=== PATIENT | female | born 1950 | race Caucasian/White ===

== ENCOUNTER 2019-08-15 09:14 | Outpatient (CLI) | payer MEDICARE, SELFPAY ==
[2019-08-15 09:51] LABS: Hematocrit 37.4 % (37.0-47.0); Hemoglobin 11.2 g/dL (12.0-15.0); Mean Corpuscular HGB Conc 29.9 g/dl (32-36); Mean Corpuscular Hemoglobin 26.4 pg (26-34); Mean Corpuscular Volume 88.2 fl (80-100); Mean Platelet Volume 10.2 fl (7.4-10.4); Platelet Count Result 239 k/mm3 (150-375); Red Blood Count 4.24 M/mm3 (4.2-5.4); White Blood Count 8.5 K/mm3 (4.5-10.0)
[2019-08-15 10:12] LABS: Alanine Aminotransferase 22 U/L (4-35); Albumin Level 4.6 g/dL (3.5-5.1); Alkaline Phosphatase 156 U/L (38-126); Aspartate Amino Transferase 43 U/L (14-36); Bilirubin,Total 0.9 mg/dL (0.2-1.3); Blood Urea Nitrogen 33 mg/dL (7-17); Carbon Dioxide 28 mmol/L (22-30); Chloride 96 mmol/L (98-107); Estimated Glomerular Filt Rate 41; Glucose 102 mg/dL (65-105); Potassium 4.9 mmol/L (3.4-5.0); Sodium 138 mmol/L (137-145)
== END 2019-08-15 09:15 | disposition home or self-care (01) ==
PROVIDERS: PCP Family Medicine; Visit Provider Family Medicine
DX: D64.9 Anemia, unspecified (principal); I50.23 Acute on chronic systolic (congestive) heart failure
CPT/HCPCS: 36415; 80053; 85027

== ENCOUNTER 2020-01-20 09:52 | Outpatient (CLI) | payer MEDICARE, SELFPAY ==
--- NOTE | ~2020-01-20 | XR_ITS ---
XR ankle LT min 3V DATE: 01/20/2020 10:35 INDICATION: Left ankle and foot pain TECHNIQUE: 4 views COMPARISON: None FINDINGS: Mild to moderate osteopenia is suggested. No fracture or dislocation of the ankle or disruption of the ankle mortise. No periosteal reaction or bone destruction. There is moderate plantar calcaneal enthesopathy. The arch of the foot is exaggerated. IMPRESSION: Mild to moderate osteopenia Plantar calcaneal enthesopathy Reviewed, dictated and finalized at location B.
--- NOTE | ~2020-01-20 | XR_ITS ---
XR foot LT min 3V DATE: 01/20/2020 10:35 INDICATION: Swelling and pain of the dorsum of the foot TECHNIQUE: 4 views COMPARISON: None FINDINGS: There is exaggeration of the arch of the foot. Moderate plantar calcaneal enthesopathy. Mild to moderate osteopenia. No fracture, dislocation, periosteal reaction or bone destruction is detected. IMPRESSION: Moderate plantar calcaneal enthesopathy Reviewed, dictated and finalized at location B.
[2020-01-20 10:36] LABS: Add Urine Microscopic? YES; Appearance Urine Clear (Clear); Bilirubin Urine Negative (Negative); Blood Urine Negative (Negative); Color Urine Yellow (Yellow); Glucose Urine UA Negative (Negative); Ketones Urine Negative (Negative); Leukocyte Esterase Ur Trace LEU/UL (NEGATIVE); Mucus Urine Rare /lpf; Nitrate Urine Negative (Negative); Protein Urine Negative (Negative); RBC Urine 0-2 /hpf (0-2); Specific Grav Ur 1.016 (1.001-1.035); Urobilinogen Urine Negative mg/dL (<2.0); WBC Urine 0-3 /hpf (0-3)
[2020-01-20 10:40] LABS: Alanine Aminotransferase 18 U/L (4-35); Albumin Level 4.4 g/dL (3.5-5.1); Alkaline Phosphatase 152 U/L (38-126); Anion Gap 15.2 mmol/L (7-16); Aspartate Amino Transferase 33 U/L (14-36); Bilirubin,Total 0.7 mg/dL (0.2-1.3); Blood Urea Nitrogen 44 mg/dL (7-17); Calcium 9.6 mg/dL (8.4-10.2); Carbon Dioxide 25 mmol/L (22-30); Chloride 103 mmol/L (98-107); Cholesterol 201 mg/dL (0-200); Estimated Glomerular Filt Rate 44; Glucose 109 mg/dL (65-105); HDL Direct 52 mg/dL; Potassium 5.2 mmol/L (3.4-5.0); Sodium 138 mmol/L (137-145); Triglycerides 202 mg/dL (<150); Uric Acid 9.5 mg/dL (2.5-7.5)
[2020-01-20 10:48] LABS: Erythrocyte Sedimentation Rate 52 mm/hr (0-20)
[2020-01-20 10:50] LABS: LDL Cholesterol Direct 105 mg/dL
[2020-01-20 11:05] LABS: Hematocrit 36.7 % (37.0-47.0); Hemoglobin 11.5 g/dL (12.0-15.0); Mean Corpuscular HGB Conc 31.3 g/dl (32-36); Mean Corpuscular Hemoglobin 27.7 pg (26-34); Mean Corpuscular Volume 88.4 fl (80-100); Mean Platelet Volume 10.1 fl (7.4-10.4); Platelet Count Result 253 k/mm3 (150-375); Red Blood Count 4.15 M/mm3 (4.2-5.4); Red Cell Distribution Width 13.8 % (11.5-14.5)
[2020-01-20 11:10] LABS: Vitamin D 25 Hydroxy 48.6 ng/mL
[2020-01-20 11:23] LABS: Thyroid Stimulating Hormone Reflex 0.149 uIU/mL (0.465-4.68)
[2020-01-20 12:34] LABS: Free T4 Free Thyroxine Reflex 1.43 ng/dL (0.78-2.19)
[2020-01-20 13:31] LABS: Total Triiodothyronine (T3) 1.09 NG/ML (0.97-1.69)
== END 2020-01-20 09:53 | disposition home or self-care (01) ==
PROVIDERS: PCP Family Medicine; Visit Provider Family Medicine
DX: E55.9 Vitamin D deficiency, unspecified (principal); E03.9 Hypothyroidism, unspecified; E78.2 Mixed hyperlipidemia; N18.3 Chronic kidney disease, stage 3 (moderate); M25.572 Pain in left ankle and joints of left foot; M79.672 Pain in left foot; D64.9 Anemia, unspecified; M77.32 Calcaneal spur, left foot; M77.31 Calcaneal spur, right foot; M85.872 Other specified disorders of bone density and structure, left ankle and foot
CPT/HCPCS: 36415; 73610; 73630; 80053; 80061; 81001; 82306; 84439; 84443; 84480; 84550; 85027; 85652

== ENCOUNTER 2021-02-01 10:03 | Outpatient (CLI) | payer MEDICARE, SELFPAY ==
--- NOTE | ~2021-02-01 | XR_ITS ---
XR knee LT 3V DATE: 02/01/2021 10:25 INDICATION: Left knee pain TECHNIQUE: [place], AP and lateral views COMPARISON: None FINDINGS: Diffuse osteopenia. No fracture or dislocation or joint effusion. No periosteal reaction or bone destruction. There is severe patellofemoral joint space narrowing and prominent spurring. There is mild periarticu lar spurring at the medial compartment. Medial and lateral compartment joint spaces appear relatively preserved. No radiopaque intra-articular loose body is evident. 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
--- NOTE | ~2021-02-01 | XR_ITS ---
XR knee RT 3V DATE: 02/01/2021 10:25 INDICATION: Bilateral knee pain. No injury. TECHNIQUE: [place], AP and lateral views COMPARISON: None FINDINGS: There is patellofemoral joint replacement. Diffuse osteopenia. No fracture or dislocation, periosteal reaction or bone destruction. There is periarticular spurring at the medial and lateral compartments and subtle chondrocalcinosis. IMPRESSION: Patellofemoral joint replacement Osteoarthritis of mild to moderate degree at the medial and lateral compartments Subtle chondrocalcinosis Diffuse osteopenia Reviewed, dictated and finalized at location B. IMPRESSION: Patellofemoral joint replacement Osteoarthritis of mild to moderate degree at the medial and lateral compartment s Subtle chondrocalcinosis Diffuse osteopenia
== END 2021-02-01 10:04 | disposition home or self-care (01) ==
LOC: ANHIMG 10:06
PROVIDERS: PCP Family Medicine; Visit Provider Family Medicine
DX: M25.569 Pain in unspecified knee (principal); M85.862 Other specified disorders of bone density and structure, left lower leg; M85.861 Other specified disorders of bone density and structure, right lower leg; M17.0 Bilateral primary osteoarthritis of knee; M11.262 Other chondrocalcinosis, left knee; M11.261 Other chondrocalcinosis, right knee
CPT/HCPCS: 73562

== ENCOUNTER 2021-02-08 09:04 | Outpatient (CLI) | payer MEDICARE, SELFPAY ==
[2021-02-08 14:57] LABS: Add Urine Microscopic? YES; Appearance Urine Cloudy (Clear); Bacteria Urine Trace /hpf; Bilirubin Urine Negative (Negative); Blood Urine Negative (Negative); Color Urine Amber (Yellow); Glucose Urine UA Negative (Negative); Ketones Urine Negative (Negative); Leukocyte Esterase Ur 3+ LEU/UL (NEGATIVE); Mucus Urine Rare /lpf; Nitrate Urine Negative (Negative); Protein Urine 2+ mg/dL (Negative); Specific Grav Ur 1.018 (1.001-1.035); Squamous Epithelial Cell Urine Rare /hpf (Few); Urobilinogen Urine Negative mg/dL (<2.0); WBC Urine >75 /hpf (0-3)
[2021-02-08 15:05] LABS: Anion Gap 12 mmol/L (8-16); Blood Urea Nitrogen 24 mg/dL (7-17); Calcium 9.4 mg/dL (8.4-10.2); Carbon Dioxide 17 mmol/L (22-30); Chloride 105 mmol/L (98-107); Estimated Glomerular Filt Rate 37; Glucose 128 mg/dL (65-110); Potassium 5.1 mmol/L (3.4-5.0); Sodium 134 mmol/L (137-145)
== END 2021-02-08 09:05 | disposition home or self-care (01) ==
PROVIDERS: PCP Family Medicine; Visit Provider Family Medicine
DX: N18.9 Chronic kidney disease, unspecified (principal)
CPT/HCPCS: 36415; 80048; 81001

== ENCOUNTER 2021-06-19 08:35 | Outpatient (CLI) | payer MEDICARE, SELFPAY ==
[2021-06-19 09:25] LABS: Hematocrit 37.6 % (37.0-47.0); Hemoglobin 11.4 g/dL (12.0-15.0); Mean Corpuscular HGB Conc 30.3 g/dl (32-36); Mean Corpuscular Hemoglobin 27.7 pg (26-34); Mean Corpuscular Volume 91.5 fl (80-100); Mean Platelet Volume 11.4 fl (7.4-10.4); Platelet Count Result 239 k/mm3 (150-375); Red Blood Count 4.11 M/mm3 (4.2-5.4); Red Cell Distribution Width 17.7 % (11.5-14.5); White Blood Count 7.9 K/mm3 (4.5-10.0)
[2021-06-19 09:32] LABS: Alanine Aminotransferase 18 U/L (4-35); Albumin Level 4.7 g/dL (3.5-5.1); Alkaline Phosphatase 159 U/L (38-126); Anion Gap 15 mmol/L (8-16); Aspartate Amino Transferase 31 U/L (14-36); Bilirubin,Total 1.2 mg/dL (0.2-1.3); Blood Urea Nitrogen 36 mg/dL (7-17); Calcium 9.6 mg/dL (8.4-10.2); Carbon Dioxide 23 mmol/L (22-30); Chloride 102 mmol/L (98-107); Estimated Glomerular Filt Rate 37; Glucose 131 mg/dL (65-110); Magnesium 2.4 mg/dL (1.6-2.3); Potassium 4.3 mmol/L (3.4-5.0); Sodium 140 mmol/L (137-145)
[2021-06-19 09:38] LABS: Hemoglobin A1C 6.8 % (<5.7)
== END 2021-06-19 08:36 | disposition home or self-care (01) ==
PROVIDERS: PCP Family Medicine; Visit Provider Family Medicine
DX: D64.9 Anemia, unspecified (principal); N18.30 Chronic kidney disease, stage 3 unspecified; R73.09 Other abnormal glucose; Z51.81 Encounter for therapeutic drug level monitoring; Z79.899 Other long term (current) drug therapy
CPT/HCPCS: 36415; 80053; 83036; 83735; 85027

== ENCOUNTER 2021-12-20 15:44 | Inpatient (IN) | payer MEDICARE, SELFPAY ==
[2021-12-20] VITALS (8 sets, daily range): BP systolic 109–131; BP diastolic 59–70; PULSE 98–114; RESP 18–22; TEMP 36.7–36.9; O2SAT 94–100; BMI 27.0
--- NOTE | ~2021-12-20 | CT_ITS ---
EXAMINATION: CT abdomen pelvis wo con DATE: 12/20/2021 18:37 INDICATION: Abdominal pain and shortness of breath TECHNIQUE: Computed tomography (CT) of the abdomen and pelvis was performed without intravenous contr ast. The dose-length product (DLP) was 685.34 mGy-cm. Automated exposure control and iterative recons truction technique were employed. COMPARISON: 12/07/2013 FINDINGS: Minimal dependent atelectasis is present in the lung bases. There is mild interlobular sept al thickening in the visualized lung bases. Cardiomegaly is noted. There is a moderate volume of asci marga. The gallbladder is surgically absent. Within the limitations of noncontrast examination, the dirk er, spleen, pancreas, and adrenal glands are normal. There are areas of scarring in the kidneys. Ther e is calcified atherosclerosis of the aorta and many of the other arteries. No pathologically enlarge d abdominal or pelvic lymph nodes are identified. There is a chronic 3.5 cm soft tissue density mass of the left pelvis with decrease in size since the prior examination. There is severe lumbar spondylo sis. IMPRESSION: 1. Cardiomegaly with likely mild pulmonary edema. 2. Moderate volume of ascites. Reviewed, dictated and finalized at location F.
--- NOTE | ~2021-12-20 | XR_ITS ---
EXAMINATION: XR chest 2V DATE: 12/20/2021 16:22 INDICATION: Shortness of breath. Water retention. TECHNIQUE: PA and lateral views of the chest were obtained. COMPARISON: Chest radiograph dated 09/09/2018 FINDINGS: Cardiomegaly. Mild increased interstitial pattern in the lower lung zones consistent with mild pulmon boyd edema. No pleural effusion or pneumothorax. Unchanged mild T12 compression fracture. IMPRESSION: 1. Likely congestive heart failure with cardiomegaly and mild pulmonary edema in the lower lung zones . Reviewed, dictated and finalized at location B. IMPRESSION: 1. Likely congestive heart failure with cardiomegaly and mild pulmonary edema i n the lower lung zones.
--- NOTE | 2021-12-20 15:56 | ECG_ITS ---
Measurements Intervals [place] Rate: 107 P: [place]: 0 QRS: 130 QRSD: 117 T: 34 QT: 368 QTc: 492 Interpretive Statements ATRIAL FIBRILLATION WITH RAPID VENTRICULAR RESPONSE LOW QRS VOLTAGE IN EXTREMITY LEADS [QRS DEFLECTION < 0.5 mV IN LIMB LEADS] INTRAVENTRICULAR CONDUCTION ABNORMALITY] COMPARED TO ECG 08/30/2018 15:10:26 NO CHANGES ARE NOTED Electronically Signed On 12-20-2021 16:58:15 CDT by Fadi Felder M.D.
[2021-12-20 16:09] LABS: Basophils Absolute Auto 0.1 K/mm3 (0.0-0.1); Basophils Percent Auto 0.5 % (0.2-1.2); Eosinophils Absolute Auto 0.1 K/mm3 (0-0.3); Hematocrit 45.8 % (37.0-47.0); Hemoglobin 14.1 g/dL (12.0-15.0); Immature Granulocyte Absolute 0.04 K/mm3 (0.00-0.031); Immature Granulocyte Percent A 0.4 % (0-0.5); Lymphocytes Absolute Auto 0.44 K/mm3 (0.9-3.2); Mean Corpuscular HGB Conc 30.8 g/dl (32-36); Mean Corpuscular Hemoglobin 29.6 pg (26-34); Mean Corpuscular Volume 96.2 fl (80-100); Mean Platelet Volume 10.4 fl (7.4-10.4); Monocytes Absolute Auto 0.5 K/mm3 (0.1-0.6); Monocytes Percent Auto 4.7 % (2.6-8.5); Neutrophils Absolute Auto 9.8 K/mm3 (1.3-6.7); Neutrophils Percent Auto 89.4 % (45.5-73.1); Platelet Count Result 228 k/mm3 (150-375); Red Blood Count 4.76 M/mm3 (4.2-5.4); Red Cell Distribution Width 16.5 % (11.5-14.5)
[2021-12-20 16:20] LABS: Alanine Aminotransferase 23 U/L (6-35); Albumin Level 4.5 g/dL (3.5-5.1); Alkaline Phosphatase 276 U/L (38-126); Anion Gap 12 mmol/L (8-16); Aspartate Amino Transferase 49 U/L (14-36); Bilirubin,Total 1.5 mg/dL (0.2-1.3); Blood Urea Nitrogen 27 mg/dL (7-17); Calcium 9.3 mg/dL (8.4-10.2); Carbon Dioxide 20 mmol/L (22-30); Chloride 105 mmol/L (98-107); Estimated CRCL calculation 38 ml/min; Estimated Glomerular Filt Rate 44; Glucose 133 mg/dL (65-110); Potassium 4.8 mmol/L (3.4-5.0); Sodium 137 mmol/L (137-145)
[2021-12-20 16:26] LABS: Ovalocytes 1+ (NORMAL); Platelet Estimate Adequate (Adequate)
[2021-12-20 18:16] LABS: Appearance Urine Clear (Clear); Bilirubin Urine 1+ (Negative); Blood Urine Trace-lysed (Negative); Color Urine Yellow (Yellow); Glucose Urine UA Negative (Negative); Ketones Urine Negative (Negative); Leukocyte Esterase Ur Trace LEU/UL (Negative); Nitrate Urine Negative (Negative); Protein Urine 1+ mg/dL (Negative); Urobilinogen Urine 0.2 mg/dL (<2.0)
[2021-12-20 18:20] LABS: Add Urine Microscopic? YES; Bacteria Urine Trace /hpf; Hyaline Casts Urine 30-49 /lpf; Mucus Urine Rare /lpf; RBC Urine 0-2 /hpf (0-2); Squamous Epithelial Cell Urine Few /hpf (Few)
[2021-12-20 18:55] LABS: Lipase 21 U/L (23-300); Magnesium 2.2 mg/dL (1.6-2.3)
[2021-12-20 19:08] LABS: NT Pro B Type Natriuretic Pept 16900 pg/mL (5-100); Troponin I 0.022 ng/mL (0.000-0.034)
--- NOTE | 2021-12-20 19:11 | ED.GENADULT ---
HPI - General Adult General Chief complaint: Shortness of Breath/Dyspnea Stated complaint: sob Time Seen by Provider: 12/20/21 17:07 Source: RN notes reviewed History of Present Illness HPI narrative: Patient presents emergency department from PCPs office for shortness of breath. Patient states she is seen by her PCP approximately a week ago was diagnosed with CHF at that time she was told to increase her Lasix from once a day to twice a day however she did not want to do that as she has had a history of kidney issues in the past she states that since that time she has been having increased swelling as well as shortness of breath worse with exertion she states that she has had an 18 pound weight gain over the past 2 weeks. Patient states she does have a history of atrial fibrillation and CHF she is followed by Dr. Rudd but has been being seen by her PCP Dr. Blanc. States that she had been on a course of Cipro for a UTI and had been constipated but is now on MiraLAX has been having numerous episodes of diarrhea she denies any fevers or chills or any other symptoms Related Data Home Medications Medication Instructions Recorded Confirmed cholecalciferol (vitamin D3) 10 400 unit PO DAILY 05/10/19 12/09/21 mcg (400 unit) capsule cyanocobalamin (vitamin B-12) 500 500 mcg PO DAILY 12/09/21 12/09/21 mcg chewable tablet Allergies Allergy/AdvReac Type Severity Reaction Status Date / Time cefuroxime Allergy Unknown Unknown Verified 12/20/21 18:12 ezetimibe Allergy Unknown Unknown Verified 12/20/21 18:12 simvastatin Allergy Unknown Unknown Verified 12/20/21 18:12 Sulfa (Sulfonamide Allergy Unknown Unknown Verified 12/20/21 18:12 Antibiotics) sulfanilamide Allergy Unknown Unknown Verified 12/20/21 18:12 Review of Systems Review of Systems: Gen.: Denies fevers or chills ENT: Denies congestion Respiratory: Ports shortness of breath CV: Denies chest pain or palpitations GI: Denies abdominal pain nausea, emesis reports diarrhea denies burning, urgency, frequency or hematuria Musculoskeletal: Denies back pain or muscle pain Neuro: Denies numbness, tingling, weakness or focal weakness Skin: Denies rash Except as documented, all other systems reviewed and negative PMFSH Past Medical History Medical History Acute on chronic renal insufficiency Age-related osteoporosis with current pathological fracture Allergic rhinitis Anemia Asthma, mild intermittent Breast cancer Cardiomyopathy Chronic congestive heart failure Chronic renal insufficiency, stage III (moderate) Closed wedge compression fracture of thoracic vertebra with routine healing Coronary artery disease Depression Elevated glucose H/O malignant neoplasm of breast H/O: gout Hypomagnesemia Hypothyroidism Mild intermittent asthma with exacerbation Mixed hyperlipidemia Osteopenia Other hyperlipidemia Paroxysmal atrial fibrillation Peripheral vascular disease Post-polio syndrome Prediabetes Severe episode of recurrent major depressive disorder, without psychotic features Thyroid disease Vitamin D deficiency Surgical History Surgical History History of cardiac cath History of knee replacement History of partial hysterectomy Hx of colonoscopy Family History Family History Father Hypertension Family history of kidney disease Sibling Hypertension Family history of elevated blood lipids Other Cerebrovascular accident Diabetes mellitus Social History Social History Smoking status: Never smoker Second hand tobacco smoke exposure: No Alcohol intake: never Substance use: never Substance use type: does not use Gender identity (if verbalized by the patient): Female Sexual Orientation (if Verbalized by the Patient): Str
[2021-12-20 19:15] LABS: INR 1.5; Prothrombin Time 17.3 Seconds (11.1-14.7)
[2021-12-20 19:16] LABS: Partial Thromboplastin Time 37.6 SECONDS (22.3-36.8)
--- NOTE | 2021-12-20 19:33 | PM.IMHP ---
H&P: HPI History of Present Illness Date/Time: 12/20/21 19:33 Chief Complaint: Shortness of breath Narrative: This is a 71-year-old female with past medical history significant for atrial fibrillation, rate controlled and anticoagulated, congestive heart failure, chronic kidney disease. Patient presents to the emergency room due to the worsening of shortness of breath, which is present not only with exertion but now at rest as well increases abdominal girth, worsening bilateral lower extremity edema, shortness of breath, PND, cough productive of clear phlegm, no chest pain, no palpitations, no dizziness, no syncope, no near syncope, no fevers, no rigors, no chills. Preliminary workup was significant for brain natriuretic peptide 16,000 chest x-ray with pulmonary edema. Patient has been admitted for further evaluation, management and treatment. Review of Systems Review of Systems: Shortness of breath, cough, bilateral lower extremity swelling, weight gain, increased abdominal girth. Constitutional: Constitutional: Denies chills, Reports fatigue, Denies fever(s) and Reports lethargy Eyes: Eyes: Denies change in vision Cardiovascular: Cardiovascular: Denies chest pain, Denies syncope, Reports edema, Denies lightheadedness, Denies palpitations, Reports dyspnea and Reports dyspnea on exertion Respiratory: Respiratory: Reports cough and Reports excessive phlegm production Gastrointestinal: Gastrointestinal: Denies abdominal pain, Denies dyspepsia, Denies heartburn and Reports diarrhea Genitourinary: Genitourinary: Denies dysuria Musculoskeletal: Musculoskeletal: Reports muscle weakness Integumentary/Breasts: Skin/Breast: Denies rash Neurologic: Denies focal weakness and Denies Sensory deficit (Neuro) Psychiatric: Psychiatric: Reports no additional psychiatric complaints and Reports as per HPI Endocrine: Endocrine: Denies cold intolerance, Denies fatigue, Denies flushing, Denies heat intolerance, Denies polyphagia, Denies polydipsia and Denies palpitations Hematologic/Lymphatic: Hematologic/Lymphatic: Reports no additional hematologic/lymphatic complaints and Reports as per HPI Allergic/Immunologic: Allergic/Immunologic: Reports no additional allergic/immunologic complaints and Reports as per HPI PMFSH Past Medical History Medical History (Updated 12/21/21 @ 02:15 by Orlando Hector MD) Acute on chronic renal insufficiency Age-related osteoporosis with current pathological fracture Allergic rhinitis Anemia Asthma, mild intermittent Breast cancer Cardiomyopathy Chronic congestive heart failure Chronic renal insufficiency, stage III (moderate) Closed wedge compression fracture of thoracic vertebra with routine healing Coronary artery disease Depression Elevated glucose H/O malignant neoplasm of breast H/O: gout Hypomagnesemia Hypothyroidism Mild intermittent asthma with exacerbation Mixed hyperlipidemia Osteopenia Other hyperlipidemia Paroxysmal atrial fibrillation Peripheral vascular disease Post-polio syndrome Prediabetes Severe episode of recurrent major depressive disorder, without psychotic features Thyroid disease Vitamin D deficiency Surgical History Surgical History History of cardiac cath History of knee replacement History of partial hysterectomy Hx of colonoscopy Family History Family History Father Hypertension Family history of kidney disease Sibling Hypertension Family history of elevated blood lipids Other Cerebrovascular accident Diabetes mellitus Social History Social History Smoking packs per day: 1 Smoking cigarettes per day: 20.0 Years smoked: 40 Smoking pack-years: 40.00 Smoking status: Former smoker Tobacco type: cigarettes Second hand tobacco smoke exposure: No Smoking end date: 12/20/96
[2021-12-20] MEDS: FUROSEMIDE INJ 40 MG/4 ML VIAL IV PUSH (19:50)
--- NOTE | 2021-12-20 20:25 | ADMGEN ---
This patient, Jyotsna Allred, was admitted to Medical Room 252-01. Patient/family oriented to hospital policies and general routines including ID bracelet, bed and alarms, visiting hours, pain management, procedures, bathroom and other care routines, personal items, smoking policy, room service/diet, and visiting hours. Information on how to activate the Rapid Response Team has been discussed. Patient/Family are encouraged to report perceived risks to care and to ask questions if they do not understand what they are told or what they should do.
--- NOTE | 2021-12-20 20:55 | ECG_ITS ---
Measurements Intervals [place] Rate: 106 P: [place]: 0 QRS: 101 QRSD: 120 T: 0 QT: 381 QTc: 508 Interpretive Statements ATRIAL FIBRILLATION WITH RAPID VENTRICULAR RESPONSE INTRAVENTRICULAR CONDUCTION DELAY COMPARED TO ECG 12/20/2021 15:54:33 NO SIGNIFICANT CHANGE Electronically Signed On 12-21-2021 7:52:18 CDT by Fadi Felder M.D.
[2021-12-20] MEDS: LOPERAMIDE HCL 2 MG CAPSULE PO ×2 (22:07→23:11)
[2021-12-20] MEDS: METOPROLOL TARTRATE 25 MG TABLET PO (23:10)
[2021-12-20 23:17] LABS: Troponin I 0.025 ng/mL (0.000-0.034)
[2021-12-21] VITALS (10 sets, daily range): BP systolic 107–115; BP diastolic 58–72; PULSE 84–107; RESP 17–18; TEMP 36.6–37; O2SAT 96–98
--- NOTE | 2021-12-21 | ECHO_ITS ---
Patient Info Name: Jyotsna Allred Age: 71 years : 1950 Gender: Female Ht: 68 in Wt: 177 lbs BSA: 1.98 m2 HR: 79 bpm BP: 107 / 58 mmHg Heart Rhythm: Atrial Fibrillation Technical Quality: Good Exam Date: 12/21/2021 8:49 AM Exam Location: [facility] Patient Status: Outpatient Admit Date: 12/20/2021 Staff Ordering Physician: Orlando Hector MD News Commentator: Devi Morris RDCS Attending Provider: Kimberly James PA-C Referring Physician: Krunla HUFF; Exam Type: CA echo doppler color flow Study Info Indications I50.20 - Unspecified systolic (congestive) heart failure Complete two-dimensional, color flow and Doppler transthoracic echocardiogram is performed. Summary 1. Complete two-dimensional, color flow and Doppler transthoracic echocardiogram is performed. 2. Left ventricular chamber dimension is moderately enlarged. 3. Left ventricular systolic function is severely reduced, estimated at 25-30%. 4. Severe biatrial dilation. 5. Moderate mitral and tricuspid regurgitation. 6. Mild aortic regurgitation. 7. Atrial fibrillation. Left Ventricle Left ventricular chamber dimension is moderately enlarged. Left ventricular systolic function is severely reduced, estimated at 25-30%. The left ventricular diastolic function is abnormal. Right Ventricle Right ventricular chamber dimension is mildly enlarged. Left Atria Left atrial chamber dimension is severely enlarged. Right Atria Right atrial chamber dimension is severely enlarged. Aortic Valve The aortic valve is trileaflet. There is mild aortic valve sclerosis. There is mild aortic valve regurgitation. Pulmonic Valve The pulmonic valve is not well visualized. Mitral Valve The mitral valve has normal leaflets. There is moderate mitral valve regurgitation. Tricuspid Valve The tricuspid valve leaflets are normal. There is moderate tricuspid valve regurgitation. Pericardium/Pleural The pericardium appears normal. Inferior Vena Cava Dilated inferior vena cava with <50% collapse upon inspiration consistent with Empty right atrial pressure, Empty. Aorta The aortic root size at the sinus of Valsalva is normal. Left Ventricular Outflow Tract Name Value Normal LVOT 2D LVOT Diameter 1.9 cm LVOT Doppler LVOT Peak Gradient 2 mmHg LVOT Mean Gradient 1 mmHg LVOT VTI 14 cm LVOT VTI/AV VTI Ratio 0.4 LVOT Stroke Volume 40 ml LVOT CO 3.7 l/min LVOT CI 1.9 l/min/m2 Pulmonic Valve Name Value Normal PV Doppler PV Peak Gradient 3 mmHg Mitral Valve Name
[2021-12-21 05:45] LABS: Basophils Absolute Auto 0.1 K/mm3 (0.0-0.1); Basophils Percent Auto 0.6 % (0.2-1.2); Eosinophils Absolute Auto 0.2 K/mm3 (0-0.3); Hematocrit 38.8 % (37.0-47.0); Hemoglobin 12.4 g/dL (12.0-15.0); Immature Granulocyte Absolute 0.03 K/mm3 (0.00-0.031); Immature Granulocyte Percent A 0.4 % (0-0.5); Mean Corpuscular Hemoglobin 29.9 pg (26-34); Mean Corpuscular Volume 93.5 fl (80-100); Mean Platelet Volume 11.4 fl (7.4-10.4); Monocytes Absolute Auto 0.6 K/mm3 (0.1-0.6); Monocytes Percent Auto 6.8 % (2.6-8.5); Neutrophils Percent Auto 84.2 % (45.5-73.1); Platelet Count Result 211 k/mm3 (150-375); Red Blood Count 4.15 M/mm3 (4.2-5.4); Red Cell Distribution Width 16.2 % (11.5-14.5); White Blood Count 8.4 K/mm3 (4.5-10.0)
[2021-12-21 05:52] LABS: Alanine Aminotransferase 19 U/L (6-35); Albumin Level 3.6 g/dL (3.5-5.1); Alkaline Phosphatase 210 U/L (38-126); Anion Gap 9 mmol/L (8-16); Aspartate Amino Transferase 48 U/L (14-36); Bilirubin,Total 1.1 mg/dL (0.2-1.3); Blood Urea Nitrogen 26 mg/dL (7-17); Calcium 8.5 mg/dL (8.4-10.2); Carbon Dioxide 19 mmol/L (22-30); Chloride 107 mmol/L (98-107); Estimated CRCL calculation 41 ml/min; Estimated Glomerular Filt Rate 49; Glucose 89 mg/dL (65-110); Potassium 4.2 mmol/L (3.4-5.0); Sodium 135 mmol/L (137-145)
[2021-12-21] MEDS: LEVOTHYROXINE SODIUM 125 MCG TABLET PO (05:54)
[2021-12-21 09:27] LABS: Troponin I 0.019 ng/mL (0.000-0.034)
[2021-12-21] MEDS: FUROSEMIDE INJ 100 MG/10 ML VIAL 80 MG IV PUSH ×2 (09:33→17:02)
[2021-12-21] MEDS: allopurinoL 100 MG TABLET PO (09:33)
[2021-12-21] MEDS: METOPROLOL SUCCINATE EXT REL 100 MG TABCR PO (09:34)
[2021-12-21] MEDS: SPIRONOLACTONE 25 MG TABLET PO (09:34)
[2021-12-21] MEDS: FERROUS SULFATE 324 MG TABLET PO (09:34)
[2021-12-21] MEDS: PANTOPRAZOLE 40 MG TABLET PO (09:34)
[2021-12-21] MEDS: CYANOCOBALAMIN 500 MCG TABLET PO (09:34)
[2021-12-21] MEDS: lamoTRIgine 100 MG TABLET PO (09:34)
[2021-12-21] MEDS: CHOLECALCIFEROL 400 UNITS TABLET (VIT D) PO (09:34)
[2021-12-21] MEDS: LOPERAMIDE HCL 2 MG CAPSULE PO (11:23)
--- NOTE | 2021-12-21 14:21 | PM.IMPN ---
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 Kemp <ALEXANDRA BlancoC - Last Filed: 12/21/21 14:35> (2) Paroxysmal atrial fibrillation: Code(s): I48.0 - Paroxysmal atrial fibrillation <CLIFFORD Blanco-C - Last Filed: 12/21/21 14:35> Status: Acute <CLIFFORD Blanco-C - Last Filed: 12/21/21 14:35> Assessment and Plan: Continue metoprolol and xarelto <CLIFFORD Blanco-C - Last Filed: 12/21/21 14:35> (3) Chronic renal insufficiency, stage III (moderate): Code(s): N18.3 - Chronic kidney disease, stage 3 (moderate) <CLIFFORD Blanco-C - Last Filed: 12/21/21 14:35> Status: Acute <KimberlyCLIFFORD Blackman-C - Last Filed: 12/21/21 14:35> Assessment and Plan: At baseline, monitor closely with the increase of diuretics <ALEXANDRA BlancoC - Last Filed: 12/21/21 14:35> (4) Essential hypertension: Code(s): I10 - Essential (primary) hypertension <ALEXANDRA BlancoC - Last Filed: 12/21/21 14:35> Status: Acute <Kimberly James PA-C - Last Filed: 12/21/21 14:35> Assessment and Plan: Continue home meds Continue to monitor <Kimberly James PA-C - Last Filed: 12/21/21 14:35> (5) Cardiomyopathy: Code(s): I42.9 - Cardiomyopathy, unspecified <Kimberly James PA-C - Last Filed: 12/21/21 14:35> Status: Acute <Kimberlyshen James PA-C - Last Filed: 12/21/21 14:35> Assessment and Plan: last bp 109/66 <Kimberly James PA-C - Last Filed: 12/21/21 14:35> Assessment and Plan: non gap acidosis which is waxing and waning. diuretics? but this was also noted on admission as well as 02/08/21. monitor while on diuretics <Kimberly James PA-C - Last Filed: 12/21/21 14:35> Time Spent With Patient Time with patient: 25 - 35 minutes <Kimberly James PA-C - Last Filed: 12/21/21 14:35> Subjective Date/time seen: 12/21/21 14:21 <Kimberly James PA-C - Last Filed: 12/21/21 14:35> Interval history: Pt is a 71 year old female here for CHF. Patient states that she is feeling better. She has no shortness of breath or dyspnea on exertion. She says her swelling is better in her lower extremities but is still pretty swollen. They have been like this for 3 weeks. She denies lightheadedness, chest pain, dizziness or heart palpitations. <Kimberly James PA-C - Last Filed: 12/21/21 14:35> Review of Systems Review of Systems: All systems reviewed & are unremarkable except as noted in HPI and below <Kimberly James PA-C - Last Filed: 12/21/21 14:35> Exam Narrative: General: Well developed well nourished patient in NAD resting in bed in NAD HEENT: normocephalic Neck: supple Neuro: Alert and oriented x4 CV:irregularly irregular Resp:crackles, bilaterally Abd: Soft, non distended. No pain to palpation. Positive bowel sounds Extremities: 3+ pitting edema up to the knee bilaterally <Kimberly James PA-C - Last Filed: 12/21/21 14:35> Objective Data Vital Signs Vital Signs: Vital Signs - 24 hr 12/20/21 15:52 12/20/21 17:58 12/20/21 17:58 Temperature 98.4 F Pulse Rate 103 H 98 105 H Respiratory Rate 18 19 Blood Pressure 124/59 L 118/66 Pulse Oximetry 100
[2021-12-21] MEDS: RIVAROXABAN 20 MG TABLET PO (20:22)
[2021-12-21] MEDS: ROSUVASTATIN 10 MG TABLET 40 MG PO (20:23)
[2021-12-21] MEDS: SERTRALINE HCL 50 MG TABLET 150 MG PO (20:23)
[2021-12-22] VITALS (10 sets, daily range): BP systolic 100–111; BP diastolic 59–67; PULSE 80–104; RESP 17–20; TEMP 36.2–36.6; O2SAT 97–98
[2021-12-22 05:52] LABS: Anion Gap 6 mmol/L (8-16); Blood Urea Nitrogen 27 mg/dL (7-17); Calcium 8.5 mg/dL (8.4-10.2); Carbon Dioxide 20 mmol/L (22-30); Chloride 107 mmol/L (98-107); Estimated CRCL calculation 41 ml/min; Estimated Glomerular Filt Rate 49; Glucose 91 mg/dL (65-110); Magnesium 1.8 mg/dL (1.6-2.3); Potassium 4.2 mmol/L (3.4-5.0); Sodium 133 mmol/L (137-145)
[2021-12-22] MEDS: CHOLECALCIFEROL 400 UNITS TABLET (VIT D) PO (08:59)
[2021-12-22] MEDS: CYANOCOBALAMIN 500 MCG TABLET PO (08:59)
[2021-12-22] MEDS: lamoTRIgine 100 MG TABLET PO (08:59)
[2021-12-22] MEDS: FUROSEMIDE INJ 100 MG/10 ML VIAL 80 MG IV PUSH ×2 (08:59→16:57)
[2021-12-22] MEDS: FERROUS SULFATE 324 MG TABLET PO (08:59)
[2021-12-22] MEDS: SPIRONOLACTONE 25 MG TABLET PO (08:59)
[2021-12-22] MEDS: allopurinoL 100 MG TABLET PO (08:59)
[2021-12-22] MEDS: PANTOPRAZOLE 40 MG TABLET PO (08:59)
[2021-12-22] MEDS: METOPROLOL SUCCINATE EXT REL 100 MG TABCR PO (08:59)
--- NOTE | 2021-12-22 10:53 | PM.CNCAR ---
Assessment and Plan Assessment and plan (1) CHF (congestive heart failure): Code(s): I50.9 - Heart failure, unspecified Status: Acute (2) Chronic atrial fibrillation: Code(s): I48.20 - Chronic atrial fibrillation, unspecified Status: Acute (3) Mitral regurgitation: Code(s): I34.0 - Nonrheumatic mitral (valve) insufficiency Status: Acute Plan This is a 71-year-old woman with chronic left ventricular systolic dysfunction, chronic mitral regurgitation and chronic atrial fibrillation. She presents to the hospital apparent with 2 with some increasing lower extremity edema. He is not really reporting significant dyspnea. There are some mild rales on physical exam as described above. I would recommend transitioning her from lisinopril to Entresto as her vaso dilator of choice. She has been on Entresto in the past the reasons for stopping it are not well delineated in the chart. I will make that change starting tomorrow since she is on a very small dose of lisinopril. The patient's ejection fraction in the past has been even lower than we are seeing now. It may well be this patient has waited too long to consider mitral valve intervention as she has had this valvular heart disease for many years according to the chart and it left ventricular function has been slowly declining. In addition to this her DNR status would now preclude any aggressive management of her valvular heart disease in my opinion Fadi Felder MD [facility] History of Present Illness History of Present Illness Consult date/time: 12/22/21 10:53 Consult reason: congestive heart failure Reason For Visit: CHF Narrative: This is a 71-year-old woman I am seeing today at the request of the hospitalist for assistance with the management of congestive heart failure. The patient has a history of left ventricular systolic dysfunction, chronic atrial fibrillation and valvular heart disease and follows with my partner Dr. Rudd. The patient came into the hospital couple of days ago with some increasing lower extremity edema and apparently some mild shortness of breath. Her principal concern was because of leg edema. She has been treated with some IV furosemide and is noticing some improvement. It is not clear to me if our office was consulted to consider treating this as an outpatient rather than hospitalizing her since she does not seem to be reporting significant dyspnea. In any event because of her echocardiographic findings I have been asked to see her today. She has a longstanding history of a cardiomyopathy that has been attributed to previous chemotherapy many years ago. 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 She has chronic atrial fibrillation on the basis of this as well as mitral valve regurgitation. Over the years she has had a number of echocardiograms as 1 would expect. She has had ejection fractions as high as 45% and as low as 20-25% in 2019. She is not known to have any coronary artery disease. In this setting she is being seen in consultation. Her echocardiogram that was done yesterday demonstrates moderate LV dilation with an ejection fraction of 25-30% she has severe biatrial dilation and moderate mitral and tricuspid valve regurgitation. In the office on a number of occasions the patient has spoken with my partner about mitral valve procedural treatment with mitral valve repair. Transesophageal echocardiogram was discussed and recommended to her but she declined to proceed with any of that. She does have DNR orders on her chart now. Her primary care physician is Dr. Dexter who also is actively managing her heart failure. Her current heart failure regimen includes furosemide 40 mg b.i.d., lisinopril 2.5 mg daily metoprolol 100 mg daily and Xarelto 20 mg daily. She also takes spironolactone 25 mg daily. Review of Systems Constitutional: Constitutional: Reports lethargy Eye
--- NOTE | 2021-12-22 11:37 | PM.IMPN ---
Progress Note: A&P Assessment and Plan (1) Acute on chronic systolic CHF (congestive heart failure), NYHA class 1: Code(s): I50.23 - Acute on chronic systolic (congestive) heart failure Status: Acute Assessment and Plan: HFrEF-Echo shows EF has worsened from 25-30%, down from 45% back in november 2019 -Continue IV lasix (currently on lasix 80mg BID IV per chairman and chief executive officer) -Consider adding entresto, will need to stop lisinopril if cardiology agrees with entresto -Continue metoprolol succinate, spironolactone and lasix and consider adding sgl2 and -will consult cardiology, pt usually sees Dr. 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 (2) Paroxysmal atrial fibrillation: Code(s): I48.0 - Paroxysmal atrial fibrillation Status: Acute Assessment and Plan: Continue metoprolol and xarelto (3) Chronic renal insufficiency, stage III (moderate): Code(s): N18.3 - Chronic kidney disease, stage 3 (moderate) Status: Acute Assessment and Plan: At baseline, monitor closely with the increase of diuretics (4) Essential hypertension: Code(s): I10 - Essential (primary) hypertension Status: Acute Assessment and Plan: Continue home meds Continue to monitor (5) Cardiomyopathy: Code(s): I42.9 - Cardiomyopathy, unspecified Status: Acute Assessment and Plan: last bp 109/66 Plan non gap acidosis which is waxing and waning. diuretics? but this was also noted on admission as well as 02/08/21. monitor while on diuretics Subjective Date/time seen: 12/22/21 11:37 12/21 2021 nterval history HFrEF-Echo shows EF has worsened from 25-30%, down from 45% back in november 2019 -Continue IV lasix (currently on lasix 80mg BID IV per chairman and chief executive officer) -Consider adding entresto, will need to stop lisinopril if cardiology agrees with entresto -Continue metoprolol succinate, spironolactone and lasix and consider adding sgl2 and -will consult cardiology, pt usually sees Dr. 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 Review of Systems Review of Systems: All systems reviewed & are unremarkable except as noted in HPI and below Constitutional: Constitutional: Reports lethargy Exam Narrative: Patient is comfortable, NAD HEENT: eyes are clear and none icteric LUNGS:Normal respiratory effort ABD: not distended Lower extremities: no edema SKIN: nonjaundiced Neuro: grossly intact. Objective Data Vital Signs Vital Signs: Vital Signs - 24 hr 12/21/21 12:00 12/21/21 14:00 12/21/21 16:00 Temperature 98.6 F Pulse Rate 101 H 93 87 Respiratory Rate 18 Blood Pressure 115/62 Pulse Oximetry 96 Oxygen Delivery 12/21/21 19:14 12/21/21 20:00 12/22/21 00:00 Temperature 98 F Pulse Rate 102 H 91 87 Respiratory Rate 17 Blood Pressure 113/72 Pulse Oximetry 97
[2021-12-22] MEDS: SERTRALINE HCL 50 MG TABLET 150 MG PO (20:21)
[2021-12-22] MEDS: ROSUVASTATIN 10 MG TABLET 40 MG PO (20:22)
[2021-12-22] MEDS: RIVAROXABAN 20 MG TABLET PO (20:22)
[2021-12-23] VITALS (9 sets, daily range): BP systolic 107–115; BP diastolic 52–62; PULSE 78–104; RESP 17–20; TEMP 36.2–36.9; O2SAT 96–99
[2021-12-23 05:49] LABS: Anion Gap 8 mmol/L (8-16); Blood Urea Nitrogen 30 mg/dL (7-17); Calcium 8.6 mg/dL (8.4-10.2); Carbon Dioxide 24 mmol/L (22-30); Chloride 102 mmol/L (98-107); Estimated CRCL calculation 41 ml/min; Estimated Glomerular Filt Rate 49; Glucose 109 mg/dL (65-110); Magnesium 1.7 mg/dL (1.6-2.3); Sodium 134 mmol/L (137-145)
[2021-12-23] MEDS: LEVOTHYROXINE SODIUM 125 MCG TABLET PO (05:50)
[2021-12-23] MEDS: METOPROLOL SUCCINATE EXT REL 100 MG TABCR PO (08:11)
[2021-12-23] MEDS: FUROSEMIDE INJ 100 MG/10 ML VIAL 80 MG IV PUSH (08:11)
[2021-12-23] MEDS: PANTOPRAZOLE 40 MG TABLET PO (08:12)
[2021-12-23] MEDS: lamoTRIgine 100 MG TABLET PO (08:12)
[2021-12-23] MEDS: FERROUS SULFATE 324 MG TABLET PO (08:12)
[2021-12-23] MEDS: CYANOCOBALAMIN 500 MCG TABLET PO (08:12)
[2021-12-23] MEDS: SPIRONOLACTONE 25 MG TABLET PO (08:12)
[2021-12-23] MEDS: allopurinoL 100 MG TABLET PO (08:12)
[2021-12-23] MEDS: SACUBITRIL/VALSARTAN 24-26 MG TABLET 1 TAB PO ×2 (08:12→20:25)
[2021-12-23] MEDS: CHOLECALCIFEROL 400 UNITS TABLET (VIT D) PO (08:12)
--- NOTE | 2021-12-23 09:01 | PM.PNCARD ---
Progress Note: A&P Assessment and Plan (1) CHF (congestive heart failure): Code(s): I50.9 - Heart failure, unspecified Status: Acute Assessment and Plan: Presents with bilateral ankle edema and some shortness of breath. Has been diuresed with IV furosemide and is improved. Can shift back to p.o. furosemide and anticipate discharge from my standpoint within the next 24-48 hours. (2) Chronic atrial fibrillation: Code(s): I48.20 - Chronic atrial fibrillation, unspecified Status: Acute Assessment and Plan: Rate controlled on metoprolol. Continue systemic a/c with Xarelto. (3) Mitral regurgitation: Code(s): I34.0 - Nonrheumatic mitral (valve) insufficiency Status: Acute Assessment and Plan: Moderate MR by recent echo. May be candidate for Mitraclip. This can be discussed with Dr. Rudd as an outpatient. Subjective Date/time seen: 12/23/21 09:01 Cardiology follow up for cardiomyopathy, atrial fibrillation, CHF, MR Feeling much better today. Her swelling has improved significantly. She still has some JEAN. Review of Systems Constitutional: Constitutional: Reports lethargy Eyes: Eyes: Reports no additional eye complaints ENT: Reports system reviewed and no additional complaints, except as documented Cardiovascular: Cardiovascular: Reports as per HPI, Reports leg edema and Reports dyspnea on exertion Respiratory: Respiratory: Reports dyspnea on exertion Gastrointestinal: Gastrointestinal: Reports no additional gastrointestinal complaints Musculoskeletal: Musculoskeletal: Reports back pain Integumentary/Breasts: Skin/Breast: Reports system reviewed and no additional complaints, except as docu Endocrine: Endocrine: Reports no additional endocrine complaints Hematologic/Lymphatic: Hematologic/Lymphatic: Reports no additional hematologic/lymphatic complaints Allergic/Immunologic: Allergic/Immunologic: Reports no additional allergic/immunologic complaints Exam Const: General: comfortable and no acute distress Other: Well-developed well-nourished white female sitting on the edge of the bed. HENMT: Mouth: Yes moist mucous membranes Eyes: Sclera: sclerae normal Pupils: Equal, round and reactive pupils present Neck: Neck: supple and no JVD Other: Carotid pulses are intact bilaterally Resp: Effort & Inspection: normal respiratory effort Auscultation: crackles (L base ) Cardio: Rhythm: abnormal rhythm irregularly irregular Heart sounds: Murmur heart sound present systolic GI: Auscultation: normal bowel sounds Skin: General skin exam: normal color Neuro: Cranial nerves: Yes Equal, round and reactive pupils present Other: Normal cognition Extrem: Other: Mild bilateral LE edema Objective Data Vital Signs Vital Signs: Vital Signs - 24 hr 12/22/21 09:46 12/22/21 12:00 12/22/21 14:00 Temperature 36.2 C L Pulse Rate 104 H 88 Respiratory Rate 20 Blood Pressure 111/59 L Pulse Oximetry 97 Oxygen Delivery Room Air 12/22/21 16:00 12/22/21 19:14 12/22/21 20:00 Temperature 36.3 C L Pulse Rate 87 88 88 Respiratory Rate 17 17 Blood Pressure 104/67 Pulse Oximetry 97 97 Oxygen Delivery Room Air 12/22/21 20:00 12/23/21 00:00 12/23/21 04:04 Temperature 36.3 C L Pulse Rate 90 104 H 78 Respiratory Rate 17 Blood Pressure 108/62 Pulse Oximetry 99 Oxygen Delivery 12/23/21 04:00 Temperature Pulse Rate 85 Respiratory Rate Blood Pressure Pulse Oximetry Oxygen Delivery Intake/Output Intake/Output: Intake & Output 12/20/21 12/21/21 12/22/21 12/23/21 23:59 23:59 23:59 23:59 Intake Total 980 480 540 Output Total 800 800 Balance 180 -320 540 Meds/Results Medications: Active Medications Generic Name Dose Route Start Last Admin Trade Name Freq PRN Reason Stop Dose Admin Allopurinol 100 mg 12/21/21 09:00 12/23/21 08:12 Allopurinol 100 Mg Tablet PO 100 mg D
--- NOTE | 2021-12-23 12:22 | PM.IMPN ---
Progress Note: A&P Assessment and Plan (1) Acute on chronic systolic CHF (congestive heart failure), NYHA class 1: Code(s): I50.23 - Acute on chronic systolic (congestive) heart failure Status: Acute Assessment and Plan: HFrEF-Echo shows EF has worsened from 25-30%, down from 45% back in november 2019 -Continue IV lasix (currently on lasix 80mg BID IV per welding pantograph machine operator) -Consider adding entresto, will need to stop lisinopril if cardiology agrees with entresto -Continue metoprolol succinate, spironolactone and lasix and consider adding sgl2 and -will consult cardiology, pt usually sees Dr. 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 (2) Paroxysmal atrial fibrillation: Code(s): I48.0 - Paroxysmal atrial fibrillation Status: Acute Assessment and Plan: Continue metoprolol and xarelto (3) Chronic renal insufficiency, stage III (moderate): Code(s): N18.3 - Chronic kidney disease, stage 3 (moderate) Status: Acute Assessment and Plan: At baseline, monitor closely with the increase of diuretics (4) Essential hypertension: Code(s): I10 - Essential (primary) hypertension Status: Acute Assessment and Plan: Continue home meds Continue to monitor (5) Cardiomyopathy: Code(s): I42.9 - Cardiomyopathy, unspecified Status: Acute Assessment and Plan: last bp 109/66 Plan non gap acidosis which is waxing and waning. diuretics? but this was also noted on admission as well as 02/08/21. 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 Review of Systems Review of Systems: All systems reviewed & are unremarkable except as noted in HPI and below Exam Narrative: Patient is comfortable, NAD HEENT: eyes are clear and none icteric LUNGS:Normal respiratory effort ABD: not distended Lower extremities: no edema SKIN: nonjaundiced Neuro: grossly intact. Objective Data Vital Signs Vital Signs: Vital Signs - 24 hr 12/22/21 14:00
[2021-12-23] MEDS: FUROSEMIDE 80 MG TABLET PO (17:25)
[2021-12-23] MEDS: RIVAROXABAN 20 MG TABLET PO (20:25)
[2021-12-23] MEDS: SERTRALINE HCL 50 MG TABLET 150 MG PO (20:25)
[2021-12-24] VITALS (10 sets, daily range): BP systolic 101–112; BP diastolic 54–77; PULSE 74–88; RESP 18–21; TEMP 36.6–36.7; O2SAT 98–100
[2021-12-24] MEDS: LEVOTHYROXINE SODIUM 125 MCG TABLET PO (05:47)
[2021-12-24 08:49] LABS: Anion Gap 6 mmol/L (8-16); Blood Urea Nitrogen 30 mg/dL (7-17); Calcium 8.3 mg/dL (8.4-10.2); Carbon Dioxide 23 mmol/L (22-30); Chloride 104 mmol/L (98-107); Estimated CRCL calculation 45 ml/min; Estimated Glomerular Filt Rate 55; Glucose 123 mg/dL (65-110); Potassium 4.3 mmol/L (3.4-5.0); Sodium 133 mmol/L (137-145)
[2021-12-24] MEDS: lamoTRIgine 100 MG TABLET PO (09:05)
[2021-12-24] MEDS: CHOLECALCIFEROL 400 UNITS TABLET (VIT D) PO (09:05)
[2021-12-24] MEDS: PANTOPRAZOLE 40 MG TABLET PO (09:05)
[2021-12-24] MEDS: FERROUS SULFATE 324 MG TABLET PO (09:05)
[2021-12-24] MEDS: allopurinoL 100 MG TABLET PO (09:05)
[2021-12-24] MEDS: METOPROLOL SUCCINATE EXT REL 100 MG TABCR PO (09:05)
[2021-12-24] MEDS: CYANOCOBALAMIN 500 MCG TABLET PO (09:05)
[2021-12-24] MEDS: SACUBITRIL/VALSARTAN 24-26 MG TABLET 1 TAB PO ×2 (09:05→20:53)
[2021-12-24] MEDS: SPIRONOLACTONE 25 MG TABLET PO (09:05)
[2021-12-24] MEDS: FUROSEMIDE 80 MG TABLET PO ×2 (09:05→16:36)
--- NOTE | 2021-12-24 13:56 | PM.PNCARD ---
Progress Note: A&P Assessment and Plan (1) CHF (congestive heart failure): Code(s): I50.9 - Heart failure, unspecified Status: Acute Assessment and Plan: Presents with bilateral ankle edema and some shortness of breath. Improving with diuresis, still has pitting bilateral LE edema. Will add metolazone 2.5mg this p.m. and will monitor her response, perhaps give another dose tomorrow. HANG novak. Low sodium diet. Will c/s farrowing manager for education on low sodium/heart healthy diet. Monitor renal function and electrolytes. (2) Chronic atrial fibrillation: Code(s): I48.20 - Chronic atrial fibrillation, unspecified Status: Acute Assessment and Plan: Rate controlled on metoprolol. Continue systemic a/c with Xarelto. (3) Mitral regurgitation: Code(s): I34.0 - Nonrheumatic mitral (valve) insufficiency Status: Acute Assessment and Plan: Moderate MR by recent echo. May be candidate for Mitraclip. This can be discussed with Dr. Rudd as an outpatient. Subjective Date/time seen: 12/24/21 13:56 Cardiology follow up Feeling better today. Less swelling. No shortness of breath today. She has concerns about her low sodium diet. Review of Systems Constitutional: Constitutional: Reports lethargy Eyes: Eyes: Reports no additional eye complaints ENT: Reports system reviewed and no additional complaints, except as documented Cardiovascular: Cardiovascular: Reports as per HPI, Reports leg edema and Reports dyspnea on exertion Respiratory: Respiratory: Reports dyspnea on exertion Gastrointestinal: Gastrointestinal: Reports no additional gastrointestinal complaints Musculoskeletal: Musculoskeletal: Reports back pain Integumentary/Breasts: Skin/Breast: Reports system reviewed and no additional complaints, except as docu Endocrine: Endocrine: Reports no additional endocrine complaints Hematologic/Lymphatic: Hematologic/Lymphatic: Reports no additional hematologic/lymphatic complaints Allergic/Immunologic: Allergic/Immunologic: Reports no additional allergic/immunologic complaints Exam Const: General: comfortable and no acute distress Other: Well-developed well-nourished white female sitting on the edge of the bed. HENMT: Mouth: Yes moist mucous membranes Eyes: Sclera: sclerae normal Pupils: Equal, round and reactive pupils present Neck: Neck: supple and no JVD Other: Carotid pulses are intact bilaterally Resp: Effort & Inspection: normal respiratory effort Auscultation: crackles (L base ) Other: There are a few crackles audible at the left base Cardio: Rhythm: abnormal rhythm irregularly irregular Heart sounds: Murmur heart sound present systolic Other: Soft holosystolic murmur is audible at the apex GI: Auscultation: normal bowel sounds Skin: General skin exam: normal color Neuro: Cranial nerves: Yes Equal, round and reactive pupils present Other: Normal cognition Extrem: Other: Mild bilateral LE edema Objective Data Vital Signs Vital Signs: Vital Signs - 24 hr 12/23/21 16:00 12/23/21 14:00 12/23/21 20:00 Temperature 36.9 C Pulse Rate 92 94 92 Respiratory Rate 20 20 Blood Pressure 115/61 Pulse Oximetry 97 97 Oxygen Delivery Room Air 12/23/21 20:00 12/23/21 22:00 12/24/21 00:00 Temperature 36.2 C L Pulse Rate 84 84 80 Respiratory Rate 18 Blood Pressure 107/52 L Pulse Oximetry 96 Oxygen Delivery 12/24/21 04:00 12/24/21 06:00 12/24/21 09:05 Temperature 36.6 C Pulse Rate 76 82 74 Respiratory Rate 21 H Blood Pressure 112/54 L Pulse Oximetry 100 Oxygen Delivery 12/24/21 09:10 12/24/21 08:00 12/24/21 12:00 Temperature Pulse Rate 82 83 Respiratory Rate Blood Pressure Pulse Oximetry Oxygen Delivery Room Air Intake/Output Intake/Output: Intake & Output 12/21/21 12/22/21 12/23/21 12/24/21 23:59 23:59 23:59 23:59 Intake Total 046 380 2277 540 Output
[2021-12-24] MEDS: metOLazone 2.5 MG TABLET PO (16:00)
--- NOTE | 2021-12-24 16:24 | PM.IMPN ---
Progress Note: A&P Assessment and Plan (1) Acute on chronic systolic CHF (congestive heart failure), NYHA class 1: Code(s): I50.23 - Acute on chronic systolic (congestive) heart failure Status: Acute Assessment and Plan: HFrEF-Echo shows EF has worsened from 25-30%, down from 45% back in november 2019 -Continue IV lasix (currently on lasix 80mg BID IV per supervisor covering and lining) -Consider adding entresto, will need to stop lisinopril if cardiology agrees with entresto -Continue metoprolol succinate, spironolactone and lasix and consider adding sgl2 and -will consult cardiology, pt usually sees Dr. 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% presented the lower extremity edema and complaint of shortness of breath was seen by Cardiology and agrees to switch over to to entresto lisinopril was stopped this will help diurese the patient, today patient was seen by white work cleaner and added metolazone 2.5mg this pm, will monitor, patient also has significant mitral wall regurgitation in the past patient had been refusing surgical consultation and now patient is DNR that preclude any surgical intervention, patient has not new complaints, stats feeling much better and will be seen by white work cleaner, will continue the medical management will have PT OT evaluate the and further recommendation to follow. (2) Paroxysmal atrial fibrillation: Code(s): I48.0 - Paroxysmal atrial fibrillation Status: Acute Assessment and Plan: Continue metoprolol and xarelto (3) Chronic renal insufficiency, stage III (moderate): Code(s): N18.3 - Chronic kidney disease, stage 3 (moderate) Status: Acute Assessment and Plan: At baseline, monitor closely with the increase of diuretics (4) Essential hypertension: Code(s): I10 - Essential (primary) hypertension Status: Acute Assessment and Plan: Continue home meds Continue to monitor (5) Cardiomyopathy: Code(s): I42.9 - Cardiomyopathy, unspecified Status: Acute Assessment and Plan: last bp 109/66 Plan non gap acidosis which is waxing and waning. diuretics? but this was also noted on admission as well as 02/08/21. 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
[2021-12-24] MEDS: SERTRALINE HCL 50 MG TABLET 150 MG PO (20:53)
[2021-12-24] MEDS: RIVAROXABAN 20 MG TABLET PO (20:53)
[2021-12-24] MEDS: ROSUVASTATIN 10 MG TABLET 40 MG PO (20:53)
[2021-12-25] VITALS (7 sets, daily range): BP systolic 103–105; BP diastolic 49–54; PULSE 76–94; RESP 16–20; TEMP 36–36.7; O2SAT 97–99
[2021-12-25] MEDS: LEVOTHYROXINE SODIUM 125 MCG TABLET PO (05:43)
[2021-12-25 06:25] LABS: Anion Gap 8 mmol/L (8-16); Blood Urea Nitrogen 33 mg/dL (7-17); Calcium 8.4 mg/dL (8.4-10.2); Carbon Dioxide 23 mmol/L (22-30); Chloride 101 mmol/L (98-107); Estimated CRCL calculation 41 ml/min; Estimated Glomerular Filt Rate 49; Glucose 97 mg/dL (65-110); Potassium 3.9 mmol/L (3.4-5.0); Sodium 132 mmol/L (137-145)
[2021-12-25] MEDS: CHOLECALCIFEROL 400 UNITS TABLET (VIT D) PO (08:13)
[2021-12-25] MEDS: CYANOCOBALAMIN 500 MCG TABLET PO (08:13)
[2021-12-25] MEDS: allopurinoL 100 MG TABLET PO (08:13)
[2021-12-25] MEDS: METOPROLOL SUCCINATE EXT REL 100 MG TABCR PO (08:14)
[2021-12-25] MEDS: FUROSEMIDE 80 MG TABLET PO (08:14)
[2021-12-25] MEDS: FERROUS SULFATE 324 MG TABLET PO (08:14)
[2021-12-25] MEDS: lamoTRIgine 100 MG TABLET PO (08:14)
[2021-12-25] MEDS: PANTOPRAZOLE 40 MG TABLET PO (08:14)
[2021-12-25] MEDS: SPIRONOLACTONE 25 MG TABLET PO (08:15)
[2021-12-25] MEDS: SACUBITRIL/VALSARTAN 24-26 MG TABLET 1 TAB PO (08:15)
--- NOTE | 2021-12-25 14:26 | PM.DS ---
DS: Admitting Diagnosis Discharge Date December 15, 2021 Admitting Diagnosis a team at least CHF exacerbation acute on chronic systolic DS: Discharge Diagnosis Discharge Diagnosis (1) Acute on chronic systolic CHF (congestive heart failure), NYHA class 1: Code(s): I50.23 - Acute on chronic systolic (congestive) heart failure Status: Acute Assessment and Plan: patient was admitted with lower extremity edema and CHF exacerbation, acute on chronic. with reduced ejection fraction. Diuretic was adjusted her Lasix dose is increased from 40 b.i.d. to 80 b.i.d.. Her lisinopril was stopped and the patient was put on Entresto. respiratory status is much improved. Lower extremity edema is also improved. Patient is going to be discharged on the above changes in medications and follow-up with Cardiology. (2) Paroxysmal atrial fibrillation: Code(s): I48.0 - Paroxysmal atrial fibrillation Status: Acute Assessment and Plan: Continue metoprolol and xarelto (3) Chronic renal insufficiency, stage III (moderate): Code(s): N18.3 - Chronic kidney disease, stage 3 (moderate) Status: Acute Assessment and Plan: At baseline, monitor closely with the increase of diuretics (4) Essential hypertension: Code(s): I10 - Essential (primary) hypertension Status: Acute Assessment and Plan: Continue home meds Continue to monitor (5) Cardiomyopathy: Code(s): I42.9 - Cardiomyopathy, unspecified Status: Acute Assessment and Plan: last bp 109/66 Plan non gap acidosis which is waxing and waning. diuretics? but this was also noted on admission as well as 02/08/21. monitor while on diuretics DS: Summary Hospital Course Hospital Course: See discharge plan diagnoses Time Spent with Patient Time attestation: Total time spent providing and/or coordinating discharge services: Exam Narrative: Patient is comfortable, NAD HEENT: eyes are clear and none icteric LUNGS:Normal respiratory effort ABD: not distended Lower extremities: no edema SKIN: nonjaundiced Neuro: grossly intact. Const: General: cooperative, comfortable, no acute distress, well developed, alert, awake and ill appearing chronically Nutritional Appearance: average body habitus Orientation/consciousness: patient oriented x3 HENMT: Head: normal to inspection, normocephalic and atraumatic Ears: hearing grossly normal bilaterally Face and sinus: normal facial exam Eyes: General: appearance normal, both eyes and all related structures Alignment and Position: alignment normal Sclera: sclerae normal Pupils: Equal, round and reactive pupils present EOM: EOMs intact bilaterally Neck: Neck: full ROM, no lymphadenopathy and no JVD Thyroid: thyroid normal Lymphatic: no lymphadenopathy noted Resp: Effort & Inspection: normal respiratory effort and able to speak in complete sentences Auscultation: clear to auscultation bilaterally and crackles bilateral Cardio: Jugular venous distension: no JVD Rate: regular rate Rhythm: regular rhythm Heart sounds: S1 normal heart sound present and S2 normal heart sound present GI: Inspection: distended : General: Yes deferred Skin: Rashes: no rashes Wounds: no wounds Neuro: General: patient oriented x3, CN's II-XI intact bilaterally and Unable to assess gait Cranial nerves: Yes CN's II-XII intact bilaterally and Yes Equal, round and reactive pupils present Cognition (Neuro): normal cognition Speech: normal speech Gait exam (Neuro): Normal gait present and Unable to assess gait Motor exam (neuro): 5/5 motor strength present throughout Sensory Exam: No Sensory deficit (Neuro) Extrem: General: normal to inspection, full ROM, no joint enlargement, no pedal edema and edema (4+) bilateral DS: Data Data Completed and Pending Labs on day of discharge: Labs from last 24 hours 12/25/21 05:34 Sodium 132 L Potassium 3.9
--- NOTE | 2021-12-25 14:49 | PCDIET ---
Pt was educated on a low sodium diet, see nutritional teaching for more information.
--- NOTE | 2021-12-25 14:56 | PCNSR ---
On 12/25/21, the student, Remy Urban, provided care and completed [facility] documentation on this patient. I have reviewed the student's documentation and agree with the findings.
== END 2021-12-25 16:35 | disposition home or self-care (01) | DRG 291 ==
LOC: ANHED 19:13 → ANH2MED 19:53
PROVIDERS: Family Medicine; Physician Assistant; Admitting Provider Student in an Organized Health Care Education/Training Program; Emergency Provider Emergency Medicine; PCP Family Medicine; Visit Provider Chiropractor
DX: I13.0 Hypertensive heart and chronic kidney disease with heart failure and stage 1 through stage 4 chronic kidney disease, or unspecified chronic kidney disease (principal); I50.23 Acute on chronic systolic (congestive) heart failure; E87.2 Acidosis; I48.20 Chronic atrial fibrillation, unspecified; N18.30 Chronic kidney disease, stage 3 unspecified; I42.7 Cardiomyopathy due to drug and external agent; T45.1X5S Adverse effect of antineoplastic and immunosuppressive drugs, sequela; Z66 Do not resuscitate; D64.9 Anemia, unspecified; E03.9 Hypothyroidism, unspecified; E55.9 Vitamin D deficiency, unspecified; E78.2 Mixed hyperlipidemia; F32.A Depression, unspecified; G14 Postpolio syndrome; I34.0 Nonrheumatic mitral (valve) insufficiency; I25.10 Atherosclerotic heart disease of native coronary artery without angina pectoris; I73.9 Peripheral vascular disease, unspecified; J45.909 Unspecified asthma, uncomplicated; M81.0 Age-related osteoporosis without current pathological fracture; M10.9 Gout, unspecified; M85.80 Other specified disorders of bone density and structure, unspecified site; R73.03 Prediabetes; R19.7 Diarrhea, unspecified; Z79.01 Long term (current) use of anticoagulants; Z96.659 Presence of unspecified artificial knee joint; Z85.3 Personal history of malignant neoplasm of breast; Z90.710 Acquired absence of both cervix and uterus; Z87.891 Personal history of nicotine dependence
CPT/HCPCS: 36415; 71046; 74176; 80048; 80053; 81001; 83690; 83735; 83880; 84484; 85025; 85610; 85730; 93005; 93306; 96374; 96376; 97161; 97165; 99285; A9270; G0378; J1940

== ENCOUNTER 2022-01-23 07:49 | Outpatient (CLI) | payer MEDICARE, SELFPAY ==
[2022-01-23 09:05] LABS: Basophils Absolute Auto 0.1 K/mm3 (0.0-0.1); Basophils Percent Auto 0.8 % (0.2-1.2); Eosinophils Absolute Auto 0.2 K/mm3 (0-0.3); Hematocrit 43.2 % (37.0-47.0); Hemoglobin 13.7 g/dL (12.0-15.0); Immature Granulocyte Absolute 0.05 K/mm3 (0.00-0.031); Immature Granulocyte Percent A 0.6 % (0-0.5); Lymphocytes Absolute Auto 0.73 K/mm3 (0.9-3.2); Lymphocytes Percent Auto 9.2 % (18.3-44.2); Mean Corpuscular HGB Conc 31.7 g/dl (32-36); Mean Corpuscular Volume 91.5 fl (80-100); Mean Platelet Volume 11.5 fl (7.4-10.4); Monocytes Absolute Auto 0.5 K/mm3 (0.1-0.6); Monocytes Percent Auto 6.7 % (2.6-8.5); Neutrophils Absolute Auto 6.3 K/mm3 (1.3-6.7); Neutrophils Percent Auto 79.7 % (45.5-73.1); Platelet Count Result 259 k/mm3 (150-375); Red Blood Count 4.72 M/mm3 (4.2-5.4); Red Cell Distribution Width 16.6 % (11.5-14.5); White Blood Count 7.9 K/mm3 (4.5-10.0)
[2022-01-23 09:14] LABS: Anion Gap 13 mmol/L (8-16); Blood Urea Nitrogen 35 mg/dL (7-17); Carbon Dioxide 25 mmol/L (22-30); Chloride 101 mmol/L (98-107); Estimated Glomerular Filt Rate 37; Glucose 103 mg/dL (65-110); Potassium 4.5 mmol/L (3.4-5.0); Sodium 139 mmol/L (137-145)
[2022-01-23 09:49] LABS: Rheumatoid Factor < 8.6 IU/ML (<12)
[2022-01-23 10:02] LABS: Erythrocyte Sedimentation Rate 2 mm/hr (0-20)
[2022-01-27 22:33] LABS: Anti Cyclic Citrullinated Pept <16 Units (<20)
== END 2022-01-23 07:50 | disposition home or self-care (01) ==
LOC: ANHLAB 07:57
PROVIDERS: PCP Family Medicine; Visit Provider Family Medicine
DX: R53.83 Other fatigue (principal); M25.50 Pain in unspecified joint; R21 Rash and other nonspecific skin eruption; N18.30 Chronic kidney disease, stage 3 unspecified
CPT/HCPCS: 36415; 80048; 85025; 85652; 86038; 86200; 86430

== ENCOUNTER 2022-03-14 13:33 | Outpatient (CLI) | payer MEDICARE, SELFPAY ==
[2022-03-14 14:40] LABS: Anion Gap 13 mmol/L (8-16); Blood Urea Nitrogen 41 mg/dL (7-17); Calcium 9.2 mg/dL (8.4-10.2); Carbon Dioxide 25 mmol/L (22-30); Chloride 98 mmol/L (98-107); Estimated Glomerular Filt Rate 32; Glucose 131 mg/dL (65-110); Potassium 4.5 mmol/L (3.4-5.0); Sodium 136 mmol/L (137-145)
[2022-03-18 13:42] LABS: Kappa\\Lambda Light Chains 0.89 (0.26-1.65); Lambda Light Chain 44.9 mg/L (5.7-26.3)
[2022-03-18 14:40] LABS: Immunoglobulin A 207 mg/dL (70-320); Immunoglobulin G 865 mg/dL (600-1540); Immunoglobulin M 92 mg/dL (50-300)
== END 2022-03-14 13:34 | disposition home or self-care (01) ==
PROVIDERS: PCP Family Medicine; Visit Provider Internal Medicine Cardiovascular Disease
DX: I42.9 Cardiomyopathy, unspecified (principal); R42 Dizziness and giddiness; I50.22 Chronic systolic (congestive) heart failure
CPT/HCPCS: 36415; 80048; 82784; 83883; 86334

== ENCOUNTER 2022-05-05 08:15 | Outpatient (CLI) | payer MEDICARE, SELFPAY ==
[2022-05-05 09:35] LABS: Alanine Aminotransferase 16 U/L (6-35); Albumin Level 4.8 g/dL (3.5-5.1); Alkaline Phosphatase 197 U/L (38-126); Anion Gap 14 mmol/L (8-16); Aspartate Amino Transferase 31 U/L (14-36); Bilirubin,Total 1.2 mg/dL (0.2-1.3); Blood Urea Nitrogen 40 mg/dL (7-17); Calcium 9.2 mg/dL (8.4-10.2); Carbon Dioxide 31 mmol/L (22-30); Chloride 95 mmol/L (98-107); Estimated Glomerular Filt Rate 32; Glucose 107 mg/dL (65-110); Potassium 3.8 mmol/L (3.4-5.0); Sodium 140 mmol/L (137-145)
[2022-05-05 10:44] LABS: Free T4 Free Thyroxine Reflex 0.85 ng/dL (0.78-2.19)
[2022-05-05 12:01] LABS: Total Triiodothyronine (T3) 0.81 NG/ML (0.97-1.69)
== END 2022-05-05 08:16 | disposition home or self-care (01) ==
PROVIDERS: PCP Family Medicine; Visit Provider Family Medicine
DX: E03.9 Hypothyroidism, unspecified (principal); I50.9 Heart failure, unspecified; N18.30 Chronic kidney disease, stage 3 unspecified
CPT/HCPCS: 36415; 80053; 84439; 84443; 84480

== ENCOUNTER 2022-05-05 08:32 | Outpatient (CLI) | payer MEDICARE, SELFPAY ==
[2022-05-05 09:33] LABS: Anion Gap 15 mmol/L (8-16); Blood Urea Nitrogen 40 mg/dL (7-17); Calcium 9.2 mg/dL (8.4-10.2); Carbon Dioxide 33 mmol/L (22-30); Chloride 94 mmol/L (98-107); Estimated Glomerular Filt Rate 32; Glucose 106 mg/dL (65-110); Potassium 3.8 mmol/L (3.4-5.0); Sodium 142 mmol/L (137-145)
== END 2022-05-05 08:33 | disposition home or self-care (01) ==
LOC: ANHLAB 08:42
PROVIDERS: PCP Internal Medicine Cardiovascular Disease; Visit Provider Internal Medicine Cardiovascular Disease
DX: I50.20 Unspecified systolic (congestive) heart failure (principal)
CPT/HCPCS: 36415; 80048; 80053; 84439; 84443; 84480

== ENCOUNTER 2022-06-02 03:51 | Observation (INO) | payer MEDICARE, SELFPAY ==
[2022-06-02] VITALS (21 sets, daily range): BP systolic 105–141; BP diastolic 45–97; PULSE 79–105; RESP 15–28; TEMP 36.6–36.8; O2SAT 95–100; BMI 25.0
--- NOTE | ~2022-06-02 | CT_ITS ---
EXAMINATION: CT brain wo con DATE: 06/02/2022 05:33 INDICATION: Status post fall. Patient on blood thinners. TECHNIQUE: Computed tomography (CT) of the head was performed without intravenous contrast. The dose- length product was 681.00 mGy-cm. Automated exposure control and iterative reconstruction technique w ere employed. COMPARISON: CT dated 04/07/2019 FINDINGS: Brain parenchymal volume is normal for age. There are scattered mild periventricular and rico bcortical white matter changes, most likely related to small vessel ischemic disease (microangiopathy ). Basilar cisterns are patent. There is intracranial atherosclerosis. IMPRESSION: 1. No acute intracranial abnormality. 2: Chronic age-related findings. Reviewed, dictated and finalized at location A. IAC CATH TECHNICIAN
--- NOTE | ~2022-06-02 | XR_ITS ---
XR chest 1V portable 06/02/2022 04:17 Indication: Weakness. Procedure: AP portable chest Comparison: 12/20/2021 Findings: Moderate cardiomegaly. Mild interstitial edema. No significant effusion or pneumothorax. No acute osseous abnormality. Impression: 1: Moderate cardiomegaly with interstitial edema. Reviewed, dictated and finalized at location A. RICT CLAIMS MANAGER Impression: 1: Moderate cardiomegaly with interstitial edema.
--- NOTE | ~2022-06-02 | CT_ITS ---
EXAMINATION: CT cervical spine wo con DATE: 06/02/2022 05:33 INDICATION: Neck pain after fall TECHNIQUE: Computed tomography (CT) of the cervical spine was performed without intravenous contrast. The dose-length product was 269 mGy-cm. Automated exposure control and iterative reconstruction tech [employer] were employed. COMPARISON: No prior studies for comparison. FINDINGS: There is reversal of cervical lordosis. There is degenerative disc disease at C4-5, C5-6 an d C6-7. There is degenerative anterolisthesis at C2-3 and C3-4. No evidence for perched facet. Odonto id process is normal. There is multilevel facet and uncinate hypertrophy. There is apical pleural thi ckening/scarring. No paraspinal soft tissue abnormality. Spinous processes are normal. Craniovertebra l junction within normal limits. There is mild thickening of the esophagus, suspicious for esophagiti s. There are groundglass opacities in the upper lobes with interlobular septal thickening which may r epresent edema or pneumonia. IMPRESSION: 1. No acute fracture. 2: Severe cervical spondylosis. 3: Mild thickening of the esophagus, suspicious for esophagitis. Reviewed, dictated and finalized at location A. STITCHER MACHINE
--- NOTE | 2022-06-02 04:06 | ECG_ITS ---
Measurements Intervals [place] Rate: 94 P: VA: 0 QRS: 73 QRSD: 120 T: -66 QT: 349 QTc: 437 Interpretive Statements ATRIAL FIBRILLATION INTRAVENTRICULAR CONDUCTION DELAY COMPARED TO ECG 12/20/2021 21:03:15 NO SIGNIFICANT CHANGES Electronically Signed On 06-02-2022 11:23:58 SENIOR COMPUTER SPECIALIST by Mere Sanches M.D.
[2022-06-02 04:36] LABS: Basophils Percent Auto 0.3 % (0.2-1.2); Eosinophils Absolute Auto 0.4 K/mm3 (0-0.3); Eosinophils Percent Auto 2.7 % (0-4.4); Hematocrit 41.3 % (37.0-47.0); Hemoglobin 13.3 g/dL (12.0-15.0); Immature Granulocyte Absolute 0.05 K/mm3 (0.00-0.031); Immature Granulocyte Percent A 0.4 % (0-0.5); Lymphocytes Absolute Auto 0.52 K/mm3 (0.9-3.2); Mean Corpuscular HGB Conc 32.2 g/dl (32-36); Mean Corpuscular Hemoglobin 30.9 pg (26-34); Mean Corpuscular Volume 95.8 fl (80-100); Mean Platelet Volume 11.4 fl (7.4-10.4); Monocytes Absolute Auto 0.5 K/mm3 (0.1-0.6); Monocytes Percent Auto 3.9 % (2.6-8.5); Neutrophils Absolute Auto 11.6 K/mm3 (1.3-6.7); Neutrophils Percent Auto 88.7 % (45.5-73.1); Platelet Count Result 225 k/mm3 (150-375); Red Blood Count 4.31 M/mm3 (4.2-5.4); Red Cell Distribution Width 16.8 % (11.5-14.5); White Blood Count 13.1 K/mm3 (4.5-10.0)
[2022-06-02 04:48] LABS: INR 1.7; Prothrombin Time 19.3 Seconds (11.1-14.7)
[2022-06-02 04:49] LABS: Partial Thromboplastin Time 40.9 SECONDS (22.3-36.8)
--- NOTE | 2022-06-02 04:56 | ED.GENADULT ---
HPI - General Adult General Chief complaint: Fall Stated complaint: fall Time Seen by Provider: 06/02/22 04:00 History of Present Illness HPI narrative: Patient is 71-year-old female who presents emergency department with chief complaint of generalized weakness. The patient reports that she has history of congestive heart failure and reports that over the last few days she has been getting a little weaker and today it was worse. The patient reports this evening she got up to go to the bathroom was getting up from the toilet and was so weak that she could not use her walker. The patient states that she fell to the ground landing on her bottom. The patient denies loss of consciousness denies head injury Related Data Home Medications Medication Instructions Recorded Confirmed cholecalciferol (vitamin D3) 10 400 unit PO DAILY 05/10/19 04/03/22 mcg (400 unit) capsule cyanocobalamin (vitamin B-12) 500 500 mcg PO DAILY 12/09/21 04/03/22 mcg chewable tablet ferrous sulfate 325 mg (65 mg 325 mg PO DAILY 12/20/21 04/03/22 iron) tablet Allergies Allergy/AdvReac Type Severity Reaction Status Date / Time cefuroxime Allergy Unknown Unknown Verified 06/02/22 03:55 ezetimibe Allergy Unknown Unknown Verified 06/02/22 03:55 simvastatin Allergy Unknown Unknown Verified 06/02/22 03:55 Sulfa (Sulfonamide Allergy Unknown Unknown Verified 06/02/22 03:55 Antibiotics) sulfanilamide Allergy Unknown Unknown Verified 06/02/22 03:55 Review of Systems Review of Systems: A 10 system review of systems was completed on the patient and is negative except for what is stated in the HPI. Nursing and ancillary documentation was reviewed. [facility] Past Medical History Medical History Acute on chronic renal insufficiency Age-related osteoporosis with current pathological fracture Allergic rhinitis Anemia Asthma, mild intermittent Breast cancer Cardiomyopathy Chronic congestive heart failure Chronic HFrEF (heart failure with reduced ejection fraction) Chronic renal insufficiency, stage III (moderate) Closed wedge compression fracture of thoracic vertebra with routine healing Coronary artery disease Depression Elevated glucose H/O malignant neoplasm of breast H/O: gout Hypomagnesemia Hypothyroidism Mild intermittent asthma with exacerbation Mixed hyperlipidemia Osteopenia Other hyperlipidemia Paroxysmal atrial fibrillation Peripheral vascular disease Post-polio syndrome Prediabetes Severe episode of recurrent major depressive disorder, without psychotic features Thyroid disease Vitamin D deficiency Surgical History Surgical History History of cardiac cath History of knee replacement History of partial hysterectomy Hx of colonoscopy Family History Family History Father Hypertension Family history of kidney disease Sibling Hypertension Family history of elevated blood lipids Other Cerebrovascular accident Diabetes mellitus Social History Social History Smoking packs per day: 1 Smoking cigarettes per day: 20.0 Years smoked: 40 Smoking pack-years: 40.00 Smoking status: Former smoker Tobacco type: cigarettes Second hand tobacco smoke exposure: No Smoking end date: 12/20/96 Alcohol intake: former Drinks per week: 3 Substance use: unknown Substance use type: does not use Gender identity (if verbalized by the patient): Female Sexual Orientation (if Verbalized by the Patient): Straight or Heterosexual Spiritual care concerns: No Agree to blood products: Yes Exam Narrative: GENERAL: Well-appearing, well-nourished, and in no acute distress. HEAD: Normocephalic, atraumatic. EYES: PERRLA and EOMI. ENT: Nares clear, no rhinorrhea or epistaxis
[2022-06-02 04:57] LABS: Appearance Urine Clear (Clear); Bilirubin Urine 1+ (Negative); Blood Urine 3+ (Negative); Color Urine Yellow (Yellow); Glucose Urine UA Negative (Negative); Ketones Urine Trace mg/dL (Negative); Leukocyte Esterase Ur 2+ LEU/UL (Negative); Nitrate Urine Negative (Negative); Protein Urine 1+ mg/dL (Negative); Specific Grav Ur 1.015 (1.001-1.035); Urobilinogen Urine 0.2 mg/dL (<2.0)
[2022-06-02 05:02] LABS: Alanine Aminotransferase 29 U/L (6-35); Albumin Level 4.5 g/dL (3.5-5.1); Alkaline Phosphatase 202 U/L (38-126); Anion Gap 18 mmol/L (8-16); Aspartate Amino Transferase 331 U/L (14-36); Bilirubin,Total 2.4 mg/dL (0.2-1.3); Blood Urea Nitrogen 46 mg/dL (7-17); Calcium 8.9 mg/dL (8.4-10.2); Carbon Dioxide 21 mmol/L (22-30); Chloride 100 mmol/L (98-107); Estimated CRCL calculation 26 ml/min; Estimated Glomerular Filt Rate 28; Glucose 84 mg/dL (65-110); Magnesium 1.9 mg/dL (1.6-2.3); Potassium 4.2 mmol/L (3.4-5.0); Sodium 139 mmol/L (137-145)
[2022-06-02 05:13] LABS: Influenza A QL RT-PCR Negative (Negative); Influenza B QL RT-PCR Negative (Negative); SARS-CoV-2 RNA PCR Negative
[2022-06-02 05:16] LABS: Bacteria Urine Trace /hpf; Mucus Urine Rare /lpf; Squamous Epithelial Cell Urine Many /hpf (Few); Transitional Epi Cells Urine Rare /hpf (None Seen)
[2022-06-02 05:18] LABS: Add Urine Microscopic? YES
[2022-06-02 05:20] LABS: NT Pro B Type Natriuretic Pept 18000 pg/mL (5-100); Troponin I 0.068 ng/mL (0.000-0.034)
[2022-06-02] MEDS: ASPIRIN 81 MG CHEWABLE TABLET 324 MG PO (05:33)
[2022-06-02 05:34] LABS: Procalcitonin 0.2 ng/mL
[2022-06-02] MEDS: FUROSEMIDE INJ 40 MG/4 ML VIAL IV PUSH ×2 (06:23→17:40)
--- NOTE | 2022-06-02 07:23 | PC.NURSE ---
Called dietary and ordered breakfast tray for pt at this time.
[2022-06-02 10:32] LABS: Troponin I 0.071 ng/mL (0.000-0.034)
--- NOTE | 2022-06-02 12:29 | PM.IMHP ---
H&P: HPI History of Present Illness Date/Time: 06/02/22 12:29 Chief Complaint: Patient is 71-year-old female who presents emergency department with chief complaint of generalized weakness.? The patient reports that she has history of congestive heart failure and reports that over the last few days she has been getting a little weaker and today it was worse.? The patient reports this evening she got up to go to the bathroom was getting up from the toilet and was so weak that she could not use her walker.? The patient states that she fell to the ground landing on her bottom.? The patient denies loss of consciousness denies head injury [facility] Past Medical History Medical History Acute on chronic renal insufficiency Age-related osteoporosis with current pathological fracture Allergic rhinitis Anemia Asthma, mild intermittent Breast cancer Cardiomyopathy Chronic congestive heart failure Chronic HFrEF (heart failure with reduced ejection fraction) Chronic renal insufficiency, stage III (moderate) Closed wedge compression fracture of thoracic vertebra with routine healing Coronary artery disease Depression Elevated glucose H/O malignant neoplasm of breast H/O: gout Hypomagnesemia Hypothyroidism Mild intermittent asthma with exacerbation Mixed hyperlipidemia Osteopenia Other hyperlipidemia Paroxysmal atrial fibrillation Peripheral vascular disease Post-polio syndrome Prediabetes Severe episode of recurrent major depressive disorder, without psychotic features Thyroid disease Vitamin D deficiency Surgical History Surgical History History of cardiac cath History of knee replacement History of partial hysterectomy Hx of colonoscopy Family History Family History Father Hypertension Family history of kidney disease Sibling Hypertension Family history of elevated blood lipids Other Cerebrovascular accident Diabetes mellitus Social History Social History Smoking packs per day: 1 Smoking cigarettes per day: 20.0 Years smoked: 40 Smoking pack-years: 40.00 Smoking status: Former smoker Tobacco type: cigarettes Second hand tobacco smoke exposure: No Smoking end date: 12/20/96 Alcohol intake: former Drinks per week: 3 Substance use: unknown Substance use type: does not use Gender identity (if verbalized by the patient): Female Sexual Orientation (if Verbalized by the Patient): Straight or Heterosexual Spiritual care concerns: No Agree to blood products: Yes Meds Home Medications and Allergies Home Medications Medication Instructions Recorded Confirmed Type cholecalciferol (vitamin D3) 10 400 unit PO DAILY 05/10/19 06/02/22 History mcg (400 unit) capsule cyanocobalamin (vitamin B-12) 500 500 mcg PO DAILY 12/09/21 06/02/22 History mcg chewable tablet ferrous sulfate 325 mg (65 mg 325 mg PO DAILY 12/20/21 06/02/22 History iron) tablet metoprolol succinate 100 mg 100 mg PO DAILY #90 tabs 12/26/21 06/02/22 Rx tablet,extended release 24 hr levothyroxine 125 mcg tablet 125 mcg PO DAILY #90 tabs 12/30/21 06/02/22 Rx rosuvastatin 10 mg tablet (Crestor) 10 mg PO QTUTHSASU #48 tabs 02/05/22 04/03/22 Rx spironolactone 25 mg tablet 25 mg PO DAILY #90 tabs 02/17/22 06/02/22 Rx sacubitril 24 mg-valsartan 26 mg 1 tablet PO Q12HR #60 tabs 02/25/22 04/03/22 Rx tablet (Entresto) triamcinolone acetonide 0.1 % 1 applic topical BID #80 grams 02/25/22 04/03/22 Rx topical cream pantoprazole 40 mg tablet,delayed 40 mg PO DAILY #90 tabs 03/12/22 06/02/22 Rx release allopurinol 100 mg tablet 100 mg PO DAILY #90 tabs 05/09/22 06/02/22 Rx cholestyramine (with sugar) 4 gram 4 g PO DAILY #60 ea 05/29/22 Rx powder for susp in a packet ascorbic acid (vitamin C)
[2022-06-02] MEDS: METOPROLOL SUCCINATE EXT REL 100 MG TABCR PO (17:38)
[2022-06-02] MEDS: ASCORBIC ACID 500 MG TABLET 1000 MG PO (17:38)
[2022-06-02] MEDS: FERROUS SULFATE 324 MG TABLET PO (17:38)
[2022-06-02] MEDS: CYANOCOBALAMIN 500 MCG TABLET PO (17:39)
[2022-06-02] MEDS: CHOLECALCIFEROL 400 UNITS TABLET (VIT D) PO (17:40)
[2022-06-02] MEDS: allopurinoL 100 MG TABLET PO (17:40)
[2022-06-02] MEDS: SERTRALINE HCL 50 MG TABLET 150 MG PO (17:40)
[2022-06-02] MEDS: SPIRONOLACTONE 25 MG TABLET PO (17:40)
[2022-06-02] MEDS: PANTOPRAZOLE 40 MG TABLET PO (17:40)
[2022-06-02] MEDS: SACUBITRIL/VALSARTAN 24-26 MG TABLET 1 TAB PO (20:20)
[2022-06-02] MEDS: RIVAROXABAN 20 MG TABLET PO (20:21)
[2022-06-02] MEDS: ROSUVASTATIN 10 MG TABLET PO (22:11)
[2022-06-03] VITALS (15 sets, daily range): BP systolic 109–124; BP diastolic 44–69; PULSE 76–102; RESP 16–189; TEMP 36.3–36.6; O2SAT 96–100
[2022-06-03 05:14] LABS: Anion Gap 7 mmol/L (8-16); Blood Urea Nitrogen 47 mg/dL (7-17); Calcium 8.6 mg/dL (8.4-10.2); Carbon Dioxide 28 mmol/L (22-30); Chloride 98 mmol/L (98-107); Estimated CRCL calculation 26 ml/min; Estimated Glomerular Filt Rate 28; Glucose 91 mg/dL (65-110); Potassium 3.1 mmol/L (3.4-5.0); Sodium 133 mmol/L (137-145)
[2022-06-03 05:23] LABS: NT Pro B Type Natriuretic Pept 25600 pg/mL (5-100)
[2022-06-03 05:29] LABS: Basophils Percent Auto 0.3 % (0.2-1.2); Eosinophils Absolute Auto 0.4 K/mm3 (0-0.3); Eosinophils Percent Auto 3.6 % (0-4.4); Hematocrit 38.3 % (37.0-47.0); Hemoglobin 11.9 g/dL (12.0-15.0); Immature Granulocyte Absolute 0.05 K/mm3 (0.00-0.031); Immature Granulocyte Percent A 0.4 % (0-0.5); Lymphocytes Absolute Auto 0.46 K/mm3 (0.9-3.2); Lymphocytes Percent Auto 4.1 % (18.3-44.2); Mean Corpuscular HGB Conc 31.1 g/dl (32-36); Mean Corpuscular Hemoglobin 30.9 pg (26-34); Mean Corpuscular Volume 99.5 fl (80-100); Mean Platelet Volume 11.3 fl (7.4-10.4); Monocytes Absolute Auto 0.5 K/mm3 (0.1-0.6); Neutrophils Absolute Auto 9.9 K/mm3 (1.3-6.7); Neutrophils Percent Auto 87.6 % (45.5-73.1); Platelet Count Result 187 k/mm3 (150-375); Red Blood Count 3.85 M/mm3 (4.2-5.4); Red Cell Distribution Width 18.4 % (11.5-14.5); White Blood Count 11.3 K/mm3 (4.5-10.0)
[2022-06-03] MEDS: LEVOTHYROXINE SODIUM 125 MCG TABLET PO (06:55)
[2022-06-03] MEDS: FUROSEMIDE INJ 40 MG/4 ML VIAL IV PUSH ×2 (06:55→17:00)
[2022-06-03] MEDS: allopurinoL 100 MG TABLET PO (08:31)
[2022-06-03] MEDS: CYANOCOBALAMIN 500 MCG TABLET PO (08:31)
[2022-06-03] MEDS: SACUBITRIL/VALSARTAN 24-26 MG TABLET 1 TAB PO ×2 (08:31→22:02)
[2022-06-03] MEDS: PANTOPRAZOLE 40 MG TABLET PO (08:31)
[2022-06-03] MEDS: ASCORBIC ACID 500 MG TABLET 1000 MG PO (08:31)
[2022-06-03] MEDS: FERROUS SULFATE 324 MG TABLET PO (08:31)
[2022-06-03] MEDS: METOPROLOL SUCCINATE EXT REL 100 MG TABCR PO (08:32)
[2022-06-03] MEDS: SPIRONOLACTONE 25 MG TABLET PO (08:32)
[2022-06-03] MEDS: CHOLECALCIFEROL 400 UNITS TABLET (VIT D) PO (08:33)
[2022-06-03] MEDS: POTASSIUM CHLORIDE 20 MEQ PACKET (FOR LIQUID) 40 MEQ PO (08:37)
--- NOTE | 2022-06-03 14:28 | PM.IMPN ---
Progress Note: A&P Assessment and Plan (1) Generalized weakness: Code(s): R53.1 - Weakness Status: Acute Assessment and Plan: PTOT will likely need skilled facility placed or home health. (2) Acute exacerbation of CHF (congestive heart failure): Code(s): I50.9 - Heart failure, unspecified Status: Acute Assessment and Plan: appears to be euvolemic. Monitor volume status. Continue home medications (3) Elevated troponin: Code(s): R77.8 - Other specified abnormalities of plasma proteins Status: Acute Assessment and Plan: likely type 2 [place]. setting of chronic kidney disease as well. No chest pain No further workup indicated at this time. (4) Chronic atrial fibrillation: Code(s): I48.20 - Chronic atrial fibrillation, unspecified Status: Acute Assessment and Plan: continue anticoagulation and rate controlling medications. (5) Depression: Code(s): F32.A - Depression, unspecified Status: Acute Assessment and Plan: Continue home medications (6) Other hyperlipidemia: Code(s): E78.49 - Other hyperlipidemia Status: Acute Assessment and Plan: continue home medications (7) Anemia: Code(s): D64.9 - Anemia, unspecified Status: Acute Assessment and Plan: continue iron and home medications (8) Chronic renal insufficiency, stage III (moderate): Code(s): N18.3 - Chronic kidney disease, stage 3 (moderate) Status: Acute Assessment and Plan: baseline creatinine appears to be role 1.6. Currently creatinine 1.8 monitor Subjective Date/time seen: 06/03/22 14:28 Patient reports her breathing is improved. She is still awfully weak. Exam Narrative: General: alert and oriented Psych: appropriate mood nad affect Eyes: PERRLA Neck: Trachea midline, no new lesions Skin: no changes Lungs: CTA Cardiac: Normal S1,S2, no MGR ABD: soft, nd, nt, nbs Ext: no new lesions, no cce Vasc: Pulses intact Objective Data Vital Signs Vital Signs: Vital Signs - 24 hr 06/02/22 15:07 06/02/22 17:38 06/02/22 16:00 Temperature 98 F Pulse Rate 105 H 89 Respiratory Rate 22 H Blood Pressure 130/60 Pulse Oximetry 98 Oxygen Delivery Room Air 06/02/22 16:00 06/02/22 18:00 06/02/22 20:00 Temperature Pulse Rate 90 84 Respiratory Rate Blood Pressure Pulse Oximetry Oxygen Delivery Room Air 06/02/22 20:00 06/02/22 20:00 06/02/22 22:00 Temperature 98.1 F Pulse Rate 84 87 86 Respiratory Rate 20 Blood Pressure 105/52 L Pulse Oximetry 100 Oxygen Delivery 06/02/22 23:33 06/03/22 00:00 06/03/22 02:00 Temperature 98.3 F Pulse Rate 83 85 77 Respiratory Rate 20 Blood Pressure 109/50 L Pulse Oximetry 98 Oxygen Delivery 06/03/22 00:00 06/03/22 04:00 06/03/22 04:00 Temperature 97.9 F Pulse Rate 78 76 Respiratory Rate 20 Blood Pressure 109/44 L Pulse Oximetry 96 Oxygen Delivery Room Air 06/03/22 04:00 06/03/22 06:00 06/03/22 08:00 Temperature 97.9 F Pulse Rate 84 85 Respiratory Rate 16 Blood Pressure 115/56 L Pulse Oximetry 99 Oxygen Delivery Room Air 06/03/22 08:00 06/03/22 11:57 06/03/22 12:00 Temperature 97.6 F Pulse Rate 93 Respiratory Rate 18 Blood Pressure 110/61 Pulse Oximetry 100 Oxygen Delivery Room Air Room Air Intake/Output Intake/Output: Intake & Output 05/31/22 06/01/22 06/02/22 06/03/22 23:59 23:59 23:59 23:59 Intake Total 1080 540 Output Total 200 200 Balance 880 340 Meds/Results Medications: Active Medications Generic Name Dose Route Start Last Admin Trade Name Freq PRN Reason Stop Dose Admin Allopurinol 100 mg 06/02/22 09:00 06/03/22 08:31 Allopurinol 100 Mg Tablet PO 100 mg DAILY ASHU Administration Ascorbic Acid 1,000 mg 06/02/22 09:00 06/03/22 08:31 Ascorbic Acid 500 Mg Tablet PO 1,000 mg
[2022-06-03] MEDS: LOPERAMIDE HCL 2 MG CAPSULE PO (14:43)
[2022-06-03] MEDS: RIVAROXABAN 20 MG TABLET PO (16:42)
[2022-06-03] MEDS: lamoTRIgine 100 MG TABLET PO (22:03)
[2022-06-03] MEDS: SERTRALINE HCL 50 MG TABLET 150 MG PO (22:03)
--- NOTE | 2022-06-03 22:26 | PC.NURSE ---
This patient, Jyotsna Allred, was transferred to [[id number]] on 06/03/22 at 2226. Personal belongings sent with patient. Report given to [ONI Turner]. Appropriate documentation sent with patient.
[2022-06-04 06:00] VITALS: BP 107/61; PULSE 79; RESP 18; TEMP 36.4; O2SAT 95
[2022-06-04] MEDS: LEVOTHYROXINE SODIUM 125 MCG TABLET PO (06:27)
[2022-06-04] MEDS: FUROSEMIDE INJ 40 MG/4 ML VIAL IV PUSH ×2 (06:30→17:01)
[2022-06-04 08:47] VITALS: PULSE 84
[2022-06-04] MEDS: METOPROLOL SUCCINATE EXT REL 100 MG TABCR PO (08:47)
[2022-06-04] MEDS: CHOLECALCIFEROL 400 UNITS TABLET (VIT D) PO (08:47)
[2022-06-04] MEDS: PANTOPRAZOLE 40 MG TABLET PO (08:47)
[2022-06-04] MEDS: FERROUS SULFATE 324 MG TABLET PO (08:47)
[2022-06-04 08:48] VITALS: RESP 18; O2SAT 95
[2022-06-04] MEDS: CYANOCOBALAMIN 500 MCG TABLET PO (08:48)
[2022-06-04] MEDS: SACUBITRIL/VALSARTAN 24-26 MG TABLET 1 TAB PO ×2 (08:48→21:24)
[2022-06-04] MEDS: ASCORBIC ACID 500 MG TABLET 1000 MG PO (08:48)
[2022-06-04] MEDS: allopurinoL 100 MG TABLET PO (08:48)
[2022-06-04] MEDS: SPIRONOLACTONE 25 MG TABLET PO (08:48)
[2022-06-04] MEDS: ROSUVASTATIN 10 MG TABLET PO (08:48)
[2022-06-04] MEDS: LOPERAMIDE HCL 2 MG CAPSULE PO (10:59)
[2022-06-04] MEDS: CHOLESTYRAMINE (W/ SUGAR) 4 GM POWD.PACK PO (11:56)
[2022-06-04 14:00] VITALS: BP 110/54; PULSE 88; RESP 16; TEMP 36.4; O2SAT 100
[2022-06-04] MEDS: RIVAROXABAN 20 MG TABLET PO (17:01)
--- NOTE | 2022-06-04 17:53 | PM.IMPN ---
Progress Note: A&P Assessment and Plan (1) Generalized weakness: Code(s): R53.1 - Weakness Status: Acute Assessment and Plan: PTOT will likely need skilled facility placed or home health. (2) Acute exacerbation of CHF (congestive heart failure): Code(s): I50.9 - Heart failure, unspecified Status: Acute Assessment and Plan: appears to be euvolemic. Continue home medications. Change to oral Lasix. Monitor volume status. (3) Elevated troponin: Code(s): R77.8 - Other specified abnormalities of plasma proteins Status: Acute Assessment and Plan: likely type 2 [place]. setting of chronic kidney disease as well. No chest pain No further workup indicated at this time. (4) Chronic atrial fibrillation: Code(s): I48.20 - Chronic atrial fibrillation, unspecified Status: Acute Assessment and Plan: Stable. HR controlled. continue anticoagulation and rate controlling medications. (5) Depression: Code(s): F32.A - Depression, unspecified Status: Acute Assessment and Plan: Mood stable. Continue home medications (6) Anemia: Code(s): D64.9 - Anemia, unspecified Status: Acute Assessment and Plan: continue iron and home medications (7) Chronic renal insufficiency, stage III (moderate): Code(s): N18.3 - Chronic kidney disease, stage 3 (moderate) Status: Acute Assessment and Plan: baseline creatinine appears to be around 1.6. Currently creatinine 1.8 Subjective Date/time seen: 06/04/22 17:53 Interval history: 71yo female with pAFib, CHF and CKD here for weakness. She can not stand for long but is able to stand and pivot to the bedside commode. She lives alone. No n/v. No SOB or CP. Having diarrhea 10+ stools per day (3 documented yesterday adn 2 today). Exam Narrative: AF 97.6 110/54 88 16 100% ra General: NARD Lungs: few basilar crackles, nml RR Cardiac: irregular ABD: soft, NT/ND, +BS Ext: mildly woody LE edema Neuo - nonfocal Psych - nml mood but odd affect Skin - small punctate dried eschars LE Objective Data Vital Signs Vital Signs: Vital Signs - 24 hr 06/03/22 18:00 06/03/22 20:00 06/03/22 20:00 Temperature 97.4 F L Pulse Rate 91 93 Respiratory Rate 189 H Blood Pressure 121/69 Pulse Oximetry 99 Oxygen Delivery Room Air 06/03/22 20:00 06/03/22 22:00 06/03/22 22:40 Temperature 98 F Pulse Rate 90 102 H 80 Respiratory Rate 18 Blood Pressure 114/52 L Pulse Oximetry 98 Oxygen Delivery 06/04/22 06:00 06/04/22 08:47 06/04/22 08:48 Temperature 97.6 F Pulse Rate 79 84 Respiratory Rate 18 18 Blood Pressure 107/61 Pulse Oximetry 95 95 Oxygen Delivery Room Air 06/04/22 14:00 Temperature 97.6 F Pulse Rate 88 Respiratory Rate 16 Blood Pressure 110/54 L Pulse Oximetry 100 Oxygen Delivery Intake/Output Intake/Output: Intake & Output 06/01/22 06/02/22 06/03/22 06/04/22 23:59 23:59 23:59 23:59 Intake Total 1080 1260 530 Output Total 200 450 Balance 880 810 530 Meds/Results Medications: Active Medications Generic Name Dose Route Start Last Admin Trade Name Zechariahq PRN Reason Stop Dose Admin Allopurinol 100 mg 06/02/22 09:00 06/04/22 08:48 Allopurinol 100 Mg Tablet PO 100 mg DAILY ASHU Administration Ascorbic Acid 1,000 mg 06/02/22 09:00 06/04/22 08:48 Ascorbic Acid 500 Mg Tablet PO 1,000 mg DAILY ASHU Administration Cholestyramine Resin 4 gm 06/03/22 12:00 06/04/22 11:56 Cholestyramine (W/ Sugar) 4 Gm Powd.Pack PO 4 gm DAILY@1200 [facility] Administration Cyanocobalamin 500 mcg 06/02/22 09:00 06/04/22 08:48 Cyanocobalamin 500 Mcg Tablet PO 07/03/22 08:59 500 mcg DAILY ASHU Administration Ferrous Sulfate 324 mg 06/02/22 08:00 06/04/22 08:47 Ferrous Sulfate 324 Mg Tablet PO 324 mg DAILY@0800 [facility] Administration Furosemide 40 mg
[2022-06-04 20:00] VITALS: PULSE 99; RESP 18; O2SAT 99
[2022-06-04] MEDS: SERTRALINE HCL 50 MG TABLET 150 MG PO (21:24)
[2022-06-04] MEDS: lamoTRIgine 100 MG TABLET PO (21:24)
[2022-06-04 22:00] VITALS: BP 111/88; PULSE 99; RESP 18; TEMP 36.8; O2SAT 99
[2022-06-05 06:00] VITALS: BP 105/45; PULSE 86; RESP 16; TEMP 36.8; O2SAT 97
[2022-06-05] MEDS: LEVOTHYROXINE SODIUM 125 MCG TABLET PO (06:06)
[2022-06-05 07:16] LABS: Albumin Level 3.8 g/dL (3.5-5.1); Anion Gap 8 mmol/L (8-16); Blood Urea Nitrogen 48 mg/dL (7-17); Calcium 8.8 mg/dL (8.4-10.2); Carbon Dioxide 29 mmol/L (22-30); Chloride 98 mmol/L (98-107); Estimated CRCL calculation 27 ml/min; Estimated Glomerular Filt Rate 30; Glucose 105 mg/dL (65-110); Phosphorus 2.9 mg/dL (2.5-4.5); Potassium 3.5 mmol/L (3.4-5.0); Sodium 135 mmol/L (137-145)
[2022-06-05] MEDS: FERROUS SULFATE 324 MG TABLET PO (09:00)
[2022-06-05] MEDS: PANTOPRAZOLE 40 MG TABLET PO (09:00)
[2022-06-05] MEDS: SACUBITRIL/VALSARTAN 24-26 MG TABLET 1 TAB PO (09:00)
[2022-06-05] MEDS: FUROSEMIDE 40 MG TABLET PO ×2 (09:00→17:20)
[2022-06-05] MEDS: CYANOCOBALAMIN 500 MCG TABLET PO (09:00)
[2022-06-05] MEDS: ASCORBIC ACID 500 MG TABLET 1000 MG PO (09:00)
[2022-06-05] MEDS: allopurinoL 100 MG TABLET PO (09:01)
[2022-06-05] MEDS: SPIRONOLACTONE 25 MG TABLET PO (09:01)
[2022-06-05] MEDS: METOPROLOL SUCCINATE EXT REL 100 MG TABCR PO (09:01)
[2022-06-05] MEDS: CHOLECALCIFEROL 400 UNITS TABLET (VIT D) PO (09:01)
[2022-06-05] MEDS: EUCERIN CREAM 454 GM JAR 1 APPLIC TOPICAL (09:01)
[2022-06-05] MEDS: CHOLESTYRAMINE (W/ SUGAR) 4 GM POWD.PACK PO (11:57)
[2022-06-05 14:00] VITALS: PULSE 78; RESP 20; TEMP 35.7; O2SAT 93
--- NOTE | 2022-06-05 14:45 | PM.IMPN ---
Progress Note: A&P Assessment and Plan (1) Generalized weakness: Code(s): R53.1 - Weakness Status: Acute Assessment and Plan: Patient presents with generalized weakness. CT brain showing no acute findings. She has post-polio syndrome. Improving but likely will need skilled facility placed or home health. Awaiting placement. (2) Acute exacerbation of CHF (congestive heart failure): Code(s): I50.9 - Heart failure, unspecified Status: Acute Assessment and Plan: CXR showing moderate CMG and interstitial edema treated with IV Lasix. Condition improved. Appears to be euvolemic. Changed to oral Lasix. Continue home medications. Monitor volume status. (3) Elevated troponin: Code(s): R77.8 - Other specified abnormalities of plasma proteins Status: Acute Assessment and Plan: Likely type 2 [place] in the setting of chronic kidney disease as well. No chest pain. No further workup indicated at this time. (4) Chronic atrial fibrillation: Code(s): I48.20 - Chronic atrial fibrillation, unspecified Status: Acute Assessment and Plan: Stable. HR controlled. Continue anticoagulation and rate controlling medications. (5) Depression: Code(s): F32.A - Depression, unspecified Status: Acute Assessment and Plan: Mood stable. Continue home medications (6) Anemia: Code(s): D64.9 - Anemia, unspecified Status: Acute Assessment and Plan: Stable. Continue iron and home medications (7) Chronic renal insufficiency, stage III (moderate): Code(s): N18.3 - Chronic kidney disease, stage 3 (moderate) Status: Acute Assessment and Plan: baseline creatinine appears to be around 1.6. Currently creatinine 1.7 and stable Subjective Date/time seen: 06/05/22 14:45 Interval history: 71yo female with pAFib, CHF and CKD here for weakness. Still feels very weak Had polio as a child that affected her LLE. Left arm was unaffected. No CP or SOB. Exam Narrative: AF 98.3 105/45 86 16 97% ra General: NARD Lungs: few basilar crackles that improved with deep inspiration, nml RR Cardiac: irregular ABD: soft, NT/ND, +BS Ext: mildly woody LE edema Neuro - left LE weak hip flexors. Psych - nml mood but odd affect Skin - warm and dry Objective Data Vital Signs Vital Signs: Vital Signs - 24 hr 06/04/22 22:00 06/04/22 20:00 06/05/22 06:00 Temperature 98.2 F 98.3 F Pulse Rate 99 99 86 Respiratory Rate 18 18 16 Blood Pressure 111/88 105/45 L Pulse Oximetry 99 99 97 Oxygen Delivery Room Air Intake/Output Intake/Output: Intake & Output 06/02/22 06/03/22 06/04/22 06/05/22 23:59 23:59 23:59 23:59 Intake Total 1080 1260 930 880 Output Total 200 450 500 Balance 880 810 430 880 Meds/Results Medications: Active Medications Generic Name Dose Route Start Last Admin Trade Name Freq PRN Reason Stop Dose Admin Allopurinol 100 mg 06/02/22 09:00 06/05/22 09:01 Allopurinol 100 Mg Tablet PO 100 mg DAILY ASHU Administration Ascorbic Acid 1,000 mg 06/02/22 09:00 06/05/22 09:00 Ascorbic Acid 500 Mg Tablet PO 1,000 mg DAILY ASHU Administration Cholestyramine Resin 4 gm 06/03/22 12:00 06/05/22 11:57 Cholestyramine (W/ Sugar) 4 Gm Powd.Pack PO 4 gm DAILY@1200 ASHU Administration Cyanocobalamin 500 mcg 06/02/22 09:00 06/05/22 09:00 Cyanocobalamin 500 Mcg Tablet PO 07/03/22 08:59 500 mcg DAILY ASHU Administration Ferrous Sulfate 324 mg 06/02/22 08:00 06/05/22 09:00 Ferrous Sulfate 324 Mg Tablet PO 324 mg DAILY@0800 ASHU Administration Furosemide 40 mg 06/05/22 09:00 06/05/22 09:00 Furosemide 40 Mg Tablet PO 40 mg BID ASHU Administration Lamotrigine 100 mg 06/02/22 21:00 06/04/22 21:24 Lamotrigine 100 Mg Tablet PO 100 mg HS ASHU Administration Levothyroxine Sodium 125 mcg 06/03/22 06:30 06/05/22 06:06 Levothyro
--- NOTE | 2022-06-05 16:55 | PM.DS ---
DS: Admitting Diagnosis Discharge Date 06/05/22 Admitting Diagnosis Weakness DS: Discharge Diagnosis Discharge Diagnosis (1) Generalized weakness: Code(s): R53.1 - Weakness Status: Acute (2) Acute exacerbation of CHF (congestive heart failure): Code(s): I50.9 - Heart failure, unspecified Status: Acute (3) Elevated troponin: Code(s): R77.8 - Other specified abnormalities of plasma proteins Status: Acute (4) Chronic atrial fibrillation: Code(s): I48.20 - Chronic atrial fibrillation, unspecified Status: Acute (5) Depression: Code(s): F32.A - Depression, unspecified Status: Acute (6) Anemia: Code(s): D64.9 - Anemia, unspecified Status: Acute (7) Chronic renal insufficiency, stage III (moderate): Code(s): N18.3 - Chronic kidney disease, stage 3 (moderate) Status: Acute DS: Summary Hospital Course Reason for hospitalization: 71yo female with pAFib, CHF and CKD here for weakness. Please see H&P for details Hospital Course: Patient presents with generalized weakness. CXR showing moderate CMG and interstitial edema treated with IV Lasix. Condition improved. Now euvolemic. Changed to oral Lasix. We continued home medications. CT brain showing no acute findings. She has post-polio syndrome. She worked with therapy. Weakness is improving but lives alone and not felt she was strong enough to be home alone. She was noted to have elevated troponin likely type 2 TX due to the CHF in the setting of chronic kidney disease as well.? No chest pain. No further workup was indicated at this time. She has chronic atrial fibrillation. HR controlled. We continued anticoagulation and rate controlling medications. Insurance refused skilled facility placement and patient decided to private pay. Patient overall did well and was able to be discharged to skilled facility on 06/05/22 Status at Discharge Cognitive/behavioral status at discharge: stable Time Spent with Patient Time attestation: Total time spent providing and/or coordinating discharge services:36 minutes Time spent: Greater than 30 minutes Exam Narrative: AF 98.3 105/45 86 16 97% ra General: NARD Lungs: few basilar crackles that improved with deep inspiration, nml RR Cardiac: irregular ABD: soft, NT/ND, +BS Ext: mildly woody LE edema Neuro - left LE weak hip flexors. Psych - nml mood but odd affect Skin - warm and dry DS: Data Data Completed and Pending Labs on day of discharge: Labs from last 24 hours 06/05/22 06:49 Sodium 135 L Potassium 3.5 Chloride 98 Carbon Dioxide 29 Anion Gap 8 BUN 48 H Creatinine 1.70 H Estim Creat Clear Calc 27 Estimated GFR 30 L Glucose 105 Calcium 8.8 Phosphorus 2.9 Magnesium 2.0 Albumin 3.8 Discharge Plan Discharge Attending physician on discharge: Elliott Rios Discharging Clinician: Elliott Rios Anticipated Discharge Date/Time: 06/05/22 17:25 Patient Disposition: SNF Activity: as tolerated Diet: heart healthy Discharge Instructions: Check blood pressure 1 to 2 times a day. Record for the doctor's review. Call your doctor if your blood pressure is greater than 180/110. Take precautions to avoid falls. Rise slowly from a lying or sitting position. Pause before standing or walking. Check daily morning weights after voiding. Call the doctor if she gains more than 3 lb in 2 days or 5 lb in 1 week. Avoid NSAIDs (ibuprofen, naproxen, Aleve). Tylenol is safe to take. Follow-up with the provider at the facility Thank you for using [facility] for your health care needs. Stand Alone Forms: General Discharge Information Follow-up/Referrals: Lia Dexter MD [Primary Care Provider] - Call for Appointment Discharge Medications: Continued Entresto 24-26 mg tablet 1 tablet PO Q12HR Qty: 60 3RF cyanocobalamin (vitamin B-12) 500 mcg tablet,chewable 50
[2022-06-05] MEDS: RIVAROXABAN 20 MG TABLET PO (17:20)
[2022-06-05 18:54] LABS: EDCOVIDSCREEN Negative (Negative)
== END 2022-06-05 19:50 ==
LOC: ANHED 06:04 → ANHIMU 11:20 → ANH3MEDSUR 06-04 00:18 → ANHIMU 06-06 11:45
PROVIDERS: Admitting Provider Chiropractor; Emergency Provider Emergency Medicine; PCP Family Medicine; Visit Provider Internal Medicine
DX: R53.1 Weakness (principal); W19.XXXA Unspecified fall, initial encounter; I50.22 Chronic systolic (congestive) heart failure; R77.8 Other specified abnormalities of plasma proteins; D64.9 Anemia, unspecified; Z23 Encounter for immunization; N18.30 Chronic kidney disease, stage 3 unspecified; M48.54XA Collapsed vertebra, not elsewhere classified, thoracic region, initial encounter for fracture; I25.10 Atherosclerotic heart disease of native coronary artery without angina pectoris; G14 Postpolio syndrome; F32.9 Major depressive disorder, single episode, unspecified; E03.9 Hypothyroidism, unspecified; J45.909 Unspecified asthma, uncomplicated; E78.49 Other hyperlipidemia; I45.89 Other specified conduction disorders; M85.80 Other specified disorders of bone density and structure, unspecified site; I48.20 Chronic atrial fibrillation, unspecified; I73.9 Peripheral vascular disease, unspecified; M47.812 Spondylosis without myelopathy or radiculopathy, cervical region; M50.321 Other cervical disc degeneration at C4-C5 level; M50.322 Other cervical disc degeneration at C5-C6 level; M50.323 Other cervical disc degeneration at C6-C7 level; Z87.891 Personal history of nicotine dependence; Z79.01 Long term (current) use of anticoagulants; Z79.899 Other long term (current) drug therapy
CPT/HCPCS: 36415; 70450; 71045; 72125; 80048; 80053; 80069; 81001; 83735; 83880; 84145; 84484; 85025; 85610; 85730; 87086; 87088; 87426; 87502; 90471; 90694; 93005; 96374; 97110; 97161; 97165; 97530; 99285; A9270; C9803; G0008; G0378; J1940; U0003; U0005

== ENCOUNTER 2022-06-18 14:46 | Inpatient (IN) | payer MEDICARE, SELFPAY ==
[2022-06-18] VITALS (60 sets, daily range): BP systolic 67–115; BP diastolic 24–78; PULSE 73–136; RESP 12–34; TEMP 36.6–38.3; O2SAT 79–100; BMI 28.8
--- NOTE | ~2022-06-18 | US_ITS ---
EXAMINATION: US renal BI DATE: 06/23/2022 15:34 INDICATION: elevated creatinine TECHNIQUE: Multiple grayscale and Doppler ultrasound images of the kidneys were obtained. COMPARISON: CT chest abdomen and pelvis 06/18/2022 FINDINGS: The right kidney measures 9.3 x 3.7 x 4.4 cm. The left kidney measures 10.1 x 5.3 x 5.7 cm. The kidne ys demonstrate normal parenchymal echogenicity. Moderate right atrophy. Bilateral renal scarring Ther e is no hydronephrosis. The bladder is not visualized. Moderate volume ascites. IMPRESSION: Moderate right renal atrophy. Bilateral renal scarring. Moderate ascites. Reviewed, dictated and finalized at location K. IC POLICY ASSOCIATE
--- NOTE | ~2022-06-18 | XR_ITS ---
EXAMINATION: XR chest 1V portable Exam Date/Time: 06/24/2022 20:20 BOOKIE HISTORY: sob Comparison: Same date at 5:31 AM. RESULT: Lines, tubes, and devices: None. Lungs and pleura: Diffuse reticular opacities, slightly improved. Cardiomediastinal silhouette: Stable. Other: No acute osseous or upper abdominal finding. IMPRESSION: Slightly improved interstitial edema. Reviewed, dictated and finalized at location K. IE
--- NOTE | ~2022-06-18 | XR_ITS ---
EXAMINATION: XR chest 1V portable DATE: 06/23/2022 05:46 INDICATION: Respiratory failure. Cough. TECHNIQUE: frontal view of the chest was obtained. COMPARISON: Chest radiograph dated 06/22/2022-06/19/2022 FINDINGS: Continued gradual improvement in now minimal opacities in the bilateral lower lung zones. Perihilar b ronchial wall thickening. Right apical pneumothorax appears resolved. No pleural effusion or pneumoth orax. Cardiomegaly. Residual oral contrast material in the body of the stomach consistent with gastro paresis. Surgical clip at the right axilla. IMPRESSION: 1. Continued improvement in now minimal opacities in bilateral lower lung zones consistent with resol ving pneumonia. 2. Cardiomegaly. Reviewed, dictated and finalized at location A. [employer] IMPRESSION: 1. Continued improvement in now minimal opacities in bilateral lower lung zones consistent with resolving pneumonia. 2. Cardiomegaly.
--- NOTE | ~2022-06-18 | XR_ITS ---
EXAMINATION: XR chest 1V portable DATE: 06/19/2022 08:48 INDICATION: Respiratory failure. Endotracheal tube repositioning. TECHNIQUE: frontal view of the chest was obtained. COMPARISON: Chest radiograph dated 06/18/2022 FINDINGS: Endotracheal tube tip 6 mm above the amanda. Nasogastric tube extends below the left hemidiaphragm w ith distal tip collimated off the study. Very small right pneumothorax with 3 mm separation of the pleural margin at the mid lung zone. Diffus e mild opacities throughout both lungs with more focal patchy consolidation in the left hilar and low er lung zones. No pleural effusion or left-sided pneumothorax. Mild cardiomegaly. Old lateral right t hird rib fracture. IMPRESSION: 1. Lines and tubes in expected position with endotracheal tube tip 6 mm above the amanda. 2. Very small right pneumothorax. 3. Diffuse bilateral lung disease with more patchy consolidation in the left hilar and inferior lung zones consistent with pneumonia. Reviewed, dictated and finalized at location L. STICKER IMPRESSION: 1. Lines and tubes in expected position with endotracheal tube tip 6 mm above t he amanda. 2. Very small right pneumothorax. 3. Diffuse bilateral lung disease with more patchy consolidation in the left hi lar and inferior lung zones consistent with pneumonia.
--- NOTE | ~2022-06-18 | XR_ITS ---
Portable chest x-ray Comparison: 06/23/2022 Clinical History: Respiratory failure Findings: Mild groundglass opacity is present in the lungs, similar to prior exam. No pleural effusi on or pneumothorax. Cardiomediastinal silhouette is stable. Bones and soft tissues are unremarkable. Impression: Probable minimal pulmonary edema pattern. Reviewed, dictated and finalized at [facility]. ICE DELIVERY ANALYST Impression: Probable minimal pulmonary edema pattern.
--- NOTE | ~2022-06-18 | XR_ITS ---
EXAMINATION: XR chest ET placement INDICATION: Endotracheal tube insertion TECHNIQUE: Portable AP chest at 1301 hours COMPARISON: 06/02/2022 FINDINGS: An endotracheal tube ends in the distal aspect of the right mainstem bronchus. The nasogast naveen tube is followed as far as the stomach. Its tip is beyond the inferior margin of the radiograph. There is volume loss in the left lung. Diffuse interstitial and airspace opacities are present. Cardi omegaly is noted. No pleural effusion or pneumothorax. IMPRESSION: 1. Endotracheal tube in the distal right mainstem bronchus. Tube has been repositioned at the time of interpretation. 2. Diffuse lung disease, consistent with atelectasis versus pneumonia versus pulmonary edema. 3. Cardiomegaly. Reviewed, dictated and finalized at location F. BARKER IMPRESSION: 1. Endotracheal tube in the distal right mainstem bronchus. Tube has been repos itioned at the time of interpretation. 2. Diffuse lung disease, consistent with atelectasis versus pneumonia versus pu lmonary edema. 3. Cardiomegaly.
--- NOTE | ~2022-06-18 | XR_ITS ---
EXAMINATION: XR chest 1V portable DATE: 06/22/2022 05:59 INDICATION: Respiratory failure TECHNIQUE: frontal view of the chest was obtained. COMPARISON: Chest radiograph dated 06/21/22 FINDINGS: Continued slight improvement in mild opacities in bilateral lower lung zones. Unchanged trace pneumot horax at the right apex. No pleural effusion or left-sided pneumothorax. Cardiomegaly. No interval ch kamran in small amount of oral contrast in the stomach consistent with gastroparesis. IMPRESSION: 1. Continued slight improvement in mild opacities in bilateral lower lung zones which could represent improving pulmonary edema, pneumonia, atelectasis or some combination thereof. 2. Unchanged trace right apical pneumothorax. 3. Cardiomegaly. Reviewed, dictated and finalized at location A. NHOUSE TECHNICIAN IMPRESSION: 1. Continued slight improvement in mild opacities in bilateral lower lung zones which could represent improving pulmonary edema, pneumonia, atelectasis or hudson e combination thereof. 2. Unchanged trace right apical pneumothorax. 3. Cardiomegaly.
--- NOTE | ~2022-06-18 | XR_ITS ---
EXAMINATION: XR barium swallow modified DATE: 06/24/2022 11:26 INDICATION: Possible aspiration TECHNIQUE: The patient was given barium-containing material of multiple consistencies to swallow by t suly speech pathologist while I performed fluoroscopy. Dose-area product was 2.766 Gy-cm2. 4.1 minutes fluoroscopy time FINDINGS: Oral Stage: Diminished labial seal Pharyngeal Phase: Reduced laryngeal elevation Inconsistent laryngeal penetration with thin liquids, mild silent aspiration Cervical/Esophageal Stage: Within functional limits IMPRESSION: Modified esophagram findings as above. Please refer to the speech therapy report for spec [facility] recommendations. Reviewed, dictated and finalized at Location A. Reviewed, dictated and finalized at location A. SIFIED AD TAKER IMPRESSION: Modified esophagram findings as above. Please refer to the speech t herapy report for specific recommendations.
--- NOTE | ~2022-06-18 | US_ITS ---
EXAMINATION:US venous doppler LE BI INDICATION:Lower extremity swelling TECHNIQUE: Multiple grayscale, color flow and Doppler images of the bilateral lower extremity deep ve nous systems were obtained and reviewed. COMPARISON:No prior studies for comparison. FINDINGS: The common femoral, superficial femoral and popliteal veins demonstrate normal respiratory variation, augmentation and compressibility. Color flow is also seen within the posterior tibial, pe roneal, greater saphenous and profunda veins. IMPRESSION: 1: No lower extremity deep venous thrombosis. Reviewed, dictated and finalized at location A. EDORE DOCK
--- NOTE | ~2022-06-18 | XR_ITS ---
EXAMINATION: XR chest 1V portable DATE: 06/20/2022 06:23 INDICATION: Respiratory failure. TECHNIQUE: A single frontal view of the chest was obtained. COMPARISON: Chest single view 06/19/2022, chest CT 06/18/2022 FINDINGS: There are interstitial and airspace opacities involving all lung zones. No pleural effusion or pneumothorax. Cardiomegaly is noted. The endotracheal tube tip is 3.8 cm above the amanda. The na sogastric tube tip is beyond the inferior margin of the radiograph, but at least to the stomach. IMPRESSION: 1. Stable diffuse lung disease, likely a combination of pulmonary edema and pneumonia. 2. Cardiomegaly. Reviewed, dictated and finalized at location A. ING MACHINE OPERATOR GAS IMPRESSION: 1. Stable diffuse lung disease, likely a combination of pulmonary edema and pne umonia. 2. Cardiomegaly.
--- NOTE | ~2022-06-18 | US_ITS ---
EXAMINATION: US venous doppler UE DATE: 06/26/2022 21:47 INDICATION: Upper limb pain and swelling. TECHNIQUE: Grayscale ultrasound images without and with compression and Doppler ultrasound images of the bilateral upper extremity veins were obtained. COMPARISON: None. FINDINGS: The visualized portions of the right internal jugular vein, subclavian vein, axillary vein, brachial veins, basilic vein, cephalic vein, radial vein, and ulnar vein are patent. The visualized portions of the left internal jugular vein, subclavian vein, axillary vein, brachial v eins, basilic vein, radial vein, and ulnar vein are patent. There is thrombus in left cephalic vein. IMPRESSION: 1. No deep venous thrombosis. 2. Thrombus in left cephalic vein, which is a superficial vein. Reviewed, dictated and finalized at location A. NEERING GEOLOGIST
--- NOTE | ~2022-06-18 | XR_ITS ---
EXAMINATION: XR abdomen NG/feed tube insert INDICATION: Nasogastric tube insertion TECHNIQUE: Portable AP KUB-NG at 1507 hours COMPARISON: None available FINDINGS: Nasogastric tube is in the stomach. The bowel gas pattern is nonspecific. Surgical clips in the right upper quadrant are likely from prior cholecystectomy. IMPRESSION: 1. Nasogastric tube in the stomach. Reviewed, dictated and finalized at location F. RESCENT SOLUTION MIXER
--- NOTE | ~2022-06-18 | CT_ITS ---
EXAMINATION: CT chest abdomen pelvis wo con DATE: 06/18/2022 18:40 INDICATION: Shortness of breath, sepsis, history of breast cancer TECHNIQUE: Transaxial computed tomographic images of the chest, abdomen, and pelvis were obtained wit hout intravenous contrast. The dose-length product (DLP) was 1254.93 mGy-cm. Automated exposure contr ol and iterative reconstruction technique were employed. COMPARISON: 12/20/2021, 12/07/2013 FINDINGS: CHEST CT: There is a small to moderate-sized right pneumothorax. The endotracheal tube extends 10 mm into the r ight mainstem bronchus. There are airspace opacities in the medial aspect of the left lower lobe. Car diomegaly is noted. There are patchy airspace opacities throughout the lungs. Smooth interlobular sep nathalia thickening is noted. There is no pleural effusion. There is right paratracheal lymphadenopathy. S ubpleural reticular opacities in the anterior aspect of the left upper lobe with osteopenia of the ad jacent rib likely reflect radiation change. ABDOMEN/PELVIS CT: There is a large volume of ascites. The nasogastric tube is in the stomach. The gallbladder is surgic ally absent. The liver, spleen, pancreas, and adrenal glands are unremarkable. There is atrophy of th e right kidney upper pole. There is a 2 mm stone in the right kidney upper pole. A wedge-shaped area of cortical scarring is present in the left mid kidney. There is a chronic left adnexal mass with int erval decrease in size since the 2014 comparison. There is severe lumbar spondylosis. The bladder is decompressed by Ham catheter. IMPRESSION: 1. Bzdbc-am-uskedzgn size right pneumothorax. 2. Endotracheal tube 10 mm into the right mainstem bronchus. 3. Cardiomegaly with pulmonary edema. 4. Bilateral airspace opacities, more focal in the left lower lobe, consistent with atelectasis versu s pneumonia, possible aspiration. 5. Large volume of ascites. These findings were discussed with Dr. Virginia Brewster III, DO in the Emergency Department at 1921 hours on 06/18/2022. Reviewed, dictated and finalized at location F. THERAPIST IMPRESSION: 1. Xfalk-hz-cbtpvist size right pneumothorax. 2. Endotracheal tube 10 mm into the right mainstem bronchus. 3. Cardiomegaly with pulmonary edema. 4. Bilateral airspace opacities, more focal in the left lower lobe, consistent with atelectasis versus pneumonia, possible aspiration. 5. Large volume of ascites. These findings were discussed with Dr. Virginia Brewster III, DO in the Emergen cy Department at 1921 hours on 06/18/2022.
--- NOTE | ~2022-06-18 | CT_ITS ---
EXAMINATION: CT brain wo con INDICATION: Altered mental status COMPARISON: None TECHNIQUE: Standard unenhanced head CT. The dose-length product (DLP) was 605.33 mGy-cm. The mA was a djusted according to patient size. Iterative reconstruction technique was employed. FINDINGS: There is no acute intraparenchymal hemorrhage. No evidence of mass lesion. No evidence of a cute infarction. There is mild periventricular and subcortical hypodensity probably related to small vessel ischemic disease. There is mild prominence of the sulci and ventricles related to cerebral atr ophy. Intracranial calcified cerebral atherosclerosis is noted. There are no extra-axial collections. There is no mass effect or midline shift. The orbits and soft tissues are unremarkable. There is mil d mucosal thickening of the paranasal sinuses. IMPRESSION: 1. No acute intracranial abnormality. 2. Age related findings. Reviewed, dictated and finalized at location F. BILLING SPECIALIST
--- NOTE | ~2022-06-18 | XR_ITS ---
EXAMINATION: XR chest ET placement INDICATION: Endotracheal tube insertion TECHNIQUE: Portable AP chest at 1504 hours COMPARISON: 1501 hours FINDINGS: The tip of the nasogastric tube remains within the right mainstem bronchus. There is improv ed aeration of the left lung. Diffuse interstitial and airspace opacities are present. Cardiomegaly i s noted. No pleural effusion or pneumothorax. The nasogastric tube is followed as far as the stomach. Its tip is beyond the inferior margin of the radiograph. IMPRESSION: 1. Repositioned endotracheal tube now ending within the proximal right mainstem bronchus. Recommend w ithdrawing 2 to 3 cm. 2. Improved aeration of the left lung. 3. Diffuse interstitial and airspace opacities of the lungs, consistent with atelectasis versus pneum onia versus pulmonary edema. Reviewed, dictated and finalized at location F. IAL ED ASSISTANT IMPRESSION: 1. Repositioned endotracheal tube now ending within the proximal right mainstem bronchus. Recommend withdrawing 2 to 3 cm. 2. Improved aeration of the left lung. 3. Diffuse interstitial and airspace opacities of the lungs, consistent with at electasis versus pneumonia versus pulmonary edema.
--- NOTE | ~2022-06-18 | XR_ITS ---
EXAMINATION: XR chest 1V portable DATE: 06/21/2022 06:16 INDICATION: Respiratory failure TECHNIQUE: frontal view of the chest was obtained. COMPARISON: Chest radiograph dated 06/20/22 FINDINGS: Decreasing opacities in the left mid to lower and right lower lung zones. No pleural effusion or pneu mothorax. Cardiomegaly. Unchanged small moderate residual oral contrast material in the stomach. IMPRESSION: 1. Decreasing opacities in the left mid to lower and right lower lung zones which could represent imp roving pulmonary edema, pneumonia, atelectasis or some combination thereof. 2. Cardiomegaly. Reviewed, dictated and finalized at location A. DENTIAL SALES ASSOCIATE IMPRESSION: 1. Decreasing opacities in the left mid to lower and right lower lung zones whi ch could represent improving pulmonary edema, pneumonia, atelectasis or some co mbination thereof. 2. Cardiomegaly.
[2022-06-18] MEDS: SODIUM CHLORIDE 0.9% IV 1,000 ML 999 ML (14:37)
[2022-06-18] MEDS: RAPID SEQUENCE INTUBATION KIT 1 EACH (14:47)
--- NOTE | 2022-06-18 14:47 | PC.NURSE ---
etomidate 30 mg ivp succ 150 mg ivp pt intubated with 7.5 et tube 27 at lips confirmed with color metric device and lungs founds noted throughout michel
--- NOTE | 2022-06-18 15:05 | PC.NURSE ---
tube pulled back to 25 @ teeth. pt easier to bag. pulse ox 100%
--- NOTE | 2022-06-18 15:10 | ECG_ITS ---
Measurements Intervals [place] Rate: 126 P: [place]: 0 QRS: 131 QRSD: 161 T: -22 QT: 386 QTc: 559 Interpretive Statements ATRIAL FIBRILLATION WITH RAPID VENTRICULAR RESPONSE LEFT BUNDLE BRANCH BLOCK [120+ ms QRS DURATION, 80+ ms Q/S IN V1/V2, 85+ ms R IN I/aVL/V5/V6] LATERAL MYOCARDIAL INFARCTION , PROBABLY RECENT [40+ ms Q WAVE AND/OR ST/T ABNORMALITY IN I/aVL/V5/V6] COMPARED TO ECG 06/02/2022 04:23:32 LEFT BUNDLE-BRANCH BLOCK NOW PRESENT Electronically Signed On 06-18-2022 18:12:53 INTERNAL WHOLESALER by Mere Sanches M.D.
--- NOTE | 2022-06-18 15:20 | ECG_ITS ---
Measurements Intervals [place] Rate: 105 P: [place]: 0 QRS: 246 QRSD: 193 T: 87 QT: 423 QTc: 560 Interpretive Statements ATRIAL FIBRILLATION WITH RAPID VENTRICULAR RESPONSE RIGHT AXIS DEVIATION [QRS AXIS > 100] LEFT BUNDLE-BRANCH BLOCK ABNORMAL ECG COMPARED TO ECG 06/18/2022 14:50:30 AXIS HAS SHIFTED HEART RATE HAS DECREASED Electronically Signed On 06-24-2022 17:31:55 INCLUSION TEACHER by Renaldo Rudd M.D.
[2022-06-18 15:22] LABS: Alveolar/Arterial O2 Gradient 374.4 mmHg; Base Excess ABG -11.4 mEq/l (+/-2.0); Carboxyhemoglobin 0.3 % THb (0-2.0); Fractional Inspired Oxygen 100 %; HCO3 ABG 15.5 mEq/l (22.0-26.0); Methemoglobin ABG 0.3 %THb (0-1.5); Oxygen Content ABG 19.4 %vol (16.0-22.0); Oxygen Saturation ABG 99.6 % (95.0-100.0); Oxyhemoglobin 98.4 % THb (90.0-100.0); PCO2 ABG 38.7 mmHg (35.0-45.0); PO2 ABG 299.9 mmHg (80.0-100.0); Total Hemoglobin 13.5 g/dL (12.0-18.0)
[2022-06-18 15:24] LABS: pH ABG 7.221 (7.350-7.450)
[2022-06-18 15:25] LABS: Arterial Blood Gas PEEP 5 cmH2O; Arterial Blood Gas Tidal Volume 400 ml; Arterial Blood Gas Vent Mode CMV; Arterial Blood Gas Ventilator rate 18 /MIN; Device VENTILATOR; Site Drawn RIGHT RADIAL
[2022-06-18 15:37] LABS: Basophils Absolute Auto 0.1 K/mm3 (0.0-0.1); Basophils Percent Auto 0.4 % (0.2-1.2); Eosinophils Absolute Auto 0.1 K/mm3 (0-0.3); Eosinophils Percent Auto 0.6 % (0-4.4); Hemoglobin 13.4 g/dL (12.0-15.0); Immature Granulocyte Absolute 0.09 K/mm3 (0.00-0.031); Immature Granulocyte Percent A 0.8 % (0-0.5); Lymphocytes Absolute Auto 1.17 K/mm3 (0.9-3.2); Lymphocytes Percent Auto 10.1 % (18.3-44.2); Mean Corpuscular HGB Conc 30.5 g/dl (32-36); Mean Corpuscular Volume 98.4 fl (80-100); Mean Platelet Volume 12.4 fl (7.4-10.4); Monocytes Absolute Auto 0.4 K/mm3 (0.1-0.6); Monocytes Percent Auto 3.4 % (2.6-8.5); Neutrophils Absolute Auto 9.8 K/mm3 (1.3-6.7); Neutrophils Percent Auto 84.7 % (45.5-73.1); Platelet Count Result 259 k/mm3 (150-375); Red Blood Count 4.47 M/mm3 (4.2-5.4); Red Cell Distribution Width 17.2 % (11.5-14.5); White Blood Count 11.6 K/mm3 (4.5-10.0)
[2022-06-18 15:40] LABS: INR 1.7; Prothrombin Time 19.6 Seconds (11.1-14.7)
[2022-06-18 15:42] LABS: Partial Thromboplastin Time 34.5 SECONDS (22.3-36.8)
[2022-06-18] MEDS: SODIUM CHLORIDE 0.9% IV 1,000 ML 999 ML IV CONT (15:45)
--- NOTE | 2022-06-18 16:13 | ED.SOB ---
HPI - SOB/Dyspnea General Chief Complaint: Shortness of Breath/Dyspnea Stated Complaint: sob Time Seen by Provider: 06/18/22 14:55 History of Present Illness HPI Narrative: Pt presents with respiratory distress from local [facility]. EMS states pt tested positive for covid over a week ago but had been doing well until today. Pt was confused and not making sense on the phone with her daughter and she asked the nurse to check on her and she was in respiratory distress. On EMS arrival pt was sattining in 60's. Pt placed on bipap in route and improved slightly. Pt possible had a run of v tach in route. Related Data Home Medications Medication Instructions Recorded Confirmed cholecalciferol (vitamin D3) 10 400 unit PO DAILY 05/10/19 06/02/22 mcg (400 unit) capsule cyanocobalamin (vitamin B-12) 500 500 mcg PO DAILY 12/09/21 06/02/22 mcg chewable tablet ferrous sulfate 325 mg (65 mg 325 mg PO DAILY 12/20/21 06/02/22 iron) tablet ascorbic acid (vitamin C) 1,000 mg 1 g PO DAILY 06/02/22 06/02/22 tablet furosemide 40 mg tablet 40 mg PO BID 06/02/22 06/02/22 lamotrigine 100 mg tablet 100 mg PO HS 06/02/22 06/02/22 rosuvastatin 10 mg tablet See Rx Instructions .Route .COMPLEX 06/02/22 06/02/22 sertraline 100 mg tablet 150 mg PO DAILY 06/02/22 06/02/22 Allergies Allergy/AdvReac Type Severity Reaction Status Date / Time cefuroxime Allergy Unknown Unknown Verified 06/02/22 03:55 ezetimibe Allergy Unknown Unknown Verified 06/02/22 03:55 simvastatin Allergy Unknown Unknown Verified 06/02/22 03:55 Sulfa (Sulfonamide Allergy Unknown Unknown Verified 06/02/22 03:55 Antibiotics) sulfanilamide Allergy Unknown Unknown Verified 06/02/22 03:55 Review of Systems Review of Systems: ROS unobtainable: Yes unobtainable due to medical condition and unobtainable due to mental status [facility] Past Medical History Medical History Acute on chronic renal insufficiency Age-related osteoporosis with current pathological fracture Allergic rhinitis Anemia Asthma, mild intermittent Breast cancer Cardiomyopathy Chronic congestive heart failure Chronic HFrEF (heart failure with reduced ejection fraction) Chronic renal insufficiency, stage III (moderate) Closed wedge compression fracture of thoracic vertebra with routine healing Coronary artery disease Depression Elevated glucose H/O malignant neoplasm of breast H/O: gout Hypomagnesemia Hypothyroidism Mild intermittent asthma with exacerbation Mixed hyperlipidemia Osteopenia Other hyperlipidemia Paroxysmal atrial fibrillation Peripheral vascular disease Post-polio syndrome Prediabetes Severe episode of recurrent major depressive disorder, without psychotic features Thyroid disease Vitamin D deficiency Surgical History Surgical History History of cardiac cath History of knee replacement History of partial hysterectomy Hx of colonoscopy Family History Family History Father Hypertension Family history of kidney disease Sibling Hypertension Family history of elevated blood lipids Other Cerebrovascular accident Diabetes mellitus Social History Social History Smoking packs per day: 1 Smoking cigarettes per day: 20.0 Years smoked: 40 Smoking pack-years: 40.00 Smoking status: Former smoker Tobacco type: cigarettes Second hand tobacco smoke exposure: No Smoking end date: 12/20/96 Alcohol intake: former Drinks per week: 3 Substance use: unknown Substance use type: does not use Lack of Transportation: No Lack of Food: Never True Current Housing: I Have Housing Concerned About Future Housing: No Difficulty Paying Gas/Electric Bills: No Difficulty Paying for Meds: No Currently Unemployed: No Education: High School Diploma/GED
[2022-06-18] MEDS: MIDAZOLAM HCL (*CRX) 2 MG/2 ML VIAL 4 MG ×2 (16:29→18:40)
[2022-06-18 16:41] LABS: Add Urine Microscopic? YES; Appearance Urine Cloudy (Clear); Bilirubin Urine Negative (Negative); Blood Urine 2+ (Negative); Color Urine Red (Yellow); Glucose Urine UA Negative (Negative); Ketones Urine Negative (Negative); Leukocyte Esterase Ur 3+ LEU/UL (Negative); Nitrate Urine Negative (Negative); Protein Urine Trace mg/dL (Negative); Specific Grav Ur 1.025 (1.001-1.035); Urobilinogen Urine 0.2 mg/dL (<2.0); pH Urine 5.5 (5.0-9.0)
[2022-06-18] MEDS: MIDAZOLAM HCL (*CRX) 2 MG/2 ML VIAL 3 MG IV PUSH (16:50)
--- NOTE | 2022-06-18 16:50 | PC.NURSE ---
pt vent alarming low tital volumes. pt making snoring sounds around vent. resp contacted. et tube cuff will not hold air. new 7.5 et tube placed 25 at lip. pt chewing on tube. versed 3 mg given ivp. bp 98/60 p 96 100%. 3rd liter hung and infusing without difficulty.
[2022-06-18 17:05] LABS: Bacteria Urine 4+ /hpf; Mucus Urine Heavy /lpf; RBC Urine 21-50 /hpf (0-2); WBC Urine >75 /hpf
[2022-06-18 17:12] LABS: Alanine Aminotransferase 22 U/L (6-35); Alkaline Phosphatase 183 U/L (38-126); Anion Gap 6 mmol/L (8-16); Aspartate Amino Transferase 62 U/L (14-36); Bilirubin,Total 1.8 mg/dL (0.2-1.3); Blood Urea Nitrogen 52 mg/dL (7-17); Calcium 7.5 mg/dL (8.4-10.2); Carbon Dioxide 22 mmol/L (22-30); Chloride 105 mmol/L (98-107); Estimated CRCL calculation 24 ml/min; Estimated Glomerular Filt Rate 23; Glucose 145 mg/dL (65-110); Lipase 15 U/L (23-300); Potassium 5.4 mmol/L (3.4-5.0); Sodium 133 mmol/L (137-145)
[2022-06-18] MEDS: NOREPINEPHRINE 8 MG/D5W 250 ML 8 MG/250 ML BAG 9.38 MG IV CONT (17:15)
--- NOTE | 2022-06-18 17:15 | PC.NURSE ---
bp 83/47 p90 r18 99%. levophed iniated at 2 mcg.
[2022-06-18 17:24] LABS: Troponin I 0.027 ng/mL (0.000-0.034)
--- NOTE | 2022-06-18 17:43 | PM.CNCAR ---
Assessment and Plan Assessment and plan (1) Chronic atrial fibrillation: Code(s): I48.20 - Chronic atrial fibrillation, unspecified Status: Acute Assessment and Plan: Longstanding atrial fibrillation that is rate controlled at home with metoprolol. She is anticoagulated with Xarelto. Was in atrial fibrillation with RVR upon arrival but rate normalized after being intubated. Would resume her home metoprolol. (2) Acute exacerbation of CHF (congestive heart failure): Code(s): I50.9 - Heart failure, unspecified Status: Acute Assessment and Plan: CXR showing possible pulmonary edema vs. pneumonia. She does have rales on exam. No peripheral edema. She is hypotensive currently but would recommend diuretic when appropriate. Would also resume her home GDMT for her cardiomyopathy including Entresto, spironolactone, and metoprolol when renal function and BP allow. Judicious fluid administration. Daily weights. Strict I&O. (3) Generalized weakness: Code(s): R53.1 - Weakness Status: Acute Assessment and Plan: ? related to infection (UTI). Management per hospitalist. History of Present Illness History of Present Illness Consult date/time: 06/18/22 17:43 Requesting physician: Virginia Brewster III, DO Consult reason: atrial fibrillation Reason For Visit: sob Narrative: Ms. Allred is a 71 year old female with a history of chronic systolic heart failure, moderate-severe MR, and atrial fibrillation. This is a patient who is followed in our office by Dr. Rudd. Ms. Allred presented to the Emergency Department with a chief complaint of generalized weakness. She was in respiratory distress and was placed on BiPAP by EMS and was subsequently intubated in the emergency department. She did test positive for COVID apparently about 10 days ago but had been stable. She was found to be in atrial fibrillation with RVR with new left bundle branch block on EKG, possible lateral DC. Repeat EKG after intubation showed resolution of ST changes in V4-V6 with left bundle branch block. Her heart rate is controlled currently. She is intubated and sedated at the time of my visit, this history was obtained via her medical record. Review of Systems Review of Systems: ROS unobtainable: Yes unobtainable due to endotracheal tube and unobtainable due to medical condition PMFSH Past Medical History Medical History Acute on chronic renal insufficiency Age-related osteoporosis with current pathological fracture Allergic rhinitis Anemia Asthma, mild intermittent Breast cancer Cardiomyopathy Chronic congestive heart failure Chronic HFrEF (heart failure with reduced ejection fraction) Chronic renal insufficiency, stage III (moderate) Closed wedge compression fracture of thoracic vertebra with routine healing Coronary artery disease Depression Elevated glucose H/O malignant neoplasm of breast H/O: gout Hypomagnesemia Hypothyroidism Mild intermittent asthma with exacerbation Mixed hyperlipidemia Osteopenia Other hyperlipidemia Paroxysmal atrial fibrillation Peripheral vascular disease Post-polio syndrome Prediabetes Severe episode of recurrent major depressive disorder, without psychotic features Thyroid disease Vitamin D deficiency Surgical History Surgical History History of cardiac cath History of knee replacement History of partial hysterectomy Hx of colonoscopy Family History Family History Father Hypertension Family history of kidney disease Sibling Hypertension Family history of elevated blood lipids Other Cerebrovascular accident Diabetes mellitus Social History Social History Smoking packs per day: 1 Smoking cigarettes per day: 20.0 Years
[2022-06-18 18:23] LABS: Reflex Lactic Acid Yes or No Add Lactic
[2022-06-18 19:07] LABS: Lactic Acid 0.9 mmol/L (0.7-2.0)
[2022-06-18 19:20] LABS: Troponin I 0.027 ng/mL (0.000-0.034)
[2022-06-18] MEDS: SODIUM CHLORIDE 0.9% IV 2,400 ML/1,000 ML BAG 999 ML IV CONT (19:54)
[2022-06-18] MEDS: dexmedeTOMIDine 400 MCG/100 ML 400 MCG/100 ML BAG IV CONT (20:02)
--- NOTE | 2022-06-18 21:54 | WPDPROCEDUR ---
Procedures Central Line Placement Right Femoral: Central Line Date: 06/18/22 Central Line Time: 21:55 Discussed w/ the patient/family/POA,the placement of a central venous catheter, including its clinical necessity/indication & associated potential risks, benifits and alternatives.: Yes The patient/family/POA understand(s) and acknowledge(s) the need to proceed with central venous catheter insertion as an important element of the patient's clinical management.: Yes Consent: I have discussed with the patient and/or surrogate, the non-emergent placement of a central venous catheter, including its clinical necessity/indication and associated potential risks and complications. The patient and/or surrogate understand(s) and acknowledge(s) the need to proceed with central venous catheter insertion as an important element of the patient's clinical management. Time Out Performed: Yes Patient Position: supine Provider Prep: Max. sterile barrier precautions Central line prep: 2% Chlorhexidine scrub Local anesthesia used: lidocaine 1% Amount of anesthesia used (ml): 5 Central line lumen inserted: triple Hungarian: 7 Length (cm): 16 Depth of Insertion (cm): 16 Additional comments: No x-ray needed as it is a femoral line.
--- NOTE | 2022-06-18 21:55 | ADMGEN ---
This patient, Jyotsna Allred, was admitted to Intensive Care Unit-6 at 2044 . Patient/family oriented to hospital policies and general routines including ID bracelet, bed and alarms, visiting hours, pain management, procedures, bathroom and other care routines, personal items, smoking policy, room service/diet, and visiting hours. Information on how to activate the Rapid Response Team has been discussed. Patient/Family are encouraged to report perceived risks to care and to ask questions if they do not understand what they are told or what they should do.
--- NOTE | 2022-06-18 21:56 | PM.IMHP ---
H&P: HPI History of Present Illness Date/Time: 06/18/22 21:56 Chief Complaint: Shortness of breath Narrative: This is a 71-year-old female patient who presented to the emergency room [facility]. The patient tested positive for COVID over 1 week ago and had been doing well in today. She became confused and was not making sense. The patient's daughter ask the nurse to check on the patient because she was not making any sense and the patient was interspersed or distress. Patient's O2 saturations were in the 60s when she came to the emergency room. The patient was initially placed on BiPAP EN route with slight improvement. The patient also had a run of V-tach and route. The patient was intubated in the ER. 2. Times made. It was felt that the patient had a cuff leak and a bougie was used to exchange the ET tube. Patient's blood pressure dropped and the patient was placed on Precedex and Levophed. It she was placed on vancomycin and Levaquin. Chest abdomen pelvis CT was read as the following1. [id number] size right pneumothorax. 2. Endotracheal tube 10 mm into the right mainstem bronchus. 3. Cardiomegaly with pulmonary edema. 4. Bilateral airspace opacities, more focal in the left lower lobe, consistent with atelectasis versus pneumonia, possible aspiration. 5. Large volume of ascites. Head CT was read as no acute intracranial abnormality. Age-related findings. White count 11.6. ABGs initially pH 7.2-1 PO2 was 299.9. Bicarb 15.5. Sodium 133, potassium 5.4 BUN 52 creatinine 2.10. Patient's baseline is 1.4-1.8. Lactic was 5.0 and is now 0.9. Total bilirubin 1.8. AST is 62 alkaline phosphatase 183. Troponin was negative. The patient was also found to be positive for UTI. The patient was found to be COVID positive at the outside facility 1 week ago. The patient is being admitted to inpatient status on the date of service 06/18/2022. Review of Systems Review of Systems: See HPI All systems reviewed & are unremarkable except as noted in HPI and below Constitutional: Constitutional: Reports as per HPI and Reports no additional constitutional complaints Eyes: Eyes: Reports as per HPI and Reports no additional eye complaints ENT: Reports system reviewed and no additional complaints, except as documented and Reports Normal hearing present Cardiovascular: Cardiovascular: Reports no additional cardiovascular complaints Respiratory: Respiratory: Reports no additional respiratory complaints and Reports no additional respiratory complaints Gastrointestinal: Gastrointestinal: Reports as per HPI and Reports no additional gastrointestinal complaints Musculoskeletal: Musculoskeletal: Reports no additional musculoskeletal complaints Integumentary/Breasts: Skin/Breast: Reports system reviewed and no additional complaints, except as docu and Reports as per HPI Neurologic: Reports system reviewed and no additional complaints, except as documented, Reports as per HPI and Reports Normal hearing present Psychiatric: Psychiatric: Reports no additional psychiatric complaints and Reports as per HPI Endocrine: Endocrine: Reports no additional endocrine complaints Hematologic/Lymphatic: Hematologic/Lymphatic: Reports no additional hematologic/lymphatic complaints Allergic/Immunologic: Allergic/Immunologic: Reports no additional allergic/immunologic complaints COUNT INCLUDES THE [facility] Past Medical History Medical History (Updated 06/18/22 @ 22:34 by Mamie Leslie NP) Acute on chronic renal insufficiency Age-related osteoporosis with current pathological fracture Allergic rhinitis Anemia Asthma, mild intermittent Breast cancer Cardiomyopathy Chronic congestive heart failure Chronic HFrEF (heart failure with reduced ejection fraction) Chronic renal insufficiency, stage III (moderate) Closed wedge compression fracture of thoracic vertebra with routine healing Coronary artery disease Depression Elevated glucose H/O
[2022-06-18 23:24] LABS: Anion Gap 11 mmol/L (8-16); Blood Urea Nitrogen 51 mg/dL (7-17); Calcium 7.6 mg/dL (8.4-10.2); Carbon Dioxide 17 mmol/L (22-30); Chloride 100 mmol/L (98-107); Estimated CRCL calculation 24 ml/min; Estimated Glomerular Filt Rate 23; Glucose 217 mg/dL (65-110); Potassium 5.2 mmol/L (3.4-5.0); Sodium 128 mmol/L (137-145)
[2022-06-18 23:37] LABS: Troponin I 0.026 ng/mL (0.000-0.034)
[2022-06-18] MEDS: ENOXAPARIN 80 MG/0.8 ML SYRINGE SUB-Q (23:45)
[2022-06-19] VITALS (27 sets, daily range): BP systolic 93–118; BP diastolic 37–76; PULSE 68–90; RESP 14–21; TEMP 36.2–38; O2SAT 97–100; BMI 28.8
[2022-06-19 07:00] LABS: Hematocrit 44.1 % (37.0-47.0); Immature Granulocyte Absolute 0.07 K/mm3 (0.00-0.031); Immature Granulocyte Percent A 0.8 % (0-0.5); Lymphocytes Absolute Auto 0.36 K/mm3 (0.9-3.2); Lymphocytes Percent Auto 4.2 % (18.3-44.2); Mean Corpuscular HGB Conc 31.7 g/dl (32-36); Mean Corpuscular Hemoglobin 29.9 pg (26-34); Mean Platelet Volume 11.6 fl (7.4-10.4); Monocytes Absolute Auto 0.2 K/mm3 (0.1-0.6); Neutrophils Absolute Auto 8.1 K/mm3 (1.3-6.7); Platelet Count Result 325 k/mm3 (150-375); Red Blood Count 4.69 M/mm3 (4.2-5.4); Red Cell Distribution Width 16.5 % (11.5-14.5); White Blood Count 8.7 K/mm3 (4.5-10.0)
[2022-06-19 07:21] LABS: Anion Gap 12 mmol/L (8-16); Blood Urea Nitrogen 56 mg/dL (7-17); Calcium 7.8 mg/dL (8.4-10.2); Carbon Dioxide 18 mmol/L (22-30); Chloride 103 mmol/L (98-107); Estimated CRCL calculation 23 ml/min; Estimated Glomerular Filt Rate 22; Glucose 213 mg/dL (65-110); Lactate Dehydrogenase 359 U/L (120-246); Phosphorus 4.4 mg/dL (2.5-4.5); Potassium 5.3 mmol/L (3.4-5.0); Sodium 133 mmol/L (137-145)
[2022-06-19 07:37] LABS: Influenza A QL RT-PCR Negative (Negative); Influenza B QL RT-PCR Negative (Negative); RSV RNA, RT-PCR Negative (Negative); SARS-CoV-2 RNA PCR Positive
[2022-06-19] MEDS: CENTRAL LINE FLUSH 10 ML IV PUSH ×4 (07:49→21:20)
--- NOTE | 2022-06-19 08:24 | P.CDI_ITS ---
CDI Query Clarified Diagnosis Clarified Diagnosis: Per documentation Pt tested positive for COVID over a week ago. Positive COVID test this admission 06/19/22. Pt on airborne precautions. Pt with documented acute respiratory failure. Please clarify the status of the patient's COVID-19 infection, if known. * COVID-19 is a current/active infection * Current condition is a sequela of COVID-19 * Past history of COVID-19 * Other explanation of clinical findings (please specify) * Unable to determine
--- NOTE | 2022-06-19 08:24 | WPDCDIQUERY2 ---
CDI Query Clarified Diagnosis Clarified Diagnosis: Per documentation Pt tested positive for COVID over a week ago. Positive COVID test this admission 06/19/22. Pt on airborne precautions. Pt with documented acute respiratory failure. Please clarify the status of the patient's COVID-19 infection, if known. COVID-19 is a current/active infection Current condition is a sequela of COVID-19 Past history of COVID-19 Other explanation of clinical findings (please specify) Unable to determine
[2022-06-19 08:46] LABS: Creatine Kinase 29 U/L (30-135)
[2022-06-19] MEDS: LEVOTHYROXINE SODIUM INJ 100 MCG/5 ML VIAL 62 MCG IV PUSH (08:46)
[2022-06-19] MEDS: PANTOPRAZOLE SODIUM IV 40 MG VIAL IV PUSH ×2 (08:46→21:19)
[2022-06-19] MEDS: SODIUM ZIRCONIUM CYCLOSILICATE 10 GM POWD.PACK FEED TUBE ×3 (08:46→22:13)
[2022-06-19] MEDS: INSULIN HUMAN REGULAR (*BKC) 100 UNITS/ML IV PUSH (08:47)
[2022-06-19] MEDS: SODIUM BICARBONATE 8.4% 50 MEQ/50 ML SYRINGE 100 MEQ IV PUSH (08:48)
[2022-06-19] MEDS: DEXTROSE 50% 25 GM/50 ML SYRINGE IV PUSH (08:51)
[2022-06-19] MEDS: FENTANYL 2,500MCG/NS250ML(*CRX 2,500 MCG/250 ML BAG 10 MCG IV CONT (08:52)
[2022-06-19] MEDS: MIDAZOLAM HCL (*CRX) 2 MG/2 ML VIAL IV PUSH (09:00)
--- NOTE | 2022-06-19 09:26 | PM.PNCARD ---
Progress Note: A&P Assessment and Plan (1) Chronic atrial fibrillation: Code(s): I48.20 - Chronic atrial fibrillation, unspecified Status: Acute Assessment and Plan: Longstanding atrial fibrillation that is rate controlled at home with metoprolol. She is anticoagulated with Xarelto. Was in atrial fibrillation with RVR upon arrival but rate normalized after being intubated. Would resume her home metoprolol and anticoagulation. She is being anticoagulated with enoxaparin at the present time but again had been on rivaroxaban as an outpatient.. (2) Acute exacerbation of CHF (congestive heart failure): Code(s): I50.9 - Heart failure, unspecified Status: Acute Assessment and Plan: CXR showing possible pulmonary edema vs. pneumonia. She does have rales on exam. No peripheral edema. She is hypotensive currently but would recommend diuretic when appropriate. Would also resume her home GDMT for her cardiomyopathy including Entresto, spironolactone, and metoprolol when renal function and BP allow. Judicious fluid administration. Daily weights. Strict I&O. (3) Generalized weakness: Code(s): R53.1 - Weakness Status: Acute Assessment and Plan: ? related to infection (UTI). Management per hospitalist. (4) Respiratory failure, acute: Code(s): J96.00 - Acute respiratory failure, unspecified whether with hypoxia or hypercapnia Status: Acute Assessment and Plan: Related to COVID. Subjective Date/time seen: 06/19/22 09:26 Interval history: Ms. Allred is a 71 year old female with a history of chronic systolic heart failure, moderate-severe MR, and atrial fibrillation.? This is a patient who is followed in our office by Dr. Rudd.? Ms. Allred presented to the Emergency Department with a chief complaint of generalized weakness.? She was in respiratory distress and was placed on BiPAP by EMS and was subsequently intubated in the emergency department.? Follow-up note/date of service 06/19/2022: She is agitated. Heart rate is controlled though. Still intubated. No chest pain Review of Systems Review of Systems: ROS unobtainable: Yes unobtainable due to endotracheal tube and unobtainable due to medical condition Cardiovascular: Cardiovascular: Denies chest pain Gastrointestinal: Gastrointestinal: Denies diarrhea Genitourinary: Genitourinary: Denies hematuria Hematologic/Lymphatic: Hematologic/Lymphatic: Denies easy bleeding Exam Const: General: comfortable and no acute distress; No alert or awake Orientation/consciousness: patient oriented x3 Other: Intubated and sedated HENMT: Head: normal to inspection Other: OETT in place Eyes: General: appearance normal, both eyes and all related structures Pupils: Equal, round and reactive pupils present Neck: Neck: normal visual inspection, supple and no JVD Carotids: normal carotid upstroke Resp: Effort & Inspection: normal respiratory effort Auscultation: rales Cardio: Rate: regular rate Rhythm: abnormal rhythm irregularly irregular Heart sounds: S1 normal heart sound present, S2 normal heart sound present and Murmur heart sound present systolic II/ GI: Auscultation: normal bowel sounds Skin: General skin exam: normal color Neuro: General: patient oriented x3 Cranial nerves: Yes Equal, round and reactive pupils present Extrem: General: normal to inspection Other: no edema Psych: Appearance: grossly normal Mental Status: mental status grossly abnormal Objective Data Vital Signs Vital Signs: Vital Signs - 24 hr 06/18/22 14:37 06/18/22 14:48 06/18/22 14:45 Temperature Pulse Rate 136 H 130 H 82 Respiratory Rate 34 H 25 H Blood Pressure 85/59 L 73/63 L Pulse Oximetry 98 92 99 Oxygen Delivery EMS-CPAP Mechanical Ventilation Fraction of Inspired Oxygen 60 06/18/22 16:50 06/18/22 14:55 06/18/22 14:56 Temperature Pulse Rate 93 123 H 115 H Respirato
[2022-06-19 09:33] LABS: NT Pro B Type Natriuretic Pept 34000 pg/mL (5-100)
[2022-06-19] MEDS: metroNIDAZOLE 500 MG/ISO 100ML 500 MG/100 ML BAG 100 MG IVPB ×2 (09:47→13:36)
[2022-06-19] MEDS: MINERAL OIL/WHITE PETROLATUM OINTMENT 1 APPLIC EACH EYE ×2 (09:48→21:19)
[2022-06-19 12:08] LABS: Glucose Point of Care 189 mg/dl (65-105)
--- NOTE | 2022-06-19 12:43 | WPDCNINT ---
Assessment and Plan Assessment and plan (1) Septic shock: Code(s): A41.9 - Sepsis, unspecified organism; R65.21 - Severe sepsis with septic shock Status: Acute Assessment and Plan: Septic shock secondary to UTI and pneumonia, ? Question aspiration Patient received IV fluid bolus. She has history of congestive heart failure and has ascites and pulmonary edema on CT Will hold further IV fluids Continue Levophed titration to maintain map Urine and blood cultures have been sent Continue vancomycin cefepime. Add Flagyl to provide anaerobic coverage for possible aspiration pneumonia (2) Respiratory failure, acute: Code(s): J96.00 - Acute respiratory failure, unspecified whether with hypoxia or hypercapnia Status: Acute Assessment and Plan: Acute Respiratory failure secondary to pneumonia, ? Questionable aspiration, COVID-19, pulmonary edema from congestive heart failure, pneumothorax Continue full mechanical ventilation support to prevent hypoxemia/hypercarbia and end organ damage. ABG reviewed and patient currently on 30% FiO2 and [address] scan showed right pneumothorax on presentation. I repeated chest x-ray this morning and shows significant reduction in the size of pneumothorax. I will continue to monitor. She may need chest tube if pneumothorax size increases ETT is 6 mm above amanda -I have drawn the ET tube by 2 cm Low tidal volume ventilation strategy to prevent volutrauma Hold further IV fluids item pulmonary edema Will hold Lasix as patient is on vasopressors On pneumatic antibiotics as above COVID treatment as below Bronchodilators (3) COVID-19: Code(s): U07.1 - COVID-19 Status: Acute Assessment and Plan: Patient tested positive for COVID at retirement more than a week ago. She is now admitted with respiratory failure although her CT scan is not a typical for COVID-19 pneumonia but patient is hypoxic I will start patient on dexamethasone 10 day course hold remdesivir in light of her renal failure and delayed presentation Isolation (4) Acute UTI: Code(s): N39.0 - Urinary tract infection, site not specified Status: Acute Assessment and Plan: See above (5) Atrial fibrillation: Code(s): I48.91 - Unspecified atrial fibrillation Status: Acute Assessment and Plan: Currently her rate is controlled Anticoagulation will be continue Monitor (6) CHF (congestive heart failure): Code(s): I50.9 - Heart failure, unspecified Status: Acute Assessment and Plan: Echocardiogram in 12/18 Summary ? 1. Complete two-dimensional, color flow and Doppler transthoracic echocardiogram is performed. ? 2. Left ventricular chamber dimension is moderately enlarged. ? 3. Left ventricular systolic function is severely reduced, estimated at 25-30%. ? 4. Severe biatrial dilation. ? 5. Moderate mitral and tricuspid regurgitation. ? 6. Mild aortic regurgitation. ? 7. Atrial fibrillation. Diuretics when blood pressure allows (7) Acute on chronic renal failure: Code(s): N17.9 - Acute kidney failure, unspecified; N18.9 - Chronic kidney disease, unspecified Status: Acute Assessment and Plan: Patient has history of chronic kidney disease. She presented with elevated creatinine of 2.2 Likely multifactorial secondary to sepsis hypoxia respiratory failure CT scan does not show any obstruction or hydronephrosis Monitor urine output electrolytes and creatinine She has received some IV fluids will hold further IV fluids due to volume overload Check CK level and urine electrolytes Sodium bicarb for metabolic acidosis (8) Hypothyroidism: Code(s): E03.9 - Hypothyroidism, unspecified Status: Acute Assessment and Plan: Continue levothyroxine Plan DVT prophylaxis -Lovenox Stress ulcer prophylaxis -PPI Nutrition -start Tube Feeds Code Status - Full Code Total Critical Care Time - 45 minutes Due to a
[2022-06-19 13:13] LABS: Alveolar/Arterial O2 Gradient 87.9 mmHg; Base Excess ABG -4.7 mEq/l (+/-2.0); Device VENTILATOR; Fractional Inspired Oxygen 30 %; HCO3 ABG 18.5 mEq/l (22.0-26.0); Oxygen Saturation ABG 97.1 % (95.0-100.0); PO2 ABG 90.8 mmHg (80.0-100.0); PO2 FiO2 Ratio Arterial Blood 3.03 %; Site Drawn RIGHT RADIAL; Total Hemoglobin 15.5 g/dL (12.0-18.0); pH ABG 7.409 (7.350-7.450)
[2022-06-19 13:14] LABS: Arterial Blood Gas PEEP 5 cmH2O; Arterial Blood Gas Tidal Volume 400 ml; Arterial Blood Gas Vent Mode CMV; Arterial Blood Gas Ventilator rate 18 /MIN
[2022-06-19] MEDS: SODIUM BICARBONATE TAB 650 MG TABLET FEED TUBE ×2 (13:14→16:23)
[2022-06-19] MEDS: dexmedeTOMIDine 400 MCG/100 ML 400 MCG/100 ML BAG 14.18 MCG IV CONT ×2 (13:35→21:16)
[2022-06-19 14:15] LABS: Sodium Urine Random 46 meq/L
[2022-06-19 17:09] LABS: Free T4 Free Thyroxine Reflex 1.29 ng/dL (0.78-2.19)
[2022-06-19 18:24] LABS: Glucose Point of Care 188 mg/dl (65-105)
[2022-06-19 21:03] LABS: Total Triiodothyronine (T3) 0.45 NG/ML (0.97-1.69)
[2022-06-19] MEDS: metroNIDAZOLE 500 MG/ISO 100ML 500 MG/100 ML BAG 50 MG IVPB (21:18)
[2022-06-19] MEDS: ENOXAPARIN 80 MG/0.8 ML SYRINGE SUB-Q (21:19)
[2022-06-19] MEDS: INSULIN ASPART (*BKC) 100 UNITS/ML SUB-Q (23:48)
[2022-06-20] VITALS (41 sets, daily range): BP systolic 84–115; BP diastolic 49–82; PULSE 73–95; RESP 10–18; TEMP 36.6–38.2; O2SAT 95–100
[2022-06-20 00:04] LABS: Glucose Point of Care 255 mg/dl (65-105)
[2022-06-20] MEDS: dexmedeTOMIDine 400 MCG/100 ML 400 MCG/100 ML BAG 14.18 MCG IV CONT (04:14)
[2022-06-20] MEDS: metroNIDAZOLE 500 MG/ISO 100ML 500 MG/100 ML BAG 100 MG IVPB ×3 (05:20→21:27)
[2022-06-20 05:50] LABS: Hematocrit 42.9 % (37.0-47.0); Hemoglobin 13.7 g/dL (12.0-15.0); Mean Corpuscular HGB Conc 31.9 g/dl (32-36); Mean Corpuscular Hemoglobin 29.8 pg (26-34); Mean Corpuscular Volume 93.5 fl (80-100); Mean Platelet Volume 11.5 fl (7.4-10.4); Platelet Count Result 349 k/mm3 (150-375); Red Blood Count 4.59 M/mm3 (4.2-5.4); Red Cell Distribution Width 16.4 % (11.5-14.5); White Blood Count 11.5 K/mm3 (4.5-10.0)
[2022-06-20 05:52] LABS: Alveolar/Arterial O2 Gradient 93.6 mmHg; Carboxyhemoglobin 0.1 % THb (0-2.0); Fractional Inspired Oxygen 30 %; HCO3 ABG 18.9 mEq/l (22.0-26.0); Methemoglobin ABG 0.2 %THb (0-1.5); Oxygen Content ABG 20.2 %vol (16.0-22.0); PCO2 ABG 32.6 mmHg (35.0-45.0); PO2 FiO2 Ratio Arterial Blood 2.73 %; Reduced Hemoglobin 4.7 %THb (0-5.0); Total Hemoglobin 15.1 g/dL (12.0-18.0); pH ABG 7.382 (7.350-7.450)
[2022-06-20 05:53] LABS: Arterial Blood Gas PEEP 5 cmH2O; Arterial Blood Gas Tidal Volume 400 ml; Arterial Blood Gas Vent Mode CMV; Arterial Blood Gas Ventilator rate 18 /MIN; Device VENTILATOR; Modified Allen's Test Unable to perform; Site Drawn RIGHT RADIAL
[2022-06-20 06:00] LABS: Alanine Aminotransferase 30 U/L (6-35); Albumin Level 3.3 g/dL (3.5-5.1); Alkaline Phosphatase 221 U/L (38-126); Anion Gap 8 mmol/L (8-16); Aspartate Amino Transferase 83 U/L (14-36); Bilirubin,Total 1.2 mg/dL (0.2-1.3); Blood Urea Nitrogen 65 mg/dL (7-17); Calcium 7.9 mg/dL (8.4-10.2); Carbon Dioxide 23 mmol/L (22-30); Chloride 100 mmol/L (98-107); Estimated CRCL calculation 23 ml/min; Estimated CRCL calculation 24 ml/min; Estimated Glomerular Filt Rate 22; Estimated Glomerular Filt Rate 23; Glucose 212 mg/dL (65-110); Magnesium 1.9 mg/dL (1.6-2.3); Potassium 5.1 mmol/L (3.4-5.0); Sodium 131 mmol/L (137-145)
[2022-06-20 06:12] LABS: Troponin I 0.021 ng/mL (0.000-0.034)
[2022-06-20] MEDS: INSULIN ASPART (*BKC) 100 UNITS/ML SUB-Q (06:31)
[2022-06-20] MEDS: LEVOTHYROXINE SODIUM INJ 100 MCG/5 ML VIAL 62 MCG IV PUSH (06:33)
[2022-06-20] MEDS: CENTRAL LINE FLUSH 10 ML IV PUSH ×3 (06:33→21:07)
[2022-06-20] MEDS: FUROSEMIDE INJ 40 MG/4 ML VIAL IV PUSH (08:57)
[2022-06-20] MEDS: MINERAL OIL/WHITE PETROLATUM OINTMENT 1 APPLIC EACH EYE (08:58)
[2022-06-20] MEDS: PANTOPRAZOLE SODIUM IV 40 MG VIAL IV PUSH ×2 (08:59→21:07)
[2022-06-20] MEDS: SODIUM BICARBONATE TAB 650 MG TABLET FEED TUBE (08:59)
[2022-06-20 09:42] LABS: Glucose Point of Care 269 mg/dl (65-105)
[2022-06-20 09:59] LABS: Alveolar/Arterial O2 Gradient 85.5 mmHg; Base Excess ABG -5.9 mEq/l (+/-2.0); Fractional Inspired Oxygen 30 %; HCO3 ABG 18.7 mEq/l (22.0-26.0); Oxygen Content ABG 19.9 %vol (16.0-22.0); Oxygen Saturation ABG 96.4 % (95.0-100.0); Oxyhemoglobin 95.3 % THb (90.0-100.0); PCO2 ABG 34.5 mmHg (35.0-45.0); PO2 ABG 87.9 mmHg (80.0-100.0); PO2 FiO2 Ratio Arterial Blood 2.93 %; Total Hemoglobin 14.8 g/dL (12.0-18.0); pH ABG 7.353 (7.350-7.450)
--- NOTE | 2022-06-20 09:59 | PCNFU ---
Nutrition Follow-Up Complete: Inadequate Oral Intake as related to mechanical vent as evidenced by NPO goal: Meet estimated nutritional needs Patient is progressing towards goal, we will continue current goal. Pt current nutrition is Glucerna 1.2 at 50 ml/hr. Nutrition recommendation: Nepro at 35 ml/hr Last recorded weight is 79.2 kg. Bowel Motility: No BM reported. Labs Reviewed:Glu 212, Cr 2.1,BUN 65, K 5.1,Alb 3.3 Meds Noted:Levo,Protonix, Versed, Precedex, NovoLog, Vancomycin, Decadron, Remdesivir Skin: WNL Additional Notes: Patient remains on mechanical vent. Spoke with Small Electric Engine Technician today and nursing. Tube feeding Formula change to Nepro at 35 ml/hr. goal rate providing 1386 kcals/62 gms protein/ 560 ml water. Patient currently on spontaneous breathing trial. Agree with diet orders. Will monitor daily in ICU rounds and reassess every Thursday and Thursday.
[2022-06-20 10:00] LABS: Site Drawn RIGHT RADIAL
[2022-06-20 10:01] LABS: Arterial Blood Gas PEEP 5 cmH2O; Arterial Blood Gas Pressure Support 5 cmH2O; Arterial Blood Gas Vent Mode PRESSURE SUPPORT; Device VENTILATOR; Modified Allen's Test Pass
--- NOTE | 2022-06-20 10:40 | WPDINTPN ---
Progress Note: A&P Assessment and Plan (1) Septic shock: Code(s): A41.9 - Sepsis, unspecified organism; R65.21 - Severe sepsis with septic shock Status: Acute Assessment and Plan: Septic shock secondary to UTI and pneumonia, ? Question aspiration Patient received IV fluid bolus. She has history of congestive heart failure and has ascites and pulmonary edema on CT Further IV fluids were held Continue Levophed titration to maintain map Urine is growing Klebsiella blood cultures have been sent and are pending Continue vancomycin cefepime. Add Flagyl to provide anaerobic coverage for possible aspiration pneumonia (2) Respiratory failure, acute: Code(s): J96.00 - Acute respiratory failure, unspecified whether with hypoxia or hypercapnia Status: Acute Assessment and Plan: Acute Respiratory failure secondary to pneumonia, ? Questionable aspiration, COVID-19, pulmonary edema from congestive heart failure, pneumothorax Continue full mechanical ventilation support to prevent hypoxemia/hypercarbia and end organ damage. ABG reviewed and patient currently on 30% FiO2 and 5 of PEEP 5/5 PSV SBT done for more than 1 hour. RSBI, ABGI and Vitals acceptable. Pt awake and following commands. Will extubate and monitor. NPO for now. Bipap PRN On presentation CT scan showed right pneumothorax . Repeat chest x-ray yesterday showed minimal pneumothorax and chest x-ray this morning shows resolution. Monitor Lasix IV given On antibiotics as above COVID treatment as below Bronchodilators Lower extremity Dopplers were negative for DVT (3) COVID-19: Code(s): U07.1 - COVID-19 Status: Acute Assessment and Plan: Patient tested [facility] for [facility] at [facility] more than a week ago. She is now admitted with respiratory failure although her CT scan is not a typical for COVID-19 pneumonia but patient is hypoxic I will start patient on dexamethasone 10 day course hold remdesivir in light of her renal failure and delayed presentation Isolation (4) Acute UTI: Code(s): N39.0 - Urinary tract infection, site not specified Status: Acute Assessment and Plan: See above (5) Atrial fibrillation: Code(s): I48.91 - Unspecified atrial fibrillation Status: Acute Assessment and Plan: Currently her rate is controlled Anticoagulation with Lovenox will be continue Monitor (6) CHF (congestive heart failure): Code(s): I50.9 - Heart failure, unspecified Status: Acute Assessment and Plan: BNP 34,000 Echocardiogram in 12/18 Summary ? 1. Complete two-dimensional, color flow and Doppler transthoracic echocardiogram is performed. ? 2. Left ventricular chamber dimension is moderately enlarged. ? 3. Left ventricular systolic function is severely reduced, estimated at 25-30%. ? 4. Severe biatrial dilation. ? 5. Moderate mitral and tricuspid regurgitation. ? 6. Mild aortic regurgitation. ? 7. Atrial fibrillation. Diuretics when blood pressure allows (7) Acute on chronic renal failure: Code(s): N17.9 - Acute kidney failure, unspecified; N18.9 - Chronic kidney disease, unspecified Status: Acute Assessment and Plan: Patient has history of chronic kidney disease. She presented with elevated creatinine of 2.2 Likely multifactorial secondary to sepsis hypoxia respiratory failure CT scan does not show any obstruction or hydronephrosis Monitor urine output electrolytes and creatinine She has received some IV fluids will hold further IV fluids due to pulmonary edema and CHF Normal CK level Urine electrolytes suggest prerenal Sodium bicarb for metabolic acidosis who will be decreased Lasix IV given (8) Hypothyroidism: Code(s): E03.9 - Hypothyroidism, unspecified Status: Acute Assessment and Plan: Continue levothyroxine Plan DVT prophylaxis -Lovenox Stress ulcer prophylaxis -PPI Nutrition - on Tube Feeds Code Status - Full Code Tot
[2022-06-20] MEDS: SODIUM ZIRCONIUM CYCLOSILICATE 10 GM POWD.PACK FEED TUBE ×3 (10:50→21:07)
[2022-06-20 12:05] LABS: Glucose Point of Care 175 mg/dl (65-105)
--- NOTE | 2022-06-20 12:22 | PM.PNCARD ---
Progress Note: A&P Assessment and Plan (1) Atrial fibrillation: Code(s): I48.91 - Unspecified atrial fibrillation Status: Acute (2) Chronic HFrEF (heart failure with reduced ejection fraction): Code(s): I50.22 - Chronic systolic (congestive) heart failure Status: Acute Plan 71-year-old woman with: History of chronic atrial fibrillation some mitral regurgitation and LV systolic dysfunction. Normally followed by my partner, Dr. Rudd. She enters the hospital with sepsis and was intubated upon admission. She is now extubated and hemodynamically more stable. Her regimen of metoprolol and Entresto have been placed on hold because of hypotension. A blood pressure still soft today. I have not seen this patient before so I am not sure what her mental status baseline is but she seems comfortable but incoherent at this time. Will continue to follow with you and as hemodynamics allow reintroduce her medical regimen for LV dysfunction. Fadi Felder MD [facility] Subjective Date/time seen: date of service:06/20/22 12:22 Interval history: Ms. Allred is a 71 year old female with a history of chronic systolic heart failure, moderate-severe MR, and atrial fibrillation.? This is a patient who is followed in our office by Dr. uRdd.? Ms. Allred presented to the Emergency Department with a chief complaint of generalized weakness.? She was in respiratory distress and was placed on BiPAP by EMS and was subsequently intubated in the emergency department.? Follow-up note/date of service 06/19/2022: She is agitated. Heart rate is controlled though. Still intubated. No chest pain date of service 06/20/2022: Patient extubated this morning. She is comfortable and reports no shortness of breath. She is incoherent at asking questions of me which indicates she is incoherent. Exam Const: General: comfortable and no acute distress; No alert or awake Orientation/consciousness: patient oriented x3 Other: elderly white female resting comfortably in ICU room 6. HENMT: Head: normal to inspection Other: OETT in place Eyes: General: appearance normal, both eyes and all related structures Pupils: Equal, round and reactive pupils present Neck: Neck: normal visual inspection, supple and no JVD Carotids: normal carotid upstroke Resp: Effort & Inspection: normal respiratory effort Auscultation: clear to auscultation bilaterally and rales Cardio: Rate: regular rate Rhythm: abnormal rhythm irregularly irregular Heart sounds: S1 normal heart sound present, S2 normal heart sound present and Murmur heart sound present systolic II/ GI: Auscultation: normal bowel sounds Skin: General skin exam: normal color Neuro: General: patient oriented x3 Cranial nerves: Yes Equal, round and reactive pupils present Extrem: General: normal to inspection Other: no edema Psych: Appearance: grossly normal Mental Status: mental status grossly abnormal Objective Data Vital Signs Vital Signs: Vital Signs - 24 hr 06/19/22 14:00 06/19/22 14:00 06/19/22 15:42 Temperature 37.9 C H Pulse Rate 83 83 87 Respiratory Rate 17 Blood Pressure 118/68 Pulse Oximetry 99 97 Oxygen Delivery Mechanical Ventilation Oxygen Flow Rate Fraction of Inspired Oxygen 30 06/19/22 15:43 06/19/22 15:47 06/19/22 16:00 Temperature 38.0 C H Pulse Rate 87 Respiratory Rate 18 Blood Pressure 106/57 L Pulse Oximetry 99 Oxygen Delivery Mechanical Ventilation Oxygen Flow Rate Fraction of Inspired Oxygen 30 30 06/19/22 16:00 06/19/22 17:24 06/19/22 18:00 Temperature Pulse Rate 79 77 81 Respiratory Rate Blood Pressure Pulse Oximetry 97 Oxygen Delivery Mechanical Ventilation Oxygen Flow Rate Fraction of Inspired Oxygen 30 06/19/22 18:00 06/19/22 20:10 06/19/22 21:16 Temperature 37.9 C H Pulse Rate 81 86 84 Respiratory Rate 14 14 Blood Pressure 108/75 Pulse
[2022-06-20 17:40] LABS: Glucose Point of Care 190 mg/dl (65-105)
[2022-06-20] MEDS: ENOXAPARIN 80 MG/0.8 ML SYRINGE SUB-Q (21:06)
[2022-06-21] VITALS (14 sets, daily range): BP systolic 87–138; BP diastolic 53–89; PULSE 87–134; RESP 16–24; TEMP 36.4–37; O2SAT 95–100
[2022-06-21 00:14] LABS: Glucose Point of Care 187 mg/dl (65-105)
[2022-06-21 05:41] LABS: Alveolar/Arterial O2 Gradient 49.8 mmHg; Base Excess ABG -4.7 mEq/l (+/-2.0); Fractional Inspired Oxygen 24 %; HCO3 ABG 21.3 mEq/l (22.0-26.0); Methemoglobin ABG 0.2 %THb (0-1.5); Oxygen Content ABG 18.2 %vol (16.0-22.0); Oxyhemoglobin 93.5 % THb (90.0-100.0); PCO2 ABG 42.4 mmHg (35.0-45.0); PO2 ABG 70.9 mmHg (80.0-100.0); PO2 FiO2 Ratio Arterial Blood 2.95 %; Reduced Hemoglobin 6.3 %THb (0-5.0); Total Hemoglobin 13.8 g/dL (12.0-18.0); pH ABG 7.318 (7.350-7.450)
[2022-06-21 05:42] LABS: Device NASAL CANNULA; Modified Allen's Test Pass; Site Drawn RIGHT RADIAL
[2022-06-21] MEDS: LEVOTHYROXINE SODIUM INJ 100 MCG/5 ML VIAL 62 MCG IV PUSH (05:46)
[2022-06-21] MEDS: CENTRAL LINE FLUSH 10 ML IV PUSH ×3 (05:47→21:20)
[2022-06-21] MEDS: metroNIDAZOLE 500 MG/ISO 100ML 500 MG/100 ML BAG 100 MG IVPB ×3 (05:47→21:19)
[2022-06-21 06:09] LABS: Glucose Point of Care 172 mg/dl (65-105)
[2022-06-21 06:22] LABS: Hemoglobin 12.6 g/dL (12.0-15.0); Mean Corpuscular HGB Conc 31.5 g/dl (32-36); Mean Corpuscular Hemoglobin 29.7 pg (26-34); Mean Corpuscular Volume 94.3 fl (80-100); Mean Platelet Volume 11.7 fl (7.4-10.4); Platelet Count Result 247 k/mm3 (150-375); Red Blood Count 4.24 M/mm3 (4.2-5.4); Red Cell Distribution Width 16.2 % (11.5-14.5); White Blood Count 12.2 K/mm3 (4.5-10.0)
[2022-06-21 06:30] LABS: Alanine Aminotransferase 27 U/L (6-35); Albumin Level 3.7 g/dL (3.5-5.1); Alkaline Phosphatase 237 U/L (38-126); Anion Gap 9 mmol/L (8-16); Aspartate Amino Transferase 45 U/L (14-36); Bilirubin,Total 1.2 mg/dL (0.2-1.3); Blood Urea Nitrogen 71 mg/dL (7-17); Calcium 8.1 mg/dL (8.4-10.2); Carbon Dioxide 23 mmol/L (22-30); Chloride 97 mmol/L (98-107); Estimated CRCL calculation 20 ml/min; Estimated Glomerular Filt Rate 20; Glucose 151 mg/dL (65-110); Magnesium 1.9 mg/dL (1.6-2.3); Potassium 4.4 mmol/L (3.4-5.0); Sodium 129 mmol/L (137-145)
[2022-06-21] MEDS: PANTOPRAZOLE SODIUM IV 40 MG VIAL IV PUSH ×2 (09:17→21:19)
[2022-06-21] MEDS: SODIUM BICARBONATE TAB 650 MG TABLET FEED TUBE (09:17)
[2022-06-21] MEDS: SODIUM ZIRCONIUM CYCLOSILICATE 10 GM POWD.PACK FEED TUBE (09:17)
[2022-06-21 10:32] LABS: Glucose Point of Care 141 mg/dl (65-105)
--- NOTE | 2022-06-21 10:43 | WPDINTPN ---
Progress Note: A&P Assessment and Plan (1) Septic shock: Code(s): A41.9 - Sepsis, unspecified organism; R65.21 - Severe sepsis with septic shock Status: Acute Assessment and Plan: Septic shock secondary to UTI and pneumonia, ? Question aspiration Patient received IV fluid bolus. She has history of congestive heart failure and has ascites and pulmonary edema on CT hence further she was on Levophed which has been weaned off Urine culture is growing Klebsiella which is sensitive to cefepime Blood cultures 1 bottle is growing Staph epidermis and 2nd bottle is growing Staph hominis anticipate a both contaminant Repeat set of blood cultures Continue cefepime. Discontinue vancomycin. Continue Flagyl to provide anaerobic coverage for possible aspiration pneumonia (2) Respiratory failure, acute: Code(s): J96.00 - Acute respiratory failure, unspecified whether with hypoxia or hypercapnia Status: Acute Assessment and Plan: Acute Respiratory failure secondary to pneumonia, ? Questionable aspiration, COVID-19, pulmonary edema from congestive heart failure, pneumothorax 06/20 she was extubated after a successful weaning trial. Currently on nasal cannula no respiratory distress Incentive spirometry CT scan showed right pneumothorax on presentation. I repeated chest x-ray next morning and shows significant reduction in the size of pneumothorax. Repeat chest x-ray now shows resolution of pneumothorax. Monitor She was given dose of Lasix yesterday for pulmonary edema but did not produce any significant amount of urine On pneumatic antibiotics as above COVID treatment as below Bronchodilators (3) COVID-19: Code(s): U07.1 - COVID-19 Status: Acute Assessment and Plan: [facility]. She is now admitted with respiratory failure although her CT scan is not a typical for COVID-19 pneumonia but patient is hypoxic Continue dexamethasone 10 day course hold remdesivir in light of her renal failure and delayed presentation Isolation (4) Acute UTI: Code(s): N39.0 - Urinary tract infection, site not specified Status: Acute Assessment and Plan: See above (5) Atrial fibrillation: Code(s): I48.91 - Unspecified atrial fibrillation Status: Acute Assessment and Plan: Currently her rate is controlled Resume low-dose beta-brad Anticoagulation will be continued Monitor (6) CHF (congestive heart failure): Code(s): I50.9 - Heart failure, unspecified Status: Acute Assessment and Plan: Echocardiogram in 12/18 Summary ? 1. Complete two-dimensional, color flow and Doppler transthoracic echocardiogram is performed. ? 2. Left ventricular chamber dimension is moderately enlarged. ? 3. Left ventricular systolic function is severely reduced, estimated at 25-30%. ? 4. Severe biatrial dilation. ? 5. Moderate mitral and tricuspid regurgitation. ? 6. Mild aortic regurgitation. ? 7. Atrial fibrillation. (7) Acute on chronic renal failure: Code(s): N17.9 - Acute kidney failure, unspecified; N18.9 - Chronic kidney disease, unspecified Status: Acute Assessment and Plan: Patient has history of chronic kidney disease. She presented with elevated creatinine of 2.2 Likely multifactorial secondary to sepsis hypoxia respiratory failure CT scan did not show any obstruction or hydronephrosis Monitor urine output electrolytes and creatinine She has received some IV fluids initially for shock but later IV fluids were held due to volume overload Normal CK level and urine electrolytes suggested PU Patient on p.o. low-dose Sodium bicarb for metabolic acidosis Her urine output remains low and creatinine mildly increased I will give her additional 1 L of fluids today and see if it helps with urine output and creatinine Consult nephrology (8) Hypothyroidism: Code(s): E03.9 - Hypothyroidism,
--- NOTE | 2022-06-21 12:15 | PM.IMPN ---
Progress Note: A&P Assessment and Plan (1) Septic shock: Code(s): A41.9 - Sepsis, unspecified organism; R65.21 - Severe sepsis with septic shock Status: Acute Assessment and Plan: Septic shock secondary to UTI and pneumonia, ? Question aspiration Patient received IV fluid bolus. She has history of congestive heart failure and has ascites and pulmonary edema on CT hence further she was on Levophed which has been weaned off Urine culture is growing Klebsiella which is sensitive to cefepime Blood cultures 1 bottle is growing Staph epidermis and 2nd bottle is growing Staph hominis anticipate a both contaminant Repeat set of blood cultures Continue cefepime. Discontinue vancomycin. Continue Flagyl to provide anaerobic coverage for possible aspiration pneumonia Patient being managed by the buckle frame shaper. We appreciate their recommendations. (2) Respiratory failure, acute: Code(s): J96.00 - Acute respiratory failure, unspecified whether with hypoxia or hypercapnia Status: Acute Assessment and Plan: Acute Respiratory failure secondary to pneumonia, ? Questionable aspiration, COVID-19, pulmonary edema from congestive heart failure, pneumothorax 06/20 she was extubated after a successful weaning trial. Currently on nasal cannula no respiratory distress She is breathing oxygen 1 L by nasal cannula. Continue Incentive spirometry and aggressive pulmonary toilet. CT scan showed right pneumothorax on presentation. I repeated chest x-ray next morning and shows significant reduction in the size of pneumothorax. Repeat chest x-ray now shows resolution of pneumothorax. Monitor She was given dose of Lasix yesterday for pulmonary edema but did not produce any significant amount of urine On pneumatic antibiotics as above COVID treatment as below Bronchodilators (3) COVID-19: Code(s): U07.1 - COVID-19 Status: Acute Assessment and Plan: [facility]. She is now admitted with respiratory failure although her CT scan is not a typical for COVID-19 pneumonia but patient is hypoxic Continue dexamethasone 10 day course hold remdesivir in light of her renal failure and delayed presentation; Patient is doing well, breathing comfortably and requiring only 1 L of oxygen. Isolation (4) Acute UTI: Code(s): N39.0 - Urinary tract infection, site not specified Status: Acute Assessment and Plan: Continue antibiotics. (5) Atrial fibrillation: Code(s): I48.91 - Unspecified atrial fibrillation Status: Acute Assessment and Plan: Currently her rate is controlled Continue low-dose beta-brad Anticoagulation will be continued Monitor (6) CHF (congestive heart failure): Code(s): I50.9 - Heart failure, unspecified Status: Acute Assessment and Plan: Echocardiogram in 12/18 Summary ? 1. Complete two-dimensional, color flow and Doppler transthoracic echocardiogram is performed. ? 2. Left ventricular chamber dimension is moderately enlarged. ? 3. Left ventricular systolic function is severely reduced, estimated at 25-30%. ? 4. Severe biatrial dilation. ? 5. Moderate mitral and tricuspid regurgitation. ? 6. Mild aortic regurgitation. ? 7. Atrial fibrillation. (7) Acute on chronic renal failure: Code(s): N17.9 - Acute kidney failure, unspecified; N18.9 - Chronic kidney disease, unspecified Status: Acute Assessment and Plan: Patient has history of chronic kidney disease. She presented with elevated creatinine of 2.2. creatinine increased to 2.4. Continue to monitor the trend closely. Likely multifactorial secondary to sepsis hypoxia respiratory failure CT scan did not show any obstruction or hydronephrosis Monitor urine output electrolytes and creatinine She has received some IV fluids initially for shock but later IV fluids were held due to volume overload Normal CK level a
[2022-06-21 12:16] LABS: Glucose Point of Care 225 mg/dl (65-105)
[2022-06-21] MEDS: INSULIN ASPART (*BKC) 100 UNITS/ML SUB-Q ×2 (12:48→19:07)
[2022-06-21] MEDS: SODIUM CHLORIDE 0.9% IV 1,000 ML 100 ML IV CONT (13:12)
[2022-06-21] MEDS: RIVAROXABAN 20 MG TABLET PO (19:08)
[2022-06-21 19:25] LABS: Glucose Point of Care 221 mg/dl (65-105)
[2022-06-21] MEDS: METOPROLOL TARTRATE 25 MG TABLET PO (21:19)
[2022-06-21 21:39] LABS: Glucose Point of Care 209 mg/dl (65-105)
[2022-06-21 22:50] LABS: Glucose Point of Care 275 mg/dl (65-105)
[2022-06-22] VITALS (11 sets, daily range): BP systolic 108–132; BP diastolic 63–99; PULSE 92–115; RESP 16–23; TEMP 36.1–36.9; O2SAT 95–100
[2022-06-22] MEDS: CENTRAL LINE FLUSH 10 ML IV PUSH (05:35)
[2022-06-22] MEDS: metroNIDAZOLE 500 MG/ISO 100ML 500 MG/100 ML BAG 100 MG IVPB ×3 (05:35→21:58)
[2022-06-22] MEDS: LEVOTHYROXINE SODIUM 125 MCG TABLET PO (05:39)
[2022-06-22 06:02] LABS: Hematocrit 39.8 % (37.0-47.0); Mean Corpuscular HGB Conc 32.7 g/dl (32-36); Mean Corpuscular Hemoglobin 30.4 pg (26-34); Mean Corpuscular Volume 93.2 fl (80-100); Mean Platelet Volume 11.8 fl (7.4-10.4); Platelet Count Result 252 k/mm3 (150-375); Red Blood Count 4.27 M/mm3 (4.2-5.4); Red Cell Distribution Width 16.3 % (11.5-14.5); White Blood Count 11.6 K/mm3 (4.5-10.0)
[2022-06-22 06:05] LABS: Alanine Aminotransferase 23 U/L (6-35); Albumin Level 3.8 g/dL (3.5-5.1); Alkaline Phosphatase 263 U/L (38-126); Anion Gap 12 mmol/L (8-16); Aspartate Amino Transferase 33 U/L (14-36); Bilirubin,Total 1.3 mg/dL (0.2-1.3); Blood Urea Nitrogen 71 mg/dL (7-17); Calcium 8.3 mg/dL (8.4-10.2); Carbon Dioxide 20 mmol/L (22-30); Chloride 96 mmol/L (98-107); Estimated CRCL calculation 20 ml/min; Estimated Glomerular Filt Rate 19; Glucose 152 mg/dL (65-110); Magnesium 1.9 mg/dL (1.6-2.3); Potassium 4.2 mmol/L (3.4-5.0); Sodium 128 mmol/L (137-145)
[2022-06-22] MEDS: SODIUM BICARBONATE TAB 650 MG TABLET FEED TUBE (10:17)
[2022-06-22] MEDS: METOPROLOL TARTRATE 25 MG TABLET PO ×2 (10:17→20:48)
[2022-06-22] MEDS: PANTOPRAZOLE SODIUM IV 40 MG VIAL IV PUSH ×2 (10:17→20:48)
[2022-06-22 10:24] LABS: Glucose Point of Care 144 mg/dl (65-105)
--- NOTE | 2022-06-22 10:44 | PM.CNNEP ---
Assessment and Plan Assessment and plan (1) Acute on chronic renal failure: Code(s): N17.9 - Acute kidney failure, unspecified; N18.9 - Chronic kidney disease, unspecified Status: Acute Assessment and Plan: the patient has chronic kidney disease. This is been going on since about 2019. The patient does have hypertension so could have hypertensive nephrosclerosis. She also has a very poor cardiac output. She could have cardiorenal syndrome as well. She is on chronic diuretics to control this. I suspect that hypertension and poor cardiac output may be responsible for her chronic kidney disease. The patient also has acute kidney injury. She was hypotensive during this hospital stay which can lead to ATN and also pre renal azotemia. The patient has a COVID which can certainly do this. The patient has pneumonia as well and a UTI which can both lead to ATN. The patient does have some blood in her urine now however she also has a bladder infection. Looking back in the past she has had blood in her urine in the past and so some sort of inflammatory disease may be the reason for this. She could also have some sort of bladder or other urologic disorder they could do this. I did look at her urine under the microscope and it is of very busy sediment. There are tubular epithelial cells, urothelial cells, white cells, red cells that are normal, some red cells that may be dysmorphic but it is hard to say because of the dizziness of the sediment, and there was 1 muddy brown cast however there were no red cell casts. in the meantime does of her reduced ejection fraction, any reduction in blood pressure or vaso dilatation from sepsis would be likely to cause worsened pre renal factors. At this point it seems that the creatinine has worsened in timing with the COVID , bladder infection, and pneumonia. Will continue to treat supportively with antibiotics. Treat the congestive heart failure Will check an ultrasound of the kidneys, urine electrolytes, and urine urea nitrogen since she has been on diuretics. her urine output is scanty and her creatinine is rising. It is possible that this might come down to needing dialysis but since the patient is getting better in other respects many times the kidneys turn around before this is needed. (2) COVID-19: Code(s): U07.1 - COVID-19 Status: Acute Assessment and Plan: The patient is getting supportive care. (3) Septic shock: Code(s): A41.9 - Sepsis, unspecified organism; R65.21 - Severe sepsis with septic shock Status: Acute Assessment and Plan: Patient's blood pressure is better lately. (4) Atrial fibrillation: Code(s): I48.91 - Unspecified atrial fibrillation Status: Acute Assessment and Plan: Heart rate is balancing around 100. (5) Acute exacerbation of CHF (congestive heart failure): Code(s): I50.9 - Heart failure, unspecified Status: Acute Assessment and Plan: The patient is on room air (6) Essential hypertension: Code(s): I10 - Essential (primary) hypertension Status: Acute Assessment and Plan: blood pressure is under good control History of Present Illness Reason for Consult Consult date: 06/22/22 Chief Complaint Chief complaint: resp failure/sepsis History of Present Illness Narrative: Jyotsna is a very pleasant 71-year-old lady who has multiple medical problems including osteoporosis, osteoarthritis, vitamin-D deficiency, post-polio syndrome, anemia, asthma, hyperlipidemia, paroxysmal atrial fibrillation, congestive heart failure with reduced ejection fraction, coronary artery disease, history of breast cancer, hypothyroidism, and an elevated creatinine. The patient came into the hospital because of shortness of breath. This had been going on for a few days. A week before admission a COVID test was positive. She did not sharpe
[2022-06-22 12:50] LABS: Glucose Point of Care 140 mg/dl (65-105)
[2022-06-22 14:02] LABS: Erythrocyte Sedimentation Rate 2 mm/hr (0-20)
--- NOTE | 2022-06-22 14:43 | PM.IMPN ---
Progress Note: A&P Assessment and Plan (1) Septic shock: Code(s): A41.9 - Sepsis, unspecified organism; R65.21 - Severe sepsis with septic shock Status: Acute Assessment and Plan: Septic shock secondary to UTI and pneumonia, ? Question aspiration Patient received IV fluid bolus. She has history of congestive heart failure and has ascites and pulmonary edema on CT hence further she was on Levophed which has been weaned off Urine culture is growing Klebsiella which is sensitive to cefepime Blood cultures 1 bottle is growing Staph epidermis and 2nd bottle is growing Staph hominis anticipate a both contaminant Repeat set of blood cultures Continue cefepime. Discontinue vancomycin. Continue Flagyl to provide anaerobic coverage for possible aspiration pneumonia Patient being managed by the customer experience specialist. We appreciate their recommendations. 06/22/2022 interval history: patient remains clinically stable patient is off pressor, patient urine is growing Klebsiella pneumonia sensitive to Cefepime 09/02, discussed with customer experience specialist patient is clinically stable now constipation out of ICU, patient with Hood I, patient seen by nephrology and workup is in progress will continue to monitor. (2) Respiratory failure, acute: Code(s): J96.00 - Acute respiratory failure, unspecified whether with hypoxia or hypercapnia Status: Acute Assessment and Plan: Acute Respiratory failure secondary to pneumonia, ? Questionable aspiration, COVID-19, pulmonary edema from congestive heart failure, pneumothorax 06/20 she was extubated after a successful weaning trial. Currently on nasal cannula no respiratory distress She is breathing oxygen 1 L by nasal cannula. Continue Incentive spirometry and aggressive pulmonary toilet. CT scan showed right pneumothorax on presentation. I repeated chest x-ray next morning and shows significant reduction in the size of pneumothorax. Repeat chest x-ray now shows resolution of pneumothorax. Monitor She was given dose of Lasix yesterday for pulmonary edema but did not produce any significant amount of urine On pneumatic antibiotics as above COVID treatment as below Bronchodilators (3) COVID-19: Code(s): U07.1 - COVID-19 Status: Acute Assessment and Plan: Patient tested positive for COVID at [facility] more than a week ago. She is now admitted with respiratory failure although her CT scan is not a typical for COVID-19 pneumonia but patient is hypoxic Continue dexamethasone 10 day course hold remdesivir in light of her renal failure and delayed presentation; Patient is doing well, breathing comfortably and requiring only 1 L of oxygen. Isolation (4) Acute UTI: Code(s): N39.0 - Urinary tract infection, site not specified Status: Acute Assessment and Plan: Continue antibiotics. (5) Atrial fibrillation: Code(s): I48.91 - Unspecified atrial fibrillation Status: Acute Assessment and Plan: Currently her rate is controlled Continue low-dose beta-brad Anticoagulation will be continued Monitor (6) CHF (congestive heart failure): Code(s): I50.9 - Heart failure, unspecified Status: Acute Assessment and Plan: Echocardiogram in 12/18 Summary ? 1. Complete two-dimensional, color flow and Doppler transthoracic echocardiogram is performed. ? 2. Left ventricular chamber dimension is moderately enlarged. ? 3. Left ventricular systolic function is severely reduced, estimated at 25-30%. ? 4. Severe biatrial dilation. ? 5. Moderate mitral and tricuspid regurgitation. ? 6. Mild aortic regurgitation. ? 7. Atrial fibrillation. (7) Acute on chronic renal failure: Code(s): N17.9 - Acute kidney failure, unspecified; N18.9 - Chronic kidney disease, unspecified Status: Acute Assessment and Plan: Patient has history of chronic kidney disease. She presented with elevated creatinine of 2.2. creatinine incr
[2022-06-22 14:50] LABS: Creatine Kinase 72 U/L (30-135)
[2022-06-22 14:52] LABS: Complement C3 70 mg/dL (88-165)
[2022-06-22 15:06] LABS: Total Protein Urine Random 65 mg/dL; Ur Ttl Prot Creatinine Ratio 0.81 mg/mg (0-0.20); Urea Random Urine 632 MG/DL
[2022-06-22 15:07] LABS: Sodium Urine Random 17 meq/L
[2022-06-22 15:20] LABS: Cortisol Random 4.54 ug/dL
--- NOTE | 2022-06-22 15:28 | PC.NURSE ---
This patient, Jyotsna Allred, was received from [ICU 6] on 06/22/22 at 1525. Patient/family oriented to unit policies and routines
--- NOTE | 2022-06-22 15:45 | ADMGEN ---
Addendum entered by Rakan Fofana RN 06/22/22 15:57: This patient, Jyotsna Allred, was transferred to [facility] on 06/22/22 at 1557. Personal belongings sent with patient. Report given to Luisa BUNN. Appropriate documentation sent with patient. Original Note: This patient, Jyotsna Allred, was admitted to 3 [facility] Surg Room 327-01. Patient/family oriented to hospital policies and general routines including ID bracelet, bed and alarms, visiting hours, pain management, procedures, bathroom and other care routines, personal items, smoking policy, room service/diet, and visiting hours. Information on how to activate the Rapid Response Team has been discussed. Patient/Family are encouraged to report perceived risks to care and to ask questions if they do not understand what they are told or what they should do.
[2022-06-22] MEDS: RIVAROXABAN 20 MG TABLET PO (16:40)
[2022-06-22 17:20] LABS: Glucose Point of Care 163 mg/dl (65-105)
[2022-06-22 22:34] LABS: Glucose Point of Care 166 mg/dl (65-105)
[2022-06-23] VITALS (7 sets, daily range): BP systolic 105–110; BP diastolic 52–89; PULSE 76–103; RESP 14–18; TEMP 36–36.3; O2SAT 96–100
[2022-06-23] MEDS: metroNIDAZOLE 500 MG/ISO 100ML 500 MG/100 ML BAG 100 MG IVPB ×3 (06:04→21:36)
[2022-06-23] MEDS: LEVOTHYROXINE SODIUM 125 MCG TABLET PO (06:05)
[2022-06-23 07:21] LABS: Basophils Percent Auto 0.1 % (0.2-1.2); Hematocrit 41.1 % (37.0-47.0); Hemoglobin 13.1 g/dL (12.0-15.0); Immature Granulocyte Absolute 0.06 K/mm3 (0.00-0.031); Immature Granulocyte Percent A 0.6 % (0-0.5); Lymphocytes Percent Auto 3.8 % (18.3-44.2); Mean Corpuscular HGB Conc 31.9 g/dl (32-36); Mean Corpuscular Hemoglobin 29.2 pg (26-34); Mean Corpuscular Volume 91.7 fl (80-100); Mean Platelet Volume 12.4 fl (7.4-10.4); Monocytes Absolute Auto 0.5 K/mm3 (0.1-0.6); Monocytes Percent Auto 4.8 % (2.6-8.5); Neutrophils Absolute Auto 9.6 K/mm3 (1.3-6.7); Neutrophils Percent Auto 90.7 % (45.5-73.1); Nucleated Red Blood Cells Perc 0.3 % (0.0-0.2); Platelet Count Result 262 k/mm3 (150-375); Red Blood Count 4.48 M/mm3 (4.2-5.4); Red Cell Distribution Width 16.2 % (11.5-14.5); White Blood Count 10.5 K/mm3 (4.5-10.0)
[2022-06-23 07:35] LABS: Alanine Aminotransferase 24 U/L (6-35); Albumin Level 3.7 g/dL (3.5-5.1); Alkaline Phosphatase 243 U/L (38-126); Anion Gap 11 mmol/L (8-16); Aspartate Amino Transferase 37 U/L (14-36); Bilirubin,Total 1.5 mg/dL (0.2-1.3); Blood Urea Nitrogen 79 mg/dL (7-17); Calcium 8.4 mg/dL (8.4-10.2); Carbon Dioxide 23 mmol/L (22-30); Chloride 95 mmol/L (98-107); Estimated CRCL calculation 17 ml/min; Estimated Glomerular Filt Rate 18; Glucose 156 mg/dL (65-110); Phosphorus 6.4 mg/dL (2.5-4.5); Potassium 4.7 mmol/L (3.4-5.0); Sodium 129 mmol/L (137-145)
[2022-06-23 07:53] LABS: Anisocytosis 2+ (NORMAL); Microcytosis 2+ (NORMAL); Poikilocytosis 2+ (NORMAL)
[2022-06-23 07:54] LABS: Platelet Estimate Adequate (Adequate); Schistocytes None Seen (NORMAL); Target Cells 1+ (NORMAL)
[2022-06-23 08:18] LABS: Glucose Point of Care 163 mg/dl (65-105)
[2022-06-23] MEDS: PANTOPRAZOLE SODIUM IV 40 MG VIAL IV PUSH ×2 (09:59→21:35)
[2022-06-23] MEDS: SODIUM BICARBONATE TAB 650 MG TABLET FEED TUBE (09:59)
[2022-06-23] MEDS: METOPROLOL TARTRATE 25 MG TABLET PO ×2 (10:00→21:35)
[2022-06-23] MEDS: allopurinoL 100 MG TABLET PO (10:03)
[2022-06-23] MEDS: ASCORBIC ACID 500 MG TABLET 1000 MG PO (10:04)
[2022-06-23] MEDS: SERTRALINE HCL 50 MG TABLET 150 MG PO (10:04)
[2022-06-23] MEDS: PANTOPRAZOLE 40 MG TABLET PO (10:04)
[2022-06-23] MEDS: ROSUVASTATIN 10 MG TABLET PO (10:04)
[2022-06-23] MEDS: CYANOCOBALAMIN 500 MCG TABLET PO (10:04)
[2022-06-23] MEDS: CHOLECALCIFEROL 400 UNITS TABLET (VIT D) PO (10:04)
[2022-06-23] MEDS: SPIRONOLACTONE 25 MG TABLET PO (10:05)
[2022-06-23] MEDS: INSULIN ASPART (*BKC) 100 UNITS/ML SUB-Q ×2 (12:30→17:02)
[2022-06-23 12:31] LABS: Glucose Point of Care 222 mg/dl (65-105)
--- NOTE | 2022-06-23 13:13 | PCNFU ---
Nutrition Follow-Up Complete: Goal:Meet estimated nutritional needs. Pt is progressing towards goal Pt current nutrition is heart healthy. Nutrition recommendation: Add Ensure compact BID Last recorded weight is 63.9 kg - unsure of accuracy. Bowel Motility: no BM recorded at this time Labs Reviewed: NA:129, BUN:79, CR:2.6, Glu:163 Meds Noted: lovenox, novolog Skin: no skin issues noted Additional Notes: Pt extubated and started on a heart healthy diet. intake 50% average of meals right now. Recommend Ensure compact BID for additional 220kcals, 9g protein per shake. Monitor intake, wt, labs. Follow up in 7 days.
--- NOTE | 2022-06-23 13:34 | PM.IMPN ---
Progress Note: A&P Assessment and Plan (1) Septic shock: Code(s): A41.9 - Sepsis, unspecified organism; R65.21 - Severe sepsis with septic shock Status: Acute Assessment and Plan: Septic shock secondary to UTI and pneumonia, ? Question aspiration Patient received IV fluid bolus. She has history of congestive heart failure and has ascites and pulmonary edema on CT hence further she was on Levophed which has been weaned off Urine culture is growing Klebsiella which is sensitive to cefepime Blood cultures 1 bottle is growing Staph epidermis and 2nd bottle is growing Staph hominis anticipate a both contaminant Repeat set of blood cultures Continue cefepime. Discontinue vancomycin. Continue Flagyl to provide anaerobic coverage for possible aspiration pneumonia Patient being managed by the wastewater plant civil engineer. We appreciate their recommendations. 06/23/2022 interval history: patient remains clinically stable patient is off pressor, patient urine is growing Klebsiella pneumonia sensitive to Cefepime 10/03, on 06/22 discussed with wastewater plant civil engineer patient is clinically stable now out of ICU, patient with Hood, patient seen by nephrology and workup is in progress will continue to monitor. today patient is room air working with physical therapy, discussed with the upper caser will contact insurance for transfer authorization, will continue to monitor. (2) Respiratory failure, acute: Code(s): J96.00 - Acute respiratory failure, unspecified whether with hypoxia or hypercapnia Status: Acute Assessment and Plan: Acute Respiratory failure secondary to pneumonia, ? Questionable aspiration, COVID-19, pulmonary edema from congestive heart failure, pneumothorax 06/20 she was extubated after a successful weaning trial. Currently on nasal cannula no respiratory distress She is breathing oxygen 1 L by nasal cannula. Continue Incentive spirometry and aggressive pulmonary toilet. CT scan showed right pneumothorax on presentation. I repeated chest x-ray next morning and shows significant reduction in the size of pneumothorax. Repeat chest x-ray now shows resolution of pneumothorax. Monitor She was given dose of Lasix yesterday for pulmonary edema but did not produce any significant amount of urine On pneumatic antibiotics as above COVID treatment as below Bronchodilators (3) COVID-19: Code(s): U07.1 - COVID-19 Status: Acute Assessment and Plan: Patient tested positive for COVID at [facility]term more than a week ago. She is now admitted with respiratory failure although her CT scan is not a typical for COVID-19 pneumonia but patient is hypoxic Continue dexamethasone 10 day course hold remdesivir in light of her renal failure and delayed presentation; Patient is doing well, breathing comfortably and requiring only 1 L of oxygen. Isolation (4) Acute UTI: Code(s): N39.0 - Urinary tract infection, site not specified Status: Acute Assessment and Plan: Continue antibiotics. (5) Atrial fibrillation: Code(s): I48.91 - Unspecified atrial fibrillation Status: Acute Assessment and Plan: Currently her rate is controlled Continue low-dose beta-brad Anticoagulation will be continued Monitor (6) CHF (congestive heart failure): Code(s): I50.9 - Heart failure, unspecified Status: Acute Assessment and Plan: Echocardiogram in 12/18 Summary ? 1. Complete two-dimensional, color flow and Doppler transthoracic echocardiogram is performed. ? 2. Left ventricular chamber dimension is moderately enlarged. ? 3. Left ventricular systolic function is severely reduced, estimated at 25-30%. ? 4. Severe biatrial dilation. ? 5. Moderate mitral and tricuspid regurgitation. ? 6. Mild aortic regurgitation. ? 7. Atrial fibrillation. (7) Acute on chronic renal failure: Code(s): N17.9 - Acute kidney failure, unspecified; N18.9 - Chronic kidney disease, unspecif
[2022-06-23] MEDS: CHOLESTYRAMINE (W/ SUGAR) 4 GM POWD.PACK PO (14:20)
--- NOTE | 2022-06-23 14:47 | PM.PNNEP ---
Progress Note: A&P Assessment and Plan (1) Acute on chronic renal failure: Code(s): N17.9 - Acute kidney failure, unspecified; N18.9 - Chronic kidney disease, unspecified Status: Acute Assessment and Plan: the patient has chronic kidney disease. This is been going on since about 2019. The patient does have hypertension so could have hypertensive nephrosclerosis. She also has a very poor cardiac output. She could have cardiorenal syndrome as well. She is on chronic diuretics to control this. I suspect that hypertension and poor cardiac output may be responsible for her chronic kidney disease. The patient also has acute kidney injury. Renal ultrasound is ordered. Urine electrolytes and also fractional excretion of urea both suggest pre renal azotemia. LDH 359, slightly high but not impressively so. CPK is normal Chest x-ray shows improvement. most likely this is a multifactorial issue. She has ATN from pre renal azotemia, hypotension, and infection. She probably has some pre renal azotemia as well. Serology is pending but it does not seem like this is a glomerulonephritis doing this. She is on antibiotics, Dexamethasone, Will continue to watch the creatinine levels. (2) COVID-19: Code(s): U07.1 - COVID-19 Status: Acute Assessment and Plan: The patient is getting supportive care. (3) Septic shock: Code(s): A41.9 - Sepsis, unspecified organism; R65.21 - Severe sepsis with septic shock Status: Acute Assessment and Plan: Patient's blood pressure is better lately. (4) Atrial fibrillation: Code(s): I48.91 - Unspecified atrial fibrillation Status: Acute Assessment and Plan: Heart rate is balancing around 100. (5) Acute exacerbation of CHF (congestive heart failure): Code(s): I50.9 - Heart failure, unspecified Status: Acute Assessment and Plan: The patient is on room air (6) Essential hypertension: Code(s): I10 - Essential (primary) hypertension Status: Acute Assessment and Plan: blood pressure is under good control Subjective Date/time seen: 06/23/22 14:47 Interval history: patient is sitting up in a chair. She finished her lunch but she did not like it. The meat is too tough. No chest pain or shortness of breath. She has swelling in the ankles but also in the left arm but none on the right. Review of Systems Cardiovascular: Cardiovascular: Reports no additional cardiovascular complaints Respiratory: Respiratory: Reports no additional respiratory complaints Gastrointestinal: Gastrointestinal: Reports no additional gastrointestinal complaints Genitourinary: Genitourinary: Reports no additional female genitourinary complaints Exam Narrative: WDWN in NAD skin no rash head ncat lungs clear cor reg no rub abd BS+ nontender and soft ext 1+ edema in the legs, 1+ in the left arm, none on the right. Objective Data Vital Signs Vital Signs: Vital Signs - 24 hr 06/22/22 16:11 06/22/22 16:00 06/22/22 20:48 Temperature 97.0 F L Pulse Rate 97 98 Respiratory Rate 16 Blood Pressure 115/63 Pulse Oximetry 98 98 Oxygen Delivery Room Air 06/22/22 20:00 06/23/22 00:00 06/22/22 20:50 Temperature 97.4 F L 96.8 F L Pulse Rate 99 103 H Respiratory Rate 16 16 Blood Pressure 108/73 Pulse Oximetry 95 96 Oxygen Delivery Room Air 06/23/22 04:00 06/23/22 10:00 06/23/22 09:40 Temperature 97.2 F L Pulse Rate 94 94 Respiratory Rate 14 Blood Pressure 105/89 Pulse Oximetry 100 Oxygen Delivery Room Air 06/23/22 09:45 06/23/22 11:41 Temperature 97.3 F L Pulse Rate 96 Respiratory Rate 18 Blood Pressure 110/77 Pulse Oximetry 96 Oxygen Delivery Room Air Intake/Output Intake/Output: Intake & Output 06/20/22 06/21/22 06/22/22 06/23/22 23:59 23:59 23:59 23:59 Intake Total 0039 1 0049
[2022-06-23 16:32] LABS: Glucose Point of Care 224 mg/dl (65-105)
[2022-06-23] MEDS: RIVAROXABAN 20 MG TABLET PO (17:03)
[2022-06-23] MEDS: lamoTRIgine 100 MG TABLET PO (21:35)
[2022-06-24] VITALS (12 sets, daily range): BP systolic 97–112; BP diastolic 52–79; PULSE 83–100; RESP 14–20; TEMP 35.8–36.3; O2SAT 91–97
[2022-06-24] MEDS: metroNIDAZOLE 500 MG/ISO 100ML 500 MG/100 ML BAG 100 MG IVPB ×3 (07:06→21:16)
[2022-06-24] MEDS: LEVOTHYROXINE SODIUM 125 MCG TABLET PO (07:07)
[2022-06-24 08:31] LABS: Glucose Point of Care 136 mg/dl (65-105)
[2022-06-24] MEDS: SPIRONOLACTONE 25 MG TABLET PO (09:11)
[2022-06-24] MEDS: allopurinoL 100 MG TABLET PO (09:11)
[2022-06-24] MEDS: CHOLECALCIFEROL 400 UNITS TABLET (VIT D) PO (09:11)
[2022-06-24] MEDS: ASCORBIC ACID 500 MG TABLET 1000 MG PO (09:11)
[2022-06-24] MEDS: CYANOCOBALAMIN 500 MCG TABLET PO (09:12)
[2022-06-24] MEDS: PANTOPRAZOLE 40 MG TABLET PO (09:12)
[2022-06-24] MEDS: PANTOPRAZOLE SODIUM IV 40 MG VIAL IV PUSH ×2 (09:12→21:15)
[2022-06-24] MEDS: SERTRALINE HCL 50 MG TABLET 150 MG PO (09:12)
[2022-06-24] MEDS: SODIUM BICARBONATE TAB 650 MG TABLET FEED TUBE (09:12)
[2022-06-24] MEDS: METOPROLOL TARTRATE 25 MG TABLET PO ×2 (09:18→21:15)
[2022-06-24 10:45] LABS: Hematocrit 41.4 % (37.0-47.0); Mean Corpuscular HGB Conc 31.4 g/dl (32-36); Mean Corpuscular Hemoglobin 29.8 pg (26-34); Mean Platelet Volume 12.1 fl (7.4-10.4); Platelet Count Result 236 k/mm3 (150-375); Red Blood Count 4.36 M/mm3 (4.2-5.4); Red Cell Distribution Width 16.7 % (11.5-14.5); White Blood Count 11.8 K/mm3 (4.5-10.0)
[2022-06-24 10:57] LABS: Alanine Aminotransferase 21 U/L (6-35); Albumin Level 3.6 g/dL (3.5-5.1); Alkaline Phosphatase 207 U/L (38-126); Anion Gap 16 mmol/L (8-16); Aspartate Amino Transferase 27 U/L (14-36); Bilirubin,Total 1.7 mg/dL (0.2-1.3); Blood Urea Nitrogen 83 mg/dL (7-17); Calcium 8.5 mg/dL (8.4-10.2); Carbon Dioxide 15 mmol/L (22-30); Chloride 97 mmol/L (98-107); Estimated CRCL calculation 16 ml/min; Estimated Glomerular Filt Rate 17; Glucose 183 mg/dL (65-110); Magnesium 2.2 mg/dL (1.6-2.3); Phosphorus 6.6 mg/dL (2.5-4.5); Potassium 3.9 mmol/L (3.4-5.0); Sodium 128 mmol/L (137-145)
[2022-06-24 12:11] LABS: Glucose Point of Care 201 mg/dl (65-105)
[2022-06-24] MEDS: INSULIN ASPART (*BKC) 100 UNITS/ML SUB-Q (12:29)
[2022-06-24] MEDS: CHOLESTYRAMINE (W/ SUGAR) 4 GM POWD.PACK PO (12:29)
--- NOTE | 2022-06-24 13:47 | PCSTNOTE ---
Please refer to the Modified Barium Swallow Evaluation in the EMR.
--- NOTE | 2022-06-24 15:42 | PM.IMPN ---
Progress Note: A&P Assessment and Plan (1) Septic shock: Code(s): A41.9 - Sepsis, unspecified organism; R65.21 - Severe sepsis with septic shock Status: Acute Assessment and Plan: Septic shock secondary to UTI and pneumonia, ? Question aspiration Patient received IV fluid bolus. She has history of congestive heart failure and has ascites and pulmonary edema on CT hence further she was on Levophed which has been weaned off Urine culture is growing Klebsiella which is sensitive to cefepime Blood cultures 1 bottle is growing Staph epidermis and 2nd bottle is growing Staph hominis anticipate a both contaminant Repeat set of blood cultures Continue cefepime. Discontinue vancomycin. Continue Flagyl to provide anaerobic coverage for possible aspiration pneumonia Patient being managed by the vacuum form operator. We appreciate their recommendations. 06/24/2022 interval history: patient remains clinically stable patient is off pressor, patient urine is growing Klebsiella pneumonia sensitive to Cefepime 10/03, on 06/22 discussed with vacuum form operator patient is clinically stable now out of ICU, patient with [facility], patient seen by nephrology and workup is in progress will continue to monitor. patient with cardiomyopathy with EF of 20% suspect poor perfusion to kidney and causing injury to the kidney, today patient is room air working with physical therapy, discussed with the counter caser will contact insurance for transfer authorization, will continue to monitor. (2) Respiratory failure, acute: Code(s): J96.00 - Acute respiratory failure, unspecified whether with hypoxia or hypercapnia Status: Acute Assessment and Plan: Acute Respiratory failure secondary to pneumonia, ? Questionable aspiration, COVID-19, pulmonary edema from congestive heart failure, pneumothorax 06/20 she was extubated after a successful weaning trial. Currently on nasal cannula no respiratory distress She is breathing oxygen 1 L by nasal cannula. Continue Incentive spirometry and aggressive pulmonary toilet. CT scan showed right pneumothorax on presentation. I repeated chest x-ray next morning and shows significant reduction in the size of pneumothorax. Repeat chest x-ray now shows resolution of pneumothorax. Monitor She was given dose of Lasix yesterday for pulmonary edema but did not produce any significant amount of urine On pneumatic antibiotics as above COVID treatment as below Bronchodilators (3) COVID-19: Code(s): U07.1 - COVID-19 Status: Acute Assessment and Plan: Patient tested positive for COVID at group home more than a week ago. She is now admitted with respiratory failure although her CT scan is not a typical for COVID-19 pneumonia but patient is hypoxic Continue dexamethasone 10 day course hold remdesivir in light of her renal failure and delayed presentation; Patient is doing well, breathing comfortably and requiring only 1 L of oxygen. Isolation (4) Acute UTI: Code(s): N39.0 - Urinary tract infection, site not specified Status: Acute Assessment and Plan: Continue antibiotics. (5) Atrial fibrillation: Code(s): I48.91 - Unspecified atrial fibrillation Status: Acute Assessment and Plan: Currently her rate is controlled Continue low-dose beta-brad Anticoagulation will be continued Monitor (6) CHF (congestive heart failure): Code(s): I50.9 - Heart failure, unspecified Status: Acute Assessment and Plan: Echocardiogram in 12/18 Summary ? 1. Complete two-dimensional, color flow and Doppler transthoracic echocardiogram is performed. ? 2. Left ventricular chamber dimension is moderately enlarged. ? 3. Left ventricular systolic function is severely reduced, estimated at 25-30%. ? 4. Severe biatrial dilation. ? 5. Moderate mitral and tricuspid regurgitation. ? 6. Mild aortic regurgitation. ? 7. Atrial fibrillation. (7) Acute on chronic renal fa
[2022-06-24 16:34] LABS: Glucose Point of Care 198 mg/dl (65-105)
[2022-06-24] MEDS: RIVAROXABAN 20 MG TABLET PO (16:43)
[2022-06-24] MEDS: FERROUS SULFATE 324 MG TABLET PO (16:43)
[2022-06-24 20:05] LABS: Glucose Point of Care 242 mg/dl (65-105)
--- NOTE | 2022-06-24 20:13 | ECG_ITS ---
Measurements Intervals [place] Rate: 83 P: FL: 0 QRS: 128 QRSD: 122 T: -24 QT: 442 QTc: 521 Interpretive Statements ATRIAL FIBRILLATION RIGHT AXIS DEVIATION LATERAL MYOCARDIAL INFARCTION , OF INDETERMINATE AGE [40+ ms Q WAVE AND/OR ST/T ABNORMALITY IN I/aVL/V5/V6] COMPARED TO ECG 06/18/2022 15:20:42 QRS IS NARROWER Electronically Signed On 06-25-2022 13:16:42 PLANER OPERATOR by Mere Sanches M.D.
[2022-06-24 20:15] LABS: Alveolar/Arterial O2 Gradient 45.7 mmHg; Base Excess ABG -7.7 mEq/l (+/-2.0); Carboxyhemoglobin 0.5 % THb (0-2.0); Fractional Inspired Oxygen 35 %; HCO3 ABG 17.2 mEq/l (22.0-26.0); Methemoglobin ABG 0.3 %THb (0-1.5); Oxygen Content ABG 19.5 %vol (16.0-22.0); Oxyhemoglobin 97.8 % THb (90.0-100.0); PCO2 ABG 33.5 mmHg (35.0-45.0); PO2 ABG 164.9 mmHg (80.0-100.0); PO2 FiO2 Ratio Arterial Blood 4.71 %; Reduced Hemoglobin 1.4 %THb (0-5.0); pH ABG 7.329 (7.350-7.450)
[2022-06-24 20:16] LABS: Device NASAL CANNULA; Site Drawn RIGHT BRACHIAL
--- NOTE | 2022-06-24 20:16 | PM.EVENT ---
Event Note Event Note Event Note: Rapid response was called after patient was found to have low oxygen saturation while on room air. Objective: Patient is sitting in bed nasal cannula on 4 L by oxygen Subjective: Patient is rambling about unrelated issues Vitals oxygen saturation 88% on 4 L by nasal cannula of oxygen, BP 104/80, heart rate is 91, General: Patient laying in bed, comfortable. HEENT: Atraumatic normocephalic PERRLA EOM neck supple no JVD no lymphadenopathies Cardiovascular: S1-S2 heard Respiratory: Diminished bilaterally no wheezes rhonchi or crackles Abdomen: Soft nontender nondistended no hepatosplenomegaly Extremities: Edema 2+ Central nervous system: Awake alert oriented x1 Assessment and plan 1. Acute hypoxic respiratory failure: On supplemental oxygen 4 L by nasal cannula, continue to monitor ABG reviewed 2. Congestive heart failure: Patient is [address] on telemetry continue to monitor daily intake and output 3. GAVI: Workup in progress continue to monitor BUN and creatinine 4. Hypothermia: Patient is currently on steroids, dexamethasone. Supportive care continue to monitor elevated room temperature, apply warm blankets
[2022-06-24 21:16] LABS: Basophils Percent Auto 0.1 % (0.2-1.2); Hematocrit 39.2 % (37.0-47.0); Hemoglobin 12.8 g/dL (12.0-15.0); Immature Granulocyte Absolute 0.06 K/mm3 (0.00-0.031); Immature Granulocyte Percent A 0.6 % (0-0.5); Lymphocytes Absolute Auto 0.19 K/mm3 (0.9-3.2); Lymphocytes Percent Auto 1.9 % (18.3-44.2); Mean Corpuscular HGB Conc 32.7 g/dl (32-36); Mean Corpuscular Hemoglobin 29.6 pg (26-34); Mean Corpuscular Volume 90.5 fl (80-100); Mean Platelet Volume 12.7 fl (7.4-10.4); Monocytes Absolute Auto 0.3 K/mm3 (0.1-0.6); Monocytes Percent Auto 2.5 % (2.6-8.5); Neutrophils Absolute Auto 9.7 K/mm3 (1.3-6.7); Neutrophils Percent Auto 94.9 % (45.5-73.1); Nucleated Red Blood Cells Perc 0.4 % (0.0-0.2); Platelet Count Result 202 k/mm3 (150-375); Red Blood Count 4.33 M/mm3 (4.2-5.4); Red Cell Distribution Width 16.1 % (11.5-14.5); White Blood Count 10.2 K/mm3 (4.5-10.0)
[2022-06-24] MEDS: lamoTRIgine 100 MG TABLET PO (21:16)
[2022-06-24 21:26] LABS: Anion Gap 13 mmol/L (8-16); Blood Urea Nitrogen 85 mg/dL (7-17); Calcium 8.6 mg/dL (8.4-10.2); Carbon Dioxide 19 mmol/L (22-30); Chloride 99 mmol/L (98-107); Estimated CRCL calculation 15 ml/min; Estimated Glomerular Filt Rate 15; Glucose 183 mg/dL (65-110); Sodium 131 mmol/L (137-145)
[2022-06-24 21:28] LABS: Lactic Acid Reflex 1.8 mmol/L (0.7-2.0)
[2022-06-24 21:35] LABS: NT Pro B Type Natriuretic Pept > 35000 pg/mL (5-100)
--- NOTE | 2022-06-24 21:48 | PM.PNNEP ---
Progress Note: A&P Assessment and Plan (1) Acute on chronic renal failure: Code(s): N17.9 - Acute kidney failure, unspecified; N18.9 - Chronic kidney disease, unspecified Status: Acute Assessment and Plan: the patient has chronic kidney disease. This is been going on since about 2019. The patient does have hypertension so could have hypertensive nephrosclerosis. She also has a very poor cardiac output. She could have cardiorenal syndrome as well. She is on chronic diuretics to control this. I suspect that hypertension and poor cardiac output may be responsible for her chronic kidney disease. The patient also has acute kidney injury. Renal ultrasound is ordered. Urine electrolytes and also fractional excretion of urea both suggest pre renal azotemia. LDH 359, slightly high but not impressively so. CPK is normal COVID is positive Chest x-ray shows improvement. most likely this is a multifactorial issue. She has ATN from pre renal azotemia, hypotension, and infection. She probably has some pre renal azotemia as well. Serology is pending but it does not seem like this is a glomerulonephritis doing this. She is on antibiotics, Dexamethasone, continue to observe, continue antibiotics, supportive care. (2) COVID-19: Code(s): U07.1 - COVID-19 Status: Acute Assessment and Plan: The patient is getting supportive care. (3) Septic shock: Code(s): A41.9 - Sepsis, unspecified organism; R65.21 - Severe sepsis with septic shock Status: Acute Assessment and Plan: Patient's blood pressure is better lately. above 98 lately (4) Atrial fibrillation: Code(s): I48.91 - Unspecified atrial fibrillation Status: Acute Assessment and Plan: Heart rate is bouncing around 100. (5) Acute exacerbation of CHF (congestive heart failure): Code(s): I50.9 - Heart failure, unspecified Status: Acute Assessment and Plan: The patient is on room air (6) Essential hypertension: Code(s): I10 - Essential (primary) hypertension Status: Acute Assessment and Plan: blood pressure is under good control Subjective Date/time seen: 06/24/22 21:48 Interval history: resting comfortably in bed. no cp or sob. Exam Narrative: WDWN in NAD skin no rash head ncat lungs clear bilaterally cor reg no rub abd BS+ nontender and soft ext 1+ edema in the legs, 1+ in the left arm, none on the right. Objective Data Vital Signs Vital Signs: Vital Signs - 24 hr 06/24/22 04:00 06/24/22 09:18 06/24/22 09:00 Temperature 96.7 F L 97.1 F L Pulse Rate 83 100 91 Respiratory Rate 14 20 Blood Pressure 97/52 L 112/79 Pulse Oximetry 95 94 Oxygen Delivery Oxygen Flow Rate 06/24/22 09:10 06/24/22 13:00 06/24/22 16:00 Temperature 97.3 F L 97.1 F L Pulse Rate 100 97 100 Respiratory Rate 18 18 Blood Pressure 100/63 104/67 98/71 L Pulse Oximetry 97 95 Oxygen Delivery Oxygen Flow Rate 06/24/22 20:00 06/24/22 21:15 06/24/22 20:52 Temperature 96.4 F L Pulse Rate 97 Respiratory Rate Blood Pressure 100/70 Pulse Oximetry 91 Oxygen Delivery Nasal Cannula Nasal Cannula Oxygen Flow Rate 2 4 06/24/22 21:36 Temperature 97.1 F L Pulse Rate Respiratory Rate Blood Pressure Pulse Oximetry Oxygen Delivery Oxygen Flow Rate Intake/Output Intake/Output: Intake & Output 06/21/22 06/22/22 06/23/22 06/24/22 23:59 23:59 23:59 23:59 Intake Total 1 1820 1780 280 Output Total 350 300 550 350 Balance 1671 1520 1230 -70 Meds/Results Medications: Active Medications Generic Name Dose Route Start Last Admin Trade Name Freq PRN Reason Stop Dose Admin Albuterol 2.5 mg 06/25/22 02:00 Albuterol Sulfate Neb 2.5 Mg/3 Ml Inh INHALATION Q6HRT [facility] Allopurinol 100 mg 06/23/22 09:30 06/24/22 09:11 Allopurinol 100 Mg Tablet PO 100 mg
[2022-06-25] VITALS (20 sets, daily range): BP systolic 97–121; BP diastolic 44–80; PULSE 83–106; RESP 16–20; TEMP 35.8–36.7; O2SAT 91–100
[2022-06-25] MEDS: IPRATROPIUM BR 0.02% INH SOLN 0.5 MG/2.5 ML VIAL INHALATION ×4 (02:30→21:08)
[2022-06-25] MEDS: ALBUTEROL SULFATE NEB 2.5 MG/3 ML INH INHALATION ×4 (02:30→21:08)
[2022-06-25] MEDS: metroNIDAZOLE 500 MG/ISO 100ML 500 MG/100 ML BAG 100 MG IVPB ×3 (05:23→21:11)
[2022-06-25] MEDS: LEVOTHYROXINE SODIUM 125 MCG TABLET PO (05:25)
[2022-06-25 06:43] LABS: Hemoglobin 12.8 g/dL (12.0-15.0); Mean Corpuscular HGB Conc 32.8 g/dl (32-36); Mean Corpuscular Hemoglobin 29.4 pg (26-34); Mean Corpuscular Volume 89.7 fl (80-100); Mean Platelet Volume 12.7 fl (7.4-10.4); Platelet Count Result 202 k/mm3 (150-375); Red Blood Count 4.35 M/mm3 (4.2-5.4); Red Cell Distribution Width 16.1 % (11.5-14.5)
[2022-06-25 06:56] LABS: Alanine Aminotransferase 20 U/L (6-35); Albumin Level 3.6 g/dL (3.5-5.1); Alkaline Phosphatase 197 U/L (38-126); Anion Gap 15 mmol/L (8-16); Aspartate Amino Transferase 23 U/L (14-36); Bilirubin,Total 1.6 mg/dL (0.2-1.3); Blood Urea Nitrogen 88 mg/dL (7-17); Calcium 8.7 mg/dL (8.4-10.2); Carbon Dioxide 20 mmol/L (22-30); Chloride 100 mmol/L (98-107); Estimated CRCL calculation 14 ml/min; Estimated Glomerular Filt Rate 15; Glucose 168 mg/dL (65-110); Magnesium 2.2 mg/dL (1.6-2.3); Potassium 3.9 mmol/L (3.4-5.0); Sodium 135 mmol/L (137-145)
[2022-06-25 08:01] LABS: Glucose Point of Care 190 mg/dl (65-105)
[2022-06-25] MEDS: ASCORBIC ACID 500 MG TABLET 1000 MG PO (09:33)
[2022-06-25] MEDS: SERTRALINE HCL 50 MG TABLET 150 MG PO (09:34)
[2022-06-25] MEDS: PANTOPRAZOLE 40 MG TABLET PO (09:34)
[2022-06-25] MEDS: PANTOPRAZOLE SODIUM IV 40 MG VIAL IV PUSH (09:34)
[2022-06-25] MEDS: SPIRONOLACTONE 25 MG TABLET PO (09:34)
[2022-06-25] MEDS: CYANOCOBALAMIN 500 MCG TABLET PO (09:35)
[2022-06-25] MEDS: SODIUM BICARBONATE TAB 650 MG TABLET FEED TUBE (09:35)
[2022-06-25] MEDS: CHOLECALCIFEROL 400 UNITS TABLET (VIT D) PO (09:36)
[2022-06-25] MEDS: allopurinoL 100 MG TABLET PO (09:36)
[2022-06-25] MEDS: METOPROLOL TARTRATE 25 MG TABLET PO ×2 (09:36→20:52)
[2022-06-25] MEDS: ROSUVASTATIN 10 MG TABLET PO (09:36)
[2022-06-25 11:42] LABS: Glucose Point of Care 223 mg/dl (65-105)
--- NOTE | 2022-06-25 13:08 | P.PNNP_ITS ---
Progress Note: A&P Assessment and Plan (1) GAVI (acute kidney injury): Code(s): N17.9 - Acute kidney failure, unspecified Status: Acute Assessment and Plan: * suspect multifactorial etiology: * prerenal azotemia (acute and chronic) * hypotension/hemodynamic instability * infection (COVID) * evaluation to date: * renal ultrasound with right renal atrophy and bilateral renal scarring * urine electrolytes + fractional excretion of urea both suggest pre renal azotemia (but that could be from her reduced EF) * CPK is normal * COVID positive * concerning that renal function is slow to recover.... (2) Stage 3b chronic kidney disease: Code(s): N18.32 - Chronic kidney disease, stage 3b Status: Acute Assessment and Plan: * this has been present since at least 2019 * baseline creatinine seems to run ~ 1.4 - 1.8mg/dl * presumably secondary to hypertension, vascular disease (CAD, hyperlipidemia, CHF/cardiomyopathy leading to cardiorenal syndrome), chronic diuretic therapy and age (3) COVID-19: Code(s): U07.1 - COVID-19 Status: Acute Assessment and Plan: * continue supporitve therapy (4) Atrial fibrillation: Code(s): I48.91 - Unspecified atrial fibrillation Status: Chronic Assessment and Plan: * rate control strategy (5) Acute exacerbation of CHF (congestive heart failure): Code(s): I50.9 - Heart failure, unspecified Status: Acute Assessment and Plan: * reintroduce medications for her cardiomyopathy as BP allows * clinically better/improved Will continue to follow. Subjective Date/time seen: 06/25/22 13:08 Chart reviewed -- assuming care from Dr. Melendez; seems to be doing reasonably well at the time of my visit; renal function about the same (no better, no worse); still making urine at this time; respiratory status seems stable as well. Exam Narrative: General: elderly female in NAD Heart: normal S1 and S2; no rub Lungs: clear to auscultation Abdomen: soft, nontender, nondistended, positive bowel sounds Extremities: no cyanosis or clubbing; 1+ edema Skin: warm and dry Objective Data Vital Signs Vital Signs: Vital Signs - 24 hr 06/25/22 00:00 06/25/22 02:30 06/25/22 04:00 Temperature 96.4 F L 97.6 F Pulse Rate 91 86 83 Respiratory Rate 16 18 16 Blood Pressure 104/80 102/79 Pulse Oximetry 93 100 Oxygen Delivery Oxygen Flow Rate 06/25/22 09:36 06/25/22 09:55 06/25/22 10:08 Temperature Pulse Rate 83 97 89 Respiratory Rate 18 18 Blood Pressure Pulse Oximetry Oxygen Delivery Oxygen Flow Rate 06/25/22 10:22 06/25/22 10:00 Temperature 98.0 F Pulse Rate 89 Respiratory Rate 16 Blood Pressure 121/57 L Pulse Oximetry 95 95 Oxygen Delivery Room Air Oxygen Flow Rate Intake/Output Intake/Output: Intake & Output 06/22/22 06/23/22 06/24/22 06/25/22 23:59 23:59 23:59 23:59 Intake Total 1820 1780 380 620 Output Total 300 550 350 300 Balance 1520 1230 30 320 Meds/Results Medications:
--- NOTE | 2022-06-25 13:08 | PM.PNNEP ---
Progress Note: A&P Assessment and Plan (1) GAVI (acute kidney injury): Code(s): N17.9 - Acute kidney failure, unspecified Status: Acute Assessment and Plan: suspect multifactorial etiology: prerenal azotemia (acute and chronic) hypotension/hemodynamic instability infection (COVID) evaluation to date: renal ultrasound with right renal atrophy and bilateral renal scarring urine electrolytes + fractional excretion of urea both suggest pre renal azotemia (but that could be from her reduced EF) CPK is normal COVID positive concerning that renal function is slow to recover.... (2) Stage 3b chronic kidney disease: Code(s): N18.32 - Chronic kidney disease, stage 3b Status: Acute Assessment and Plan: this has been present since at least 2019 baseline creatinine seems to run ~ 1.4 - 1.8mg/dl presumably secondary to hypertension, vascular disease (CAD, hyperlipidemia, CHF/cardiomyopathy leading to cardiorenal syndrome), chronic diuretic therapy and age (3) COVID-19: Code(s): U07.1 - COVID-19 Status: Acute Assessment and Plan: continue supporitve therapy (4) Atrial fibrillation: Code(s): I48.91 - Unspecified atrial fibrillation Status: Chronic Assessment and Plan: rate control strategy (5) Acute exacerbation of CHF (congestive heart failure): Code(s): I50.9 - Heart failure, unspecified Status: Acute Assessment and Plan: reintroduce medications for her cardiomyopathy as BP allows clinically better/improved Will continue to follow. Subjective Date/time seen: 06/25/22 13:08 Chart reviewed -- assuming care from Dr. Melendez; seems to be doing reasonably well at the time of my visit; renal function about the same (no better, no worse); still making urine at this time; respiratory status seems stable as well. Exam Narrative: General: elderly female in NAD Heart: normal S1 and S2; no rub Lungs: clear to auscultation Abdomen: soft, nontender, nondistended, positive bowel sounds Extremities: no cyanosis or clubbing; 1+ edema Skin: warm and dry Objective Data Vital Signs Vital Signs: Vital Signs - 24 hr 06/25/22 00:00 06/25/22 02:30 06/25/22 04:00 Temperature 96.4 F L 97.6 F Pulse Rate 91 86 83 Respiratory Rate 16 18 16 Blood Pressure 104/80 102/79 Pulse Oximetry 93 100 Oxygen Delivery Oxygen Flow Rate 06/25/22 09:36 06/25/22 09:55 06/25/22 10:08 Temperature Pulse Rate 83 97 89 Respiratory Rate 18 18 Blood Pressure Pulse Oximetry Oxygen Delivery Oxygen Flow Rate 06/25/22 10:22 06/25/22 10:00 Temperature 98.0 F Pulse Rate 89 Respiratory Rate 16 Blood Pressure 121/57 L Pulse Oximetry 95 95 Oxygen Delivery Room Air Oxygen Flow Rate Intake/Output Intake/Output: Intake & Output 06/22/22 06/23/22 06/24/22 06/25/22 23:59 23:59 23:59 23:59 Intake Total 1820 1780 380 620 Output Total 300 550 350 300 Balance 1520 1230 30 320 Meds/Results Medications: Active Medications Generic Name Dose Route Start Last Admin Trade Name Freq PRN Reason Stop Dose Admin Albuterol 2.5 mg 06/25/22 02:00 06/25/22 14:06 Albuterol Sulfate Neb 2.5 Mg/3 Ml Inh INHALATION 2.5 mg Q6HRT ASHU Administration Allopurinol 100 mg 06/23/22 09:30 06/25/22 09:36 Allopurinol 100 Mg Tablet PO 100 mg DAILY ASHU Administration Ascorbic Acid 1,000 mg 06/23/22 09:30 06/25/22 09:33 Ascorbic Acid 500 Mg Tablet PO 1,000 mg DAILY ASHU Administration Cholestyramine Resin 4 gm 06/23/22 12:00 06/25/22 13:29 Cholestyramine (W/ Sugar) 4 Gm Powd.Pack PO 4 gm DAILY@1200 ASHU Administration Cyanocobalamin 500 mcg 06/23/22 09:30 06/25/22 09:35 Cyanocobalamin 500 Mcg Tablet PO 500 mcg DAILY@0900 ASHU Administration Dexamethasone Sodium Phosphate 6 mg 06/19/22 09:00 06/25/22 09:35 Dexamethasone Sod Phos Inj 1
[2022-06-25] MEDS: INSULIN ASPART (*BKC) 100 UNITS/ML SUB-Q ×3 (13:25→17:08)
[2022-06-25] MEDS: CHOLESTYRAMINE (W/ SUGAR) 4 GM POWD.PACK PO (13:29)
[2022-06-25] MEDS: FERROUS SULFATE 324 MG TABLET PO (13:29)
[2022-06-25] MEDS: RIVAROXABAN 20 MG TABLET PO (17:03)
[2022-06-25 17:05] LABS: Glucose Point of Care 258 mg/dl (65-105)
--- NOTE | 2022-06-25 17:25 | PM.IMPN ---
Progress Note: A&P Assessment and Plan (1) Septic shock: Code(s): A41.9 - Sepsis, unspecified organism; R65.21 - Severe sepsis with septic shock Status: Acute Assessment and Plan: Septic shock secondary to UTI and pneumonia, ? Question aspiration Patient received IV fluid bolus. She has history of congestive heart failure and has ascites and pulmonary edema on CT hence further she was on Levophed which has been weaned off Urine culture is growing Klebsiella which is sensitive to cefepime Blood cultures 1 bottle is growing Staph epidermis and 2nd bottle is growing Staph hominis anticipate a both contaminant Repeat set of blood cultures Continue cefepime. Discontinue vancomycin. Continue Flagyl to provide anaerobic coverage for possible aspiration pneumonia Patient being managed by the chemical dependency attendant. We appreciate their recommendations. 06/25/2022 interval history: patient remains clinically stable patient is off pressor, patient urine is growing Klebsiella pneumonia sensitive to Cefepime 11/02, on 06/22, patient blood culture is growing Staphylococcus epididymis and hominis most likely contamination, 06/23 discussed with chemical dependency attendant patient is clinically stable now out of ICU, patient with [facility], patient seen by nephrology and workup is in progress will continue to monitor. patient with cardiomyopathy with EF of 20% suspect poor perfusion to kidney and causing injury to the kidney, patient is room air will continue to work with physical therapy, discussed with the transplant case manager will contact insurance for transfer authorization, will continue to monitor. (2) Respiratory failure, acute: Code(s): J96.00 - Acute respiratory failure, unspecified whether with hypoxia or hypercapnia Status: Acute Assessment and Plan: Acute Respiratory failure secondary to pneumonia, ? Questionable aspiration, COVID-19, pulmonary edema from congestive heart failure, pneumothorax 06/20 she was extubated after a successful weaning trial. Currently on nasal cannula no respiratory distress She is breathing oxygen 1 L by nasal cannula. Continue Incentive spirometry and aggressive pulmonary toilet. CT scan showed right pneumothorax on presentation. I repeated chest x-ray next morning and shows significant reduction in the size of pneumothorax. Repeat chest x-ray now shows resolution of pneumothorax. Monitor She was given dose of Lasix yesterday for pulmonary edema but did not produce any significant amount of urine On pneumatic antibiotics as above COVID treatment as below Bronchodilators (3) COVID-19: Code(s): U07.1 - COVID-19 Status: Acute Assessment and Plan: Patient tested positive for COVID [facility] more than a week ago. She is now admitted with respiratory failure although her CT scan is not a typical for COVID-19 pneumonia but patient is hypoxic Continue dexamethasone 10 day course hold remdesivir in light of her renal failure and delayed presentation; Patient is doing well, breathing comfortably and requiring only 1 L of oxygen. Isolation (4) Acute UTI: Code(s): N39.0 - Urinary tract infection, site not specified Status: Acute Assessment and Plan: Continue antibiotics. (5) Atrial fibrillation: Code(s): I48.91 - Unspecified atrial fibrillation Status: Acute Assessment and Plan: Currently her rate is controlled Continue low-dose beta-brad Anticoagulation will be continued Monitor (6) CHF (congestive heart failure): Code(s): I50.9 - Heart failure, unspecified Status: Acute Assessment and Plan: Echocardiogram in 12/18 Summary ? 1. Complete two-dimensional, color flow and Doppler transthoracic echocardiogram is performed. ? 2. Left ventricular chamber dimension is moderately enlarged. ? 3. Left ventricular systolic function is severely reduced, estimated at 25-30%. ? 4. Severe biatrial dilation. ? 5. Moderate mitral and tricu
[2022-06-25] MEDS: lamoTRIgine 100 MG TABLET PO (20:52)
[2022-06-25 21:06] LABS: Glucose Point of Care 244 mg/dl (65-105)
[2022-06-26] VITALS (17 sets, daily range): BP systolic 105–128; BP diastolic 63–79; PULSE 80–110; RESP 15–20; TEMP 35.6–36.8; O2SAT 90–99
[2022-06-26] MEDS: ALBUTEROL SULFATE NEB 2.5 MG/3 ML INH INHALATION ×4 (02:55→20:52)
[2022-06-26] MEDS: IPRATROPIUM BR 0.02% INH SOLN 0.5 MG/2.5 ML VIAL INHALATION ×4 (02:55→20:52)
[2022-06-26 06:42] LABS: Hematocrit 39.2 % (37.0-47.0); Hemoglobin 12.5 g/dL (12.0-15.0); Mean Corpuscular HGB Conc 31.9 g/dl (32-36); Mean Corpuscular Hemoglobin 29.7 pg (26-34); Mean Corpuscular Volume 93.1 fl (80-100); Platelet Count Result 170 k/mm3 (150-375); Red Blood Count 4.21 M/mm3 (4.2-5.4); Red Cell Distribution Width 16.8 % (11.5-14.5); White Blood Count 13.8 K/mm3 (4.5-10.0)
[2022-06-26] MEDS: metroNIDAZOLE 500 MG/ISO 100ML 500 MG/100 ML BAG 100 MG IVPB ×3 (06:42→23:02)
[2022-06-26] MEDS: LEVOTHYROXINE SODIUM 125 MCG TABLET PO (06:42)
[2022-06-26 06:51] LABS: Alanine Aminotransferase 19 U/L (6-35); Albumin Level 3.6 g/dL (3.5-5.1); Alkaline Phosphatase 171 U/L (38-126); Anion Gap 13 mmol/L (8-16); Aspartate Amino Transferase 22 U/L (14-36); Bilirubin,Total 1.3 mg/dL (0.2-1.3); Blood Urea Nitrogen 90 mg/dL (7-17); Calcium 8.7 mg/dL (8.4-10.2); Carbon Dioxide 19 mmol/L (22-30); Chloride 99 mmol/L (98-107); Estimated CRCL calculation 14 ml/min; Estimated Glomerular Filt Rate 14; Glucose 218 mg/dL (65-110); Magnesium 2.2 mg/dL (1.6-2.3); Potassium 4.1 mmol/L (3.4-5.0); Sodium 131 mmol/L (137-145)
[2022-06-26 07:43] LABS: Glucose Point of Care 276 mg/dl (65-105)
[2022-06-26] MEDS: allopurinoL 100 MG TABLET PO (08:26)
[2022-06-26] MEDS: PANTOPRAZOLE 40 MG TABLET PO (08:26)
[2022-06-26] MEDS: SODIUM BICARBONATE TAB 650 MG TABLET FEED TUBE (08:26)
[2022-06-26] MEDS: CHOLECALCIFEROL 400 UNITS TABLET (VIT D) PO (08:26)
[2022-06-26] MEDS: ASCORBIC ACID 500 MG TABLET 1000 MG PO (08:26)
[2022-06-26] MEDS: SPIRONOLACTONE 25 MG TABLET PO (08:26)
[2022-06-26] MEDS: SERTRALINE HCL 50 MG TABLET 150 MG PO (08:26)
[2022-06-26] MEDS: INSULIN ASPART (*BKC) 100 UNITS/ML SUB-Q ×4 (08:27→22:55)
[2022-06-26] MEDS: CYANOCOBALAMIN 500 MCG TABLET PO (08:27)
[2022-06-26] MEDS: METOPROLOL TARTRATE 25 MG TABLET PO ×2 (08:27→21:16)
[2022-06-26 11:28] LABS: Glucose Point of Care 260 mg/dl (65-105)
[2022-06-26] MEDS: CHOLESTYRAMINE (W/ SUGAR) 4 GM POWD.PACK PO (12:55)
[2022-06-26] MEDS: FERROUS SULFATE 324 MG TABLET PO (12:56)
--- NOTE | 2022-06-26 13:11 | PM.PNNEP ---
Progress Note: A&P Assessment and Plan (1) GAVI (acute kidney injury): Code(s): N17.9 - Acute kidney failure, unspecified Status: Acute Assessment and Plan: suspect multifactorial etiology: prerenal azotemia (acute and chronic) hypotension/hemodynamic instability infection (COVID) evaluation to date: renal ultrasound with right renal atrophy and bilateral renal scarring urine electrolytes + fractional excretion of urea both suggest pre renal azotemia (but that could be from her reduced EF) CPK is normal COVID positive concerning that renal function is slow to recover....new baseline?? (2) Stage 3b chronic kidney disease: Code(s): N18.32 - Chronic kidney disease, stage 3b Status: Acute Assessment and Plan: this has been present since at least 2019 baseline creatinine seems to run ~ 1.4 - 1.8mg/dl presumably secondary to hypertension, vascular disease (CAD, hyperlipidemia, CHF/cardiomyopathy leading to cardiorenal syndrome), chronic diuretic therapy and age (3) COVID-19: Code(s): U07.1 - COVID-19 Status: Acute Assessment and Plan: continue supporitve therapy (4) Atrial fibrillation: Code(s): I48.91 - Unspecified atrial fibrillation Status: Chronic Assessment and Plan: rate control strategy (5) Acute exacerbation of CHF (congestive heart failure): Code(s): I50.9 - Heart failure, unspecified Status: Acute Assessment and Plan: reintroduce medications for her cardiomyopathy as BP allows clinically better/improved Will continue to follow. Subjective Date/time seen: 06/26/22 13:11 Appears to be doing reasonably well at the time of my visit; no acute issues/events overnight or earlier this AM; renal function relatively stable at this time; no apparent distress voiced. Exam Narrative: General: elderly female in NAD Heart: normal S1 and S2; no rub Lungs: clear to auscultation Abdomen: soft, nontender, nondistended, positive bowel sounds Extremities: no cyanosis or clubbing; 1+ edema Skin: warm and intact Objective Data Vital Signs Vital Signs: Vital Signs Temp Pulse Resp BP Pulse Ox O2 Del Method 06/26/22 11:42 96.1 F L 100 18 111/63 99 06/26/22 08:35 88 19 06/26/22 11:27 93 Room Air 06/26/22 08:27 85 19 06/26/22 08:27 108 H 06/26/22 08:00 96.4 F L 101 H 20 107/71 98 06/26/22 04:00 100 06/26/22 04:00 98.2 F 107 H 16 109/79 91 06/26/22 03:10 100 16 06/26/22 02:55 102 H 16 06/26/22 00:00 101 H 06/25/22 20:00 105 H 06/26/22 00:00 98.2 F 108 H 16 116/66 90 06/25/22 20:00 Room Air 06/25/22 20:00 97.9 F 102 H 20 103/77 95 06/25/22 21:27 90 18 06/25/22 21:14 94 Room Air 06/25/22 21:11 88 18 06/25/22 20:52 94 06/25/22 16:00 98 06/25/22 17:35 97.5 F L 100 18 97/71 L 91 Intake/Output Intake/Output: Intake & Output 06/23/22 06/24/22 06/25/22 06/26/22 23:59 23:59 23:59 23:59 Intake Total 1780 430 870 794 Output Total 550 350 300 200 Balance 1230 80 570 594 Meds/Results Medications: Active Medications Generic Name Dose Route Start Last Admin Trade Name Zechariahq PRN Reason Stop Dose Admin Albuterol 2.5 mg 06/25/22 02:00 06/26/22 14:28 Albuterol Sulfate Neb 2.5 Mg/3 Ml Inh INHALATION 2.5 mg Q6HRT ASHU Administration Allopurinol 100 mg 06/23/22 09:30 06/26/22 08:26 Allopurinol 100 Mg Tablet PO 100 mg DAILY ASHU Administration Ascorbic Acid 1,000 mg 06/23/22 09:30 06/26/22 08:26 Ascorbic Acid 500 Mg Tablet PO 1,000 mg DAILY ASHU Administration Cholestyramine Resin 4 gm 06/23/22 12:00 06/26/22 12:55 Cholestyramine (W/ Sugar) 4 Gm Powd.Pack PO 4 gm DAILY@1200 ASHU Administration Cyanocobalamin 500 mcg 06/23/22 09:30 06/26/22 08:27 Cyanocobalamin 500 Mcg Tablet PO 500 mcg
[2022-06-26 16:15] LABS: Glucose Point of Care 319 mg/dl (65-105)
[2022-06-26 17:24] LABS: Anti Glomerular Basement Memb <1.0 AI (<1.0)
[2022-06-26] MEDS: RIVAROXABAN 20 MG TABLET PO (18:38)
--- NOTE | 2022-06-26 18:41 | PM.IMPN ---
Progress Note: A&P Assessment and Plan (1) Septic shock: Code(s): A41.9 - Sepsis, unspecified organism; R65.21 - Severe sepsis with septic shock Status: Acute Assessment and Plan: Septic shock secondary to UTI and pneumonia, ? Question aspiration Patient received IV fluid bolus. She has history of congestive heart failure and has ascites and pulmonary edema on CT hence further she was on Levophed which has been weaned off Urine culture is growing Klebsiella which is sensitive to cefepime Blood cultures 1 bottle is growing Staph epidermis and 2nd bottle is growing Staph hominis anticipate a both contaminant Repeat set of blood cultures Continue cefepime. Discontinue vancomycin. Continue Flagyl to provide anaerobic coverage for possible aspiration pneumonia Patient being managed by the [facility]cc coders. We appreciate their recommendations. 06/26/2022 interval history: patient remains clinically stable patient is off pressor, patient urine is growing Klebsiella pneumonia sensitive to Cefepime 12/03, tomorrow patient will complete 7 days of IV antibiotic and may discharge patient, on 06/22, patient blood culture is growing Staphylococcus epididymis and hominis most likely contamination, on 06/23 discussed with [facility]cc coders patient was clinically stable was transferred out of ICU, patient with [facility], patient seen by nephrology and workup is in progress will continue to monitor. patient with cardiomyopathy with EF of 20% suspect poor perfusion to kidney and causing injury to the kidney, patient is room air will continue to work with physical therapy, discussed with the case assistant will contact insurance for transfer authorization, will continue to monitor. (2) Respiratory failure, acute: Code(s): J96.00 - Acute respiratory failure, unspecified whether with hypoxia or hypercapnia Status: Acute Assessment and Plan: Acute Respiratory failure secondary to pneumonia, ? Questionable aspiration, COVID-19, pulmonary edema from congestive heart failure, pneumothorax 06/20 she was extubated after a successful weaning trial. Currently on nasal cannula no respiratory distress She is breathing oxygen 1 L by nasal cannula. Continue Incentive spirometry and aggressive pulmonary toilet. CT scan showed right pneumothorax on presentation. I repeated chest x-ray next morning and shows significant reduction in the size of pneumothorax. Repeat chest x-ray now shows resolution of pneumothorax. Monitor She was given dose of Lasix yesterday for pulmonary edema but did not produce any significant amount of urine On pneumatic antibiotics as above COVID treatment as below Bronchodilators (3) COVID-19: Code(s): U07.1 - COVID-19 Status: Acute Assessment and Plan: Patient tested positive for COVID at [facility] more than a week ago. She is now admitted with respiratory failure although her CT scan is not a typical for COVID-19 pneumonia but patient is hypoxic Continue dexamethasone 10 day course hold remdesivir in light of her renal failure and delayed presentation; Patient is doing well, breathing comfortably and requiring only 1 L of oxygen. Isolation (4) Acute UTI: Code(s): N39.0 - Urinary tract infection, site not specified Status: Acute Assessment and Plan: Continue antibiotics. (5) Atrial fibrillation: Code(s): I48.91 - Unspecified atrial fibrillation Status: Chronic Assessment and Plan: Currently her rate is controlled Continue low-dose beta-brad Anticoagulation will be continued Monitor (6) CHF (congestive heart failure): Code(s): I50.9 - Heart failure, unspecified Status: Acute Assessment and Plan: Echocardiogram in 12/18 Summary ? 1. Complete two-dimensional, color flow and Doppler transthoracic echocardiogram is performed. ? 2. Left ventricular chamber dimension is moderately enlarged. ? 3. Left ventricular systolic function is
[2022-06-26] MEDS: lamoTRIgine 100 MG TABLET PO (21:16)
[2022-06-26 21:55] LABS: Glucose Point of Care 289 mg/dl (65-105)
[2022-06-27] VITALS (16 sets, daily range): BP systolic 109–114; BP diastolic 68–79; PULSE 79–110; RESP 16–18; TEMP 36–36.7; O2SAT 91–100
[2022-06-27] MEDS: ALBUTEROL SULFATE NEB 2.5 MG/3 ML INH INHALATION ×4 (01:53→21:54)
[2022-06-27] MEDS: IPRATROPIUM BR 0.02% INH SOLN 0.5 MG/2.5 ML VIAL INHALATION ×4 (01:54→21:55)
[2022-06-27] MEDS: metroNIDAZOLE 500 MG/ISO 100ML 500 MG/100 ML BAG 100 MG IVPB ×2 (05:11→14:28)
[2022-06-27] MEDS: LEVOTHYROXINE SODIUM 125 MCG TABLET PO (05:36)
[2022-06-27 06:29] LABS: Hematocrit 39.3 % (37.0-47.0); Hemoglobin 12.5 g/dL (12.0-15.0); Mean Corpuscular HGB Conc 31.8 g/dl (32-36); Mean Corpuscular Hemoglobin 29.5 pg (26-34); Mean Corpuscular Volume 92.7 fl (80-100); Mean Platelet Volume 12.7 fl (7.4-10.4); Platelet Count Result 165 k/mm3 (150-375); Red Blood Count 4.24 M/mm3 (4.2-5.4); Red Cell Distribution Width 17.1 % (11.5-14.5); White Blood Count 15.3 K/mm3 (4.5-10.0)
[2022-06-27 06:41] LABS: Alanine Aminotransferase 17 U/L (6-35); Albumin Level 3.5 g/dL (3.5-5.1); Alkaline Phosphatase 164 U/L (38-126); Anion Gap 15 mmol/L (8-16); Aspartate Amino Transferase 19 U/L (14-36); Bilirubin,Total 1.2 mg/dL (0.2-1.3); Blood Urea Nitrogen 91 mg/dL (7-17); Calcium 8.9 mg/dL (8.4-10.2); Carbon Dioxide 19 mmol/L (22-30); Chloride 100 mmol/L (98-107); Estimated CRCL calculation 14 ml/min; Estimated Glomerular Filt Rate 14; Glucose 182 mg/dL (65-110); Magnesium 2.2 mg/dL (1.6-2.3); Potassium 3.8 mmol/L (3.4-5.0); Sodium 134 mmol/L (137-145)
[2022-06-27] MEDS: ASCORBIC ACID 500 MG TABLET 1000 MG PO (08:14)
[2022-06-27] MEDS: PANTOPRAZOLE 40 MG TABLET PO (08:14)
[2022-06-27] MEDS: allopurinoL 100 MG TABLET PO (08:14)
[2022-06-27] MEDS: ROSUVASTATIN 10 MG TABLET PO (08:14)
[2022-06-27] MEDS: CHOLECALCIFEROL 400 UNITS TABLET (VIT D) PO (08:15)
[2022-06-27] MEDS: SODIUM BICARBONATE TAB 650 MG TABLET FEED TUBE (08:15)
[2022-06-27] MEDS: CYANOCOBALAMIN 500 MCG TABLET PO (08:15)
[2022-06-27] MEDS: SERTRALINE HCL 50 MG TABLET 150 MG PO (08:15)
[2022-06-27] MEDS: SPIRONOLACTONE 25 MG TABLET PO (08:15)
[2022-06-27] MEDS: INSULIN ASPART (*BKC) 100 UNITS/ML SUB-Q ×2 (08:26→17:09)
[2022-06-27 08:30] LABS: Glucose Point of Care 224 mg/dl (65-105)
[2022-06-27] MEDS: METOPROLOL TARTRATE 25 MG TABLET PO ×2 (09:43→20:04)
--- NOTE | 2022-06-27 10:10 | PCPTNOTE ---
Patient refused treatment this AM stating that she didn't want to get up at all. Pt educated on importance of participating in therapy to go home. Will continue per PT plan of care.
[2022-06-27 12:01] LABS: Glucose Point of Care 194 mg/dl (65-105)
[2022-06-27] MEDS: FERROUS SULFATE 324 MG TABLET PO (12:18)
[2022-06-27] MEDS: CHOLESTYRAMINE (W/ SUGAR) 4 GM POWD.PACK PO (12:18)
--- NOTE | 2022-06-27 13:35 | PM.PNNEP ---
Progress Note: A&P Assessment and Plan (1) GAVI (acute kidney injury): Code(s): N17.9 - Acute kidney failure, unspecified Status: Acute Assessment and Plan: suspect multifactorial etiology: prerenal azotemia (acute and chronic) hypotension/hemodynamic instability infection (COVID) evaluation to date: renal ultrasound with right renal atrophy and bilateral renal scarring urine electrolytes + fractional excretion of urea both suggest pre renal azotemia (but that could be from her reduced EF) CPK is normal COVID positive concerning that renal function is slow to recover....new baseline?? (2) Stage 3b chronic kidney disease: Code(s): N18.32 - Chronic kidney disease, stage 3b Status: Acute Assessment and Plan: this has been present since at least 2019 baseline creatinine seems to run ~ 1.4 - 1.8mg/dl presumably secondary to hypertension, vascular disease (CAD, hyperlipidemia, CHF/cardiomyopathy leading to cardiorenal syndrome), chronic diuretic therapy and age (3) COVID-19: Code(s): U07.1 - COVID-19 Status: Acute Assessment and Plan: continue supporitve therapy (4) Atrial fibrillation: Code(s): I48.91 - Unspecified atrial fibrillation Status: Chronic Assessment and Plan: rate control strategy (5) Acute exacerbation of CHF (congestive heart failure): Code(s): I50.9 - Heart failure, unspecified Status: Acute Assessment and Plan: reintroduce medications for her cardiomyopathy as BP allows clinically better/improved Not opposed to discharge from renal perspective -- I recommend she follow-up with Dr. Melendez in the office (or another header setup operator of her or her PCP's choice) although she reports she has had this discussion with her PCP before. Will continue to follow. Subjective Date/time seen: 06/27/22 13:35 Feels reasonably well at the time of my visit; renal remains relatively stable (no better, no worse); no apparent distress to report; overall, states she feels reasonably well; no other issues/concerns/complaints voiced at this time. Exam Narrative: General: elderly female in NAD Heart: normal S1 and S2; no rub Lungs: clear to auscultation Abdomen: soft, nontender, nondistended, positive bowel sounds Extremities: no cyanosis or clubbing; 1+ edema Skin: warm and intact Objective Data Vital Signs Vital Signs: Vital Signs Temp Pulse Resp BP Pulse Ox O2 Del Method O2 Flow Rate 06/27/22 12:00 99 06/27/22 08:00 94 06/27/22 12:00 97.3 F L 87 16 114/70 97 06/27/22 08:00 91 Nasal Cannula 1 06/27/22 09:43 101 H 06/27/22 09:21 95 18 06/27/22 09:05 91 18 06/27/22 09:05 91 100 Nasal Cannula 1 06/27/22 07:57 97.5 F L 79 18 114/79 96 06/27/22 04:00 97.6 F 96 16 109/72 100 06/27/22 02:05 101 H 16 06/27/22 04:00 96 06/27/22 00:00 93 06/26/22 20:00 104 H 06/27/22 01:54 99 16 06/26/22 21:10 110 H 16 06/26/22 21:16 Room Air 06/27/22 00:00 98.1 F 110 H 16 110/71 98 06/26/22 20:00 98.3 F 80 16 105/76 99 06/26/22 21:16 80 06/26/22 20:57 107 H 16 06/26/22 20:57 92 Room Air Intake/Output Intake/Output: Intake & Output 06/24/22 06/25/22 06/26/22 06/27/22 23:59 23:59 23:59 23:59 Intake Total 988 545 6655 810 Output Total 350 300 375 225 Balance 80 144 149 585 Meds/Results Medications: Active Medications Generic Name Dose Route Start Last Admin Trade Name Zechariahq PRN Reason Stop Dose Admin Albuterol 2.5 mg 06/25/22 02:00 06/27/22 14:54 Albuterol Sulfate Neb 2.5 Mg/3 Ml Inh INHALATION 2.5 mg Q6HRT ASHU Administration Allopurinol 100 mg 06/23/22 09:30 06/27/22 08:14 Allopurinol 100 Mg Tablet PO 100 mg DAILY ASHU Administration Ascorbic Acid 1,000 mg 06/23/22 09:30 06/27/22 08:
--- NOTE | 2022-06-27 16:13 | PM.DS ---
DS: Admitting Diagnosis Discharge Date 06/27/2022 Admitting Diagnosis Shortness of breath DS: Discharge Diagnosis Discharge Diagnosis (1) Septic shock: Code(s): A41.9 - Sepsis, unspecified organism; R65.21 - Severe sepsis with septic shock Status: Acute Assessment and Plan: Septic shock secondary to UTI and pneumonia, ? Question aspiration Patient received IV fluid bolus. She has history of congestive heart failure and has ascites and pulmonary edema on CT hence further she was on Levophed which has been weaned off Urine culture is growing Klebsiella which is sensitive to cefepime Blood cultures 1 bottle is growing Staph epidermis and 2nd bottle is growing Staph hominis anticipate a both contaminant Repeat set of blood cultures Continue cefepime. Discontinue vancomycin. Continue Flagyl to provide anaerobic coverage for possible aspiration pneumonia Patient being managed by the child and family therapist. We appreciate their recommendations. 06/26/2022 interval history: patient remains clinically stable patient is off pressor, patient urine is growing Klebsiella pneumonia sensitive to Cefepime 12/03, tomorrow patient will complete 7 days of IV antibiotic and may discharge patient, on 06/22, patient blood culture is growing Staphylococcus epididymis and hominis most likely contamination, on 06/23 discussed with child and family therapist patient was clinically stable was transferred out of ICU, patient with [facility], patient seen by nephrology and workup is in progress will continue to monitor. patient with cardiomyopathy with EF of 20% suspect poor perfusion to kidney and causing injury to the kidney, patient is room air will continue to work with physical therapy, discussed with the case preparer and liner will contact insurance for transfer authorization, will continue to monitor. (2) Respiratory failure, acute: Code(s): J96.00 - Acute respiratory failure, unspecified whether with hypoxia or hypercapnia Status: Acute Assessment and Plan: Acute Respiratory failure secondary to pneumonia, ? Questionable aspiration, COVID-19, pulmonary edema from congestive heart failure, pneumothorax 06/20 she was extubated after a successful weaning trial. Currently on nasal cannula no respiratory distress She is breathing oxygen 1 L by nasal cannula. Continue Incentive spirometry and aggressive pulmonary toilet. CT scan showed right pneumothorax on presentation. I repeated chest x-ray next morning and shows significant reduction in the size of pneumothorax. Repeat chest x-ray now shows resolution of pneumothorax. Monitor She was given dose of Lasix yesterday for pulmonary edema but did not produce any significant amount of urine On pneumatic antibiotics as above COVID treatment as below Bronchodilators (3) COVID-19: Code(s): U07.1 - COVID-19 Status: Acute Assessment and Plan: Patient tested [facility] for COVID [facility] more than a week ago. She is now admitted with respiratory failure although her CT scan is not a typical for COVID-19 pneumonia but patient is hypoxic Continue dexamethasone 10 day course hold remdesivir in light of her renal failure and delayed presentation; Patient is doing well, breathing comfortably and requiring only 1 L of oxygen. Isolation (4) Acute UTI: Code(s): N39.0 - Urinary tract infection, site not specified Status: Acute Assessment and Plan: Continue antibiotics. (5) Atrial fibrillation: Code(s): I48.91 - Unspecified atrial fibrillation Status: Chronic Assessment and Plan: Currently her rate is controlled Continue low-dose beta-brad Anticoagulation will be continued Monitor (6) CHF (congestive heart failure): Code(s): I50.9 - Heart failure, unspecified Status: Acute Assessment and Plan: Echocardiogram in 12/18 Summary ? 1. Complete two-dimensional, color flow and Doppler transthoracic echocardiogram is performed. ? 2. L
[2022-06-27] MEDS: RIVAROXABAN 20 MG TABLET PO (17:06)
[2022-06-27 17:15] LABS: Glucose Point of Care 233 mg/dl (65-105)
[2022-06-27] MEDS: lamoTRIgine 100 MG TABLET PO (20:03)
[2022-06-30 20:15] LABS: ANCA Screen Negative (Negative)
== END 2022-06-27 22:15 | DRG 871 ==
LOC: ANHED 18:24 → ANHICU 19:52 → ANH3MEDSUR 06-22 14:51
PROVIDERS: Internal Medicine; Internal Medicine Nephrology; Nurse Practitioner; Admitting Provider Internal Medicine; Emergency Provider Emergency Medicine; PCP Family Medicine; Visit Provider Family Medicine
DX: A41.9 Sepsis, unspecified organism (principal); I50.23 Acute on chronic systolic (congestive) heart failure; J69.0 Pneumonitis due to inhalation of food and vomit; U07.1 COVID-19; R65.21 Severe sepsis with septic shock; J96.01 Acute respiratory failure with hypoxia; N17.0 Acute kidney failure with tubular necrosis; N39.0 Urinary tract infection, site not specified; I13.0 Hypertensive heart and chronic kidney disease with heart failure and stage 1 through stage 4 chronic kidney disease, or unspecified chronic kidney disease; I42.9 Cardiomyopathy, unspecified; I48.20 Chronic atrial fibrillation, unspecified; J93.9 Pneumothorax, unspecified; R18.8 Other ascites; E03.9 Hypothyroidism, unspecified; J45.20 Mild intermittent asthma, uncomplicated; E66.9 Obesity, unspecified; I34.0 Nonrheumatic mitral (valve) insufficiency; B96.1 Klebsiella pneumoniae [K. pneumoniae] as the cause of diseases classified elsewhere; N18.32 Chronic kidney disease, stage 3b; M81.0 Age-related osteoporosis without current pathological fracture; E78.2 Mixed hyperlipidemia; Z85.3 Personal history of malignant neoplasm of breast; Z83.3 Family history of diabetes mellitus; Z82.49 Family history of ischemic heart disease and other diseases of the circulatory system; Z87.891 Personal history of nicotine dependence; Z79.899 Other long term (current) drug therapy; Z88.2 Allergy status to sulfonamides
CPT/HCPCS: 31500; 36415; 36600; 70450; 71045; 71250; 74176; 76775; 80048; 80053; 81001; 82375; 82533; 82550; 82565; 82570; 82805; 82948; 83050; 83520; 83605; 83615; 83690; 83735; 83880; 83883; 84100; 84156; 84300; 84439; 84443; 84480; 84484; 84540; 85025; 85027; 85610; 85652; 85730; 86036; 86038; 86039; 86160; 86162; 86225; 86334; 87040; 87077; 87081; 87086; 87088; 87186; 87637; 92610; 92611; 93005; 93970; 94003; 94640; 96361; 96365; 96367; 97110; 97161; 97166; 97530; 97535; 99291; A9270; C1751; C9113; J0330; J0692; J1100; J1650; J1815; J1940; J1956; J2250; J3010; J3370; J7030; J7060

== ENCOUNTER 2022-07-05 17:05 | Inpatient (IN) | payer MEDICARE, SELFPAY ==
--- NOTE | ~2022-07-05 | US_ITS ---
EXAMINATION: US venous doppler UE DATE: 07/07/2022 11:59 INDICATION: Upper limb edema. TECHNIQUE: Grayscale ultrasound images without and with compression and Doppler ultrasound images of the bilateral upper extremity veins were obtained. COMPARISON: Ultrasound 06/26/2022 FINDINGS: The visualized portions of the right internal jugular vein, subclavian vein, axillary vein, brachial veins, basilic vein, radial vein, and ulnar vein are patent. The visualized portions of the left internal jugular vein, subclavian vein, axillary vein, brachial v eins, and basilic vein are patent. The cephalic vein, radial vein, and ulnar vein are not visualized. IMPRESSION: 1. No deep venous thrombosis. Reviewed, dictated and finalized at location A. PULLER
--- NOTE | ~2022-07-05 | XR_ITS ---
EXAMINATION: XR chest port-a-cath/central DATE: 07/08/2022 10:42 INDICATION: Central line placement. TECHNIQUE: A single frontal view of the chest was obtained. COMPARISON: Chest single view 07/07/2022 FINDINGS: The patient is rotated to her left. There is a diffuse interstitial pattern, consistent wit h mild pulmonary edema. No pleural effusion or pneumothorax. Cardiomegaly is noted. A right internal jugular central venous catheter is seen with tip at the superior cavoatrial junction. IMPRESSION: 1. Central line tip at superior cavoatrial junction. 2. Mild pulmonary edema. 3. Cardiomegaly. Reviewed, dictated and finalized at location A. OR INFORMATION SECURITY ENGINEER
--- NOTE | ~2022-07-05 | XR_ITS ---
EXAMINATION: XR chest 2V Exam Date/Time: 07/05/2022 17:50 PRODUCE PRODUCTION TEAM MEMBER HISTORY: WEAKNESS Comparison: 06/24/2022, 12/20/2021. RESULT: Lines, tubes, and devices: Cholecystectomy clips. Lungs and pleura: Low lung volumes with crowding. Senescent change. Left mid and bilateral lower edvin g scar/atelectasis. Cardiomediastinal silhouette: Stable. Other: No acute osseous or upper abdominal finding. IMPRESSION: No acute cardiopulmonary process. Reviewed, dictated and finalized at location K. UCE PRODUCTION TEAM MEMBER
--- NOTE | ~2022-07-05 | XR_ITS ---
EXAMINATION: XR chest 1V portable DATE: 07/07/2022 13:25 INDICATION: Shortness of breath. TECHNIQUE: A single frontal view of the chest was obtained. COMPARISON: Chest 2 views 07/05/2022, chest CT 06/18/2022 FINDINGS: There is a diffuse interstitial pattern, consistent with mild pulmonary edema. No pleural e ffusion or pneumothorax. Cardiomegaly is noted. IMPRESSION: 1. Mild pulmonary edema. 2. Cardiomegaly. Reviewed, dictated and finalized at location A. ROLOGIST
--- NOTE | ~2022-07-05 | XR_ITS ---
EXAMINATION: XR fl guide central line place DATE: 07/08/2022 10:28 INDICATION: Central line placement. TECHNIQUE: 2 intraoperative fluoroscopic views of the chest were obtained. I was not present. Fluoros copy exposure time was 11 seconds. COMPARISON: Chest single view 07/08/2022 FINDINGS: A right internal jugular central venous catheter is seen with tip at the superior cavoatria l junction. IMPRESSION: 1. Central line tip at the superior cavoatrial junction. Reviewed, dictated and finalized at location A. OMER SERVICE ANALYST
[2022-07-05 17:05] VITALS: BP 110/41; PULSE 109; RESP 17; TEMP 36.4; O2SAT 97
--- NOTE | 2022-07-05 17:08 | ECG_ITS ---
Measurements Intervals [place] Rate: 85 P: MI: 0 QRS: 120 QRSD: 117 T: -69 QT: 434 QTc: 519 Interpretive Statements ATRIAL FIBRILLATION RIGHT AXIS DEVIATION LEFT BUNDLE BRANCH BLOCK BASELINE ARTIFACT- I, II, AVR, AVL, AVF, V1, V3, V6 ABNORMAL ECG COMPARED TO ECG 06/24/2022 20:37:49 NO SIGNIFICANT CHANGES Electronically Signed On 07-06-2022 7:58:42 ECHOCARDIOGRAPH TECHNICIAN by Peng Farley D.O.
[2022-07-05 18:24] LABS: Basophils Percent Auto 0.1 % (0.2-1.2); Hematocrit 48.3 % (37.0-47.0); Hemoglobin 15.4 g/dL (12.0-15.0); Immature Granulocyte Absolute 0.06 K/mm3 (0.00-0.031); Immature Granulocyte Percent A 0.6 % (0-0.5); Immature Platelet Fraction Pct 11.2 % (0.9-11.2); Lymphocytes Absolute Auto 0.24 K/mm3 (0.9-3.2); Lymphocytes Percent Auto 2.2 % (18.3-44.2); Mean Corpuscular HGB Conc 31.9 g/dl (32-36); Mean Corpuscular Hemoglobin 30.3 pg (26-34); Mean Corpuscular Volume 95.1 fl (80-100); Monocytes Absolute Auto 0.1 K/mm3 (0.1-0.6); Monocytes Percent Auto 1.3 % (2.6-8.5); Neutrophils Absolute Auto 10.3 K/mm3 (1.3-6.7); Neutrophils Percent Auto 95.8 % (45.5-73.1); Nucleated Red Blood Cells Absolute Auto 0.2 K/mm3 (0.0-0.012); Nucleated Red Blood Cells Perc 1.4 % (0.0-0.2); Platelet Count Result 134 k/mm3 (150-375); Red Blood Count 5.08 M/mm3 (4.2-5.4); Red Cell Distribution Width 20.7 % (11.5-14.5); White Blood Count 10.7 K/mm3 (4.5-10.0)
[2022-07-05 18:36] LABS: INR 2.7; Prothrombin Time 27.6 Seconds (11.1-14.7)
[2022-07-05 18:37] LABS: Partial Thromboplastin Time 38.5 SECONDS (22.3-36.8)
[2022-07-05 18:41] LABS: NT Pro B Type Natriuretic Pept > 35000 pg/mL (5-100)
[2022-07-05 18:46] LABS: Add Urine Microscopic? YES; Bilirubin Urine 1+ (Negative); Blood Urine 3+ (Negative); Color Urine Yellow (Yellow); Glucose Urine UA Negative (Negative); Ketones Urine Negative (Negative); Leukocyte Esterase Ur 3+ LEU/UL (Negative); Nitrate Urine Negative (Negative); Protein Urine 2+ mg/dL (Negative); Specific Grav Ur 1.025 (1.001-1.035); Urobilinogen Urine 0.2 mg/dL (<2.0); pH Urine 5.5 (5.0-9.0)
[2022-07-05 18:48] LABS: Alanine Aminotransferase 20 U/L (6-35); Albumin Level 4.2 g/dL (3.5-5.1); Alkaline Phosphatase 278 U/L (38-126); Anion Gap 20 mmol/L (8-16); Aspartate Amino Transferase 27 U/L (14-36); Bilirubin,Total 1.6 mg/dL (0.2-1.3); Calcium 9.1 mg/dL (8.4-10.2); Carbon Dioxide 15 mmol/L (22-30); Chloride 106 mmol/L (98-107); Estimated CRCL calculation 9 ml/min; Estimated Glomerular Filt Rate 7; Glucose 265 mg/dL (65-110); Potassium 5.5 mmol/L (3.4-5.0); Sodium 141 mmol/L (137-145)
[2022-07-05 18:50] LABS: Blood Urea Nitrogen 127 mg/dL (7-17)
[2022-07-05 18:58] LABS: Schistocytes None Seen (NORMAL)
[2022-07-05 19:00] LABS: Anisocytosis 3+ (NORMAL)
[2022-07-05 19:01] LABS: Appearance Urine Cloudy (Clear)
--- NOTE | 2022-07-05 19:04 | ED.WEAKNESS ---
HPI - Weakness General Chief complaint: Weakness Stated complaint: increased lethargy, confusion, left arm swelling Time Seen by Provider: 07/05/22 17:41 History of Present Illness HPI Narrative: 71-year-old female history of kidney disease., Atrial fibrillation, CHF working on the presents to the emergency room from [facility] via EMS for increased confusion. History was obtained via EMS and old record review. According to EMS, patient has been experiencing increased confusion, lethargy and decreased urinary output. [facility] states he does not report the patient has been experiencing swelling to her left upper extremity. Currently patient is not complaining of any pain, the entire time you are walking nausea vomiting, chest pain, shortness of breath difficulty breathing. When asked patient why she was in the emergency room, she said staff [facility] is crazy . Patient is at baseline mental status. Related Data Home Medications Medication Instructions Recorded Confirmed cholecalciferol (vitamin D3) 10 400 unit PO DAILY 05/10/19 06/19/22 mcg (400 unit) capsule cyanocobalamin (vitamin B-12) 500 500 mcg PO DAILY 12/09/21 06/19/22 mcg chewable tablet ferrous sulfate 325 mg (65 mg 325 mg PO DAILY 12/20/21 06/19/22 iron) tablet ascorbic acid (vitamin C) 1,000 mg 1 g PO DAILY 06/02/22 06/19/22 tablet furosemide 40 mg tablet 40 mg PO BID 06/02/22 06/19/22 lamotrigine 100 mg tablet 100 mg PO HS 06/02/22 06/19/22 rosuvastatin 10 mg tablet See Rx Instructions .Route .COMPLEX 06/02/22 06/19/22 sertraline 100 mg tablet 150 mg PO DAILY 06/02/22 06/19/22 ipratropium 0.5 mg-albuterol 3 mg 3 ml inhalation QID 06/19/22 06/19/22 (2.5 mg base)/3 mL nebulization soln Allergies Allergy/AdvReac Type Severity Reaction Status Date / Time cefuroxime Allergy Unknown Unknown Verified 06/02/22 03:55 ezetimibe Allergy Unknown Unknown Verified 06/02/22 03:55 simvastatin Allergy Unknown Unknown Verified 06/02/22 03:55 Sulfa (Sulfonamide Allergy Unknown Unknown Verified 06/02/22 03:55 Antibiotics) sulfanilamide Allergy Unknown Unknown Verified 06/02/22 03:55 Review of Systems Review of Systems: CONSTITUTIONAL: Denies fever, chills, or sweats. EYES: Denies visual changes, redness, or discharge. ENT: Denies rhinorrhea, congestion, sore throat, or otalgia. CARDIOVASCULAR: Denies chest pain, palpitations, or edema. RESPIRATORY: Denies cough or dyspnea. GASTROINTESTINAL: Denies abdominal pain, nausea, vomiting, or diarrhea. GENITOURINARY: Denies dysuria or hematuria. SKIN: Denies rash or itching. MUSCULOSKELETAL: Denies back pain, joint pain, or myalgia. NEUROLOGIC: Denies headache, numbness, dizziness, or weakness. PSYCHIATRIC: Denies anxiety or depression. [facility] Past Medical History Medical History Acute on chronic renal insufficiency Age-related osteoporosis with current pathological fracture Allergic rhinitis Anemia Asthma, mild intermittent Breast cancer Cardiomyopathy Chronic congestive heart failure Chronic HFrEF (heart failure with reduced ejection fraction) Chronic renal insufficiency, stage III (moderate) Closed wedge compression fracture of thoracic vertebra with routine healing Coronary artery disease Depression Elevated glucose H/O malignant neoplasm of breast H/O: gout Hypomagnesemia Hypothyroidism Mild intermittent asthma with exacerbation Mixed hyperlipidemia Osteopenia Other hyperlipidemia Paroxysmal atrial fibrillation Peripheral vascular disease Post-polio syndrome Prediabetes Severe episode of recurrent major depressive disorder, without psychotic features Stage 3b chronic kidney disease Thyroid disease Vitamin D deficiency Surgical History Surgical History History of cardiac cath History of knee replacement History of lumpectomy Both breast History of partial hy
[2022-07-05 19:07] LABS: Bacteria Urine 1+ /hpf; Budding Yeast Urine Present /hpf; RBC Urine >75 /hpf (0-2); Squamous Epithelial Cell Urine Few /hpf (Few); WBC Urine >75 /hpf
[2022-07-05 19:24] VITALS: BP 100/57; PULSE 82; RESP 15; O2SAT 98
[2022-07-05 19:29] LABS: Troponin I 0.061 ng/mL (0.000-0.034)
--- NOTE | 2022-07-05 19:53 | PM.IMHP ---
H&P: HPI History of Present Illness Date/Time: 07/05/22 19:53 Chief Complaint: Weakness Narrative: This is a 71-year-old female patient who is at [facility]. (The patient was just discharged from this facility on 06/27/2022. The patient had gone into respiratory arrest on that admission and had been intubated.) The patient now has multiple sores on her lips and in her mouth and down her throat since she has been extubated. She has had poor oral intake. She does have chronic renal disease stage III and was seen by Dr. Toro and had a renal ultrasound on her last admission. The patient has been staying at [facility] since her discharge. It was reported that the patient had increased confusion lethargy today and had decreased urinary output as well. Is reported that the patient had edema to her upper extremities. Her friend is at the bedside answering some the questions but the patient is able to answer some questions as well. Today her Chest x-ray was read as no acute cardiopulmonary process. Patient's white count is 10.7 today H&H is 15.4 and 48.3. Her potassium is 5.5. BUN 127 creatinine 5.8. GFR 7. Blood glucose 265. Her troponin is 0.061. BNP greater than 35,000. Patient was found to be positive for UTI. The patient tested positive for COVID today but she also tested positive on 06/19/2022. The patient is being admitted to inpatient status on the date of service of 07/05/2022 Review of Systems Review of Systems: See HPI All systems reviewed & are unremarkable except as noted in HPI and below Constitutional: Constitutional: Reports as per HPI and Reports no additional constitutional complaints Eyes: Eyes: Reports as per HPI and Reports no additional eye complaints ENT: Reports system reviewed and no additional complaints, except as documented and Reports Normal hearing present Cardiovascular: Cardiovascular: Reports no additional cardiovascular complaints Respiratory: Respiratory: Reports no additional respiratory complaints and Reports no additional respiratory complaints Gastrointestinal: Gastrointestinal: Reports as per HPI and Reports no additional gastrointestinal complaints Musculoskeletal: Musculoskeletal: Reports no additional musculoskeletal complaints Integumentary/Breasts: Skin/Breast: Reports system reviewed and no additional complaints, except as docu and Reports as per HPI Neurologic: Reports system reviewed and no additional complaints, except as documented, Reports as per HPI and Reports Normal hearing present Psychiatric: Psychiatric: Reports no additional psychiatric complaints and Reports as per HPI Endocrine: Endocrine: Reports no additional endocrine complaints Hematologic/Lymphatic: Hematologic/Lymphatic: Reports no additional hematologic/lymphatic complaints Allergic/Immunologic: Allergic/Immunologic: Reports no additional allergic/immunologic complaints [facility] Past Medical History Medical History (Updated 07/05/22 @ 22:39 by Mamie Leslie NP) Acute on chronic renal insufficiency Age-related osteoporosis with current pathological fracture Allergic rhinitis Anemia Asthma, mild intermittent Breast cancer With chemotherapy and radiation Cardiomyopathy Chronic congestive heart failure Chronic HFrEF (heart failure with reduced ejection fraction) Chronic renal insufficiency, stage III (moderate) Closed wedge compression fracture of thoracic vertebra with routine healing Coronary artery disease Depression Elevated glucose H/O malignant neoplasm of breast H/O: gout History of poliomyelitis History of pulmonary embolism Hypomagnesemia Hypothyroidism Mild intermittent asthma with exacerbation Mixed hyperlipidemia Osteopenia Other hyperlipidemia Paroxysmal atrial fibrillation Peripheral vascular disease Post-polio syndrome Prediabetes Severe episode of recurrent major depressive disorder, without psychotic features Stage 3b chronic kidney disease Thyroid disease Vitamin D
[2022-07-05 20:00] VITALS: BP 115/77; PULSE 83; RESP 18
[2022-07-05 20:34] LABS: Influenza A QL RT-PCR Negative (Negative); Influenza B QL RT-PCR Negative (Negative); RSV RNA, RT-PCR Negative (Negative); SARS-CoV-2 RNA PCR Positive
[2022-07-05 20:40] VITALS: BP 100/60; PULSE 90; RESP 16; TEMP 36.5; O2SAT 93; BMI 26.4
--- NOTE | 2022-07-05 21:32 | ADMGEN ---
This patient, Jyotsna Allred, was admitted to IMU Room 214-01 at 2039. Patient/family oriented to hospital policies and general routines including ID bracelet, bed and alarms, visiting hours, pain management, procedures, bathroom and other care routines, personal items, smoking policy, room service/diet, and visiting hours. Information on how to activate the Rapid Response Team has been discussed. Patient/Family are encouraged to report perceived risks to care and to ask questions if they do not understand what they are told or what they should do.
[2022-07-05 22:00] VITALS: PULSE 78
[2022-07-05] MEDS: LIDOCAINE HCL 2% VISC SOLN 15 ML UDC PO (22:50)
[2022-07-05] MEDS: SODIUM CHLORIDE 0.9% IV 1,000 ML 75 ML IV CONT (22:50)
[2022-07-05 23:58] VITALS: BP 104/69; PULSE 84; RESP 16; TEMP 36.5; O2SAT 98
[2022-07-06] VITALS (13 sets, daily range): BP systolic 95–125; BP diastolic 56–84; PULSE 73–100; RESP 16–20; TEMP 35.8–36.4; O2SAT 92–98
[2022-07-06] MEDS: SODIUM CHLORIDE NASAL GEL 14.1 GM 1 APPLIC NASAL ×2 (00:01→21:37)
[2022-07-06 05:35] LABS: Creatinine Urine 73.4 mg/dL; Total Protein Urine Random 142 mg/dL; Ur Ttl Prot Creatinine Ratio 1.93 mg/mg (0-0.20)
[2022-07-06 05:46] LABS: Eosinophil Urine None Seen % (None Seen)
[2022-07-06 05:52] LABS: Potassium Urine Random 24.5 meq/L; Sodium Urine Random 36 meq/L
[2022-07-06] MEDS: NYSTATIN 100,000 UNITS/ML SUSP 5 ML ORAL.SUSP PO ×4 (08:54→21:35)
--- NOTE | 2022-07-06 11:45 | PM.CNNEP ---
Assessment and Plan Assessment and plan (1) GAVI (acute kidney injury): Code(s): N17.9 - Acute kidney failure, unspecified Status: Acute Assessment and Plan: suspect due to prerenal factors (poor oral intake) worsened by diuretics and BP medications agree with trial of IVFs check urine electrolytes and urine eosinophils follow repeat labs and UOP (2) Stage 3b chronic kidney disease: Code(s): N18.32 - Chronic kidney disease, stage 3b Status: Chronic Assessment and Plan: this has been present since at least 2019 baseline creatinine had been running ~ 1.4 - 1.8mg/dl presumably secondary to hypertension, vascular disease (CAD, hyperlipidemia, CHF/cardiomyopathy leading to cardiorenal syndrome), chronic diuretic therapy and age HOWEVER, on discharge, creatinine was still in the 3ish range -- possible new baseline??? (3) Acute UTI: Code(s): N39.0 - Urinary tract infection, site not specified Status: Acute Assessment and Plan: urinalysis highly suggestive follow urine culture on antibiotics (4) Chronic HFrEF (heart failure with reduced ejection fraction): Code(s): I50.22 - Chronic systolic (congestive) heart failure Status: Acute Assessment and Plan: appears compensated at this time last Echo with EF of 25 - 30% follow respiratory status closely with IVFs and holding diuretics? (5) Chronic atrial fibrillation: Code(s): I48.20 - Chronic atrial fibrillation, unspecified Status: Acute Assessment and Plan: continue rate control strategy with with metoprolol on anticoagulation (6) Essential hypertension: Code(s): I10 - Essential (primary) hypertension Status: Acute Assessment and Plan: on the soft side holding diuretics and Entresto follow trend of hemodynamics Long and extensive discussion (greater than 20 minutes) with the patient regarding her significant acute kidney injury on top of her baseline kidney disease as well as the fact that even on discharge approximately a week ago, her kidney function was not back to baseline arguing that perhaps maybe she has a new baseline creatinine and hence worse kidney function at baseline as well. I also discussed with her my concerns that if her renal function fails to improve with conservative therapy, she may require renal replacement therapy/dialysis possibly as a temporary measure but I cannot deny the possibility that it could also be permanent. She appeared to voice understanding. Will continue to follow. History of Present Illness Reason for Consult Consult date: 07/06/22 Reason for consult: acute renal failure (on chronic kidney disease) Chief Complaint Chief complaint: CHF exacerbation History of Present Illness Narrative: The patient is a 71-year-old female with a past medical history as outlined below who presented to [facility] Emergency room for further evaluation of altered mental status. The patient was just discharged from [facility] about a week ago after she was admitted for respiratory arrest secondary to COVID-19 requiring intubation and mechanical ventilation in association with sepsis. She recovered from this acute illness reasonably well although her kidney function was still not back to baseline by the time of discharge and there was a concern that she may have a new baseline creatinine and worsening of her chronic kidney disease because of this acute illness. Apparently, since her discharge, she has had poor oral intake secondary to multiple sores present on her lips and her mouth and apparently down her throat. Along with this issue, nursing reported that the patient seemed to be more confused and lethargic on the day of admission in association with decreased urine output. However, on her presentation to the emergency room, her mental status seemed to be at its baseline. Nonetheless, she was transferred
[2022-07-06] MEDS: MAGNES & ALUM HYD/SIMETH/DIPHENHYD/LIDOCAINE 119 ML MOUTHWASH BY MOUTH ×3 (13:39→21:35)
[2022-07-06] MEDS: BENZOCAINE 20% DENTAL GEL 9 GM TUBE 1 APPLIC TOPICAL ×2 (13:39→18:10)
[2022-07-06 15:24] LABS: Creatinine Urine 80.7 mg/dL; Urea Random Urine 493 MG/DL
[2022-07-06 15:43] LABS: Total Protein Urine Random 313 mg/dL; Ur Ttl Prot Creatinine Ratio 3.88 mg/mg (0-0.20)
[2022-07-06 15:45] LABS: Eosinophil Urine None Seen % (None Seen)
--- NOTE | 2022-07-06 15:48 | PM.IMPN ---
Progress Note: A&P Assessment and Plan (1) Acute on chronic renal failure: Code(s): N17.9 - Acute kidney failure, unspecified; N18.9 - Chronic kidney disease, unspecified Status: Acute Assessment and Plan: -her BUN is 127 creatinine 5.8 today. Her baseline creatinine is somewhere between 2.8 and 3.2. -Dr. Toro has been consulted for further recommendations. -the patient has been on Entresto which could lead to renal failure. -also could be pre renal azotemia as the patient has had poor oral oral intake due to her mouth sores. -her potassium is 5.5. -repeat BMP after IV fluids to see if her potassium has come down any. If not then I will treat accordingly. -renal ultrasound from 06/23/2022 was read as moderate right renal atrophy bilateral renal scarring moderate ascites. -hold nephrotoxic medications. Hold allopurinol, hold Lasix, hold Entresto, and hold spironolactone. 07/06/2021 interval history: patient is 71-year-old female with history of cardiomyopathy ejection fraction 25- 30%, history of chronic kidney disease stage 3-4, on last admission patient was respiratory arrest and was intubated, patient was discharged back to nursing and now presented with acute mental status and sore in her mouth, there are no vesicles or pustules, does not appear to be thrush, patient is being treated with nystatin and Magic mouthwash to reduce the symptoms increase oral intake, patient will be seen by standpipe tender, will continue to monitor and further recommendation to follow, (2) Acute UTI: Code(s): N39.0 - Urinary tract infection, site not specified Status: Acute Assessment and Plan: -the patient is allergic to cephalosporin -Levaquin IV as per antibiotic stewardship, pharmacy was requested to renal dose. Which may mean that the patient may only get Levaquin every other day. -tailor antibiotics to the results of cultures. (3) Chronic HFrEF (heart failure with reduced ejection fraction): Code(s): I50.22 - Chronic systolic (congestive) heart failure Status: Acute Assessment and Plan: -her echo on 12/21/2021 was read as the following? 1. Complete two-dimensional, color flow and Doppler transthoracic echocardiogram is performed. ? 2. Left ventricular chamber dimension is moderately enlarged. ? 3. Left ventricular systolic function is severely reduced, estimated at 25-30%. ? 4. Severe biatrial dilation. ? 5. Moderate mitral and tricuspid regurgitation. ? 6. Mild aortic regurgitation. ? 7. Atrial fibrillation. Lasix, spironolactone, and Entresto are all on hold at this time due to the renal failure. (4) Chronic atrial fibrillation: Code(s): I48.20 - Chronic atrial fibrillation, unspecified Status: Acute Assessment and Plan: -continue with metoprolol -she is rate controlled. -continue with Xarelto, may need to renally adjust (5) Mixed hyperlipidemia: Code(s): E78.2 - Mixed hyperlipidemia Status: Acute Assessment and Plan: -continue with rosuvastatin (6) Hypothyroidism: Code(s): E03.9 - Hypothyroidism, unspecified Status: Acute Assessment and Plan: -continue with levothyroxine (7) Essential hypertension: Code(s): I10 - Essential (primary) hypertension Status: Acute Assessment and Plan: -hold Lasix, hold Entresto -continue with metoprolol Subjective Date/time seen: 07/06/22 15:48 Weakness HPI-Narrative: This is a 71-year-old female patient who is at [facility].? (The patient was just discharged from this facility on 06/27/2022.? The patient had gone into respiratory arrest on that admission and had been intubated.)? The patient now has multiple sores on her lips and in her mouth and down her throat since she has been extubated.? She has had poor oral intake.? She does have chronic renal disease stage III and was seen by Dr. Toro and had a renal ultrasound on her last admission.? The patient has been staying
[2022-07-06] MEDS: RIVAROXABAN 20 MG TABLET PO (18:03)
[2022-07-06 19:31] LABS: Basophils Percent Auto 0.1 % (0.2-1.2); Hemoglobin 14.2 g/dL (12.0-15.0); Immature Granulocyte Absolute 0.05 K/mm3 (0.00-0.031); Immature Granulocyte Percent A 0.5 % (0-0.5); Immature Platelet Fraction Pct 11.4 % (0.9-11.2); Lymphocytes Absolute Auto 0.19 K/mm3 (0.9-3.2); Lymphocytes Percent Auto 1.8 % (18.3-44.2); Mean Corpuscular HGB Conc 31.6 g/dl (32-36); Mean Corpuscular Hemoglobin 30.2 pg (26-34); Mean Corpuscular Volume 95.7 fl (80-100); Monocytes Absolute Auto 0.3 K/mm3 (0.1-0.6); Monocytes Percent Auto 3.1 % (2.6-8.5); Neutrophils Absolute Auto 10.2 K/mm3 (1.3-6.7); Neutrophils Percent Auto 94.5 % (45.5-73.1); Nucleated Red Blood Cells Absolute Auto 0.2 K/mm3 (0.0-0.012); Platelet Count Result 116 k/mm3 (150-375); Red Cell Distribution Width 20.8 % (11.5-14.5); White Blood Count 10.8 K/mm3 (4.5-10.0)
[2022-07-06 20:20] LABS: HIV 1/2 Ab P24 Ag Result Negative (Negative)
[2022-07-06] MEDS: lamoTRIgine 100 MG TABLET PO (21:34)
[2022-07-06] MEDS: METOPROLOL TARTRATE 25 MG TABLET PO (21:36)
[2022-07-06 21:37] LABS: Erythrocyte Sedimentation Rate 1 mm/hr (0-20)
[2022-07-06] MEDS: SERTRALINE HCL 50 MG TABLET 150 MG PO (21:37)
[2022-07-06 23:18] LABS: Lactic Acid Reflex 2.1 mmol/L (0.7-2.0)
[2022-07-06 23:21] LABS: Alanine Aminotransferase 18 U/L (6-35); Albumin Level 3.5 g/dL (3.5-5.1); Alkaline Phosphatase 240 U/L (38-126); Anion Gap 19 mmol/L (8-16); Aspartate Amino Transferase 30 U/L (14-36); Bilirubin,Total 1.5 mg/dL (0.2-1.3); Calcium 8.4 mg/dL (8.4-10.2); Carbon Dioxide 14 mmol/L (22-30); Chloride 106 mmol/L (98-107); Estimated CRCL calculation 8 ml/min; Estimated Glomerular Filt Rate 7; Glucose 279 mg/dL (65-110); Magnesium 2.5 mg/dL (1.6-2.3); Phosphorus 8.9 mg/dL (2.5-4.5); Potassium 5.5 mmol/L (3.4-5.0); Sodium 139 mmol/L (137-145)
[2022-07-06 23:28] LABS: Complement C3 52 mg/dL (88-165)
[2022-07-06 23:58] LABS: Hepatitis B Surface Antigen Negative (Negative)
[2022-07-07] VITALS (18 sets, daily range): BP systolic 93–113; BP diastolic 30–96; PULSE 77–110; RESP 16–24; TEMP 35.7–36.6; O2SAT 91–100; BMI 27.6
[2022-07-07 00:04] LABS: Hepatitis B Core IgM Result Negative (Negative)
--- NOTE | 2022-07-07 00:14 | WPDPROCEDUR ---
Procedures Central Line Placement Left Femoral: Central Line Date: 07/06/22 Central Line Time: 23:50 Consent: I have discussed with the patient and/or surrogate, the non-emergent placement of a central venous catheter, including its clinical necessity/indication and associated potential risks and complications. The patient and/or surrogate understand(s) and acknowledge(s) the need to proceed with central venous catheter insertion as an important element of the patient's clinical management. Time Out Performed: Yes Patient Position: supine Patient placed on monitor/pulse ox: Yes Provider Prep: Max. sterile barrier precautions Central line prep: 2% Chlorhexidine scrub Local anesthesia used: lidocaine 1% Amount of anesthesia used (ml): 5 Central line lumen inserted: triple Wallisian: 7 Length (cm): 20 Depth of Insertion (cm): 18 Post Procedure: sutured in place, good blood return, all ports aspirated, flushed, capped, transparent dressing and hemostatic product Additional comments: sutured into place. patient tolerated well . no x ray required
[2022-07-07 00:16] LABS: Hepatitis B Surface Anti Res Negative; Hepatitis C Virus Antibody Negative (Negative)
--- NOTE | 2022-07-07 00:16 | P.PNCROSS_ITS ---
Event Note Event Note Event Note: lab was unable to do venous sticks. a finger stick was performed for labs lydia ht. opted for central line due to poor venous access
--- NOTE | 2022-07-07 00:16 | PM.EVENT ---
Event Note Event Note Event Note: lab was unable to do venous sticks. a finger stick was performed for labs tonight. opted for central line due to poor venous access
[2022-07-07] MEDS: SODIUM ZIRCONIUM CYCLOSILICATE 10 GM POWD.PACK PO (00:34)
[2022-07-07] MEDS: MAGNES & ALUM HYD/SIMETH/DIPHENHYD/LIDOCAINE 119 ML MOUTHWASH BY MOUTH ×6 (00:34→20:25)
[2022-07-07 01:06] LABS: Blood Urea Nitrogen 137 mg/dL (7-17)
[2022-07-07 01:56] LABS: Reflex Lactic Acid Yes or No Add Lactic
[2022-07-07 02:02] LABS: Free T4 Free Thyroxine Reflex 0.37 ng/dL (0.78-2.19)
[2022-07-07 02:50] LABS: Lactic Acid 1.5 mmol/L (0.7-2.0)
[2022-07-07] MEDS: CENTRAL LINE FLUSH 10 ML IV PUSH ×4 (05:53→20:27)
[2022-07-07] MEDS: LEVOTHYROXINE SODIUM 125 MCG TABLET PO (05:54)
[2022-07-07 06:06] LABS: Hematocrit 42.4 % (37.0-47.0); Hemoglobin 13.5 g/dL (12.0-15.0); Immature Platelet Fraction Pct 12.1 % (0.9-11.2); Mean Corpuscular HGB Conc 31.8 g/dl (32-36); Mean Corpuscular Hemoglobin 30.4 pg (26-34); Mean Corpuscular Volume 95.5 fl (80-100); Platelet Count Result 85 k/mm3 (150-375); Red Blood Count 4.44 M/mm3 (4.2-5.4); Red Cell Distribution Width 20.6 % (11.5-14.5); White Blood Count 9.4 K/mm3 (4.5-10.0)
[2022-07-07 06:18] LABS: Albumin Level 3.4 g/dL (3.5-5.1); Anion Gap 17 mmol/L (8-16); Calcium 8.5 mg/dL (8.4-10.2); Carbon Dioxide 15 mmol/L (22-30); Chloride 107 mmol/L (98-107); Creatine Kinase 78 U/L (30-135); Estimated CRCL calculation 8 ml/min; Estimated Glomerular Filt Rate 7; Glucose 254 mg/dL (65-110); Magnesium 2.4 mg/dL (1.6-2.3); Potassium 5.1 mmol/L (3.4-5.0); Sodium 139 mmol/L (137-145)
[2022-07-07 06:29] LABS: Blood Urea Nitrogen 134 mg/dL (7-17)
[2022-07-07] MEDS: PANTOPRAZOLE 40 MG TABLET PO (10:35)
[2022-07-07] MEDS: ASCORBIC ACID 500 MG TABLET 1000 MG PO (10:35)
[2022-07-07] MEDS: ROSUVASTATIN 10 MG TABLET PO (10:36)
[2022-07-07] MEDS: CYANOCOBALAMIN 500 MCG TABLET PO (10:36)
[2022-07-07] MEDS: SODIUM BICARBONATE TAB 650 MG TABLET PO (10:36)
[2022-07-07] MEDS: allopurinoL 100 MG TABLET PO (10:36)
[2022-07-07] MEDS: PYRIDOXINE HCL 50 MG TABLET PO (10:36)
[2022-07-07] MEDS: SERTRALINE HCL 50 MG TABLET PO (10:37)
[2022-07-07] MEDS: SPIRONOLACTONE 25 MG TABLET PO (10:37)
[2022-07-07] MEDS: CHOLECALCIFEROL 400 UNITS TABLET (VIT D) PO (10:38)
[2022-07-07] MEDS: lamoTRIgine 50 MG TABLET PO (10:38)
[2022-07-07] MEDS: METOPROLOL TARTRATE 25 MG TABLET PO ×2 (10:38→20:23)
[2022-07-07] MEDS: FERROUS SULFATE 324 MG TABLET PO (10:38)
[2022-07-07] MEDS: BENZOCAINE 20% DENTAL GEL 9 GM TUBE 1 APPLIC TOPICAL ×3 (10:39→18:19)
[2022-07-07] MEDS: NYSTATIN 100,000 UNITS/ML SUSP 5 ML ORAL.SUSP PO ×4 (10:39→20:22)
--- NOTE | 2022-07-07 11:20 | P.CDI_ITS ---
CDI Query Clarified Diagnosis Clarified Diagnosis: Pt tested positive for COVID on 06/19/22. Pt tested positive for COVID again on 07/05/22. Please clarify the status of the patient's COVID-19 infection, if known. * COVID-19 is a current/active infection * Current condition is a sequela of COVID-19 * Past history of COVID-19 * Other explanation of clinical findings (please specify) * Unable to determine <Humera Black RN - Last Filed: 07/07/22 11:22> Provider Comments It seems we are seen persisting COVID-19 test positive, even though patient clinical symptoms have improved. <Zara Umaña MD - Last Filed: 07/24/22 13:07>
--- NOTE | 2022-07-07 11:20 | WPDCDIQUERY2 ---
CDI Query Clarified Diagnosis Clarified Diagnosis: Pt tested positive for COVID on 06/19/22. Pt tested positive for COVID again on 07/05/22. Please clarify the status of the patient's COVID-19 infection, if known. COVID-19 is a current/active infection Current condition is a sequela of COVID-19 Past history of COVID-19 Other explanation of clinical findings (please specify) Unable to determine <Humera Black RN - Last Filed: 07/07/22 11:22> Provider Comments It seems we are seen persisting COVID-19 test positive, even though patient clinical symptoms have improved. <Zara Umaña MD - Last Filed: 07/24/22 13:07>
--- NOTE | 2022-07-07 11:42 | P.PNNP_ITS ---
Progress Note: A&P Assessment and Plan (1) GAVI (acute kidney injury): Code(s): N17.9 - Acute kidney failure, unspecified Status: Acute Assessment and Plan: * suspect due to prerenal factors (poor oral intake) worsened by diuretics and BP medications * unfortunately, no significant improvement with trial of IVFs * evaluation to date: * urine electrolytes prerenal * worsening proteinuria * serologies ordered (but previous testing on last hospitalization already noted) * concerning trend of labs -- rising BUN and creatinine, metabolic acidosis, and hyperkalemia * I suspect she will need to start NETWORK LEAD/dialysis fairly soon * she is refusing dialysis currently -- I will talk with her brother * follow repeat labs and UOP (2) Stage 3b chronic kidney disease: Code(s): N18.32 - Chronic kidney disease, stage 3b Status: Chronic Assessment and Plan: * this has been present since at least 2019 * baseline creatinine had been running ~ 1.4 - 1.8mg/d * presumably secondary to hypertension, vascular disease (CAD, hyperlipidemia, CHF/cardiomyopathy leading to cardiorenal syndrome), chronic diuretic therapy and age * HOWEVER, on discharge, creatinine was still in the 3ish range -- possible new baseline?? (3) Acute UTI: Code(s): N39.0 - Urinary tract infection, site not specified Status: Acute Assessment and Plan: * urinalysis highly suggestive * urine culture with Karoline * started on antifungal therapy (4) Chronic HFrEF (heart failure with reduced ejection fraction): Code(s): I50.22 - Chronic systolic (congestive) heart failure Status: Chronic Assessment and Plan: * last Echo with EF ~ 25 - 30% * appears relatively compensated at this time * follow volume status closely (5) Atrial fibrillation: Code(s): I48.91 - Unspecified atrial fibrillation Status: Chronic Assessment and Plan: * rate control strategy with metoprolol * holding anticoagulation with ongoing procedures (6) Essential hypertension: Code(s): I10 - Essential (primary) hypertension Status: Chronic Assessment and Plan: * BP on the soft side * follow trend of hemodynamics Long extensive discussion (> 20 minutes) the patient regarding her worsening renal dysfunction, hyperkalemia, metabolic acidosis as well as her fluctuating volume status; given the trend of things, I suspect she will need dialysis in next 24-48 hours. I discussed this with the patient and initially she refused dialytic intervention but then stated that she talk to her brother. I called and discussed the case with her brother in terms of her deteriorating kidney function and my recommendations for dialysis. I also informed him that the patient is currently refusing dialysis but he stated that he would come and talk with the patient and depending on the results of this conversation, he would inform her nurse if she changes her mind about dialysis. Will continue to follow. Subjective Date/time seen: 07/07/22 11:42 Renal function continues to deteriorate despite trial of IVFs; this further compounded by her hyperkalemia as worsening metabolic acidosis; central line placed yesterday due to requent blood draws and poor venous access; no other acute complaints voiced. Exam Narrative: General: chronically ill appearing female in NAD Heart: normal S1 and S2; no rub Lungs: clear anteriorly, decreased at bases Abdomen: soft, nontender, nondistended, positive bowel sounds
--- NOTE | 2022-07-07 11:42 | PM.PNNEP ---
Progress Note: A&P Assessment and Plan (1) GAVI (acute kidney injury): Code(s): N17.9 - Acute kidney failure, unspecified Status: Acute Assessment and Plan: suspect due to prerenal factors (poor oral intake) worsened by diuretics and BP medications unfortunately, no significant improvement with trial of IVFs evaluation to date: urine electrolytes prerenal worsening proteinuria serologies ordered (but previous testing on last hospitalization already noted) concerning trend of labs -- rising BUN and creatinine, metabolic acidosis, and hyperkalemia I suspect she will need to start [employer]/dialysis fairly soon she is refusing dialysis currently -- I will talk with her brother follow repeat labs and UOP (2) Stage 3b chronic kidney disease: Code(s): N18.32 - Chronic kidney disease, stage 3b Status: Chronic Assessment and Plan: this has been present since at least 2019 baseline creatinine had been running ~ 1.4 - 1.8mg/d presumably secondary to hypertension, vascular disease (CAD, hyperlipidemia, CHF/cardiomyopathy leading to cardiorenal syndrome), chronic diuretic therapy and age HOWEVER, on discharge, creatinine was still in the 3ish range -- possible new baseline?? (3) Acute UTI: Code(s): N39.0 - Urinary tract infection, site not specified Status: Acute Assessment and Plan: urinalysis highly suggestive urine culture with Karoline started on antifungal therapy (4) Chronic HFrEF (heart failure with reduced ejection fraction): Code(s): I50.22 - Chronic systolic (congestive) heart failure Status: Chronic Assessment and Plan: last Echo with EF ~ 25 - 30% appears relatively compensated at this time follow volume status closely (5) Atrial fibrillation: Code(s): I48.91 - Unspecified atrial fibrillation Status: Chronic Assessment and Plan: rate control strategy with metoprolol holding anticoagulation with ongoing procedures (6) Essential hypertension: Code(s): I10 - Essential (primary) hypertension Status: Chronic Assessment and Plan: BP on the soft side follow trend of hemodynamics Long extensive discussion (> 20 minutes) the patient regarding her worsening renal dysfunction, hyperkalemia, metabolic acidosis as well as her fluctuating volume status; given the trend of things, I suspect she will need dialysis in next 24-48 hours. I discussed this with the patient and initially she refused dialytic intervention but then stated that she talk to her brother. I called and discussed the case with her brother in terms of her deteriorating kidney function and my recommendations for dialysis. I also informed him that the patient is currently refusing dialysis but he stated that he would come and talk with the patient and depending on the results of this conversation, he would inform her nurse if she changes her mind about dialysis. Will continue to follow. Subjective Date/time seen: 07/07/22 11:42 Renal function continues to deteriorate despite trial of IVFs; this further compounded by her hyperkalemia as worsening metabolic acidosis; central line placed yesterday due to requent blood draws and poor venous access; no other acute complaints voiced. Exam Narrative: General: chronically ill appearing female in NAD Heart: normal S1 and S2; no rub Lungs: clear anteriorly, decreased at bases Abdomen: soft, nontender, nondistended, positive bowel sounds Extremities: no cyanosis or clubbing; no edema Skin: multiple ecchymoses present Objective Data Vital Signs Vital Signs: Vital Signs Temp Pulse Resp BP Pulse Ox O2 Del Method 07/07/22 10:38 110 H 07/07/22 08:36 96.5 F L 85 16 93/30 L 96 07/07/22 06:00 88 07/07/22 04:00 96.3 F L 93 18 113/96 H 94 07/07/22 04:00 98 Room Air 07/07/22 04:00 77 07/07/22 02:00 82 07/07/22 00:00
--- NOTE | 2022-07-07 12:48 | PCOTNOTE ---
Pt. had femoral line placed, nursing D/C from services, re-order when pt. able to participate in therapy services
[2022-07-07 13:00] LABS: Alveolar/Arterial O2 Gradient 22.1 mmHg; Fractional Inspired Oxygen 21 %; HCO3 ABG 14.6 mEq/l (22.0-26.0); Oxygen Content ABG 19.4 %vol (16.0-22.0); Oxygen Saturation ABG 95.9 % (95.0-100.0); Oxyhemoglobin 94.7 % THb (90.0-100.0); PO2 ABG 89.3 mmHg (80.0-100.0); PO2 FiO2 Ratio Arterial Blood 4.25 %; Total Hemoglobin 14.5 g/dL (12.0-18.0)
[2022-07-07 13:03] LABS: Modified Allen's Test Pass; Site Drawn LEFT RADIAL; pH ABG 7.276 (7.350-7.450)
--- NOTE | 2022-07-07 17:21 | PM.IMPN ---
Progress Note: A&P Assessment and Plan (1) Acute on chronic renal failure: Code(s): N17.9 - Acute kidney failure, unspecified; N18.9 - Chronic kidney disease, unspecified Status: Acute Assessment and Plan: -her BUN is 127 creatinine 5.8 today. Her baseline creatinine is somewhere between 2.8 and 3.2. -Dr. Toro has been consulted for further recommendations. -the patient has been on Entresto which could lead to renal failure. -also could be pre renal azotemia as the patient has had poor oral oral intake due to her mouth sores. -her potassium is 5.5. -repeat BMP after IV fluids to see if her potassium has come down any. If not then I will treat accordingly. -renal ultrasound from 06/23/2022 was read as moderate right renal atrophy bilateral renal scarring moderate ascites. -hold nephrotoxic medications. Hold allopurinol, hold Lasix, hold Entresto, and hold spironolactone. 07/07/2021 interval history: patient is 71-year-old female with history of cardiomyopathy ejection fraction 25- 30%, history of chronic kidney disease stage 3-4, on last admission patient was respiratory arrest and was intubated, patient was discharged back to nursing and now presented with acute mental status and sore in her mouth, there are no vesicles or pustules, does not appear to be thrush, patient is being treated with nystatin and Magic mouthwash to reduce the symptoms increase oral intake, today her mouth lesions appear improved and able to tolerate PO, patient Scr is rising and patient is in metabolic acidosis in need of dialysis, patient had been refusing dialysis and today patient family had agreed for dialysis, will need tunnel catheter and may start dialysis tomorrow, patient is growing Karoline albicans and her urine will start the patient on Diflucan, patient will be seen by supervisor quilting, will continue to monitor and further recommendation to follow, (2) Acute UTI: Code(s): N39.0 - Urinary tract infection, site not specified Status: Acute Assessment and Plan: -the patient is allergic to cephalosporin -Levaquin IV as per antibiotic stewardship, pharmacy was requested to renal dose. Which may mean that the patient may only get Levaquin every other day. -tailor antibiotics to the results of cultures. (3) Chronic HFrEF (heart failure with reduced ejection fraction): Code(s): I50.22 - Chronic systolic (congestive) heart failure Status: Acute Assessment and Plan: -her echo on 12/21/2021 was read as the following? 1. Complete two-dimensional, color flow and Doppler transthoracic echocardiogram is performed. ? 2. Left ventricular chamber dimension is moderately enlarged. ? 3. Left ventricular systolic function is severely reduced, estimated at 25-30%. ? 4. Severe biatrial dilation. ? 5. Moderate mitral and tricuspid regurgitation. ? 6. Mild aortic regurgitation. ? 7. Atrial fibrillation. Lasix, spironolactone, and Entresto are all on hold at this time due to the renal failure. (4) Chronic atrial fibrillation: Code(s): I48.20 - Chronic atrial fibrillation, unspecified Status: Acute Assessment and Plan: -continue with metoprolol -she is rate controlled. -continue with Xarelto, may need to renally adjust (5) Mixed hyperlipidemia: Code(s): E78.2 - Mixed hyperlipidemia Status: Acute Assessment and Plan: -continue with rosuvastatin (6) Hypothyroidism: Code(s): E03.9 - Hypothyroidism, unspecified Status: Acute Assessment and Plan: -continue with levothyroxine (7) Essential hypertension: Code(s): I10 - Essential (primary) hypertension Status: Acute Assessment and Plan: -hold Lasix, hold Entresto -continue with metoprolol Subjective Date/time seen: 07/07/22 17:22 -her BUN is 127 creatinine 5.8 today. Her baseline creatinine is somewhere between 2.8 and 3.2. -Dr. Toro has been consulted for further recommendations. -onofre arnold
[2022-07-07] MEDS: FLUCONAZOLE 100 MG TABLET PO (18:19)
[2022-07-07] MEDS: RIVAROXABAN 20 MG TABLET PO (18:19)
[2022-07-07] MEDS: SERTRALINE HCL 50 MG TABLET 150 MG PO (20:22)
[2022-07-07] MEDS: lamoTRIgine 100 MG TABLET PO (20:24)
[2022-07-07] MEDS: SODIUM CHLORIDE NASAL GEL 14.1 GM 1 APPLIC NASAL (20:27)
[2022-07-08] VITALS (33 sets, daily range): BP systolic 88–111; BP diastolic 46–84; PULSE 79–99; RESP 12–20; TEMP 35.8–37.1; O2SAT 85–100
[2022-07-08] MEDS: MAGNES & ALUM HYD/SIMETH/DIPHENHYD/LIDOCAINE 119 ML MOUTHWASH BY MOUTH ×5 (00:09→20:57)
[2022-07-08] MEDS: LEVOTHYROXINE SODIUM 125 MCG TABLET PO (05:00)
[2022-07-08] MEDS: CENTRAL LINE FLUSH 10 ML IV PUSH ×4 (05:00→20:57)
[2022-07-08 05:17] LABS: Hematocrit 39.9 % (37.0-47.0); Hemoglobin 12.7 g/dL (12.0-15.0); Immature Platelet Fraction Pct 9.7 % (0.9-11.2); Mean Corpuscular HGB Conc 31.8 g/dl (32-36); Mean Corpuscular Hemoglobin 30.3 pg (26-34); Mean Corpuscular Volume 95.2 fl (80-100); Platelet Count Result 67 k/mm3 (150-375); Red Blood Count 4.19 M/mm3 (4.2-5.4); Red Cell Distribution Width 20.5 % (11.5-14.5); White Blood Count 8.4 K/mm3 (4.5-10.0)
[2022-07-08 05:26] LABS: INR 3.6; Prothrombin Time 34.7 Seconds (11.1-14.7)
[2022-07-08 05:27] LABS: Albumin Level 3.3 g/dL (3.5-5.1); Anion Gap 15 mmol/L (8-16); Calcium 8.5 mg/dL (8.4-10.2); Carbon Dioxide 16 mmol/L (22-30); Chloride 106 mmol/L (98-107); Estimated CRCL calculation 7 ml/min; Estimated Glomerular Filt Rate 6; Glucose 238 mg/dL (65-110); Magnesium 2.4 mg/dL (1.6-2.3); Partial Thromboplastin Time 41.3 SECONDS (22.3-36.8); Potassium 4.8 mmol/L (3.4-5.0); Sodium 137 mmol/L (137-145)
[2022-07-08 06:00] LABS: Blood Urea Nitrogen 147 mg/dL (7-17)
--- NOTE | 2022-07-08 09:11 | WPDANESEPPF ---
Anes - Initial Pre Proc Eval Procedure: Operation Date: 07/08/22 09:30 Proposed Procedures p Insertion Tunneled Dialysis Catheter - Valente Jolly DO Date/Time: 07/08/22 09:11 Surgeon: Kee Rios MD Pre Op Diagnosis: CHF exacerbation Patient Data Age: 71 Gender: F Height: 1.73 m Weight: 82.5 kg Last Vital Signs Temp 36.1 C L 07/08/22 08:03 Pulse 85 07/08/22 08:03 Resp 18 07/08/22 08:03 BP 91/62 L 07/08/22 08:03 Pulse Ox 96 07/08/22 08:03 O2 Del Method Room Air 07/08/22 04:00 Allergies Allergy/AdvReac Type Severity Reaction Status Date / Time cefuroxime Allergy Unknown Unknown Verified 06/02/22 03:55 ezetimibe Allergy Unknown Unknown Verified 06/02/22 03:55 simvastatin Allergy Unknown Unknown Verified 06/02/22 03:55 Sulfa (Sulfonamide Allergy Unknown Unknown Verified 06/02/22 03:55 Antibiotics) sulfanilamide Allergy Unknown Unknown Verified 06/02/22 03:55 Home Medications Medication Instructions Recorded Confirmed Type cholecalciferol (vitamin D3) 10 400 unit PO DAILY 05/10/19 07/05/22 History mcg (400 unit) capsule cyanocobalamin (vitamin B-12) 500 500 mcg PO DAILY 12/09/21 07/05/22 History mcg chewable tablet ferrous sulfate 325 mg (65 mg 325 mg PO DAILY 12/20/21 07/05/22 History iron) tablet spironolactone 25 mg tablet 25 mg PO DAILY #90 tabs 02/17/22 07/05/22 Rx pantoprazole 40 mg tablet,delayed 40 mg PO DAILY #90 tabs 03/12/22 07/05/22 Rx release allopurinol 100 mg tablet 100 mg PO DAILY #90 tabs 05/09/22 07/05/22 Rx ascorbic acid (vitamin C) 1,000 mg 1 g PO DAILY 06/02/22 07/05/22 History tablet furosemide 40 mg tablet 40 mg PO BID 06/02/22 07/05/22 History lamotrigine 100 mg tablet 100 mg PO HS 06/02/22 07/05/22 History rivaroxaban 20 mg tablet (Xarelto) 20 mg PO 1700 #30 tabs 06/02/22 07/06/22 Rx rosuvastatin 10 mg tablet See Rx Instructions .Route .COMPLEX 06/02/22 07/05/22 History sertraline 100 mg tablet 150 mg PO HS 06/02/22 07/05/22 History levothyroxine 125 mcg tablet 125 mcg PO DAILY #90 tabs 06/25/22 07/05/22 Rx metoprolol tartrate 25 mg tablet 25 mg PO Q12HR #60 tabs 06/27/22 07/05/22 Rx benzocaine 20 %-menthol 0.1 %-zinc 1 ea mucous membrane TID 07/05/22 07/05/22 History chloride 0.15 % mucosal gel (Orajel 3X Mouth Sores) dexamethasone 2 mg tablet 2 mg PO BID 07/05/22 07/05/22 History dexamethasone 4 mg tablet 4 mg PO BID 07/05/22 07/05/22 History dexamethasone 6 mg tablet 6 mg PO BID 07/05/22 07/05/22 History hydrocortisone 1 % topical cream 1 applic topical BID 07/05/22 07/05/22 History lamotrigine 25 mg tablet 50 mg PO QAM 07/05/22 07/05/22 History riboflavin (vitamin B2) 50 mg 50 mg PO DAILY 07/05/22 07/05/22 History tablet sertraline 50 mg tablet 50 mg PO QAM 07/05/22 07/05/22 History sodium bicarbonate 650 mg tablet 650 mg PO QAM 07/05/22 07/05/22 History pyridoxine (vitamin B6) 50 mg 50 mg PO DAILY 07/06/22 07/06/22 History capsule Laboratory Tests 07/07/22 07/08/22 07/08/22 12:54 05:03 05:03 WBC 8.4 K/mm3 K/mm3 (4.5-10.0) RBC 4.19 M/mm3 L M/mm3 (4.2-5.4) Hgb 12.7 g/dL g/dL (12.0-15.0) Hct 39.9 % % (37.0-47.0) MCV 95.2 fl fl (80-100) MCH 30.3 pg pg (26-34) MCHC 31.8 g/dl L g/dl (32-36) RDW 20.5 % H % (11.5-14.5) Plt Count 67 k/mm3 L k/mm3 (150-375) MPV TNP % Immature Plt Fraction 9.7 % % (0.9-11.2) PT INR APTT Puncture Site Left radial ABG pH 7.276 L* (7.350-7.450) ABG pCO2 32.0 mmHg L mmHg (35.0-45.0) ABG pO2 89.3 mmHg mmHg (80.0-100.0) ABG PO2/FiO2 Ratio 4.25 % % ABG HCO3 14.6 mEq/l L mEq/l (22.0-26.0) ABG O2 Saturation 95.9 % % (95.0-100.0) ABG O2 Content 19.4 %vol %vol (16.0-22.0) ABG Base Excess -11.0 mEq/l mEq/l (+/-2.0)
[2022-07-08] MEDS: SODIUM CHLORIDE 0.9% IV 500 ML 30 ML IV CONT (09:19)
--- NOTE | 2022-07-08 09:31 | WPDHPUPDATE1 ---
History and Physical Update Update Date/Time: 07/08/22 09:31 History and Physical has been reviewed, including an updated exam of the patient. There are NO changes in the patient's condition. Risks, benefits, and alternatives have been discussed and questions answered. Patient agrees to proceed with procedure.
--- NOTE | 2022-07-08 09:34 | PM.CNGS ---
Assessment and Plan Assessment and plan (1) GAVI (acute kidney injury): Code(s): N17.9 - Acute kidney failure, unspecified Status: Acute Assessment and Plan: I have recommended tunneled dialysis catheter placement. I have discussed the procedure, risks, benefits, and alternatives with the patient. All questions answered. (2) Acute exacerbation of CHF (congestive heart failure): Code(s): I50.9 - Heart failure, unspecified Status: Acute (3) Stage 3b chronic kidney disease: Code(s): N18.32 - Chronic kidney disease, stage 3b Status: Chronic History of Present Illness Consult details Consult date: 07/08/22 Reason for consult: other (dialysis access) Requesting physician: Becka Toro MD Narrative: 71 yo woman presented to ED 07/05 with increase lethargy and worsening renal failure. She is not responding to medical treatment and now is in need of hemodialysis. Review of Systems Review of Systems: All systems reviewed & are unremarkable except as noted in HPI and below Constitutional: Constitutional: Denies chills and Denies fever(s) Cardiovascular: Cardiovascular: Denies chest pain Gastrointestinal: Gastrointestinal: Reports as per HPI [facility] Past Medical History Medical History Acute on chronic renal insufficiency Age-related osteoporosis with current pathological fracture Allergic rhinitis Anemia Asthma, mild intermittent Breast cancer With chemotherapy and radiation Cardiomyopathy Chronic congestive heart failure Chronic HFrEF (heart failure with reduced ejection fraction) Chronic renal insufficiency, stage III (moderate) Closed wedge compression fracture of thoracic vertebra with routine healing Coronary artery disease Depression Elevated glucose H/O malignant neoplasm of breast H/O: gout History of poliomyelitis History of pulmonary embolism Hypomagnesemia Hypothyroidism Mild intermittent asthma with exacerbation Mixed hyperlipidemia Osteopenia Other hyperlipidemia Paroxysmal atrial fibrillation Peripheral vascular disease Post-polio syndrome Prediabetes Severe episode of recurrent major depressive disorder, without psychotic features Stage 3b chronic kidney disease Thyroid disease Vitamin D deficiency Surgical History Surgical History History of Achilles tendon repair History of cardiac cath History of D&C History of knee replacement History of lumpectomy Both breast History of partial hysterectomy Hx of cholecystectomy Hx of colonoscopy Hx of total knee replacement Left Family History Family History Father Hypertension Family history of kidney disease Sibling Hypertension Family history of elevated blood lipids Other Cerebrovascular accident Diabetes mellitus Social History Social History Social History: The patient is . 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 She had 1 child who has past away. Code status full code Smoking packs per day: 1 Smoking cigarettes per day: 20.0 Years smoked: 40 Smoking pack-years: 40.00 Smoking status: Unknown if ever smoked Tobacco type: cigarettes Second hand tobacco smoke exposure: No Smoking end date: 12/20/96 Alcohol intake: former Drinks per week: 3 Substance use: unknown Substance use type: does not use Lack of Transportation: No Lack of Food: Never True Current Housing: I Have Housing Concerned About Future Housing: No Difficulty Paying Gas/Electric Bills: No Difficulty Paying for Meds: No Currently Unemployed: No Education: High School Diploma/GED Difficulty w/ Childcare or Family Care: No Gender identity (if verbalized by the patient): Female Sexual Orientation (if Parminder
[2022-07-08] MEDS: ceFAZolin 2 GM/D5W 50 ML 2 GM/50 ML BAG IVPB (09:41)
[2022-07-08] MEDS: HEPARIN SODIUM, PORCINE 10,000 UNITS/10 ML VIAL 10000 UNITS IRRIGATION (10:12)
[2022-07-08] MEDS: HEPARIN SODIUM 5,000 UNITS/ML VIAL 5000 UNITS SUB-Q (10:15)
--- NOTE | 2022-07-08 10:22 | W.PM.PROC2 ---
Procedure Note - Detailed Date of Procedure 07/08/22 Pre-op Diagnosis CHF exacerbation, acute on chronic renal failure Post-op Diagnosis Same Procedure Performed Right internal jugular tunneled dialysis catheter placement using ultrasound and fluoroscopic guidance Surgeon Valente Jolly, DO Anesthesia MAC and Local (1% lidocaine with epinephrine) Findings SonoSite ultrasound was used to identify the right internal jugular vein. This was identified is a compressible vessel just lateral to the pulsatile carotid artery. The 18 gauge introducer needle was advanced under ultrasound guidance. Dark nonpulsatile blood was aspirated. Fluoroscopy was then used to guide advancement of the guidewire followed by the dilator and sheath. The final fluoroscopic images demonstrated the catheter tip in the distal SVC and no kinks along its path. Description of Procedure Procedure as well as risks, benefits, and alternatives were discussed with patient. Written consent was obtained and placed in chart prior to procedure. Patient was brought back to surgical suite. Placed supine on operating table. Time-out was done confirm patient procedure. IV sedation was then administered by the Anesthesia Department. Right chest and neck area was prepped and draped in sterile fashion using chlorhexidine prep. Patient was placed in Trendelenburg position. SonoSite ultrasound was used to identify the right internal jugular vein. It was visualized as a compressible vessel just lateral to the carotid artery. 1% lidocaine with epinephrine was infiltrated directly over the vessel under ultrasound guidance. An 18 gauge introducer needle was then advanced under ultrasound guidance directly into the right internal jugular vein. Dark nonpulsatile blood was aspirated. A 0.035 in guidewire was then advanced through the needle under fluoroscopic guidance. The guidewire was visualized advancing all the way down into the superior vena cava. 1% lidocaine with epinephrine was then infiltrated on the right anterior chest and along the tract up to the guidewire insertion site. A 5 mm incision was made with a 15 blade scalpel. A small genaro incision was then also made at the insertion site at the neck. The tunneler was then advanced from the chest incision up to the neck incision and the catheter tubing was brought up through this tract. The dilator and sheath were then advanced over the guidewire under fluoroscopic visualization. The dilator and guidewire were then removed leaving the sheath in place. The catheter tubing was then advanced through the sheath under fluoroscopic guidance. The sheath was unsnapped and carefully peeled away. The catheter tubing was released underneath the neck incision. Fluoroscopy was used to confirm proper placement of the catheter tubing and no kinks along its path. The catheter was then hep-locked with Hep-Lock solution. The skin of the incisions was then approximated using 4-0 Monocryl subcuticular suture. Exofin glue was then applied at the neck incision and 2x2 gauze and Tegaderm drassing applied at the chest. The patient was then awakened from anesthesia and transferred to recovery. Implants 24 cm DuraFlow2 dialysis catheter Estimated Blood Loss 5 Urine Output 800 Complications No immediate complications Condition Stable Disposition Floor ([facility]) [facility] Billing Surgery - Charge Forward: Surgery Billing
--- NOTE | 2022-07-08 11:42 | PC.NURSE ---
Patient returned from Procedure tolerated well no pain at this time.
[2022-07-08] MEDS: allopurinoL 100 MG TABLET PO (11:55)
[2022-07-08] MEDS: SERTRALINE HCL 50 MG TABLET PO (11:55)
[2022-07-08] MEDS: ASCORBIC ACID 500 MG TABLET 1000 MG PO (11:55)
[2022-07-08] MEDS: PANTOPRAZOLE 40 MG TABLET PO (11:56)
[2022-07-08] MEDS: SODIUM BICARBONATE TAB 650 MG TABLET PO (11:56)
[2022-07-08] MEDS: PYRIDOXINE HCL 50 MG TABLET PO (11:56)
[2022-07-08] MEDS: FLUCONAZOLE 100 MG TABLET PO (11:57)
[2022-07-08] MEDS: lamoTRIgine 50 MG TABLET PO (11:58)
[2022-07-08] MEDS: CYANOCOBALAMIN 500 MCG TABLET PO (11:58)
[2022-07-08] MEDS: CHOLECALCIFEROL 400 UNITS TABLET (VIT D) PO (11:58)
[2022-07-08] MEDS: BENZOCAINE 20% DENTAL GEL 9 GM TUBE 1 APPLIC TOPICAL ×2 (12:03→17:58)
[2022-07-08] MEDS: NYSTATIN 100,000 UNITS/ML SUSP 5 ML ORAL.SUSP PO ×3 (12:04→20:56)
--- NOTE | 2022-07-08 13:44 | P.PNNP_ITS ---
Progress Note: A&P Assessment and Plan (1) GAVI (acute kidney injury): Code(s): N17.9 - Acute kidney failure, unspecified Status: Acute Assessment and Plan: * suspect due to prerenal factors (poor oral intake) worsened by diuretics and BP medications * unfortunately, no significant improvement with trial of IVFs * evaluation to date: * urine electrolytes prerenal * worsening proteinuria * serologies ordered (but previous testing on last hospitalization already noted) * concerning trend of labs -- rising BUN and creatinine, metabolic acidosis, and hyperkalemia * agreed to [employer]/dialysis * HD catheter in place * HD today * follow repeat labs and UOP (on the hope for possible recovery) (2) Stage 3b chronic kidney disease: Code(s): N18.32 - Chronic kidney disease, stage 3b Status: Chronic Assessment and Plan: * this has been present since at least 2019 * baseline creatinine had been running ~ 1.4 - 1.8mg/d * presumably secondary to hypertension, vascular disease (CAD, hyperlipidemia, CHF/cardiomyopathy leading to cardiorenal syndrome), chronic diuretic therapy and age * HOWEVER, on last hospital discharge, creatinine was still in the 3ish range -- possible new baseline?? (3) Acute UTI: Code(s): N39.0 - Urinary tract infection, site not specified Status: Acute Assessment and Plan: * urinalysis highly suggestive * urine culture with Karoline * started on antifungal therapy (4) Chronic HFrEF (heart failure with reduced ejection fraction): Code(s): I50.22 - Chronic systolic (congestive) heart failure Status: Chronic Assessment and Plan: * last Echo with EF ~ 25 - 30% * appears relatively compensated at this time * follow volume status closely (5) Atrial fibrillation: Code(s): I48.91 - Unspecified atrial fibrillation Status: Chronic Assessment and Plan: * rate control strategy with metoprolol * holding anticoagulation due to procedures * probably okay to restart in a day or two (6) Essential hypertension: Code(s): I10 - Essential (primary) hypertension Status: Chronic Assessment and Plan: * BP on the soft side * follow trend of hemodynamics Will continue to follow. Subjective Date/time seen: 07/08/22 13:44 S/P tunneled HD catheter placement earlier today and currently tolerating dialysis treatment at the time of my visit (seen on HD at 1:30PM); no acute distress noted/voiced; feels a bit weak at this time. Exam Narrative: General: chronically ill appearing female in NAD Heart: normal S1 and S2; no rub Lungs: clear anteriorly, decreased at bases Abdomen: soft, nontender, nondistended, positive bowel sounds Extremities: no cyanosis or clubbing; no edema Skin: multiple ecchymoses present Objective Data Vital Signs Vital Signs: Vital Signs Temp Pulse Resp BP Pulse Ox O2 Del Method O2 Flow Rate 07/08/22 13:30 87 99/57 L 07/08/22 13:10 84 101/62 07/08/22 12:45 5 07/08/22 12:45 97.2 F L 97 16 94/63 L 07/08/22 12:55 89 93/61 L 07/08/22 12:30 96.5 F L 88 20 90/49 L 96 07/08/22 12:00 84 07/08/22 11:25 93 12 94/62 L 97 Simple Face Mask 6 07/08/22 08:00 80 07/08/22 11:10 88 16 88/56 L 98 Simple F
--- NOTE | 2022-07-08 13:44 | PM.PNNEP ---
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 to AVIONICS SYSTEMS TECHNICIAN/dialysis HD catheter in place HD today follow repeat labs and UOP (on the hope for possible recovery) (2) Stage 3b chronic kidney disease: Code(s): N18.32 - Chronic kidney disease, stage 3b Status: Chronic Assessment and Plan: this has been present since at least 2019 baseline creatinine had been running ~ 1.4 - 1.8mg/d presumably secondary to hypertension, vascular disease (CAD, hyperlipidemia, CHF/cardiomyopathy leading to cardiorenal syndrome), chronic diuretic therapy and age HOWEVER, on last hospital discharge, creatinine was still in the 3ish range -- possible new baseline?? (3) Acute UTI: Code(s): N39.0 - Urinary tract infection, site not specified Status: Acute Assessment and Plan: urinalysis highly suggestive urine culture with Karoline started on antifungal therapy (4) Chronic HFrEF (heart failure with reduced ejection fraction): Code(s): I50.22 - Chronic systolic (congestive) heart failure Status: Chronic Assessment and Plan: last Echo with EF ~ 25 - 30% appears relatively compensated at this time follow volume status closely (5) Atrial fibrillation: Code(s): I48.91 - Unspecified atrial fibrillation Status: Chronic Assessment and Plan: rate control strategy with metoprolol holding anticoagulation due to procedures probably okay to restart in a day or two (6) Essential hypertension: Code(s): I10 - Essential (primary) hypertension Status: Chronic Assessment and Plan: BP on the soft side follow trend of hemodynamics Will continue to follow. Subjective Date/time seen: 07/08/22 13:44 S/P tunneled HD catheter placement earlier today and currently tolerating dialysis treatment at the time of my visit (seen on HD at 1:30PM); no acute distress noted/voiced; feels a bit weak at this time. Exam Narrative: General: chronically ill appearing female in NAD Heart: normal S1 and S2; no rub Lungs: clear anteriorly, decreased at bases Abdomen: soft, nontender, nondistended, positive bowel sounds Extremities: no cyanosis or clubbing; no edema Skin: multiple ecchymoses present Objective Data Vital Signs Vital Signs: Vital Signs Temp Pulse Resp BP Pulse Ox O2 Del Method O2 Flow Rate 07/08/22 13:30 87 99/57 L 07/08/22 13:10 84 101/62 07/08/22 12:45 5 07/08/22 12:45 97.2 F L 97 16 94/63 L 07/08/22 12:55 89 93/61 L 07/08/22 12:30 96.5 F L 88 20 90/49 L 96 07/08/22 12:00 84 07/08/22 11:25 93 12 94/62 L 97 Simple Face Mask 6 07/08/22 08:00 80 07/08/22 11:10 88 16 88/56 L 98 Simple Face Mask 6 07/08/22 10:55 85 14 89/52 L 95 Simple Face Mask 6 07/08/22 10:40 91 15 92/55 L 96 Simple Face Mask 6 07/08/22 10:28 95 14 97/56 L 95 Nasal Cannula 4 07/08/22 09:10 97 F L 83 20 102/58 L 85 L Room Air 07/08/22 08:03 97.0 F L 85 18 91/62 L 96 07/08/22 06:00 80 07/08/22 04:00 Room Air 07/08/22 04:00 83 07/08/22 04:00 97.7 F 80 20 99/55 L 94 07/08/22 02:00 79 07/08/22 00:00 Room Air 07/08/22 00:00 81 07/07/22 23:30 97.8 F 80 20 101/58 L 98 07/07/22 20:00 Room Air 07/07/22 22:00 84 07/07/22 20:00 85
--- NOTE | 2022-07-08 18:43 | PM.IMPN ---
Progress Note: A&P Assessment and Plan (1) Acute on chronic renal failure: Code(s): N17.9 - Acute kidney failure, unspecified; N18.9 - Chronic kidney disease, unspecified Status: Acute Assessment and Plan: -her BUN is 127 creatinine 5.8 today. Her baseline creatinine is somewhere between 2.8 and 3.2. -Dr. Toro has been consulted for further recommendations. -the patient has been on Entresto which could lead to renal failure. -also could be pre renal azotemia as the patient has had poor oral oral intake due to her mouth sores. -her potassium is 5.5. -repeat BMP after IV fluids to see if her potassium has come down any. If not then I will treat accordingly. -renal ultrasound from 06/23/2022 was read as moderate right renal atrophy bilateral renal scarring moderate ascites. -hold nephrotoxic medications. Hold allopurinol, hold Lasix, hold Entresto, and hold spironolactone. 07/08/2021 interval history: patient is 71-year-old female with history of cardiomyopathy ejection fraction 25- 30%, history of chronic kidney disease stage 3-4, on last admission patient was respiratory arrest and was intubated, patient was discharged back to nursing and now presented with acute mental status and sore in her mouth, there are no vesicles or pustules, does not appear to be thrush, patient is being treated with nystatin and Magic mouthwash to reduce the symptoms increase oral intake, today her mouth lesions appear improved and able to tolerate PO, patient Scr is rising and patient is in metabolic acidosis in need of dialysis, patient had been refusing dialysis and on 07/07 patient family had agreed for dialysis, today tunnel catheter was placed and patient had 1st dialysis today and 500cc of fluids was removed, patient will have 2nd dialysis tomorrow, patient is growing Karoline albicans and her urine will start the patient on Diflucan, patient will be seen by latin dancer, will continue to monitor and further recommendation to follow, (2) Acute UTI: Code(s): N39.0 - Urinary tract infection, site not specified Status: Acute Assessment and Plan: -the patient is allergic to cephalosporin -Levaquin IV as per antibiotic stewardship, pharmacy was requested to renal dose. Which may mean that the patient may only get Levaquin every other day. -tailor antibiotics to the results of cultures. (3) Chronic HFrEF (heart failure with reduced ejection fraction): Code(s): I50.22 - Chronic systolic (congestive) heart failure Status: Chronic Assessment and Plan: -her echo on 12/21/2021 was read as the following? 1. Complete two-dimensional, color flow and Doppler transthoracic echocardiogram is performed. ? 2. Left ventricular chamber dimension is moderately enlarged. ? 3. Left ventricular systolic function is severely reduced, estimated at 25-30%. ? 4. Severe biatrial dilation. ? 5. Moderate mitral and tricuspid regurgitation. ? 6. Mild aortic regurgitation. ? 7. Atrial fibrillation. Lasix, spironolactone, and Entresto are all on hold at this time due to the renal failure. (4) Chronic atrial fibrillation: Code(s): I48.20 - Chronic atrial fibrillation, unspecified Status: Acute Assessment and Plan: -continue with metoprolol -she is rate controlled. -continue with Xarelto, may need to renally adjust (5) Mixed hyperlipidemia: Code(s): E78.2 - Mixed hyperlipidemia Status: Acute Assessment and Plan: -continue with rosuvastatin (6) Hypothyroidism: Code(s): E03.9 - Hypothyroidism, unspecified Status: Acute Assessment and Plan: -continue with levothyroxine (7) Essential hypertension: Code(s): I10 - Essential (primary) hypertension Status: Chronic Assessment and Plan: -hold Lasix, hold Entresto -continue with metoprolol Subjective Date/time seen: 07/08/22 18:43 07/08/2021 interval history: patient is 71-year-old female with history of c
--- NOTE | 2022-07-08 19:10 | PC.NURSE ---
assessments done with Zechariah Jhvaeri LPN-and I agreed with all assessments documented today 07/08/2022
[2022-07-08] MEDS: SERTRALINE HCL 50 MG TABLET 150 MG PO (20:56)
[2022-07-08] MEDS: lamoTRIgine 100 MG TABLET PO (20:56)
[2022-07-08] MEDS: SODIUM CHLORIDE NASAL GEL 14.1 GM 1 APPLIC NASAL (20:57)
[2022-07-09] VITALS (25 sets, daily range): BP systolic 94–153; BP diastolic 39–94; PULSE 55–997; RESP 16–22; TEMP 35.6–36.6; O2SAT 99–100
[2022-07-09] MEDS: MAGNES & ALUM HYD/SIMETH/DIPHENHYD/LIDOCAINE 119 ML MOUTHWASH BY MOUTH ×6 (01:00→20:15)
[2022-07-09 05:10] LABS: Hematocrit 35.5 % (37.0-47.0); Hemoglobin 11.5 g/dL (12.0-15.0); Immature Platelet Fraction Pct 10.6 % (0.9-11.2); Mean Corpuscular HGB Conc 32.4 g/dl (32-36); Mean Corpuscular Hemoglobin 30.3 pg (26-34); Mean Corpuscular Volume 93.7 fl (80-100); Platelet Count Result 55 k/mm3 (150-375); Red Blood Count 3.79 M/mm3 (4.2-5.4); Red Cell Distribution Width 20.1 % (11.5-14.5); White Blood Count 8.5 K/mm3 (4.5-10.0)
[2022-07-09 05:42] LABS: Albumin Level 2.9 g/dL (3.5-5.1); Anion Gap 12 mmol/L (8-16); Blood Urea Nitrogen 104 mg/dL (7-17); Calcium 7.8 mg/dL (8.4-10.2); Carbon Dioxide 23 mmol/L (22-30); Chloride 104 mmol/L (98-107); Estimated CRCL calculation 10 ml/min; Estimated Glomerular Filt Rate 9; Glucose 138 mg/dL (65-110); Magnesium 2.2 mg/dL (1.6-2.3); Phosphorus 6.2 mg/dL (2.5-4.5); Potassium 3.9 mmol/L (3.4-5.0); Sodium 139 mmol/L (137-145)
[2022-07-09] MEDS: CENTRAL LINE FLUSH 10 ML IV PUSH ×2 (05:59→12:49)
[2022-07-09] MEDS: LEVOTHYROXINE SODIUM 125 MCG TABLET PO (05:59)
[2022-07-09] MEDS: ASCORBIC ACID 500 MG TABLET 1000 MG PO (08:56)
[2022-07-09] MEDS: CYANOCOBALAMIN 500 MCG TABLET PO (08:57)
[2022-07-09] MEDS: allopurinoL 100 MG TABLET PO (08:57)
[2022-07-09] MEDS: NYSTATIN 100,000 UNITS/ML SUSP 5 ML ORAL.SUSP PO ×4 (08:57→20:14)
[2022-07-09] MEDS: PYRIDOXINE HCL 50 MG TABLET PO (08:57)
[2022-07-09] MEDS: BENZOCAINE 20% DENTAL GEL 9 GM TUBE 1 APPLIC TOPICAL ×3 (08:58→17:40)
[2022-07-09] MEDS: PANTOPRAZOLE 40 MG TABLET PO (08:58)
[2022-07-09] MEDS: FERROUS SULFATE 324 MG TABLET PO (08:58)
[2022-07-09] MEDS: lamoTRIgine 50 MG TABLET PO (08:58)
[2022-07-09] MEDS: CHOLECALCIFEROL 400 UNITS TABLET (VIT D) PO (08:58)
[2022-07-09] MEDS: ROSUVASTATIN 10 MG TABLET PO (08:59)
[2022-07-09] MEDS: SERTRALINE HCL 50 MG TABLET PO (08:59)
[2022-07-09] MEDS: SODIUM BICARBONATE TAB 650 MG TABLET PO (09:00)
--- NOTE | 2022-07-09 09:41 | PCNFU ---
Nutrition Follow-Up Complete: Increased nutrient needs related to altered skin integrity as evidenced by noted pressure injury Goal: PO intake 75% of meals and supplements - Not meeting goal Pt current nutrition is Renal diet. Intakes very poor. Nutrition recommendation: Supplements: Ensure Enlive TID for 350 kcals and 20 g protein each shake. Checked labs, potassium is WNL and PO4 is elevated. Pt is not eating any foods, we will order Ensure Enlive and watch labs carefully. Last recorded weight is 81.8 kg. Bowel Motility: +1 BM 07/08/22 Labs Reviewed: Hgb 11.5, Hct 35.5, Alb 2.9, BUN 104, Cre 4.9, PO4 6.2 Meds Noted: Hgb 11.5, Hct 35.5, Alb 2.9, BUN 104, Cre 4.9, PO4 6.2 Skin: *L buttocks DTI Additional Notes: MD consult for poor intake and bleeding mouth sores. Pt tells me she does not want food but she will drink liquids. Got her an Ensure Enlive and will order TID and watch labs. Enlive is usually better accepted than Nepro because of taste. Monitor intake, wt, labs, skin, Follow up in 5 days.
--- NOTE | 2022-07-09 12:03 | PM.IMPN ---
Progress Note: A&P Assessment and Plan (1) Acute on chronic renal failure: Code(s): N17.9 - Acute kidney failure, unspecified; N18.9 - Chronic kidney disease, unspecified Status: Acute Assessment and Plan: -her BUN is 127 creatinine 5.8 today. Her baseline creatinine is somewhere between 2.8 and 3.2. -Dr. Toro has been consulted for further recommendations. -the patient has been on Entresto which could lead to renal failure. -also could be pre renal azotemia as the patient has had poor oral oral intake due to her mouth sores. -her potassium is 5.5. -repeat BMP after IV fluids to see if her potassium has come down any. If not then I will treat accordingly. -renal ultrasound from 06/23/2022 was read as moderate right renal atrophy bilateral renal scarring moderate ascites. -hold nephrotoxic medications. Hold allopurinol, hold Lasix, hold Entresto, and hold spironolactone. 07/09/2021 interval history: patient is 71-year-old female with history of cardiomyopathy ejection fraction 25- 30%, history of chronic kidney disease stage 3-4, on last admission patient was respiratory arrest and was intubated, patient was discharged back to nursing and now presented with acute mental status and sore in her mouth, there are no vesicles or pustules, does not appear to be thrush, patient is being treated with nystatin and Magic mouthwash to reduce the symptoms increase oral intake, today her mouth lesions appear improved and able to tolerate PO, patient Scr is rising and patient is in metabolic acidosis in need of dialysis, patient had been refusing dialysis and on 07/07 patient family had agreed for dialysis, on 07/08 tunnel catheter was placed and patient had 1st dialysis and 500cc of fluids was removed, patient will have 2nd dialysis today, patient remains clinically stable will continue to monitor, patient is growing Karoline albicans and her urine will start the patient on Diflucan, patient will be seen by math and science instructor, will continue to monitor and further recommendation to follow, (2) Acute UTI: Code(s): N39.0 - Urinary tract infection, site not specified Status: Acute Assessment and Plan: -the patient is allergic to cephalosporin -Levaquin IV as per antibiotic stewardship, pharmacy was requested to renal dose. Which may mean that the patient may only get Levaquin every other day. -tailor antibiotics to the results of cultures. (3) Chronic HFrEF (heart failure with reduced ejection fraction): Code(s): I50.22 - Chronic systolic (congestive) heart failure Status: Chronic Assessment and Plan: -her echo on 12/21/2021 was read as the following? 1. Complete two-dimensional, color flow and Doppler transthoracic echocardiogram is performed. ? 2. Left ventricular chamber dimension is moderately enlarged. ? 3. Left ventricular systolic function is severely reduced, estimated at 25-30%. ? 4. Severe biatrial dilation. ? 5. Moderate mitral and tricuspid regurgitation. ? 6. Mild aortic regurgitation. ? 7. Atrial fibrillation. Lasix, spironolactone, and Entresto are all on hold at this time due to the renal failure. (4) Chronic atrial fibrillation: Code(s): I48.20 - Chronic atrial fibrillation, unspecified Status: Acute Assessment and Plan: -continue with metoprolol -she is rate controlled. -continue with Xarelto, may need to renally adjust (5) Mixed hyperlipidemia: Code(s): E78.2 - Mixed hyperlipidemia Status: Acute Assessment and Plan: -continue with rosuvastatin (6) Hypothyroidism: Code(s): E03.9 - Hypothyroidism, unspecified Status: Acute Assessment and Plan: -continue with levothyroxine (7) Essential hypertension: Code(s): I10 - Essential (primary) hypertension Status: Chronic Assessment and Plan: -hold Lasix, hold Entresto -continue with metoprolol Subjective Date/time seen: 07/09/22 12:03 07/09/2021 interval hi
[2022-07-09] MEDS: FLUCONAZOLE 100 MG TABLET PO (12:48)
--- NOTE | 2022-07-09 13:39 | PM.PNNEP ---
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 to GEOPHYSICAL SUPPORT SPECIALIST/dialysis HD catheter in place HD today follow repeat labs and UOP (on the hope for possible recovery) (2) Stage 3b chronic kidney disease: Code(s): N18.32 - Chronic kidney disease, stage 3b Status: Chronic Assessment and Plan: this has been present since at least 2019 baseline creatinine had been running ~ 1.4 - 1.8mg/d presumably secondary to hypertension, vascular disease (CAD, hyperlipidemia, CHF/cardiomyopathy leading to cardiorenal syndrome), chronic diuretic therapy and age HOWEVER, on last hospital discharge, creatinine was still in the 3ish range -- possible new baseline?? (3) Acute UTI: Code(s): N39.0 - Urinary tract infection, site not specified Status: Acute Assessment and Plan: urinalysis highly suggestive urine culture with Karoline on antifungal therapy (4) Chronic HFrEF (heart failure with reduced ejection fraction): Code(s): I50.22 - Chronic systolic (congestive) heart failure Status: Chronic Assessment and Plan: last Echo with EF ~ 25 - 30% appears relatively compensated at this time follow volume status closely (5) Atrial fibrillation: Code(s): I48.91 - Unspecified atrial fibrillation Status: Chronic Assessment and Plan: rate control strategy with metoprolol holding anticoagulation due to procedures okay to restart (6) Essential hypertension: Code(s): I10 - Essential (primary) hypertension Status: Chronic Assessment and Plan: BP on the soft side follow trend of hemodynamics Will continue to follow. Subjective Date/time seen: 07/09/22 13:39 Tolerating dialysis treatment at the time of my visit (see on HD at ~ 1:25PM); tolerated dialysis treatment and HD catheter olacement yesterday; no acute distress noted; no issues/events overnight or earlier this AM. Exam Narrative: General: chronically ill appearing female in NAD Heart: normal S1 and S2; no rub Lungs: clear anteriorly, decreased at bases Abdomen: soft, nontender, nondistended, positive bowel sounds Extremities: no cyanosis or clubbing; no edema Skin: multiple ecchymoses noted Objective Data Vital Signs Vital Signs: Vital Signs Temp Pulse Resp BP Pulse Ox O2 Del Method 07/09/22 13:25 99 126/94 H 07/09/22 13:05 111 H 104/48 L 07/09/22 12:55 97.7 F 101 H 16 114/41 L 07/09/22 12:00 97.8 F 104 H 18 105/50 L 100 07/09/22 12:00 Room Air 07/09/22 12:00 101 H 07/09/22 10:00 97 07/09/22 08:00 86 07/09/22 08:00 Room Air 07/09/22 08:00 96.8 F L 89 22 H 109/51 L 100 07/09/22 06:00 90 07/09/22 04:00 97.9 F 91 20 94/59 L 100 07/09/22 04:00 Room Air 07/09/22 04:00 81 07/09/22 02:00 85 07/09/22 00:00 93 07/09/22 00:00 Room Air 07/08/22 23:33 97.8 F 92 20 96/46 L 100 07/08/22 22:00 97 07/08/22 20:00 93 07/08/22 20:00 Room Air 07/08/22 20:00 97.7 F 91 20 104/53 L 98 07/08/22 18:00 87 07/08/22 18:36 84 07/08/22 16:00 94 07/08/22 16:25 96.7 F L 94 20 92/48 L 96 07/08/22 15:36 97.4 F L 84 16 94/54 L 07/08/22 15:25 92 95/50 L 07/08/22 15:10 99 92/49 L 07/08/22 14:50 84 92/54 L 07/08/22 14:30 81 98/64 L
--- NOTE | 2022-07-09 13:39 | P.PNNP_ITS ---
Progress Note: A&P Assessment and Plan (1) GAVI (acute kidney injury): Code(s): N17.9 - Acute kidney failure, unspecified Status: Acute Assessment and Plan: * suspect due to prerenal factors (poor oral intake) worsened by diuretics and BP medications * unfortunately, no significant improvement with trial of IVFs * evaluation to date: * urine electrolytes prerenal * worsening proteinuria * serologies ordered (but previous testing on last hospitalization already noted) * concerning trend of labs -- rising BUN and creatinine, metabolic acidosis, and hyperkalemia * agreed to DENTAL CHAIRSIDE ASSISTANT/dialysis * HD catheter in place * HD today * follow repeat labs and UOP (on the hope for possible recovery) (2) Stage 3b chronic kidney disease: Code(s): N18.32 - Chronic kidney disease, stage 3b Status: Chronic Assessment and Plan: * this has been present since at least 2019 * baseline creatinine had been running ~ 1.4 - 1.8mg/d * presumably secondary to hypertension, vascular disease (CAD, hyperlipidemia, CHF/cardiomyopathy leading to cardiorenal syndrome), chronic diuretic therapy and age * HOWEVER, on last hospital discharge, creatinine was still in the 3ish range -- possible new baseline?? (3) Acute UTI: Code(s): N39.0 - Urinary tract infection, site not specified Status: Acute Assessment and Plan: * urinalysis highly suggestive * urine culture with Karoline * on antifungal therapy (4) Chronic HFrEF (heart failure with reduced ejection fraction): Code(s): I50.22 - Chronic systolic (congestive) heart failure Status: Chronic Assessment and Plan: * last Echo with EF ~ 25 - 30% * appears relatively compensated at this time * follow volume status closely (5) Atrial fibrillation: Code(s): I48.91 - Unspecified atrial fibrillation Status: Chronic Assessment and Plan: * rate control strategy with metoprolol * holding anticoagulation due to procedures * okay to restart (6) Essential hypertension: Code(s): I10 - Essential (primary) hypertension Status: Chronic Assessment and Plan: * BP on the soft side * follow trend of hemodynamics Will continue to follow. Subjective Date/time seen: 07/09/22 13:39 Tolerating dialysis treatment at the time of my visit (see on HD at ~ 1:25PM); tolerated dialysis treatment and HD catheter olacement yesterday; no acute distress noted; no issues/events overnight or earlier this AM. Exam Narrative: General: chronically ill appearing female in NAD Heart: normal S1 and S2; no rub Lungs: clear anteriorly, decreased at bases Abdomen: soft, nontender, nondistended, positive bowel sounds Extremities: no cyanosis or clubbing; no edema Skin: multiple ecchymoses noted Objective Data Vital Signs Vital Signs: Vital Signs Temp Pulse Resp BP Pulse Ox O2 Del Method 07/09/22 13:25 99 126/94 H 07/09/22 13:05 111 H 104/48 L 07/09/22 12:55 97.7 F 101 H 16 114/41 L 07/09/22 12:00 97.8 F 104 H 18 105/50 L 100 07/09/22 12:00 Room Air 07/09/22 12:00 101 H 07/09/22 10:00 97 07/09/22 08:00 86 07/09/22 08:00 Room Air 07/09/22 08:00 96.8 F L 89 22 H 109/51 L 100 07/09/22 06:00 90
--- NOTE | 2022-07-09 14:36 | WPDANESPN ---
Anes - Prog Note Post-Op Date/Time: 07/09/22 14:36 Vital Signs: Last Vital Signs Temp 36.5 C 07/09/22 12:55 Pulse 100 07/09/22 14:10 Resp 16 07/09/22 12:55 BP 121/56 L 07/09/22 14:10 Pulse Ox 100 07/09/22 12:00 O2 Del Method Room Air 07/09/22 12:00 O2 Flow Rate 5 07/08/22 12:45 Pain Score (VAS): 0 I/O: Intake & Output 07/08/22 07/09/22 07/09/22 23:59 07:59 15:59 Intake Total 120 Output Total 100 50 Balance -100 -50 120 Laboratory Tests 07/09/22 04:56 07/09/22 04:56 07/09/22 07/09/22 07/09/22 04:56 04:56 13:45 WBC 8.5 RBC 3.79 L Hgb 11.5 L Hct 35.5 L MCV 93.7 MCH 30.3 MCHC 32.4 RDW 20.1 H Plt Count 55 L MPV TNP % Immature Plt Fraction 10.6 Sodium 139 Potassium 3.9 Chloride 104 Carbon Dioxide 23 Anion Gap 12 BUN 104 H D Creatinine 4.90 H Estim Creat Clear Calc 10 Estimated GFR 9 L Glucose 138 H Calcium 7.8 L Phosphorus 6.2 H Magnesium 2.2 Albumin 2.9 L Hep B Core Total Ab Pending Patient Feedback: Patient satisfied with anesthetic care.
[2022-07-09] MEDS: SODIUM CHLORIDE 0.9% IV 1,000 ML 999 ML IV CONT (14:46)
[2022-07-09] MEDS: RIVAROXABAN 20 MG TABLET PO (17:38)
--- NOTE | 2022-07-09 18:31 | PC.NURSE ---
This patient, Jyotsna Allred, was received from [[facility]] on 07/09/22 at 1820. Patient/family oriented to unit policies and routines. REPORT FROM NICOLA
--- NOTE | 2022-07-09 18:40 | PC.NURSE ---
This patient, Jyotsna Allred, was transferred to [[id number] ] on 07/09/22 at 1825. Personal belongings sent with patient. Report given to [Shantel BUNN ]. Appropriate documentation sent with patient.
[2022-07-09 18:51] LABS: Anti Streptolysin O Screen 77 IU/mL (<200)
[2022-07-09 18:55] LABS: SM Antibody <1.0; SM/RNP Antibody <1.0
[2022-07-09] MEDS: METOPROLOL TARTRATE 25 MG TABLET PO (20:12)
[2022-07-09] MEDS: lamoTRIgine 100 MG TABLET PO (20:13)
[2022-07-09] MEDS: SERTRALINE HCL 50 MG TABLET 150 MG PO (20:17)
[2022-07-09] MEDS: SODIUM CHLORIDE NASAL GEL 14.1 GM 1 APPLIC NASAL (20:17)
[2022-07-10] VITALS (18 sets, daily range): BP systolic 99–121; BP diastolic 45–71; PULSE 78–106; RESP 16–18; TEMP 35.8–36.8; O2SAT 97–99
[2022-07-10] MEDS: LEVOTHYROXINE SODIUM 125 MCG TABLET PO (05:33)
[2022-07-10] MEDS: MAGNES & ALUM HYD/SIMETH/DIPHENHYD/LIDOCAINE 119 ML MOUTHWASH BY MOUTH ×5 (05:33→20:11)
[2022-07-10] MEDS: lamoTRIgine 50 MG TABLET PO (10:22)
[2022-07-10] MEDS: SERTRALINE HCL 50 MG TABLET PO (10:22)
[2022-07-10] MEDS: NYSTATIN 100,000 UNITS/ML SUSP 5 ML ORAL.SUSP PO ×4 (10:25→20:13)
[2022-07-10] MEDS: BENZOCAINE 20% DENTAL GEL 9 GM TUBE 1 APPLIC TOPICAL ×3 (10:29→17:45)
--- NOTE | 2022-07-10 11:38 | PM.IMPN ---
Progress Note: A&P Assessment and Plan (1) Acute on chronic renal failure: Code(s): N17.9 - Acute kidney failure, unspecified; N18.9 - Chronic kidney disease, unspecified Status: Acute Assessment and Plan: -her BUN is 127 creatinine 5.8 today. Her baseline creatinine is somewhere between 2.8 and 3.2. -Dr. Toro has been consulted for further recommendations. -the patient has been on Entresto which could lead to renal failure. -also could be pre renal azotemia as the patient has had poor oral oral intake due to her mouth sores. -her potassium is 5.5. -repeat BMP after IV fluids to see if her potassium has come down any. If not then I will treat accordingly. -renal ultrasound from 06/23/2022 was read as moderate right renal atrophy bilateral renal scarring moderate ascites. -hold nephrotoxic medications. Hold allopurinol, hold Lasix, hold Entresto, and hold spironolactone. 07/10/2021 interval history: patient is 71-year-old female with history of cardiomyopathy ejection fraction 25- 30%, history of chronic kidney disease stage 3-4, on last admission patient was respiratory arrest and was intubated, patient was discharged back to nursing and now presented with acute mental status and sore in her mouth, there are no vesicles or pustules, does not appear to be thrush, patient is being treated with nystatin and Magic mouthwash to reduce the symptoms increase oral intake, today her mouth lesions appear improved and able to tolerate PO, patient Scr is rising and patient is in metabolic acidosis in need of dialysis, patient had been refusing dialysis and on 07/07 patient family had agreed for dialysis, on 07/08 tunnel catheter was placed and patient had 1st dialysis and 500cc of fluids was removed, patient had 2nd dialysis on 07/09 again today paptient will have 3rd dailysis, I have ordered Hepatitis B core total ab, once result are back, will plan for outpatient dialysis, patient remains clinically stable will continue to monitor, patient is growing Karoline albicans and her urine will start the patient on Diflucan, patient will be seen by model and dye person, will continue to monitor and further recommendation to follow, (2) Acute UTI: Code(s): N39.0 - Urinary tract infection, site not specified Status: Acute Assessment and Plan: -the patient is allergic to cephalosporin -Levaquin IV as per antibiotic stewardship, pharmacy was requested to renal dose. Which may mean that the patient may only get Levaquin every other day. -tailor antibiotics to the results of cultures. (3) Chronic HFrEF (heart failure with reduced ejection fraction): Code(s): I50.22 - Chronic systolic (congestive) heart failure Status: Chronic Assessment and Plan: -her echo on 12/21/2021 was read as the following? 1. Complete two-dimensional, color flow and Doppler transthoracic echocardiogram is performed. ? 2. Left ventricular chamber dimension is moderately enlarged. ? 3. Left ventricular systolic function is severely reduced, estimated at 25-30%. ? 4. Severe biatrial dilation. ? 5. Moderate mitral and tricuspid regurgitation. ? 6. Mild aortic regurgitation. ? 7. Atrial fibrillation. Lasix, spironolactone, and Entresto are all on hold at this time due to the renal failure. (4) Chronic atrial fibrillation: Code(s): I48.20 - Chronic atrial fibrillation, unspecified Status: Acute Assessment and Plan: -continue with metoprolol -she is rate controlled. -continue with Xarelto, may need to renally adjust (5) Mixed hyperlipidemia: Code(s): E78.2 - Mixed hyperlipidemia Status: Acute Assessment and Plan: -continue with rosuvastatin (6) Hypothyroidism: Code(s): E03.9 - Hypothyroidism, unspecified Status: Acute Assessment and Plan: -continue with levothyroxine (7) Essential hypertension: Code(s): I10 - Essential (primary) hypertension Status: Chronic Assess
[2022-07-10] MEDS: FLUCONAZOLE 100 MG TABLET PO (12:40)
[2022-07-10 13:43] LABS: Osmolality, Urine 363 mOsm/kg (50-1200)
[2022-07-10] MEDS: SODIUM CHLORIDE 0.9% IV 1,000 ML 999 ML IV CONT (14:31)
--- NOTE | 2022-07-10 15:50 | P.PNNP_ITS ---
Progress Note: A&P Assessment and Plan (1) GAVI (acute kidney injury): Code(s): N17.9 - Acute kidney failure, unspecified Status: Acute Assessment and Plan: * suspect due to prerenal factors (poor oral intake) worsened by diuretics and BP medications * unfortunately, no significant improvement with trial of IVFs * evaluation to date: * urine electrolytes prerenal * worsening proteinuria * serologies ordered (but previous testing on last hospitalization already noted) * concerning trend of labs -- rising BUN and creatinine, metabolic acidosis, and hyperkalemia * agreed to [employer] SAL[employer]/dialysis * HD catheter in place * HD today * follow repeat labs and UOP (on the hope for possible recovery) (2) Stage 3b chronic kidney disease: Code(s): N18.32 - Chronic kidney disease, stage 3b Status: Chronic Assessment and Plan: * this has been present since at least 2019 * baseline creatinine had been running ~ 1.4 - 1.8mg/d * presumably secondary to hypertension, vascular disease (CAD, hyperlipidemia, CHF/cardiomyopathy leading to cardiorenal syndrome), chronic diuretic therapy and age * HOWEVER, on last hospital discharge, creatinine was still in the 3ish range -- possible new baseline?? (3) Acute UTI: Code(s): N39.0 - Urinary tract infection, site not specified Status: Acute Assessment and Plan: * urinalysis highly suggestive * urine culture with Karoline * on antifungal therapy (4) Chronic HFrEF (heart failure with reduced ejection fraction): Code(s): I50.22 - Chronic systolic (congestive) heart failure Status: Chronic Assessment and Plan: * last Echo with EF ~ 25 - 30% * appears relatively compensated at this time * follow volume status closely (5) Atrial fibrillation: Code(s): I48.91 - Unspecified atrial fibrillation Status: Chronic Assessment and Plan: * rate control strategy with metoprolol * holding anticoagulation due to procedures * okay to restart (6) Essential hypertension: Code(s): I10 - Essential (primary) hypertension Status: Chronic Assessment and Plan: * BP on the soft side * follow trend of hemodynamics Will continue to follow. Subjective Date/time seen: 07/10/22 15:50 Patient tolerating hemodialysis treatment at the time of my visit (seen on HD at 3:30PM); appears to be doing reasonably well with dialysis treatments in general (day #3); breathing/respiratory status stable if not better; no other acute complaints voiced. Exam Narrative: General: chronically ill appearing female in NAD Heart: normal S1 and S2; no rub Lungs: clear anteriorly, decreased at bases Abdomen: soft, nontender, nondistended, positive bowel sounds Extremities: no cyanosis or clubbing; no edema Skin: multiple ecchymoses resolving Objective Data Vital Signs Vital Signs: Vital Signs - 24 hr 07/09/22 16:05 07/09/22 16:14 07/09/22 16:00 Temperature 97.6 F Pulse Rate 113 H 107 H 111 H Respiratory Rate 18 Blood Pressure 105/51 L 110/39 L Pulse Oximetry Oxygen Delivery 07/09/22 16:00 07/09/22 18:00 07/09/22 20:12 Temperature 97.6 F Pulse Rate 105 H 103 H 83 Respiratory Rate 22 H Blood Pressure 107/47 L Pulse Oximetry 100 Oxygen Delivery
--- NOTE | 2022-07-10 15:50 | PM.PNNEP ---
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 to SENIOR SOFTWARE ENGINEERING MANAGER/dialysis HD catheter in place HD today follow repeat labs and UOP (on the hope for possible recovery) (2) Stage 3b chronic kidney disease: Code(s): N18.32 - Chronic kidney disease, stage 3b Status: Chronic Assessment and Plan: this has been present since at least 2019 baseline creatinine had been running ~ 1.4 - 1.8mg/d presumably secondary to hypertension, vascular disease (CAD, hyperlipidemia, CHF/cardiomyopathy leading to cardiorenal syndrome), chronic diuretic therapy and age HOWEVER, on last hospital discharge, creatinine was still in the 3ish range -- possible new baseline?? (3) Acute UTI: Code(s): N39.0 - Urinary tract infection, site not specified Status: Acute Assessment and Plan: urinalysis highly suggestive urine culture with Karoline on antifungal therapy (4) Chronic HFrEF (heart failure with reduced ejection fraction): Code(s): I50.22 - Chronic systolic (congestive) heart failure Status: Chronic Assessment and Plan: last Echo with EF ~ 25 - 30% appears relatively compensated at this time follow volume status closely (5) Atrial fibrillation: Code(s): I48.91 - Unspecified atrial fibrillation Status: Chronic Assessment and Plan: rate control strategy with metoprolol holding anticoagulation due to procedures okay to restart (6) Essential hypertension: Code(s): I10 - Essential (primary) hypertension Status: Chronic Assessment and Plan: BP on the soft side follow trend of hemodynamics Will continue to follow. Subjective Date/time seen: 07/10/22 15:50 Patient tolerating hemodialysis treatment at the time of my visit (seen on HD at 3:30PM); appears to be doing reasonably well with dialysis treatments in general (day #3); breathing/respiratory status stable if not better; no other acute complaints voiced. Exam Narrative: General: chronically ill appearing female in NAD Heart: normal S1 and S2; no rub Lungs: clear anteriorly, decreased at bases Abdomen: soft, nontender, nondistended, positive bowel sounds Extremities: no cyanosis or clubbing; no edema Skin: multiple ecchymoses resolving Objective Data Vital Signs Vital Signs: Vital Signs - 24 hr 07/09/22 16:05 07/09/22 16:14 07/09/22 16:00 Temperature 97.6 F Pulse Rate 113 H 107 H 111 H Respiratory Rate 18 Blood Pressure 105/51 L 110/39 L Pulse Oximetry Oxygen Delivery 07/09/22 16:00 07/09/22 18:00 07/09/22 20:12 Temperature 97.6 F Pulse Rate 105 H 103 H 83 Respiratory Rate 22 H Blood Pressure 107/47 L Pulse Oximetry 100 Oxygen Delivery 07/09/22 20:05 07/09/22 22:00 07/10/22 00:00 Temperature 96.6 F L Pulse Rate 97 55 L 84 Respiratory Rate 16 Blood Pressure 101/41 L Pulse Oximetry 99 Oxygen Delivery 07/10/22 04:00 07/10/22 06:00 07/10/22 08:00 Temperature 96.5 F L Pulse Rate 81 78 Respiratory Rate 16 Blood Pressure 102/68 Pulse Oximetry 99 Oxygen Delivery Room Air 07/10/22 14:00 07/10/22 13:54 Temperature 97 F L 97.8 F Pulse Rate 86 96 Respiratory Rate 18 16 Blood Pressure 105/45 L 99/71 L Pulse Oximetry 97 Oxygen Delivery Intake/Output Intake/Output: Intake & Output 07/07/22 07/08/22 07/09/22 07/10/22 23:59 23:59 23:59 23:59 I
[2022-07-10 16:23] LABS: Basophils Percent Auto 0.1 % (0.2-1.2); Eosinophils Absolute Auto 0.1 K/mm3 (0-0.3); Eosinophils Percent Auto 0.6 % (0-4.4); Hematocrit 39.1 % (37.0-47.0); Hemoglobin 12.4 g/dL (12.0-15.0); Immature Granulocyte Absolute 0.05 K/mm3 (0.00-0.031); Immature Granulocyte Percent A 0.6 % (0-0.5); Immature Platelet Fraction Pct 12.1 % (0.9-11.2); Lymphocytes Absolute Auto 0.17 K/mm3 (0.9-3.2); Lymphocytes Percent Auto 2.2 % (18.3-44.2); Mean Corpuscular HGB Conc 31.7 g/dl (32-36); Mean Corpuscular Hemoglobin 29.9 pg (26-34); Mean Corpuscular Volume 94.2 fl (80-100); Monocytes Absolute Auto 0.2 K/mm3 (0.1-0.6); Neutrophils Absolute Auto 7.5 K/mm3 (1.3-6.7); Neutrophils Percent Auto 94.5 % (45.5-73.1); Nucleated Red Blood Cells Perc 0.5 % (0.0-0.2); Platelet Count Result 50 k/mm3 (150-375); Red Blood Count 4.15 M/mm3 (4.2-5.4); Red Cell Distribution Width 20.3 % (11.5-14.5); White Blood Count 7.9 K/mm3 (4.5-10.0)
[2022-07-10 16:38] LABS: Albumin Level 3.6 g/dL (3.5-5.1); Anion Gap 8 mmol/L (8-16); Blood Urea Nitrogen 25 mg/dL (7-17); Calcium 8.3 mg/dL (8.4-10.2); Carbon Dioxide 28 mmol/L (22-30); Chloride 101 mmol/L (98-107); Estimated CRCL calculation 27 ml/min; Estimated Glomerular Filt Rate 30; Glucose 122 mg/dL (65-110); Phosphorus 2.5 mg/dL (2.5-4.5); Potassium 3.3 mmol/L (3.4-5.0); Sodium 137 mmol/L (137-145)
[2022-07-10 16:49] LABS: Hypochromasia 1+ (NORMAL); Platelet Estimate Decreased (Adequate); Schistocytes None Seen (NORMAL)
[2022-07-10 16:50] LABS: Anisocytosis 3+ (NORMAL)
[2022-07-10 17:37] LABS: Albumin 3.4 g/dL (3.8-4.8); Alpha 1 Globulin 0.4 g/dL (0.2-0.3); Alpha 2 Globulin 0.4 g/dL (0.5-0.9); Beta 1 Globulin 0.4 g/dL (0.4-0.6); Gamma Globulin 0.8 g/dL (0.8-1.7); Protein, Total 5.7 g/dL (6.1-8.1)
[2022-07-10] MEDS: RIVAROXABAN 20 MG TABLET PO (17:45)
[2022-07-10] MEDS: SALIVA SUBSTITUTE RINSE 473 ML BOTTLE 15 ML PO (17:51)
[2022-07-10 18:04] LABS: Complement Total CH50 35 U/mL (31-60)
[2022-07-10] MEDS: ACETAMINOPHEN 325 MG TABLET 650 MG PO (18:20)
[2022-07-10] MEDS: lamoTRIgine 100 MG TABLET PO (20:11)
[2022-07-10] MEDS: METOPROLOL TARTRATE 25 MG TABLET PO (20:12)
[2022-07-10] MEDS: SODIUM CHLORIDE NASAL GEL 14.1 GM 1 APPLIC NASAL (20:14)
[2022-07-10] MEDS: SERTRALINE HCL 50 MG TABLET 150 MG PO (20:14)
[2022-07-11] VITALS (11 sets, daily range): BP systolic 96–110; BP diastolic 46–65; PULSE 68–98; RESP 16–18; TEMP 36.2–36.6; O2SAT 97–100
[2022-07-11] MEDS: LEVOTHYROXINE SODIUM 125 MCG TABLET PO (06:13)
[2022-07-11 06:33] LABS: Hematocrit 37.4 % (37.0-47.0); Hemoglobin 11.7 g/dL (12.0-15.0); Immature Platelet Fraction Pct 13.4 % (0.9-11.2); Mean Corpuscular HGB Conc 31.3 g/dl (32-36); Mean Corpuscular Hemoglobin 30.2 pg (26-34); Mean Corpuscular Volume 96.4 fl (80-100); Platelet Count Result 47 k/mm3 (150-375); Red Blood Count 3.88 M/mm3 (4.2-5.4); Red Cell Distribution Width 20.5 % (11.5-14.5); White Blood Count 6.4 K/mm3 (4.5-10.0)
[2022-07-11 06:50] LABS: Albumin Level 3.1 g/dL (3.5-5.1); Anion Gap 6 mmol/L (8-16); Blood Urea Nitrogen 33 mg/dL (7-17); Carbon Dioxide 26 mmol/L (22-30); Chloride 105 mmol/L (98-107); Estimated CRCL calculation 19 ml/min; Estimated Glomerular Filt Rate 19; Glucose 120 mg/dL (65-110); Magnesium 2.1 mg/dL (1.6-2.3); Phosphorus 3.8 mg/dL (2.5-4.5); Potassium 3.8 mmol/L (3.4-5.0); Sodium 137 mmol/L (137-145)
[2022-07-11] MEDS: allopurinoL 100 MG TABLET PO (08:13)
[2022-07-11] MEDS: ASCORBIC ACID 500 MG TABLET 1000 MG PO (08:13)
[2022-07-11] MEDS: FERROUS SULFATE 324 MG TABLET PO (08:13)
[2022-07-11] MEDS: CHOLECALCIFEROL 400 UNITS TABLET (VIT D) PO (08:14)
[2022-07-11] MEDS: METOPROLOL TARTRATE 25 MG TABLET PO ×2 (08:14→21:14)
[2022-07-11] MEDS: SERTRALINE HCL 50 MG TABLET PO (08:14)
[2022-07-11] MEDS: NYSTATIN 100,000 UNITS/ML SUSP 5 ML ORAL.SUSP PO (08:14)
[2022-07-11] MEDS: PANTOPRAZOLE 40 MG TABLET PO (08:14)
[2022-07-11] MEDS: PYRIDOXINE HCL 50 MG TABLET PO (08:14)
[2022-07-11] MEDS: ROSUVASTATIN 10 MG TABLET PO (08:14)
[2022-07-11] MEDS: lamoTRIgine 50 MG TABLET PO (08:14)
[2022-07-11] MEDS: SODIUM BICARBONATE TAB 650 MG TABLET PO (08:14)
[2022-07-11] MEDS: MAGNES & ALUM HYD/SIMETH/DIPHENHYD/LIDOCAINE 119 ML MOUTHWASH BY MOUTH ×4 (08:15→21:13)
[2022-07-11] MEDS: CYANOCOBALAMIN 500 MCG TABLET PO (08:16)
[2022-07-11] MEDS: BENZOCAINE 20% DENTAL GEL 9 GM TUBE 1 APPLIC TOPICAL ×3 (08:16→17:04)
[2022-07-11] MEDS: ACYCLOVIR 5% OINTMENT 15 GM TUBE 1 APPLIC TOPICAL ×4 (12:19→21:11)
[2022-07-11] MEDS: FLUCONAZOLE 100 MG TABLET PO (12:19)
[2022-07-11] MEDS: ACYCLOVIR 400 MG TABLET PO ×2 (12:19→17:05)
--- NOTE | 2022-07-11 12:52 | PM.IMPN ---
Progress Note: A&P Assessment and Plan (1) Acute on chronic renal failure: Code(s): N17.9 - Acute kidney failure, unspecified; N18.9 - Chronic kidney disease, unspecified Status: Acute Assessment and Plan: -her BUN is 127 creatinine 5.8 today. Her baseline creatinine is somewhere between 2.8 and 3.2. -Dr. Toro has been consulted for further recommendations. -the patient has been on Entresto which could lead to renal failure. -also could be pre renal azotemia as the patient has had poor oral oral intake due to her mouth sores. -her potassium is 5.5. -repeat BMP after IV fluids to see if her potassium has come down any. If not then I will treat accordingly. -renal ultrasound from 06/23/2022 was read as moderate right renal atrophy bilateral renal scarring moderate ascites. -hold nephrotoxic medications. Hold allopurinol, hold Lasix, hold Entresto, and hold spironolactone. 07/11/2021 interval history: patient is 71-year-old female with history of cardiomyopathy ejection fraction 25- 30%, history of chronic kidney disease stage 3-4, on last admission patient was respiratory arrest and was intubated, patient was discharged back to nursing and now presented with acute mental status and sore in her mouth, there are no vesicles or pustules, does not appear to be thrush, patient is being treated with nystatin and Magic mouthwash to reduce the symptoms increase oral intake, today her mouth lesions appear improved and able to tolerate PO, patient Scr is rising and patient is in metabolic acidosis in need of dialysis, patient had been refusing dialysis and on 07/07 patient family had agreed for dialysis, on 07/08 tunnel catheter was placed and patient had 1st dialysis and 500cc of fluids was removed, patient had 2nd dialysis on 07/09 again on 07/10 patient had 3rd dailysis, I have ordered Hepatitis B core total ab, once result are back, will plan for outpatient dialysis, patient remains clinically stable will continue to monitor, patient sores on lips and buccal mucosa are not improving and etiology is not certain as there are no pustules or vesicles, however we will start patient on acyclovir, patient is growing Karoline albicans and her urine will start the patient on Diflucan, patient will be seen by roller inspector and mender, will continue to monitor and further recommendation to follow, (2) Acute UTI: Code(s): N39.0 - Urinary tract infection, site not specified Status: Acute Assessment and Plan: -the patient is allergic to cephalosporin -Levaquin IV as per antibiotic stewardship, pharmacy was requested to renal dose. Which may mean that the patient may only get Levaquin every other day. -tailor antibiotics to the results of cultures. (3) Chronic HFrEF (heart failure with reduced ejection fraction): Code(s): I50.22 - Chronic systolic (congestive) heart failure Status: Chronic Assessment and Plan: -her echo on 12/21/2021 was read as the following? 1. Complete two-dimensional, color flow and Doppler transthoracic echocardiogram is performed. ? 2. Left ventricular chamber dimension is moderately enlarged. ? 3. Left ventricular systolic function is severely reduced, estimated at 25-30%. ? 4. Severe biatrial dilation. ? 5. Moderate mitral and tricuspid regurgitation. ? 6. Mild aortic regurgitation. ? 7. Atrial fibrillation. Lasix, spironolactone, and Entresto are all on hold at this time due to the renal failure. (4) Chronic atrial fibrillation: Code(s): I48.20 - Chronic atrial fibrillation, unspecified Status: Acute Assessment and Plan: -continue with metoprolol -she is rate controlled. -continue with Xarelto, may need to renally adjust (5) Mixed hyperlipidemia: Code(s): E78.2 - Mixed hyperlipidemia Status: Acute Assessment and Plan: -continue with rosuvastatin (6) Hypothyroidism: Code(s): E03.9 - Hypothyroidism, unspecified Status: Acute Assessmen
--- NOTE | 2022-07-11 14:29 | P.PNNP_ITS ---
Progress Note: A&P Assessment and Plan (1) GAVI (acute kidney injury): Code(s): N17.9 - Acute kidney failure, unspecified Status: Acute Assessment and Plan: * suspect due to prerenal factors (poor oral intake) worsened by diuretics and BP medications * unfortunately, no significant improvement with trial of IVFs * evaluation to date: * urine electrolytes prerenal * worsening proteinuria * serologies ordered (but previous testing on last hospitalization already noted) * concerning trend of labs -- rising BUN and creatinine, metabolic acidosis, and hyperkalemia * agreed to [employer]/dialysis * HD catheter in place * plan next HD treatment tomorrow * continue TTS schedule for now * suspect will need outpatient HD on discharge * follow repeat labs and UOP (on the hope for possible recovery) (2) Stage 3b chronic kidney disease: Code(s): N18.32 - Chronic kidney disease, stage 3b Status: Chronic Assessment and Plan: * this has been present since at least 2019 * baseline creatinine had been running ~ 1.4 - 1.8mg/d * presumably secondary to hypertension, vascular disease (CAD, hyperlipidemia, CHF/cardiomyopathy leading to cardiorenal syndrome), chronic diuretic therapy and age * HOWEVER, on last hospital discharge, creatinine was still in the 3ish range -- possible new baseline?? (3) Acute UTI: Code(s): N39.0 - Urinary tract infection, site not specified Status: Acute Assessment and Plan: * urinalysis highly suggestive * urine culture with Karoline * on antifungal therapy (4) Chronic HFrEF (heart failure with reduced ejection fraction): Code(s): I50.22 - Chronic systolic (congestive) heart failure Status: Chronic Assessment and Plan: * last Echo with EF ~ 25 - 30% * appears relatively compensated at this time * follow volume status closely * fluid removal with HD (5) Atrial fibrillation: Code(s): I48.91 - Unspecified atrial fibrillation Status: Chronic Assessment and Plan: * rate control strategy with metoprolol * on anticoagulation (6) Essential hypertension: Code(s): I10 - Essential (primary) hypertension Status: Chronic Assessment and Plan: * BP on the soft side * follow trend of hemodynamics Will continue to follow. Subjective Date/time seen: 07/11/22 14:29 Tolerated dialysis treatment yesterday without any issues or problems; no apparent distress voiced at the time of my visit; feels weak and tired but better in general; no other issues/events overnight or earlier this AM. Exam Narrative: General: chronically ill appearing female in NAD Heart: normal S1 and S2; no rub Lungs: clear anteriorly, decreased at bases Abdomen: soft, nontender, nondistended, positive bowel sounds Extremities: no cyanosis or clubbing; no edema Skin: multiple ecchymoses present Objective Data Vital Signs Vital Signs: Vital Signs Temp Pulse Resp BP Pulse Ox O2 Del Method 07/11/22 14:00 97.9 F 82 18 110/57 L 100 07/11/22 08:14 68 07/11/22 06:00 97.1 F L 89 18 110/65 97 07/11/22 04:00 87 07/11/22 00:00 81 07/10/22 22:00 96.9 F L 83 18 106/57 L 98 07/10/22 20:15 87 07/10/22 20:12 106 H 07/10/22 17:10 98.2 F 87 16 104/60
--- NOTE | 2022-07-11 14:29 | PM.PNNEP ---
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 to UNIFORMER/dialysis HD catheter in place plan next HD treatment tomorrow continue TTS schedule for now suspect will need outpatient HD on discharge follow repeat labs and UOP (on the hope for possible recovery) (2) Stage 3b chronic kidney disease: Code(s): N18.32 - Chronic kidney disease, stage 3b Status: Chronic Assessment and Plan: this has been present since at least 2019 baseline creatinine had been running ~ 1.4 - 1.8mg/d presumably secondary to hypertension, vascular disease (CAD, hyperlipidemia, CHF/cardiomyopathy leading to cardiorenal syndrome), chronic diuretic therapy and age HOWEVER, on last hospital discharge, creatinine was still in the 3ish range -- possible new baseline?? (3) Acute UTI: Code(s): N39.0 - Urinary tract infection, site not specified Status: Acute Assessment and Plan: urinalysis highly suggestive urine culture with Karoline on antifungal therapy (4) Chronic HFrEF (heart failure with reduced ejection fraction): Code(s): I50.22 - Chronic systolic (congestive) heart failure Status: Chronic Assessment and Plan: last Echo with EF ~ 25 - 30% appears relatively compensated at this time follow volume status closely fluid removal with HD (5) Atrial fibrillation: Code(s): I48.91 - Unspecified atrial fibrillation Status: Chronic Assessment and Plan: rate control strategy with metoprolol on anticoagulation (6) Essential hypertension: Code(s): I10 - Essential (primary) hypertension Status: Chronic Assessment and Plan: BP on the soft side follow trend of hemodynamics Will continue to follow. Subjective Date/time seen: 07/11/22 14:29 Tolerated dialysis treatment yesterday without any issues or problems; no apparent distress voiced at the time of my visit; feels weak and tired but better in general; no other issues/events overnight or earlier this AM. Exam Narrative: General: chronically ill appearing female in NAD Heart: normal S1 and S2; no rub Lungs: clear anteriorly, decreased at bases Abdomen: soft, nontender, nondistended, positive bowel sounds Extremities: no cyanosis or clubbing; no edema Skin: multiple ecchymoses present Objective Data Vital Signs Vital Signs: Vital Signs Temp Pulse Resp BP Pulse Ox O2 Del Method 07/11/22 14:00 97.9 F 82 18 110/57 L 100 07/11/22 08:14 68 07/11/22 06:00 97.1 F L 89 18 110/65 97 07/11/22 04:00 87 07/11/22 00:00 81 07/10/22 22:00 96.9 F L 83 18 106/57 L 98 07/10/22 20:15 87 07/10/22 20:12 106 H 07/10/22 17:10 98.2 F 87 16 104/60 07/10/22 17:00 91 107/61 07/10/22 16:30 95 119/60 Intake/Output Intake/Output: Intake & Output 07/08/22 07/09/22 07/10/22 07/11/22 23:59 23:59 23:59 23:59 Intake Total 535 542 4520 410 Output Total 1500 2150 1503 0 Balance -1250 -1440 -83 410 Meds/Results Medications: Active Medications Generic Name Dose Route Start Last Admin Trade Name Freq PRN Reason Stop Dose Admin Acetaminophen 650 mg 07/10/22 17:53 07/10/22 18:20 Acetaminophen 325 Mg Tablet PO 650 mg Q6H PRN Administration Mild Pain (1-3) or Fever Acyclovir 400 mg 07/11/22 13:00 07/11/22 12:19 Acyclovir 400 Mg Tablet PO 400 mg
--- NOTE | 2022-07-11 15:16 | PCOTNOTE ---
Attempted OT evaluation. Patient declined due to just working with PT. Will continue to attempt.
[2022-07-11 15:23] LABS: Chloride Rand Ur 25 mmol/L (32-290); Chloride/Creatinine Rand Ur 40 (38-318); Creatinine Random Urine 62 mg/dL (20-275)
[2022-07-11] MEDS: RIVAROXABAN 20 MG TABLET PO (17:05)
--- NOTE | 2022-07-11 18:06 | PC.NURSE ---
This patient, Jyotsna Allred, was admitted to [facility] Surg Room 329-01. Patient/family oriented to hospital policies and general routines including ID bracelet, bed and alarms, visiting hours, pain management, procedures, bathroom and other care routines, personal items, smoking policy, room service/diet, and visiting hours. Information on how to activate the Rapid Response Team has been discussed. Patient/Family are encouraged to report perceived risks to care and to ask questions if they do not understand what they are told or what they should do.
[2022-07-11] MEDS: SERTRALINE HCL 50 MG TABLET 150 MG PO (21:12)
[2022-07-11] MEDS: SODIUM CHLORIDE NASAL GEL 14.1 GM 1 APPLIC NASAL (21:16)
[2022-07-11] MEDS: lamoTRIgine 100 MG TABLET PO (21:20)
[2022-07-12] VITALS (19 sets, daily range): BP systolic 100–130; BP diastolic 52–93; PULSE 72–94; RESP 16–20; TEMP 36–36.8; O2SAT 98–100
[2022-07-12] MEDS: MAGNES & ALUM HYD/SIMETH/DIPHENHYD/LIDOCAINE 119 ML MOUTHWASH BY MOUTH ×6 (01:44→20:38)
[2022-07-12] MEDS: LEVOTHYROXINE SODIUM 125 MCG TABLET PO (05:45)
[2022-07-12 06:41] LABS: Hematocrit 38.6 % (37.0-47.0); Hemoglobin 11.8 g/dL (12.0-15.0); Immature Platelet Fraction Pct 14.5 % (0.9-11.2); Mean Corpuscular HGB Conc 30.6 g/dl (32-36); Mean Corpuscular Hemoglobin 30.5 pg (26-34); Mean Corpuscular Volume 99.7 fl (80-100); Platelet Count Result 51 k/mm3 (150-375); Red Blood Count 3.87 M/mm3 (4.2-5.4); Red Cell Distribution Width 20.6 % (11.5-14.5); White Blood Count 6.9 K/mm3 (4.5-10.0)
[2022-07-12 06:50] LABS: Albumin Level 3.2 g/dL (3.5-5.1); Anion Gap 11 mmol/L (8-16); Blood Urea Nitrogen 39 mg/dL (7-17); Calcium 8.3 mg/dL (8.4-10.2); Carbon Dioxide 25 mmol/L (22-30); Chloride 102 mmol/L (98-107); Estimated CRCL calculation 16 ml/min; Estimated Glomerular Filt Rate 16; Glucose 108 mg/dL (65-110); Magnesium 2.2 mg/dL (1.6-2.3); Phosphorus 4.4 mg/dL (2.5-4.5); Potassium 3.9 mmol/L (3.4-5.0); Sodium 138 mmol/L (137-145)
[2022-07-12] MEDS: ACYCLOVIR 5% OINTMENT 15 GM TUBE 1 APPLIC TOPICAL ×5 (08:42→20:39)
[2022-07-12] MEDS: FERROUS SULFATE 324 MG TABLET PO (08:42)
[2022-07-12] MEDS: ACYCLOVIR 400 MG TABLET PO ×3 (08:43→17:41)
[2022-07-12] MEDS: METOPROLOL TARTRATE 25 MG TABLET PO ×2 (08:43→20:41)
[2022-07-12] MEDS: CYANOCOBALAMIN 500 MCG TABLET PO (08:43)
[2022-07-12] MEDS: SERTRALINE HCL 50 MG TABLET PO (08:43)
[2022-07-12] MEDS: ASCORBIC ACID 500 MG TABLET 1000 MG PO (08:44)
[2022-07-12] MEDS: CHOLECALCIFEROL 400 UNITS TABLET (VIT D) PO (08:44)
[2022-07-12] MEDS: PANTOPRAZOLE 40 MG TABLET PO (08:44)
[2022-07-12] MEDS: allopurinoL 100 MG TABLET PO (08:44)
[2022-07-12] MEDS: lamoTRIgine 50 MG TABLET PO (08:44)
[2022-07-12] MEDS: PYRIDOXINE HCL 50 MG TABLET PO (08:45)
[2022-07-12] MEDS: BENZOCAINE 20% DENTAL GEL 9 GM TUBE 1 APPLIC TOPICAL ×3 (08:49→17:43)
[2022-07-12 11:21] LABS: Anti Glomerular Basement Memb <1.0 AI (<1.0)
--- NOTE | 2022-07-12 12:35 | P.PNNP_ITS ---
Progress Note: A&P Assessment and Plan (1) GAVI (acute kidney injury): Code(s): N17.9 - Acute kidney failure, unspecified Status: Acute Assessment and Plan: * suspect due to prerenal factors (poor oral intake) worsened by diuretics and BP medications * unfortunately, no significant improvement with trial of IVFs * evaluation to date: * urine electrolytes prerenal * worsening proteinuria * serologies ordered (but previous testing on last hospitalization already noted) * still making some urine. * Continue dialysis 3 times a week for now. (2) Stage 3b chronic kidney disease: Code(s): N18.32 - Chronic kidney disease, stage 3b Status: Chronic Assessment and Plan: * this has been present since at least 2019 * baseline creatinine had been running ~ 1.4 - 1.8mg/d * presumably secondary to hypertension, vascular disease (CAD, hyperlipidemia, CHF/cardiomyopathy leading to cardiorenal syndrome), chronic diuretic therapy and age * HOWEVER, on last hospital discharge, creatinine was still in the 3ish range -- possible new baseline?? (3) Acute UTI: Code(s): N39.0 - Urinary tract infection, site not specified Status: Acute Assessment and Plan: * urinalysis highly suggestive * urine culture with Karoline * on antifungal therapy (4) Chronic HFrEF (heart failure with reduced ejection fraction): Code(s): I50.22 - Chronic systolic (congestive) heart failure Status: Chronic Assessment and Plan: * last Echo with EF ~ 25 - 30% * appears relatively compensated at this time * Seems euvolemic right now. (5) Atrial fibrillation: Code(s): I48.91 - Unspecified atrial fibrillation Status: Chronic Assessment and Plan: * rate control strategy with metoprolol * on anticoagulation (6) Essential hypertension: Code(s): I10 - Essential (primary) hypertension Status: Chronic Assessment and Plan: * BP on the soft side * follow trend of hemodynamics Subjective Date/time seen: 07/12/22 12:35 Interval history: Lore is on dialysis. She is tolerating it well. Blood pressure is doing pretty well. Some fluid is being removed. She was seen at 11:15 a.m. Exam Narrative: General: chronically ill appearing female in NAD Heart: normal S1 and S2; Irregularly irregular rhythm, normal rate no rub or gallop Lungs: clear anteriorly, decreased at bases Abdomen: soft, nontender, nondistended, positive bowel sounds Extremities: no edema Skin: multiple ecchymoses present Objective Data Vital Signs Vital Signs: Vital Signs - 24 hr 07/11/22 14:00 07/11/22 14:41 07/11/22 16:00 Temperature 97.9 F Pulse Rate 82 82 Respiratory Rate 18 Blood Pressure 110/57 L Pulse Oximetry 100 Oxygen Delivery Room Air 07/11/22 21:33 07/11/22 20:00 07/11/22 20:00 Temperature 97.1 F L Pulse Rate 98 98 98 Respiratory Rate 16 16 Blood Pressure 96/46 L Pulse Oximetry 100 100 Oxygen Delivery Room Air 07/12/22 00:00 07/12/22 04:00 07/12/22 05:32 Temperature 97.4 F L Pulse Rate 82 84 89 Respiratory Rate 18 Blood Pressure 100/60 Pulse Oximetry 99 Oxygen Delivery
--- NOTE | 2022-07-12 12:35 | PM.PNNEP ---
Progress Note: A&P Assessment and Plan (1) GAVI (acute kidney injury): Code(s): N17.9 - Acute kidney failure, unspecified Status: Acute Assessment and Plan: suspect due to prerenal factors (poor oral intake) worsened by diuretics and BP medications unfortunately, no significant improvement with trial of IVFs evaluation to date: urine electrolytes prerenal worsening proteinuria serologies ordered (but previous testing on last hospitalization already noted) still making some urine. Continue dialysis 3 times a week for now. (2) Stage 3b chronic kidney disease: Code(s): N18.32 - Chronic kidney disease, stage 3b Status: Chronic Assessment and Plan: this has been present since at least 2019 baseline creatinine had been running ~ 1.4 - 1.8mg/d presumably secondary to hypertension, vascular disease (CAD, hyperlipidemia, CHF/cardiomyopathy leading to cardiorenal syndrome), chronic diuretic therapy and age HOWEVER, on last hospital discharge, creatinine was still in the 3ish range -- possible new baseline?? (3) Acute UTI: Code(s): N39.0 - Urinary tract infection, site not specified Status: Acute Assessment and Plan: urinalysis highly suggestive urine culture with Karoline on antifungal therapy (4) Chronic HFrEF (heart failure with reduced ejection fraction): Code(s): I50.22 - Chronic systolic (congestive) heart failure Status: Chronic Assessment and Plan: last Echo with EF ~ 25 - 30% appears relatively compensated at this time Seems euvolemic right now. (5) Atrial fibrillation: Code(s): I48.91 - Unspecified atrial fibrillation Status: Chronic Assessment and Plan: rate control strategy with metoprolol on anticoagulation (6) Essential hypertension: Code(s): I10 - Essential (primary) hypertension Status: Chronic Assessment and Plan: BP on the soft side follow trend of hemodynamics Subjective Date/time seen: 07/12/22 12:35 Interval history: Lore is on dialysis. She is tolerating it well. Blood pressure is doing pretty well. Some fluid is being removed. She was seen at 11:15 a.m. Exam Narrative: General: chronically ill appearing female in NAD Heart: normal S1 and S2; Irregularly irregular rhythm, normal rate no rub or gallop Lungs: clear anteriorly, decreased at bases Abdomen: soft, nontender, nondistended, positive bowel sounds Extremities: no edema Skin: multiple ecchymoses present Objective Data Vital Signs Vital Signs: Vital Signs - 24 hr 07/11/22 14:00 07/11/22 14:41 07/11/22 16:00 Temperature 97.9 F Pulse Rate 82 82 Respiratory Rate 18 Blood Pressure 110/57 L Pulse Oximetry 100 Oxygen Delivery Room Air 07/11/22 21:33 07/11/22 20:00 07/11/22 20:00 Temperature 97.1 F L Pulse Rate 98 98 98 Respiratory Rate 16 16 Blood Pressure 96/46 L Pulse Oximetry 100 100 Oxygen Delivery Room Air 07/12/22 00:00 07/12/22 04:00 07/12/22 05:32 Temperature 97.4 F L Pulse Rate 82 84 89 Respiratory Rate 18 Blood Pressure 100/60 Pulse Oximetry 99 Oxygen Delivery 07/11/22 23:22 07/12/22 08:43 07/12/22 10:30 Temperature 97.8 F Pulse Rate 88 92 Respiratory Rate 16 Blood Pressure 112/52 L Pulse Oximetry 98 Oxygen Delivery Room Air 07/12/22 10:43 07/12/22 11:00 07/12/22 11:30 Temperature Pulse Rate 88 91 78 Respiratory Rate Blood Pressure 104/57 L 110/57 L 106/55 L Pulse Oximetry Oxygen Delivery 07/12/22 12:00 Temperature Pulse Rate 84 Respiratory Rate Blood Pressure 107/53 L Pulse Oximetry Oxygen Delivery Intake/Output Intake/Output: Intake & Output 07/09/22 07/10/22 07/11/22 07/12/22 23:59 23:59 23:59 23:59 Intake Total 710 1420 410 490 Output Total 2150 1503 0 300 Balance -1440 -83 410 190 Meds/Results Medications: Active Medications
[2022-07-12] MEDS: FLUCONAZOLE 100 MG TABLET PO (12:51)
[2022-07-12] MEDS: SALIVA SUBSTITUTE RINSE 473 ML BOTTLE 15 ML PO (12:55)
--- NOTE | 2022-07-12 13:28 | PCOTNOTE ---
Attempted to see pt. for occupational therapy evaluation. Pt. away from room at this time for dialysis.
--- NOTE | 2022-07-12 14:08 | PM.IMPN ---
Progress Note: A&P Assessment and Plan (1) Acute on chronic renal failure: Code(s): N17.9 - Acute kidney failure, unspecified; N18.9 - Chronic kidney disease, unspecified Status: Acute Assessment and Plan: Creatinine is 2.9 today. (2) Acute UTI: Code(s): N39.0 - Urinary tract infection, site not specified Status: Acute Assessment and Plan: Cultures noted (3) Chronic HFrEF (heart failure with reduced ejection fraction): Code(s): I50.22 - Chronic systolic (congestive) heart failure Status: Chronic Assessment and Plan: -her echo on 12/21/2021 was read as the following? 1. Complete two-dimensional, color flow and Doppler transthoracic echocardiogram is performed. ? 2. Left ventricular chamber dimension is moderately enlarged. ? 3. Left ventricular systolic function is severely reduced, estimated at 25-30%. ? 4. Severe biatrial dilation. ? 5. Moderate mitral and tricuspid regurgitation. ? 6. Mild aortic regurgitation. ? 7. Atrial fibrillation. Lasix, spironolactone, and Entresto are all on hold at this time due to the renal failure. (4) Chronic atrial fibrillation: Code(s): I48.20 - Chronic atrial fibrillation, unspecified Status: Acute Assessment and Plan: -continue with metoprolol -she is rate controlled. -continue with Xarelto, may need to renally adjust (5) Mixed hyperlipidemia: Code(s): E78.2 - Mixed hyperlipidemia Status: Acute Assessment and Plan: -continue with rosuvastatin (6) Hypothyroidism: Code(s): E03.9 - Hypothyroidism, unspecified Status: Acute Assessment and Plan: -continue with levothyroxine (7) Essential hypertension: Code(s): I10 - Essential (primary) hypertension Status: Chronic Assessment and Plan: -hold Lasix, hold Entresto -continue with metoprolol Subjective Date/time seen: 07/12/22 14:08 no complaints Exam Narrative: appears chronically ill Patient is comfortable, NAD HEENT: eyes are clear and none icteric, posterior pharynx hyperemic, around the left scabs, no pustule or vesicle. LUNGS: normal respiratory effort ABD: not distended Lower extremities: no edema SKIN: nonjaundiced Neuro: grossly intact. Objective Data Vital Signs Vital Signs: Vital Signs - 24 hr 07/11/22 14:41 07/11/22 16:00 07/11/22 21:33 Temperature 97.1 F L Pulse Rate 82 98 Respiratory Rate 16 Blood Pressure 96/46 L Pulse Oximetry 100 Oxygen Delivery Room Air 07/11/22 20:00 07/11/22 20:00 07/12/22 00:00 Temperature Pulse Rate 98 98 82 Respiratory Rate 16 Blood Pressure Pulse Oximetry 100 Oxygen Delivery Room Air 07/12/22 04:00 07/12/22 05:32 07/11/22 23:22 Temperature 97.4 F L Pulse Rate 84 89 Respiratory Rate 18 Blood Pressure 100/60 Pulse Oximetry 99 98 Oxygen Delivery Room Air 07/12/22 08:43 07/12/22 10:30 07/12/22 10:43 Temperature 97.8 F Pulse Rate 88 92 88 Respiratory Rate 16 Blood Pressure 112/52 L 104/57 L Pulse Oximetry Oxygen Delivery 07/12/22 11:00 07/12/22 11:30 07/12/22 12:00 Temperature Pulse Rate 91 78 84 Respiratory Rate Blood Pressure 110/57 L 106/55 L 107/53 L Pulse Oximetry Oxygen Delivery 07/12/22 08:00 07/12/22 12:30 07/12/22 13:00 Temperature Pulse Rate 83 82 Respiratory Rate Blood Pressure 104/67 114/59 L Pulse Oximetry Oxygen Delivery Room Air 07/12/22 13:30 07/12/22 13:47 07/12/22 13:58 Temperature 98.2 F Pulse Rate 87 94 88 Respiratory Rate 16 Blood Pressure 111/57 L 130/93 H 105/69 Pulse Oximetry Oxygen Delivery Intake/Output Intake/Output: Intake & Output 07/09/22 07/10/22 07/11/22 07/12/22 23:59 23:59 23:59 23:59 Intake Total 710 1420 410 490 Output Total 2150 1503 0 1800 Balance -1440 -83 410 -1310 Meds/Results Medications: Active Medications Generic Name Dose Route Start Last Admin Trade
[2022-07-12] MEDS: RIVAROXABAN 20 MG TABLET PO (17:41)
[2022-07-12] MEDS: ACETAMINOPHEN 325 MG TABLET 650 MG PO (17:47)
[2022-07-12] MEDS: SODIUM CHLORIDE NASAL GEL 14.1 GM 1 APPLIC NASAL (20:40)
[2022-07-12] MEDS: lamoTRIgine 100 MG TABLET PO (20:41)
[2022-07-12] MEDS: SERTRALINE HCL 50 MG TABLET 150 MG PO (20:42)
[2022-07-12 23:59] LABS: ANCA Screen Negative (Negative)
[2022-07-13] VITALS (10 sets, daily range): BP systolic 96–106; BP diastolic 53–63; PULSE 74–93; RESP 16–19; TEMP 36.2–36.7; O2SAT 98–100
[2022-07-13 00:41] LABS: Creatinine, Random Urine 71 mg/dL (20-275); Total Protein/Creatinine Ratio 2915 mg/g creat (24-184)
[2022-07-13] MEDS: MAGNES & ALUM HYD/SIMETH/DIPHENHYD/LIDOCAINE 119 ML MOUTHWASH BY MOUTH ×6 (01:53→20:43)
[2022-07-13] MEDS: LEVOTHYROXINE SODIUM 125 MCG TABLET PO (05:34)
[2022-07-13 06:20] LABS: Hematocrit 41.4 % (37.0-47.0); Hemoglobin 11.9 g/dL (12.0-15.0); Immature Platelet Fraction Pct 10.4 % (0.9-11.2); Mean Corpuscular HGB Conc 28.7 g/dl (32-36); Mean Corpuscular Hemoglobin 30.4 pg (26-34); Mean Corpuscular Volume 105.9 fl (80-100); Platelet Count Result 68 k/mm3 (150-375); Red Blood Count 3.91 M/mm3 (4.2-5.4); Red Cell Distribution Width 20.9 % (11.5-14.5); White Blood Count 5.8 K/mm3 (4.5-10.0)
[2022-07-13 06:33] LABS: Albumin Level 3.1 g/dL (3.5-5.1); Anion Gap 7 mmol/L (8-16); Blood Urea Nitrogen 22 mg/dL (7-17); Calcium 8.2 mg/dL (8.4-10.2); Carbon Dioxide 23 mmol/L (22-30); Chloride 105 mmol/L (98-107); Estimated CRCL calculation 20 ml/min; Estimated Glomerular Filt Rate 21; Glucose 89 mg/dL (65-110); Magnesium 2.2 mg/dL (1.6-2.3); Phosphorus 3.7 mg/dL (2.5-4.5); Potassium 3.8 mmol/L (3.4-5.0); Sodium 135 mmol/L (137-145)
[2022-07-13] MEDS: CHOLECALCIFEROL 400 UNITS TABLET (VIT D) PO (08:45)
[2022-07-13] MEDS: lamoTRIgine 50 MG TABLET PO (08:45)
[2022-07-13] MEDS: ASCORBIC ACID 500 MG TABLET 1000 MG PO (08:46)
[2022-07-13] MEDS: METOPROLOL TARTRATE 25 MG TABLET PO ×2 (08:46→20:44)
[2022-07-13] MEDS: FERROUS SULFATE 324 MG TABLET PO (08:46)
[2022-07-13] MEDS: allopurinoL 100 MG TABLET PO (08:46)
[2022-07-13] MEDS: SERTRALINE HCL 50 MG TABLET PO (08:47)
[2022-07-13] MEDS: CYANOCOBALAMIN 500 MCG TABLET PO (08:47)
[2022-07-13] MEDS: ACYCLOVIR 400 MG TABLET PO ×3 (08:47→17:24)
[2022-07-13] MEDS: PANTOPRAZOLE 40 MG TABLET PO (08:47)
[2022-07-13] MEDS: ACYCLOVIR 5% OINTMENT 15 GM TUBE 1 APPLIC TOPICAL ×5 (08:48→20:45)
[2022-07-13] MEDS: BENZOCAINE 20% DENTAL GEL 9 GM TUBE 1 APPLIC TOPICAL ×3 (08:49→17:24)
[2022-07-13] MEDS: PYRIDOXINE HCL 50 MG TABLET PO (08:50)
--- NOTE | 2022-07-13 10:35 | P.PNNP_ITS ---
Progress Note: A&P Assessment and Plan (1) GAVI (acute kidney injury): Code(s): N17.9 - Acute kidney failure, unspecified Status: Acute Assessment and Plan: * suspect due to prerenal factors (poor oral intake) worsened by diuretics and BP medications * evaluation to date: * urine electrolytes prerenal * worsening proteinuria * serologies ordered (but previous testing on last hospitalization already noted) * now on dialysis. * Volume status looks okay. * Electrolytes look fine. * still making some urine. * Continue dialysis 3 times a week for now. (2) Stage 3b chronic kidney disease: Code(s): N18.32 - Chronic kidney disease, stage 3b Status: Chronic Assessment and Plan: * this has been present since at least 2019 * baseline creatinine had been running ~ 1.4 - 1.8mg/d * presumably secondary to hypertension, vascular disease (CAD, hyperlipidemia, CHF/cardiomyopathy leading to cardiorenal syndrome), chronic diuretic therapy and age * HOWEVER, on last hospital discharge, creatinine was still in the 3ish range -- possible new baseline?? (3) Acute UTI: Code(s): N39.0 - Urinary tract infection, site not specified Status: Acute Assessment and Plan: * urinalysis highly suggestive * urine culture with Karoline * on Fluconazole (4) Chronic HFrEF (heart failure with reduced ejection fraction): Code(s): I50.22 - Chronic systolic (congestive) heart failure Status: Chronic Assessment and Plan: * last Echo with EF ~ 25 - 30% * appears relatively compensated at this time * Seems euvolemic right now. (5) Atrial fibrillation: Code(s): I48.91 - Unspecified atrial fibrillation Status: Chronic Assessment and Plan: * heart rate 76. * On metoprolol low dose * on anticoagulation (6) Essential hypertension: Code(s): I10 - Essential (primary) hypertension Status: Chronic Assessment and Plan: * systolic 100-130 * follow trend of hemodynamics Subjective Date/time seen: 07/13/22 10:35 Interval history: 07/12/2022 Lore is on dialysis. She is tolerating it well. Blood pressure is doing pretty well. Some fluid is being removed. She was seen at 11:15 a.m. 07/13 patient feels okay today. No chest pain or shortness of breath. Belly is fine. She still makes some urine. The rest of her dialysis went pretty well yesterday. She is eager for discharge Exam Narrative: General: chronically ill appearing female in NAD Heart: normal S1 and S2; Irregularly irregular rhythm, normal rate no rub or gallop Lungs: clear anteriorly, decreased at bases Abdomen: soft, nontender, nondistended, positive bowel sounds Extremities: no edema Skin: multiple ecchymoses present Objective Data Vital Signs Vital Signs: Vital Signs - 24 hr 07/12/22 10:43 07/12/22 11:00 07/12/22 11:30 Temperature Pulse Rate 88 91 78 Respiratory Rate Blood Pressure 104/57 L 110/57 L 106/55 L Pulse Oximetry Oxygen Delivery 07/12/22 12:00 07/12/22 12:30 07/12/22 13:00 Temperature Pulse Rate 84 83 82 Respiratory Rate Blood Pressure 107/53 L 104/67 114/59 L Pulse Oximetry Oxygen Delivery 07/12/22
--- NOTE | 2022-07-13 10:35 | PM.PNNEP ---
Progress Note: A&P Assessment and Plan (1) GAVI (acute kidney injury): Code(s): N17.9 - Acute kidney failure, unspecified Status: Acute Assessment and Plan: suspect due to prerenal factors (poor oral intake) worsened by diuretics and BP medications evaluation to date: urine electrolytes prerenal worsening proteinuria serologies ordered (but previous testing on last hospitalization already noted) now on dialysis. Volume status looks okay. Electrolytes look fine. still making some urine. Continue dialysis 3 times a week for now. (2) Stage 3b chronic kidney disease: Code(s): N18.32 - Chronic kidney disease, stage 3b Status: Chronic Assessment and Plan: this has been present since at least 2019 baseline creatinine had been running ~ 1.4 - 1.8mg/d presumably secondary to hypertension, vascular disease (CAD, hyperlipidemia, CHF/cardiomyopathy leading to cardiorenal syndrome), chronic diuretic therapy and age HOWEVER, on last hospital discharge, creatinine was still in the 3ish range -- possible new baseline?? (3) Acute UTI: Code(s): N39.0 - Urinary tract infection, site not specified Status: Acute Assessment and Plan: urinalysis highly suggestive urine culture with Karoline on Fluconazole (4) Chronic HFrEF (heart failure with reduced ejection fraction): Code(s): I50.22 - Chronic systolic (congestive) heart failure Status: Chronic Assessment and Plan: last Echo with EF ~ 25 - 30% appears relatively compensated at this time Seems euvolemic right now. (5) Atrial fibrillation: Code(s): I48.91 - Unspecified atrial fibrillation Status: Chronic Assessment and Plan: heart rate 76. On metoprolol low dose on anticoagulation (6) Essential hypertension: Code(s): I10 - Essential (primary) hypertension Status: Chronic Assessment and Plan: systolic 100-130 follow trend of hemodynamics Subjective Date/time seen: 07/13/22 10:35 Interval history: 07/12/2022 Lore is on dialysis. She is tolerating it well. Blood pressure is doing pretty well. Some fluid is being removed. She was seen at 11:15 a.m. 07/13 patient feels okay today. No chest pain or shortness of breath. Belly is fine. She still makes some urine. The rest of her dialysis went pretty well yesterday. She is eager for discharge Exam Narrative: General: chronically ill appearing female in NAD Heart: normal S1 and S2; Irregularly irregular rhythm, normal rate no rub or gallop Lungs: clear anteriorly, decreased at bases Abdomen: soft, nontender, nondistended, positive bowel sounds Extremities: no edema Skin: multiple ecchymoses present Objective Data Vital Signs Vital Signs: Vital Signs - 24 hr 07/12/22 10:43 07/12/22 11:00 07/12/22 11:30 Temperature Pulse Rate 88 91 78 Respiratory Rate Blood Pressure 104/57 L 110/57 L 106/55 L Pulse Oximetry Oxygen Delivery 07/12/22 12:00 07/12/22 12:30 07/12/22 13:00 Temperature Pulse Rate 84 83 82 Respiratory Rate Blood Pressure 107/53 L 104/67 114/59 L Pulse Oximetry Oxygen Delivery 07/12/22 13:30 07/12/22 13:47 07/12/22 13:58 Temperature 98.2 F Pulse Rate 87 94 88 Respiratory Rate 16 Blood Pressure 111/57 L 130/93 H 105/69 Pulse Oximetry Oxygen Delivery 07/12/22 14:00 07/12/22 12:00 07/12/22 16:00 Temperature 97.3 F L Pulse Rate 77 90 91 Respiratory Rate 20 Blood Pressure 113/59 L Pulse Oximetry 100 Oxygen Delivery 07/12/22 21:30 07/12/22 20:00 07/12/22 20:00 Temperature 98.1 F Pulse Rate 77 72 76 Respiratory Rate 16 16 Blood Pressure 105/61 Pulse Oximetry 99 98 Oxygen Delivery Room Air 07/13/22 00:00 07/13/22 04:00 07/13/22 06:00 Temperature 97.2 F L Pulse Rate 75 77 77 Respiratory Rate 18 Blood Pressure 106/63 Pul
[2022-07-13] MEDS: FLUCONAZOLE 100 MG TABLET PO (12:19)
--- NOTE | 2022-07-13 13:55 | PM.IMPN ---
Progress Note: A&P Assessment and Plan (1) Acute on chronic renal failure: Code(s): N17.9 - Acute kidney failure, unspecified; N18.9 - Chronic kidney disease, unspecified Status: Acute Assessment and Plan: Hemodialysis per Renal (2) Acute UTI: Code(s): N39.0 - Urinary tract infection, site not specified Status: Acute Assessment and Plan: Cultures noted (3) Chronic HFrEF (heart failure with reduced ejection fraction): Code(s): I50.22 - Chronic systolic (congestive) heart failure Status: Chronic Assessment and Plan: -her echo on 12/21/2021 was read as the following? 1. Complete two-dimensional, color flow and Doppler transthoracic echocardiogram is performed. ? 2. Left ventricular chamber dimension is moderately enlarged. ? 3. Left ventricular systolic function is severely reduced, estimated at 25-30%. ? 4. Severe biatrial dilation. ? 5. Moderate mitral and tricuspid regurgitation. ? 6. Mild aortic regurgitation. ? 7. Atrial fibrillation. Lasix, spironolactone, and Entresto are all on hold at this time due to the renal failure. (4) Chronic atrial fibrillation: Code(s): I48.20 - Chronic atrial fibrillation, unspecified Status: Acute Assessment and Plan: -continue with metoprolol -she is rate controlled. -continue with Xarelto, may need to renally adjust (5) Mixed hyperlipidemia: Code(s): E78.2 - Mixed hyperlipidemia Status: Acute Assessment and Plan: -continue with rosuvastatin (6) Hypothyroidism: Code(s): E03.9 - Hypothyroidism, unspecified Status: Acute Assessment and Plan: -continue with levothyroxine (7) Essential hypertension: Code(s): I10 - Essential (primary) hypertension Status: Chronic Assessment and Plan: -hold Lasix, hold Entresto -continue with metoprolol Subjective Date/time seen: 07/13/22 13:56 Breathing better, no new complaints Exam Narrative: appears chronically ill Patient is comfortable, NAD HEENT: eyes are clear and none icteric, posterior pharynx hyperemic, around the left scabs, no pustule or vesicle. LUNGS: normal respiratory effort ABD: not distended Lower extremities: no edema SKIN: nonjaundiced Neuro: grossly intact. Objective Data Vital Signs Vital Signs: Vital Signs - 24 hr 07/12/22 13:58 07/12/22 14:00 07/12/22 16:00 Temperature 98.2 F 97.3 F L Pulse Rate 88 77 91 Respiratory Rate 16 20 Blood Pressure 105/69 113/59 L Pulse Oximetry 100 Oxygen Delivery 07/12/22 21:30 07/12/22 20:00 07/12/22 20:00 Temperature 98.1 F Pulse Rate 77 72 76 Respiratory Rate 16 16 Blood Pressure 105/61 Pulse Oximetry 99 98 Oxygen Delivery Room Air 07/13/22 00:00 07/13/22 04:00 07/13/22 06:00 Temperature 97.2 F L Pulse Rate 75 77 77 Respiratory Rate 18 Blood Pressure 106/63 Pulse Oximetry 100 Oxygen Delivery 07/13/22 08:44 07/13/22 08:46 07/13/22 08:00 Temperature Pulse Rate 76 Respiratory Rate Blood Pressure Pulse Oximetry Oxygen Delivery Room Air Room Air 07/13/22 08:00 07/13/22 12:00 Temperature Pulse Rate 81 79 Respiratory Rate Blood Pressure Pulse Oximetry Oxygen Delivery Intake/Output Intake/Output: Intake & Output 07/10/22 07/11/22 07/12/22 07/13/22 23:59 23:59 23:59 23:59 Intake Total 8279 189 0187 340 Output Total 1503 0 1850 Balance -83 410 -720 340 Meds/Results Medications: Active Medications Generic Name Dose Route Start Last Admin Trade Name Freq PRN Reason Stop Dose Admin Acetaminophen 650 mg 07/10/22 17:53 07/12/22 17:47 Acetaminophen 325 Mg Tablet PO 650 mg Q6H PRN Administration Mild Pain (1-3) or Fever Acyclovir 400 mg 07/11/22 13:00 07/13/22 12:19 Acyclovir 400 Mg Tablet PO 400 mg TID ASHU Administration Acyclovir 1 applic 07/11/22 12:00 07/13/22 12:20 Acyclovir 5% Ointment 15 Gm Tube TOPICAL
[2022-07-13] MEDS: RIVAROXABAN 20 MG TABLET PO (17:24)
[2022-07-13 19:32] LABS: Hepatitis B Core Ab Total Nonreactive (Nonreactive)
[2022-07-13] MEDS: lamoTRIgine 100 MG TABLET PO (20:44)
[2022-07-13] MEDS: SERTRALINE HCL 50 MG TABLET 150 MG PO (20:45)
[2022-07-13] MEDS: SODIUM CHLORIDE NASAL GEL 14.1 GM 1 APPLIC NASAL (20:45)
[2022-07-14] VITALS (11 sets, daily range): BP systolic 94–101; BP diastolic 47–59; PULSE 70–89; RESP 16–18; TEMP 36.4–36.7; O2SAT 97–100
[2022-07-14] MEDS: MAGNES & ALUM HYD/SIMETH/DIPHENHYD/LIDOCAINE 119 ML MOUTHWASH BY MOUTH ×6 (00:44→20:37)
[2022-07-14] MEDS: LEVOTHYROXINE SODIUM 125 MCG TABLET PO (06:12)
[2022-07-14 07:18] LABS: Hematocrit 37.9 % (37.0-47.0); Hemoglobin 11.5 g/dL (12.0-15.0); Immature Platelet Fraction Pct 12.7 % (0.9-11.2); Mean Corpuscular HGB Conc 30.3 g/dl (32-36); Mean Corpuscular Hemoglobin 30.3 pg (26-34); Platelet Count Result 79 k/mm3 (150-375); Red Blood Count 3.79 M/mm3 (4.2-5.4); Red Cell Distribution Width 20.5 % (11.5-14.5)
[2022-07-14 07:26] LABS: Albumin Level 3.2 g/dL (3.5-5.1); Anion Gap 7 mmol/L (8-16); Blood Urea Nitrogen 32 mg/dL (7-17); Calcium 8.4 mg/dL (8.4-10.2); Carbon Dioxide 24 mmol/L (22-30); Chloride 100 mmol/L (98-107); Estimated CRCL calculation 17 ml/min; Estimated Glomerular Filt Rate 17; Glucose 118 mg/dL (65-110); Magnesium 2.2 mg/dL (1.6-2.3); Sodium 131 mmol/L (137-145)
[2022-07-14] MEDS: ACYCLOVIR 400 MG TABLET PO ×3 (09:56→17:17)
[2022-07-14] MEDS: SERTRALINE HCL 50 MG TABLET PO (09:56)
[2022-07-14] MEDS: ROSUVASTATIN 10 MG TABLET PO (09:56)
[2022-07-14] MEDS: lamoTRIgine 50 MG TABLET PO (09:56)
[2022-07-14] MEDS: FERROUS SULFATE 324 MG TABLET PO (09:56)
[2022-07-14] MEDS: PANTOPRAZOLE 40 MG TABLET PO (09:56)
[2022-07-14] MEDS: CYANOCOBALAMIN 500 MCG TABLET PO (09:56)
[2022-07-14] MEDS: CHOLECALCIFEROL 400 UNITS TABLET (VIT D) PO (09:56)
[2022-07-14] MEDS: allopurinoL 100 MG TABLET PO (09:56)
[2022-07-14] MEDS: PYRIDOXINE HCL 50 MG TABLET PO (09:56)
[2022-07-14] MEDS: ASCORBIC ACID 500 MG TABLET 1000 MG PO (09:57)
[2022-07-14] MEDS: ACYCLOVIR 5% OINTMENT 15 GM TUBE 1 APPLIC TOPICAL ×5 (09:59→20:38)
[2022-07-14] MEDS: BENZOCAINE 20% DENTAL GEL 9 GM TUBE 1 APPLIC TOPICAL ×3 (10:00→17:18)
--- NOTE | 2022-07-14 11:05 | PM.IMPN ---
Progress Note: A&P Assessment and Plan (1) Acute on chronic renal failure: Code(s): N17.9 - Acute kidney failure, unspecified; N18.9 - Chronic kidney disease, unspecified Status: Acute Assessment and Plan: Hemodialysis per Renal 07/14/2021 interval history:? patient is 71-year-old female with history of cardiomyopathy ejection fraction 25- 30%, history of chronic kidney disease stage 3-4,? on last admission patient was respiratory arrest and was intubated, patient was discharged back to nursing and now presented with acute mental status and sore in her mouth, there are no? vesicles or pustules, does not appear to be thrush, patient is being treated with nystatin and Magic mouthwash to reduce the symptoms increase oral intake, today her mouth lesions appear improved and able to tolerate PO, patient Scr was rising and patient was in metabolic acidosis in need of dialysis, patient had been refusing dialysis and on 07/07? patient family had agreed for dialysis, on 07/08? tunnel catheter was placed and patient had 1st dialysis and 500cc of fluids was removed, patient had? 2nd dialysis on 07/09 again on 07/10 patient had 3rd dailysis, I have ordered Hepatitis B core total ab, it is non reacative, patient seen by recycling specialist recommended patient will need 3times a week dialysis, social service will arragne for outpatient dialysis,? patient remains clinically stable will continue to monitor, patient sores on lips and buccal mucosa are not improving and etiology is not certain as there are no pustules or vesicles, however started patient on acyclovir, today lesions are improving, ? patient is growing Karoline albicans and her urine, started the patient on Diflucan, ? patient will be seen by recycling specialist, will continue to monitor and further recommendation to follow, (2) Acute UTI: Code(s): N39.0 - Urinary tract infection, site not specified Status: Acute Assessment and Plan: Cultures noted (3) Chronic HFrEF (heart failure with reduced ejection fraction): Code(s): I50.22 - Chronic systolic (congestive) heart failure Status: Chronic Assessment and Plan: -her echo on 12/21/2021 was read as the following? 1. Complete two-dimensional, color flow and Doppler transthoracic echocardiogram is performed. ? 2. Left ventricular chamber dimension is moderately enlarged. ? 3. Left ventricular systolic function is severely reduced, estimated at 25-30%. ? 4. Severe biatrial dilation. ? 5. Moderate mitral and tricuspid regurgitation. ? 6. Mild aortic regurgitation. ? 7. Atrial fibrillation. Lasix, spironolactone, and Entresto are all on hold at this time due to the renal failure. (4) Chronic atrial fibrillation: Code(s): I48.20 - Chronic atrial fibrillation, unspecified Status: Acute Assessment and Plan: -continue with metoprolol -she is rate controlled. -continue with Xarelto, may need to renally adjust (5) Mixed hyperlipidemia: Code(s): E78.2 - Mixed hyperlipidemia Status: Acute Assessment and Plan: -continue with rosuvastatin (6) Hypothyroidism: Code(s): E03.9 - Hypothyroidism, unspecified Status: Acute Assessment and Plan: -continue with levothyroxine (7) Essential hypertension: Code(s): I10 - Essential (primary) hypertension Status: Chronic Assessment and Plan: -hold Lasix, hold Entresto -continue with metoprolol Subjective Date/time seen: 07/14/22 11:05 07/14/2021 interval history:? patient is 71-year-old female with history of cardiomyopathy ejection fraction 25- 30%, history of chronic kidney disease stage 3-4,? on last admission patient was respiratory arrest and was intubated, patient was discharged back to nursing and now presented with acute mental status and sore in her mouth, there are no? vesicles or pustules, does not appear to be thrush, patient is being treated with nystatin and Magic mouthwash to reduce the symptoms
[2022-07-14 11:25] LABS: Chloride Rand Ur 36 mmol/L (32-290); Chloride/Creatinine Rand Ur 50 (38-318); Creatinine Random Urine 72 mg/dL (20-275)
--- NOTE | 2022-07-14 11:35 | P.PNNP_ITS ---
Progress Note: A&P Assessment and Plan (1) GAVI (acute kidney injury): Code(s): N17.9 - Acute kidney failure, unspecified Status: Acute Assessment and Plan: * suspect due to prerenal factors (poor oral intake) worsened by diuretics and BP medications * evaluation to date: * urine electrolytes prerenal * worsening proteinuria * serologies ordered (but previous testing on last hospitalization already noted) * tolerating dialysis treatments - next treatment tomorrow * follow electrolytes, volume status, and clearance * follow repeat labs and UOP on the hope for renal recovery (2) Stage 3b chronic kidney disease: Code(s): N18.32 - Chronic kidney disease, stage 3b Status: Chronic Assessment and Plan: * this has been present since at least 2019 * baseline creatinine had been running ~ 1.4 - 1.8mg/d * presumably secondary to hypertension, vascular disease (CAD, hyperlipidemia, CHF/cardiomyopathy leading to cardiorenal syndrome), chronic diuretic therapy and age * HOWEVER, on last hospital discharge, creatinine was still in the 3ish range -- possible new baseline?? (3) Acute UTI: Code(s): N39.0 - Urinary tract infection, site not specified Status: Acute Assessment and Plan: * urinalysis highly suggestive * urine culture with Karoline * on Fluconazole (4) Chronic HFrEF (heart failure with reduced ejection fraction): Code(s): I50.22 - Chronic systolic (congestive) heart failure Status: Chronic Assessment and Plan: * last Echo with EF ~ 25 - 30% * appears relatively compensated at this time * seems euvolemic currently (5) Atrial fibrillation: Code(s): I48.91 - Unspecified atrial fibrillation Status: Chronic Assessment and Plan: * rate control strategy * on anticoagulation (6) Essential hypertension: Code(s): I10 - Essential (primary) hypertension Status: Chronic Assessment and Plan: * systolic 100-130 * follow trend of hemodynamics Will continue to follow. Subjective Date/time seen: 07/14/22 11:35 Chart reviewed -- assuming care from Dr. Melendez; no new issues or problems to report at this time; still has a hoarse voice but no acute distress to voiced; no issues overnight. Exam Narrative: General: chronically ill appearing female in NAD Heart: IRRR, normal S1 and S2 Lungs: clear anteriorly, decreased at bases Abdomen: soft, nontender, nondistended, positive bowel sounds Extremities:no edema noted Skin: multiple ecchymoses present Objective Data Vital Signs Vital Signs: Vital Signs Temp Pulse Resp BP Pulse Ox O2 Del Method 07/14/22 09:57 76 07/14/22 09:00 82 98/56 L 07/14/22 06:00 97.5 F L 75 18 94/47 L 97 07/14/22 04:00 77 07/14/22 00:00 70 07/13/22 20:00 83 19 99 Room Air 07/13/22 20:00 83 07/13/22 21:19 97.4 F L 77 18 101/53 L 98 07/13/22 16:00 74 07/13/22 14:00 98.0 F 93 16 96/58 L 100 07/13/22 12:00 79 Intake/Output Intake/Output: Intake & Output 07/11/22 07/12/22 07/13/22 07/14/22 23:59 23:59 23:59 23:59 Intake Total 410 1130 1127 220 Output Total 0 1850 Balance 410
--- NOTE | 2022-07-14 11:35 | PM.PNNEP ---
Progress Note: A&P Assessment and Plan (1) GAVI (acute kidney injury): Code(s): N17.9 - Acute kidney failure, unspecified Status: Acute Assessment and Plan: suspect due to prerenal factors (poor oral intake) worsened by diuretics and BP medications evaluation to date: urine electrolytes prerenal worsening proteinuria serologies ordered (but previous testing on last hospitalization already noted) tolerating dialysis treatments - next treatment tomorrow follow electrolytes, volume status, and clearance follow repeat labs and UOP on the hope for renal recovery (2) Stage 3b chronic kidney disease: Code(s): N18.32 - Chronic kidney disease, stage 3b Status: Chronic Assessment and Plan: this has been present since at least 2019 baseline creatinine had been running ~ 1.4 - 1.8mg/d presumably secondary to hypertension, vascular disease (CAD, hyperlipidemia, CHF/cardiomyopathy leading to cardiorenal syndrome), chronic diuretic therapy and age HOWEVER, on last hospital discharge, creatinine was still in the 3ish range -- possible new baseline?? (3) Acute UTI: Code(s): N39.0 - Urinary tract infection, site not specified Status: Acute Assessment and Plan: urinalysis highly suggestive urine culture with Karoline on Fluconazole (4) Chronic HFrEF (heart failure with reduced ejection fraction): Code(s): I50.22 - Chronic systolic (congestive) heart failure Status: Chronic Assessment and Plan: last Echo with EF ~ 25 - 30% appears relatively compensated at this time seems euvolemic currently (5) Atrial fibrillation: Code(s): I48.91 - Unspecified atrial fibrillation Status: Chronic Assessment and Plan: rate control strategy on anticoagulation (6) Essential hypertension: Code(s): I10 - Essential (primary) hypertension Status: Chronic Assessment and Plan: systolic 100-130 follow trend of hemodynamics Will continue to follow. Subjective Date/time seen: 07/14/22 11:35 Chart reviewed -- assuming care from Dr. Melendez; no new issues or problems to report at this time; still has a hoarse voice but no acute distress to voiced; no issues overnight. Exam Narrative: General: chronically ill appearing female in NAD Heart: IRRR, normal S1 and S2 Lungs: clear anteriorly, decreased at bases Abdomen: soft, nontender, nondistended, positive bowel sounds Extremities:no edema noted Skin: multiple ecchymoses present Objective Data Vital Signs Vital Signs: Vital Signs Temp Pulse Resp BP Pulse Ox O2 Del Method 07/14/22 09:57 76 07/14/22 09:00 82 98/56 L 07/14/22 06:00 97.5 F L 75 18 94/47 L 97 07/14/22 04:00 77 07/14/22 00:00 70 07/13/22 20:00 83 19 99 Room Air 07/13/22 20:00 83 07/13/22 21:19 97.4 F L 77 18 101/53 L 98 07/13/22 16:00 74 07/13/22 14:00 98.0 F 93 16 96/58 L 100 07/13/22 12:00 79 Intake/Output Intake/Output: Intake & Output 07/11/22 07/12/22 07/13/22 07/14/22 23:59 23:59 23:59 23:59 Intake Total 410 1130 1127 220 Output Total 0 1850 Balance 410 -720 1127 220 Meds/Results Medications: Active Medications Generic Name Dose Route Start Last Admin Trade Name Zechariahq PRN Reason Stop Dose Admin Acetaminophen 650 mg 07/10/22 17:53 07/12/22 17:47 Acetaminophen 325 Mg Tablet PO 650 mg Q6H PRN Administration Mild Pain (1-3) or Fever Acyclovir 400 mg 07/11/22 13:00 07/14/22 09:56 Acyclovir 400 Mg Tablet PO 400 mg TID ASHU Administration Acyclovir 1 applic 07/11/22 12:00 07/14/22 09:59 Acyclovir 5% Ointment 15 Gm Tube TOPICAL 1 applic 5 TIMES DAILY ASHU Administration Allopurinol 100 mg 07/07/22 09:00 07/14/22 09:56 Allopurinol 100 Mg Tablet PO 100 mg DAILY ASHU Administration Ascorbic Acid 1,000 mg 07/07/22 09:00 07/14/22 09
--- NOTE | 2022-07-14 11:42 | PCNFU ---
Nutrition Follow-Up Complete: Increased nutrient needs related to altered skin integrity as evidenced by noted pressure injury Goal:PO intake 75% of meals and supplements. Pt is progressing towards goal. Pt current nutrition is Renal dialysis, Ensure TID w/ meals. Nutrition recommendation: Continue with current plan of care. Last recorded weight is 78 kg - down from 82kg Bowel Motility: +BM 07/12 Labs Reviewed: Hgb:11.5, Alb:3.2, NA:131, BUN:32, Cr:2.8 Meds Noted: zofran, protonix Skin: DTPI to buttocks Additional Notes: Pt continues on a renal diet, reports appetite improving. Drinking Ensure with meals. Encouraged intake of meals and supplements. Monitor intake, wt, labs, skin, Follow up in 7 days.
[2022-07-14] MEDS: FLUCONAZOLE 100 MG TABLET PO (13:47)
[2022-07-14] MEDS: RIVAROXABAN 20 MG TABLET PO (17:17)
[2022-07-14 19:33] LABS: Strep DNASE B Antibody 121 U/mL (<301)
[2022-07-14] MEDS: METOPROLOL TARTRATE 25 MG TABLET PO (20:36)
[2022-07-14] MEDS: SERTRALINE HCL 50 MG TABLET 150 MG PO (20:37)
[2022-07-14] MEDS: lamoTRIgine 100 MG TABLET PO (20:38)
[2022-07-14] MEDS: SODIUM CHLORIDE NASAL GEL 14.1 GM 1 APPLIC NASAL (20:38)
[2022-07-15] VITALS (21 sets, daily range): BP systolic 90–132; BP diastolic 45–95; PULSE 69–104; RESP 16–18; TEMP 36–36.9; O2SAT 98–100
[2022-07-15] MEDS: MAGNES & ALUM HYD/SIMETH/DIPHENHYD/LIDOCAINE 119 ML MOUTHWASH BY MOUTH ×5 (00:07→21:04)
[2022-07-15] MEDS: LEVOTHYROXINE SODIUM 125 MCG TABLET PO (05:28)
[2022-07-15] MEDS: SERTRALINE HCL 50 MG TABLET PO (10:46)
[2022-07-15] MEDS: ACYCLOVIR 5% OINTMENT 15 GM TUBE 1 APPLIC TOPICAL ×4 (10:46→21:04)
[2022-07-15] MEDS: lamoTRIgine 50 MG TABLET PO (10:46)
[2022-07-15] MEDS: BENZOCAINE 20% DENTAL GEL 9 GM TUBE 1 APPLIC TOPICAL ×2 (10:47→17:18)
[2022-07-15 10:55] LABS: Hemoglobin 10.8 g/dL (12.0-15.0); Immature Platelet Fraction Pct 12.3 % (0.9-11.2); Mean Corpuscular HGB Conc 30.9 g/dl (32-36); Mean Corpuscular Hemoglobin 29.8 pg (26-34); Mean Corpuscular Volume 96.7 fl (80-100); Platelet Count Result 85 k/mm3 (150-375); Red Blood Count 3.62 M/mm3 (4.2-5.4); White Blood Count 5.7 K/mm3 (4.5-10.0)
[2022-07-15 11:13] LABS: Albumin Level 3.3 g/dL (3.5-5.1); Anion Gap 9 mmol/L (8-16); Blood Urea Nitrogen 39 mg/dL (7-17); Calcium 8.2 mg/dL (8.4-10.2); Carbon Dioxide 25 mmol/L (22-30); Chloride 101 mmol/L (98-107); Estimated CRCL calculation 14 ml/min; Estimated Glomerular Filt Rate 14; Glucose 133 mg/dL (65-110); Magnesium 2.2 mg/dL (1.6-2.3); Phosphorus 4.1 mg/dL (2.5-4.5); Potassium 5.3 mmol/L (3.4-5.0); Sodium 135 mmol/L (137-145)
--- NOTE | 2022-07-15 11:51 | PM.IMPN ---
Progress Note: A&P Assessment and Plan (1) Acute on chronic renal failure: Code(s): N17.9 - Acute kidney failure, unspecified; N18.9 - Chronic kidney disease, unspecified Status: Acute Assessment and Plan: HD per renal (2) Acute UTI: Code(s): N39.0 - Urinary tract infection, site not specified Status: Acute Assessment and Plan: Cultures noted (3) Chronic HFrEF (heart failure with reduced ejection fraction): Code(s): I50.22 - Chronic systolic (congestive) heart failure Status: Chronic Assessment and Plan: -her echo on 12/21/2021 was read as the following? 1. Complete two-dimensional, color flow and Doppler transthoracic echocardiogram is performed. ? 2. Left ventricular chamber dimension is moderately enlarged. ? 3. Left ventricular systolic function is severely reduced, estimated at 25-30%. ? 4. Severe biatrial dilation. ? 5. Moderate mitral and tricuspid regurgitation. ? 6. Mild aortic regurgitation. ? 7. Atrial fibrillation. Lasix, spironolactone, and Entresto are all on hold at this time due to the renal failure. (4) Chronic atrial fibrillation: Code(s): I48.20 - Chronic atrial fibrillation, unspecified Status: Acute Assessment and Plan: -continue with metoprolol -she is rate controlled. -continue with Xarelto, may need to renally adjust (5) Mixed hyperlipidemia: Code(s): E78.2 - Mixed hyperlipidemia Status: Acute Assessment and Plan: -continue with rosuvastatin (6) Hypothyroidism: Code(s): E03.9 - Hypothyroidism, unspecified Status: Acute Assessment and Plan: -continue with levothyroxine (7) Essential hypertension: Code(s): I10 - Essential (primary) hypertension Status: Chronic Assessment and Plan: -hold Lasix, hold Entresto -continue with metoprolol Subjective Date/time seen: 07/15/22 11:51 No new complaints Exam Narrative: appears chronically ill Patient is comfortable, NAD HEENT: eyes are clear and none icteric, posterior pharynx hyperemic, around the left scabs, no pustule or vesicle. LUNGS: normal respiratory effort ABD: not distended Lower extremities: no edema SKIN: nonjaundiced Neuro: grossly intact. Objective Data Vital Signs Vital Signs: Vital Signs - 24 hr 07/14/22 14:00 07/14/22 12:00 07/14/22 20:36 Temperature 97.8 F Pulse Rate 87 81 88 Respiratory Rate 16 Blood Pressure 101/59 L Pulse Oximetry 100 07/14/22 22:12 07/15/22 05:45 07/14/22 20:00 Temperature 98.0 F 98.4 F Pulse Rate 89 87 89 Respiratory Rate 16 18 Blood Pressure 94/56 L 94/52 L Pulse Oximetry 98 100 07/15/22 00:00 07/15/22 04:00 Temperature Pulse Rate 80 83 Respiratory Rate Blood Pressure Pulse Oximetry Intake/Output Intake/Output: Intake & Output 07/12/22 07/13/22 07/14/22 07/15/22 23:59 23:59 23:59 23:59 Intake Total 1130 1127 1330 800 Output Total 1850 150 Balance -720 1127 1330 650 Meds/Results Medications: Active Medications Generic Name Dose Route Start Last Admin Trade Name Freq PRN Reason Stop Dose Admin Acetaminophen 650 mg 07/10/22 17:53 07/12/22 17:47 Acetaminophen 325 Mg Tablet PO 650 mg Q6H PRN Administration Mild Pain (1-3) or Fever Acyclovir 400 mg 07/11/22 13:00 07/14/22 17:17 Acyclovir 400 Mg Tablet PO 400 mg TID ASHU Administration Acyclovir 1 applic 07/11/22 12:00 07/15/22 10:46 Acyclovir 5% Ointment 15 Gm Tube TOPICAL 1 applic 5 TIMES DAILY ASHU Administration Allopurinol 100 mg 07/07/22 09:00 07/14/22 09:56 Allopurinol 100 Mg Tablet PO 100 mg DAILY ASHU Administration Ascorbic Acid 1,000 mg 07/07/22 09:00 07/14/22 09:57 Ascorbic Acid 500 Mg Tablet PO 1,000 mg DAILY ASHU Administration Benzocaine 1 applic 07/06/22 13:00 07/15/22 10:47 Benzocaine 20% Dental Gel 9 Gm Tube TOPICAL 1 applic TID ASHU Administration Cyanocobalamin
--- NOTE | 2022-07-15 12:02 | PCPTNOTE ---
Patient declined PT at this time stating I am just so tired and I am waiting for dialysis .
--- NOTE | 2022-07-15 13:43 | P.PNNP_ITS ---
Progress Note: A&P Assessment and Plan (1) GAVI (acute kidney injury): Code(s): N17.9 - Acute kidney failure, unspecified Status: Acute Assessment and Plan: * suspect due to prerenal factors (poor oral intake) worsened by diuretics and BP medications * evaluation to date: * urine electrolytes prerenal * worsening proteinuria * serologies ordered (but previous testing on last hospitalization already noted) * tolerating dialysis treatments - HD today and likely tomorrow (since outpatient schedule will be //) * follow electrolytes, volume status, and clearance * follow repeat labs and UOP on the hope for renal recovery (2) Stage 3b chronic kidney disease: Code(s): N18.32 - Chronic kidney disease, stage 3b Status: Chronic Assessment and Plan: * this has been present since at least 2019 * baseline creatinine had been running ~ 1.4 - 1.8mg/d * presumably secondary to hypertension, vascular disease (CAD, hyperlipidemia, CHF/cardiomyopathy leading to cardiorenal syndrome), chronic diuretic therapy and age * HOWEVER, on last hospital discharge, creatinine was still in the 3ish range -- possible new baseline?? (3) Acute UTI: Code(s): N39.0 - Urinary tract infection, site not specified Status: Acute Assessment and Plan: * urinalysis highly suggestive * urine culture with Karoline * on Fluconazole (4) Chronic HFrEF (heart failure with reduced ejection fraction): Code(s): I50.22 - Chronic systolic (congestive) heart failure Status: Chronic Assessment and Plan: * last Echo with EF ~ 25 - 30% * appears relatively compensated at this time * seems euvolemic currently (5) Atrial fibrillation: Code(s): I48.91 - Unspecified atrial fibrillation Status: Chronic Assessment and Plan: * rate control strategy * on anticoagulation (6) Essential hypertension: Code(s): I10 - Essential (primary) hypertension Status: Chronic Assessment and Plan: * systolic 100-130 * follow trend of hemodynamics Will continue to follow. Subjective Date/time seen: 07/15/22 13:43 Patient tolerating dialysis treatment at the time of my visit (seen on HD at ~ 1:20PM); no new issues or concerns to report; no events overnight or earlier this AM; hoping for discharge soon. Exam Narrative: General: chronically ill appearing female in NAD Heart: IRRR, normal S1 and S2 Lungs: clear anteriorly, decreased at bases Abdomen: soft, nontender, nondistended, positive bowel sounds Extremities:no edema Skin: multiple ecchymoses present Objective Data Vital Signs Vital Signs: Vital Signs Temp Pulse Resp BP Pulse Ox 07/15/22 04:00 83 07/15/22 00:00 80 07/14/22 20:00 89 07/15/22 05:45 98.4 F 87 18 94/52 L 100 07/14/22 22:12 98.0 F 89 16 94/56 L 98 07/14/22 20:36 88 07/14/22 14:00 97.8 F 87 16 101/59 L 100 Intake/Output Intake/Output: Intake & Output 07/12/22 07/13/22 07/14/22 07/15/22 23:59 23:59 23:59 23:59 Intake Total 1130 1127 1330 860 Output Total 1850 150 Balance -720 1127 1330 710 Meds/Results Medications: Active Medications
--- NOTE | 2022-07-15 13:43 | PM.PNNEP ---
Progress Note: A&P Assessment and Plan (1) GAVI (acute kidney injury): Code(s): N17.9 - Acute kidney failure, unspecified Status: Acute Assessment and Plan: suspect due to prerenal factors (poor oral intake) worsened by diuretics and BP medications evaluation to date: urine electrolytes prerenal worsening proteinuria serologies ordered (but previous testing on last hospitalization already noted) tolerating dialysis treatments - HD today and likely tomorrow (since outpatient schedule will be M/W/) follow electrolytes, volume status, and clearance follow repeat labs and UOP on the hope for renal recovery (2) Stage 3b chronic kidney disease: Code(s): N18.32 - Chronic kidney disease, stage 3b Status: Chronic Assessment and Plan: this has been present since at least 2019 baseline creatinine had been running ~ 1.4 - 1.8mg/d presumably secondary to hypertension, vascular disease (CAD, hyperlipidemia, CHF/cardiomyopathy leading to cardiorenal syndrome), chronic diuretic therapy and age HOWEVER, on last hospital discharge, creatinine was still in the 3ish range -- possible new baseline?? (3) Acute UTI: Code(s): N39.0 - Urinary tract infection, site not specified Status: Acute Assessment and Plan: urinalysis highly suggestive urine culture with Karoline on Fluconazole (4) Chronic HFrEF (heart failure with reduced ejection fraction): Code(s): I50.22 - Chronic systolic (congestive) heart failure Status: Chronic Assessment and Plan: last Echo with EF ~ 25 - 30% appears relatively compensated at this time seems euvolemic currently (5) Atrial fibrillation: Code(s): I48.91 - Unspecified atrial fibrillation Status: Chronic Assessment and Plan: rate control strategy on anticoagulation (6) Essential hypertension: Code(s): I10 - Essential (primary) hypertension Status: Chronic Assessment and Plan: systolic 100-130 follow trend of hemodynamics Will continue to follow. Subjective Date/time seen: 07/15/22 13:43 Patient tolerating dialysis treatment at the time of my visit (seen on HD at ~ 1:20PM); no new issues or concerns to report; no events overnight or earlier this AM; hoping for discharge soon. Exam Narrative: General: chronically ill appearing female in NAD Heart: IRRR, normal S1 and S2 Lungs: clear anteriorly, decreased at bases Abdomen: soft, nontender, nondistended, positive bowel sounds Extremities:no edema Skin: multiple ecchymoses present Objective Data Vital Signs Vital Signs: Vital Signs Temp Pulse Resp BP Pulse Ox 07/15/22 04:00 83 07/15/22 00:00 80 07/14/22 20:00 89 07/15/22 05:45 98.4 F 87 18 94/52 L 100 07/14/22 22:12 98.0 F 89 16 94/56 L 98 07/14/22 20:36 88 07/14/22 14:00 97.8 F 87 16 101/59 L 100 Intake/Output Intake/Output: Intake & Output 07/12/22 07/13/22 07/14/22 07/15/22 23:59 23:59 23:59 23:59 Intake Total 1130 1127 1330 860 Output Total 1850 150 Balance -720 1127 1330 710 Meds/Results Medications: Active Medications Generic Name Dose Route Start Last Admin Trade Name Freq PRN Reason Stop Dose Admin Acetaminophen 650 mg 07/10/22 17:53 07/12/22 17:47 Acetaminophen 325 Mg Tablet PO 650 mg Q6H PRN Administration Mild Pain (1-3) or Fever Acyclovir 400 mg 07/11/22 13:00 07/14/22 17:17 Acyclovir 400 Mg Tablet PO 400 mg TID ASHU Administration Acyclovir 1 applic 07/11/22 12:00 07/15/22 12:24 Acyclovir 5% Ointment 15 Gm Tube TOPICAL 1 applic 5 TIMES DAILY ASHU Administration Allopurinol 100 mg 07/07/22 09:00 07/14/22 09:56 Allopurinol 100 Mg Tablet PO 100 mg DAILY ASHU Administration Ascorbic Acid 1,000 mg 07/07/22 09:00 07/14/22 09:57 Ascorbic Acid 500 Mg Tablet PO 1,000 mg DAILY ASHU Administration Benzocaine
--- NOTE | 2022-07-15 15:44 | PCOTNOTE ---
Attempted to see pt for Occupational therapy treatment today. Pt is off the floor right now for dialysis. Will continue per poc duration/frequency tomorrow.
[2022-07-15] MEDS: ACETAMINOPHEN 325 MG TABLET 650 MG PO (17:12)
[2022-07-15] MEDS: FERROUS SULFATE 324 MG TABLET PO (17:13)
[2022-07-15] MEDS: PANTOPRAZOLE 40 MG TABLET PO (17:15)
[2022-07-15] MEDS: FLUCONAZOLE 100 MG TABLET PO (17:15)
[2022-07-15] MEDS: ACYCLOVIR 400 MG TABLET PO (17:17)
[2022-07-15] MEDS: RIVAROXABAN 20 MG TABLET PO (17:17)
[2022-07-15] MEDS: lamoTRIgine 100 MG TABLET PO (21:04)
[2022-07-15] MEDS: SERTRALINE HCL 50 MG TABLET 150 MG PO (21:05)
[2022-07-15] MEDS: SODIUM CHLORIDE NASAL GEL 14.1 GM 1 APPLIC NASAL (21:06)
[2022-07-15] MEDS: METOPROLOL TARTRATE 25 MG TABLET PO (21:06)
[2022-07-16] VITALS (24 sets, daily range): BP systolic 85–130; BP diastolic 39–57; PULSE 76–95; RESP 16–20; TEMP 36–36.9; O2SAT 98–99
[2022-07-16] MEDS: MAGNES & ALUM HYD/SIMETH/DIPHENHYD/LIDOCAINE 119 ML MOUTHWASH BY MOUTH ×6 (00:16→21:02)
[2022-07-16] MEDS: LEVOTHYROXINE SODIUM 125 MCG TABLET PO (05:40)
[2022-07-16 06:25] LABS: Hemoglobin 11.5 g/dL (12.0-15.0); Mean Corpuscular HGB Conc 30.3 g/dl (32-36); Mean Corpuscular Hemoglobin 30.3 pg (26-34); Mean Corpuscular Volume 100.3 fl (80-100); Mean Platelet Volume 12.2 fl (7.4-10.4); Platelet Count Result 97 k/mm3 (150-375); Red Blood Count 3.79 M/mm3 (4.2-5.4); Red Cell Distribution Width 20.5 % (11.5-14.5); White Blood Count 4.9 K/mm3 (4.5-10.0)
[2022-07-16 06:35] LABS: Albumin Level 3.4 g/dL (3.5-5.1); Anion Gap 6 mmol/L (8-16); Blood Urea Nitrogen 21 mg/dL (7-17); Calcium 8.4 mg/dL (8.4-10.2); Carbon Dioxide 25 mmol/L (22-30); Chloride 99 mmol/L (98-107); Estimated CRCL calculation 20 ml/min; Estimated Glomerular Filt Rate 21; Glucose 80 mg/dL (65-110); Magnesium 2.2 mg/dL (1.6-2.3); Phosphorus 3.2 mg/dL (2.5-4.5); Potassium 3.7 mmol/L (3.4-5.0); Sodium 130 mmol/L (137-145)
[2022-07-16] MEDS: allopurinoL 100 MG TABLET PO (09:16)
[2022-07-16] MEDS: CYANOCOBALAMIN 500 MCG TABLET PO (09:16)
[2022-07-16] MEDS: PYRIDOXINE HCL 50 MG TABLET PO (09:16)
[2022-07-16] MEDS: ROSUVASTATIN 10 MG TABLET PO (09:16)
[2022-07-16] MEDS: ASCORBIC ACID 500 MG TABLET 1000 MG PO (09:16)
[2022-07-16] MEDS: ACYCLOVIR 400 MG TABLET PO ×3 (09:16→17:28)
[2022-07-16] MEDS: METOPROLOL TARTRATE 25 MG TABLET PO ×2 (09:16→21:04)
[2022-07-16] MEDS: lamoTRIgine 50 MG TABLET PO (09:16)
[2022-07-16] MEDS: SERTRALINE HCL 50 MG TABLET PO (09:17)
[2022-07-16] MEDS: CHOLECALCIFEROL 400 UNITS TABLET (VIT D) PO (09:17)
[2022-07-16] MEDS: FERROUS SULFATE 324 MG TABLET PO (09:17)
[2022-07-16] MEDS: ACYCLOVIR 5% OINTMENT 15 GM TUBE 1 APPLIC TOPICAL ×4 (09:18→21:02)
[2022-07-16] MEDS: BENZOCAINE 20% DENTAL GEL 9 GM TUBE 1 APPLIC TOPICAL ×3 (09:21→17:29)
[2022-07-16] MEDS: PANTOPRAZOLE 40 MG TABLET PO (09:23)
[2022-07-16] MEDS: FLUCONAZOLE 100 MG TABLET PO (12:27)
--- NOTE | 2022-07-16 13:00 | P.PNNP_ITS ---
Progress Note: A&P Assessment and Plan (1) GAVI (acute kidney injury): Code(s): N17.9 - Acute kidney failure, unspecified Status: Acute Assessment and Plan: * suspect due to prerenal factors (poor oral intake) worsened by diuretics and BP medications * evaluation to date: * urine electrolytes prerenal * worsening proteinuria * serologies ordered (but previous testing on last hospitalization already noted) * HD today (since outpatient schedule will be M/W/) * follow electrolytes, volume status, and clearance * follow repeat labs and UOP on the hope for renal recovery (2) Stage 3b chronic kidney disease: Code(s): N18.32 - Chronic kidney disease, stage 3b Status: Chronic Assessment and Plan: * this has been present since at least 2019 * baseline creatinine had been running ~ 1.4 - 1.8mg/d * presumably secondary to hypertension, vascular disease (CAD, hyperlipidemia, CHF/cardiomyopathy leading to cardiorenal syndrome), chronic diuretic therapy and age * HOWEVER, on last hospital discharge, creatinine was still in the 3ish range -- possible new baseline?? (3) Acute UTI: Code(s): N39.0 - Urinary tract infection, site not specified Status: Acute Assessment and Plan: * urinalysis highly suggestive * urine culture with Karoline * on Fluconazole (4) Chronic HFrEF (heart failure with reduced ejection fraction): Code(s): I50.22 - Chronic systolic (congestive) heart failure Status: Chronic Assessment and Plan: * last Echo with EF ~ 25 - 30% * appears relatively compensated at this time * seems euvolemic currently * watch K+ with use of spironolactone (5) Atrial fibrillation: Code(s): I48.91 - Unspecified atrial fibrillation Status: Chronic Assessment and Plan: * rate control strategy * on anticoagulation (6) Essential hypertension: Code(s): I10 - Essential (primary) hypertension Status: Chronic Assessment and Plan: * systolic 100-130 * follow trend of hemodynamics Will continue to follow. Subjective Date/time seen: 07/16/22 13:00 Tolerating dialysis treatment reasonalby well at the time of my visit (seen on HD at ~ 12:55PM); breathing/respiratory status seems stable; no apparent distress at this time; feels okay. Exam Narrative: General: chronically ill appearing female in NAD Heart: IRRR, normal S1 and S2 Lungs: clear anteriorly, decreased at bases Abdomen: soft, nontender, nondistended, positive bowel sounds Extremities:no apparent edema Skin: multiple ecchymoses present Objective Data Vital Signs Vital Signs: Vital Signs Temp Pulse Resp BP Pulse Ox O2 Del Method 07/16/22 09:15 Room Air 07/16/22 09:15 92 07/16/22 09:16 82 07/16/22 05:03 98.0 F 82 18 100/56 L 98 07/16/22 04:00 78 07/16/22 00:00 76 07/15/22 20:00 81 07/15/22 20:20 Room Air 07/15/22 21:38 97.5 F L 80 16 94/58 L 98 07/15/22 21:06 84 07/15/22 16:25 97.8 F 94 16 120/69 07/15/22 16:18 82 102/56 L 07/15/22 16:00 88 112/63 07/15/22 15:40 89 101/55 L 07/15/22 16:00 89 07/15/22 15:20 91 100/45 L 07/15/22 15:00 82 97/56 L
--- NOTE | 2022-07-16 13:00 | PM.PNNEP ---
Progress Note: A&P Assessment and Plan (1) GAVI (acute kidney injury): Code(s): N17.9 - Acute kidney failure, unspecified Status: Acute Assessment and Plan: suspect due to prerenal factors (poor oral intake) worsened by diuretics and BP medications evaluation to date: urine electrolytes prerenal worsening proteinuria serologies ordered (but previous testing on last hospitalization already noted) HD today (since outpatient schedule will be M/W/F) follow electrolytes, volume status, and clearance follow repeat labs and UOP on the hope for renal recovery (2) Stage 3b chronic kidney disease: Code(s): N18.32 - Chronic kidney disease, stage 3b Status: Chronic Assessment and Plan: this has been present since at least 2019 baseline creatinine had been running ~ 1.4 - 1.8mg/d presumably secondary to hypertension, vascular disease (CAD, hyperlipidemia, CHF/cardiomyopathy leading to cardiorenal syndrome), chronic diuretic therapy and age HOWEVER, on last hospital discharge, creatinine was still in the 3ish range -- possible new baseline?? (3) Acute UTI: Code(s): N39.0 - Urinary tract infection, site not specified Status: Acute Assessment and Plan: urinalysis highly suggestive urine culture with Karoline on Fluconazole (4) Chronic HFrEF (heart failure with reduced ejection fraction): Code(s): I50.22 - Chronic systolic (congestive) heart failure Status: Chronic Assessment and Plan: last Echo with EF ~ 25 - 30% appears relatively compensated at this time seems euvolemic currently watch K+ with use of spironolactone (5) Atrial fibrillation: Code(s): I48.91 - Unspecified atrial fibrillation Status: Chronic Assessment and Plan: rate control strategy on anticoagulation (6) Essential hypertension: Code(s): I10 - Essential (primary) hypertension Status: Chronic Assessment and Plan: systolic 100-130 follow trend of hemodynamics Will continue to follow. Subjective Date/time seen: 07/16/22 13:00 Tolerating dialysis treatment reasonalby well at the time of my visit (seen on HD at ~ 12:55PM); breathing/respiratory status seems stable; no apparent distress at this time; feels okay. Exam Narrative: General: chronically ill appearing female in NAD Heart: IRRR, normal S1 and S2 Lungs: clear anteriorly, decreased at bases Abdomen: soft, nontender, nondistended, positive bowel sounds Extremities:no apparent edema Skin: multiple ecchymoses present Objective Data Vital Signs Vital Signs: Vital Signs Temp Pulse Resp BP Pulse Ox O2 Del Method 07/16/22 09:15 Room Air 07/16/22 09:15 92 07/16/22 09:16 82 07/16/22 05:03 98.0 F 82 18 100/56 L 98 07/16/22 04:00 78 07/16/22 00:00 76 07/15/22 20:00 81 07/15/22 20:20 Room Air 07/15/22 21:38 97.5 F L 80 16 94/58 L 98 07/15/22 21:06 84 07/15/22 16:25 97.8 F 94 16 120/69 07/15/22 16:18 82 102/56 L 07/15/22 16:00 88 112/63 07/15/22 15:40 89 101/55 L 07/15/22 16:00 89 07/15/22 15:20 91 100/45 L 07/15/22 15:00 82 97/56 L 07/15/22 14:40 69 132/95 H 07/15/22 14:20 97 101/56 L 07/15/22 14:00 95 90/54 L 07/15/22 13:40 86 116/66 07/15/22 13:20 104 H 90/69 L 07/15/22 13:16 92 104/59 L 07/15/22 13:10 97.6 F 94 18 102/57 L Intake/Output Intake/Output: Intake & Output 07/13/22 07/14/22 07/15/22 07/16/22 23:59 23:59 23:59 23:59 Intake Total 1127 1330 1260 120 Output Total 1999 50 Balance 1127 1330 -740 70 Meds/Results Medications: Active Medications Generic Name Dose Route Start Last Admin Trade Name Zechariahq PRN Reason Stop Dose Admin Acetaminophen 650 mg 07/10/22 17:53 07/15/22 17:12 Acetaminophen 325 Mg Tablet PO 650 mg Q6H PRN Adminis
--- NOTE | 2022-07-16 14:49 | PM.IMPN ---
Progress Note: A&P Assessment and Plan (1) Acute on chronic renal failure: Code(s): N17.9 - Acute kidney failure, unspecified; N18.9 - Chronic kidney disease, unspecified Status: Acute Assessment and Plan: HD per renal 07/16/2021 interval history:? patient is 71-year-old female with history of cardiomyopathy ejection fraction 25- 30%, history of chronic kidney disease stage 3-4,? on last admission patient was respiratory arrest and was intubated, patient was discharged back to nursing and now presented with acute mental status and sore in her mouth, there are no? vesicles or pustules, does not appear to be thrush, patient is being treated with nystatin and Magic mouthwash to reduce the symptoms increase oral intake, today her mouth lesions appear improved and able to tolerate PO, patient Scr was rising and patient was in metabolic acidosis in need of dialysis, patient had been refusing dialysis and on 07/07? patient family had agreed for dialysis, on 07/08? tunnel catheter was placed and patient had 1st dialysis and 500cc of fluids was removed, patient had? 2nd dialysis on 07/09 again on 07/10 patient had 3rd dailysis, I have ordered Hepatitis B core total ab, it is non reacative, patient seen by die cutter recommended patient will need 3times a week dialysis, social service will arrange for outpatient? dialysis,? patient remains clinically stable will continue to monitor, patient sores on lips and buccal mucosa were not improving and etiology is not certain as there are no pustules or vesicles, however started patient on acyclovir, today lesions are improving, ? patient is growing Karoline albicans and her urine, started the patient on Diflucan, patient has no new complaint patient is waiting for the placement, ? patient will be seen by die cutter, will continue to monitor and further recommendation to follow, (2) Acute UTI: Code(s): N39.0 - Urinary tract infection, site not specified Status: Acute Assessment and Plan: Cultures noted (3) Chronic HFrEF (heart failure with reduced ejection fraction): Code(s): I50.22 - Chronic systolic (congestive) heart failure Status: Chronic Assessment and Plan: -her echo on 12/21/2021 was read as the following? 1. Complete two-dimensional, color flow and Doppler transthoracic echocardiogram is performed. ? 2. Left ventricular chamber dimension is moderately enlarged. ? 3. Left ventricular systolic function is severely reduced, estimated at 25-30%. ? 4. Severe biatrial dilation. ? 5. Moderate mitral and tricuspid regurgitation. ? 6. Mild aortic regurgitation. ? 7. Atrial fibrillation. Lasix, spironolactone, and Entresto are all on hold at this time due to the renal failure. (4) Chronic atrial fibrillation: Code(s): I48.20 - Chronic atrial fibrillation, unspecified Status: Acute Assessment and Plan: -continue with metoprolol -she is rate controlled. -continue with Xarelto, may need to renally adjust (5) Mixed hyperlipidemia: Code(s): E78.2 - Mixed hyperlipidemia Status: Acute Assessment and Plan: -continue with rosuvastatin (6) Hypothyroidism: Code(s): E03.9 - Hypothyroidism, unspecified Status: Acute Assessment and Plan: -continue with levothyroxine (7) Essential hypertension: Code(s): I10 - Essential (primary) hypertension Status: Chronic Assessment and Plan: -hold Lasix, hold Entresto -continue with metoprolol Subjective Date/time seen: 07/16/22 14:50 07/16/2021 interval history:? patient is 71-year-old female with history of cardiomyopathy ejection fraction 25- 30%, history of chronic kidney disease stage 3-4,? on last admission patient was respiratory arrest and was intubated, patient was discharged back to nursing and now presented with acute mental status and sore in her mouth, there are no? vesicles or pustules, does not appear to be thrush, patient is being treate
--- NOTE | 2022-07-16 14:58 | PCPTNOTE ---
Unable to see patient for Physical Therapy secondary to patient being out of the room for dialysis per RN.
[2022-07-16] MEDS: RIVAROXABAN 20 MG TABLET PO (17:28)
[2022-07-16] MEDS: lamoTRIgine 100 MG TABLET PO (21:02)
[2022-07-16] MEDS: SERTRALINE HCL 50 MG TABLET 150 MG PO (21:03)
[2022-07-16] MEDS: SODIUM CHLORIDE NASAL GEL 14.1 GM 1 APPLIC NASAL (23:54)
[2022-07-17] VITALS (7 sets, daily range): BP systolic 99–100; BP diastolic 57–58; PULSE 75–90; RESP 17–18; TEMP 36.4–36.6; O2SAT 100
[2022-07-17] MEDS: MAGNES & ALUM HYD/SIMETH/DIPHENHYD/LIDOCAINE 119 ML MOUTHWASH BY MOUTH ×5 (00:03→17:43)
[2022-07-17] MEDS: LEVOTHYROXINE SODIUM 125 MCG TABLET PO (05:28)
[2022-07-17] MEDS: ACYCLOVIR 400 MG TABLET PO ×3 (10:04→17:44)
[2022-07-17] MEDS: FERROUS SULFATE 324 MG TABLET PO (10:04)
[2022-07-17] MEDS: ASCORBIC ACID 500 MG TABLET 1000 MG PO (10:04)
[2022-07-17] MEDS: SERTRALINE HCL 50 MG TABLET PO (10:04)
[2022-07-17] MEDS: PYRIDOXINE HCL 50 MG TABLET PO (10:04)
[2022-07-17] MEDS: PANTOPRAZOLE 40 MG TABLET PO (10:04)
[2022-07-17] MEDS: allopurinoL 100 MG TABLET PO (10:04)
[2022-07-17] MEDS: lamoTRIgine 50 MG TABLET PO (10:04)
[2022-07-17] MEDS: CYANOCOBALAMIN 500 MCG TABLET PO (10:05)
[2022-07-17] MEDS: METOPROLOL TARTRATE 25 MG TABLET PO (10:05)
[2022-07-17] MEDS: BENZOCAINE 20% DENTAL GEL 9 GM TUBE 1 APPLIC TOPICAL ×3 (10:07→17:44)
[2022-07-17] MEDS: CHOLECALCIFEROL 400 UNITS TABLET (VIT D) PO (10:08)
[2022-07-17] MEDS: ACYCLOVIR 5% OINTMENT 15 GM TUBE 1 APPLIC TOPICAL ×4 (10:09→17:44)
[2022-07-17] MEDS: FLUCONAZOLE 100 MG TABLET PO (12:36)
--- NOTE | 2022-07-17 13:01 | P.PNNP_ITS ---
Progress Note: A&P Assessment and Plan (1) GAVI (acute kidney injury): Code(s): N17.9 - Acute kidney failure, unspecified Status: Acute Assessment and Plan: * suspect due to prerenal factors (poor oral intake) worsened by diuretics and BP medications * evaluation to date: * urine electrolytes prerenal * worsening proteinuria * serologies ordered (but previous testing on last hospitalization already noted) * HD tomorrow (presumably at her outpatient dialysis clinic) * follow electrolytes, volume status, and clearance * follow repeat labs and UOP on the hope for renal recovery (2) Stage 3b chronic kidney disease: Code(s): N18.32 - Chronic kidney disease, stage 3b Status: Chronic Assessment and Plan: * this has been present since at least 2019 * baseline creatinine had been running ~ 1.4 - 1.8mg/d * presumably secondary to hypertension, vascular disease (CAD, hyperlipidemia, CHF/cardiomyopathy leading to cardiorenal syndrome), chronic diuretic therapy and age * HOWEVER, on last hospital discharge, creatinine was still in the 3ish range -- possible new baseline?? (3) Acute UTI: Code(s): N39.0 - Urinary tract infection, site not specified Status: Acute Assessment and Plan: * urinalysis highly suggestive * urine culture with Karoline * on Fluconazole (4) Chronic HFrEF (heart failure with reduced ejection fraction): Code(s): I50.22 - Chronic systolic (congestive) heart failure Status: Chronic Assessment and Plan: * last Echo with EF ~ 25 - 30% * appears relatively compensated at this time * seems euvolemic currently * watch K+ with use of spironolactone (5) Atrial fibrillation: Code(s): I48.91 - Unspecified atrial fibrillation Status: Chronic Assessment and Plan: * rate control strategy * on anticoagulation (6) Essential hypertension: Code(s): I10 - Essential (primary) hypertension Status: Chronic Assessment and Plan: * systolic 100-130 * follow trend of hemodynamics Will continue to follow. Subjective Date/time seen: 07/17/22 13:01 Tolerated dialysis treatment yesterday without any issue or problems; no events overnight or earlier this morning; noted possible discharge today assuming everything has been finalized; no apparent distress noted at the time of my visit. Exam Narrative: General: chronically ill appearing female in NAD Heart: IRRR, normal S1 and S2 Lungs: clear anteriorly, decreased at bases Abdomen: soft, nontender, nondistended, positive bowel sounds Extremities:no apparent edema Skin: multiple ecchymoses healing Objective Data Vital Signs Vital Signs: Vital Signs Temp Pulse Resp BP Pulse Ox O2 Del Method 07/17/22 10:05 88 07/17/22 05:43 97.8 F 85 18 99/58 L 100 07/17/22 04:00 75 07/17/22 00:00 90 07/16/22 20:00 89 07/16/22 21:02 Room Air 07/16/22 22:20 98.5 F 76 16 97/49 L 99 07/16/22 21:04 80 07/16/22 16:00 88 07/16/22 15:58 98.3 F 76 16 108/54 L 07/16/22 15:54 80 103/50 L 07/16/22 15:40 83 97/47 L 07/16/22 15:20 87 130/53 L 07/16/22 15:00 86 94/50 L 07/16/22 14:40 85 97/57 L 07/16/22 14:20
--- NOTE | 2022-07-17 13:01 | PM.PNNEP ---
Progress Note: A&P Assessment and Plan (1) GAVI (acute kidney injury): Code(s): N17.9 - Acute kidney failure, unspecified Status: Acute Assessment and Plan: suspect due to prerenal factors (poor oral intake) worsened by diuretics and BP medications evaluation to date: urine electrolytes prerenal worsening proteinuria serologies ordered (but previous testing on last hospitalization already noted) HD tomorrow (presumably at her outpatient dialysis clinic) follow electrolytes, volume status, and clearance follow repeat labs and UOP on the hope for renal recovery (2) Stage 3b chronic kidney disease: Code(s): N18.32 - Chronic kidney disease, stage 3b Status: Chronic Assessment and Plan: this has been present since at least 2019 baseline creatinine had been running ~ 1.4 - 1.8mg/d presumably secondary to hypertension, vascular disease (CAD, hyperlipidemia, CHF/cardiomyopathy leading to cardiorenal syndrome), chronic diuretic therapy and age HOWEVER, on last hospital discharge, creatinine was still in the 3ish range -- possible new baseline?? (3) Acute UTI: Code(s): N39.0 - Urinary tract infection, site not specified Status: Acute Assessment and Plan: urinalysis highly suggestive urine culture with Karoline on Fluconazole (4) Chronic HFrEF (heart failure with reduced ejection fraction): Code(s): I50.22 - Chronic systolic (congestive) heart failure Status: Chronic Assessment and Plan: last Echo with EF ~ 25 - 30% appears relatively compensated at this time seems euvolemic currently watch K+ with use of spironolactone (5) Atrial fibrillation: Code(s): I48.91 - Unspecified atrial fibrillation Status: Chronic Assessment and Plan: rate control strategy on anticoagulation (6) Essential hypertension: Code(s): I10 - Essential (primary) hypertension Status: Chronic Assessment and Plan: systolic 100-130 follow trend of hemodynamics Will continue to follow. Subjective Date/time seen: 07/17/22 13:01 Tolerated dialysis treatment yesterday without any issue or problems; no events overnight or earlier this morning; noted possible discharge today assuming everything has been finalized; no apparent distress noted at the time of my visit. Exam Narrative: General: chronically ill appearing female in NAD Heart: IRRR, normal S1 and S2 Lungs: clear anteriorly, decreased at bases Abdomen: soft, nontender, nondistended, positive bowel sounds Extremities:no apparent edema Skin: multiple ecchymoses healing Objective Data Vital Signs Vital Signs: Vital Signs Temp Pulse Resp BP Pulse Ox O2 Del Method 07/17/22 10:05 88 07/17/22 05:43 97.8 F 85 18 99/58 L 100 07/17/22 04:00 75 07/17/22 00:00 90 07/16/22 20:00 89 07/16/22 21:02 Room Air 07/16/22 22:20 98.5 F 76 16 97/49 L 99 07/16/22 21:04 80 07/16/22 16:00 88 07/16/22 15:58 98.3 F 76 16 108/54 L 07/16/22 15:54 80 103/50 L 07/16/22 15:40 83 97/47 L 07/16/22 15:20 87 130/53 L 07/16/22 15:00 86 94/50 L 07/16/22 14:40 85 97/57 L 07/16/22 14:20 82 85/45 L 07/16/22 14:00 87 88/43 L 07/16/22 13:40 78 103/39 L 07/16/22 13:20 83 97/42 L Intake/Output Intake/Output: Intake & Output 07/14/22 07/15/22 07/16/22 07/17/22 23:59 23:59 23:59 23:59 Intake Total 1330 1260 660 360 Output Total 1999 2550 Balance 1330 -740 -1890 360 Meds/Results Medications: Active Medications Generic Name Dose Route Start Last Admin Trade Name Paulette PRN Reason Stop Dose Admin Acetaminophen 650 mg 07/10/22 17:53 07/15/22 17:12 Acetaminophen 325 Mg Tablet PO 650 mg Q6H PRN Administration Mild Pain (1-3) or Fever Acyclovir 400 mg 07/11/22 13:00 07/17/22 12:36 Acyclovir 400 Mg Tablet
--- NOTE | 2022-07-17 13:58 | PM.DS ---
DS: Admitting Diagnosis Discharge Date 07/17/2022 Admitting Diagnosis Weakness DS: Discharge Diagnosis Discharge Diagnosis (1) Acute on chronic renal failure: Code(s): N17.9 - Acute kidney failure, unspecified; N18.9 - Chronic kidney disease, unspecified Status: Acute Assessment and Plan: HD per renal 07/16/2021 interval history:? patient is 71-year-old female with history of cardiomyopathy ejection fraction 25- 30%, history of chronic kidney disease stage 3-4,? on last admission patient was respiratory arrest and was intubated, patient was discharged back to nursing and now presented with acute mental status and sore in her mouth, there are no? vesicles or pustules, does not appear to be thrush, patient is being treated with nystatin and Magic mouthwash to reduce the symptoms increase oral intake, today her mouth lesions appear improved and able to tolerate PO, patient Scr was rising and patient was in metabolic acidosis in need of dialysis, patient had been refusing dialysis and on 07/07? patient family had agreed for dialysis, on 07/08? tunnel catheter was placed and patient had 1st dialysis and 500cc of fluids was removed, patient had? 2nd dialysis on 07/09 again on 07/10 patient had 3rd dailysis, I have ordered Hepatitis B core total ab, it is non reacative, patient seen by manager mac recommended patient will need 3times a week dialysis, social service will arrange for outpatient? dialysis,? patient remains clinically stable will continue to monitor, patient sores on lips and buccal mucosa were not improving and etiology is not certain as there are no pustules or vesicles, however started patient on acyclovir, today lesions are improving, ? patient is growing Karoline albicans and her urine, started the patient on Diflucan, patient has no new complaint patient is waiting for the placement, ? patient will be seen by manager mac, will continue to monitor and further recommendation to follow, (2) Acute UTI: Code(s): N39.0 - Urinary tract infection, site not specified Status: Acute Assessment and Plan: Cultures noted (3) Chronic HFrEF (heart failure with reduced ejection fraction): Code(s): I50.22 - Chronic systolic (congestive) heart failure Status: Chronic Assessment and Plan: -her echo on 12/21/2021 was read as the following? 1. Complete two-dimensional, color flow and Doppler transthoracic echocardiogram is performed. ? 2. Left ventricular chamber dimension is moderately enlarged. ? 3. Left ventricular systolic function is severely reduced, estimated at 25-30%. ? 4. Severe biatrial dilation. ? 5. Moderate mitral and tricuspid regurgitation. ? 6. Mild aortic regurgitation. ? 7. Atrial fibrillation. Lasix, spironolactone, and Entresto are all on hold at this time due to the renal failure. (4) Chronic atrial fibrillation: Code(s): I48.20 - Chronic atrial fibrillation, unspecified Status: Acute Assessment and Plan: -continue with metoprolol -she is rate controlled. -continue with Xarelto, may need to renally adjust (5) Mixed hyperlipidemia: Code(s): E78.2 - Mixed hyperlipidemia Status: Acute Assessment and Plan: -continue with rosuvastatin (6) Hypothyroidism: Code(s): E03.9 - Hypothyroidism, unspecified Status: Acute Assessment and Plan: -continue with levothyroxine (7) Essential hypertension: Code(s): I10 - Essential (primary) hypertension Status: Chronic Assessment and Plan: -hold Lasix, hold Entresto -continue with metoprolol DS: Summary Hospital Course Reason for hospitalization: Weakness Narrative: This is a 71-year-old female patient who is at [facility].? (The patient was just discharged from this facility on 06/27/2022.? The patient had gone into respiratory arrest on that admission and had been intubated.)? The patient now has multiple sores on her lips and in her mouth and down her
[2022-07-17 15:28] LABS: EDCOVIDSCREEN Negative (Negative)
[2022-07-17] MEDS: RIVAROXABAN 20 MG TABLET PO (17:44)
== END 2022-07-17 18:05 | DRG 673 ==
LOC: ANHED 19:29 → ANHIMU 19:50 → ANH3MEDSUR 07-09 18:23
PROVIDERS: Emergency Medicine; Internal Medicine Nephrology; Nurse Practitioner; Surgery; Admitting Provider Internal Medicine; Emergency Provider Nurse Practitioner Family; PCP Family Medicine; Visit Provider Family Medicine
PROC: 0JH63XZ Insertion of Tunneled Vascular Access Device into Chest Subcutaneous Tissue and Fascia, Percutaneous Approach (ICD-10-PCS; CPT 36908; principal; 2022-07-08 09:30)
DX: N17.9 Acute kidney failure, unspecified (principal); U07.1 COVID-19; I13.0 Hypertensive heart and chronic kidney disease with heart failure and stage 1 through stage 4 chronic kidney disease, or unspecified chronic kidney disease; I48.20 Chronic atrial fibrillation, unspecified; I50.22 Chronic systolic (congestive) heart failure; E78.2 Mixed hyperlipidemia; E03.9 Hypothyroidism, unspecified; N18.32 Chronic kidney disease, stage 3b; Z87.891 Personal history of nicotine dependence; Z79.899 Other long term (current) drug therapy; Z79.52 Long term (current) use of systemic steroids; Z79.890 Hormone replacement therapy; Z88.2 Allergy status to sulfonamides; Z88.1 Allergy status to other antibiotic agents; Z83.3 Family history of diabetes mellitus; Z82.49 Family history of ischemic heart disease and other diseases of the circulatory system; Z82.3 Family history of stroke
CPT/HCPCS: 36415; 36600; 71045; 71046; 76937; 77001; 80053; 80069; 81001; 81050; 82436; 82550; 82570; 82595; 82805; 83520; 83605; 83735; 83880; 83930; 83935; 84100; 84133; 84155; 84156; 84165; 84166; 84300; 84439; 84443; 84484; 84540; 85025; 85027; 85055; 85610; 85652; 85730; 85999; 86036; 86038; 86060; 86160; 86162; 86215; 86225; 86235; 86334; 86703; 86704; 86705; 86706; 86803; 87040; 87086; 87088; 87106; 87340; 87426; 87637; 93005; 93970; 97110; 97161; 97165; 97166; 97530; 99285; A9270; C1750; C1751; C9803; G0257; G0432; J0690; J1644; J1956; J2370; J2704; J3010; J7030; J7040; P9047

== ENCOUNTER 2022-12-21 19:41 | Emergency (ER) | payer MEDICARE, SELFPAY ==
[2022-12-21] VITALS (12 sets, daily range): BP systolic 94–104; BP diastolic 55–61; PULSE 89–112; RESP 8–12; O2SAT 90–100
[2022-12-21] MEDS: DEXTROSE 50% 25 GM/50 ML SYRINGE (20:01)
[2022-12-21] MEDS: MORPHINE SULFATE (*CRX) 4 MG/ML INJ IV PUSH (20:47)
[2022-12-21] MEDS: LORazepam INJ (*CRX) 2 MG/ML VIAL IV PUSH (20:48)
[2022-12-21 20:55] LABS: Glucose Point of Care 42 mg/dl (65-105)
--- NOTE | 2022-12-21 21:01 | ED.GENADULT ---
HPI - General Adult General Chief complaint: Unspecified Stated complaint: Decline in condition Time Seen by Provider: 12/21/22 19:47 History of Present Illness HPI narrative: This is a 72-year-old female presenting to ED with a general decline in her condition. She has not been doing well for quite some time but over the last week she has got significantly worse. She has stopped eating, she is altered and hallucinating. She is unable to provide any information during my interview. Family is at bedside and I spoke with her daughter Luna Rincon and her brother Jung heart the power employment attorney and they have agreed to comfort measures only with hospice placement. Related Data Home Medications Medication Instructions Recorded Confirmed cholecalciferol (vitamin D3) 10 400 unit PO DAILY 05/10/19 07/05/22 mcg (400 unit) capsule cyanocobalamin (vitamin B-12) 500 500 mcg PO DAILY 12/09/21 07/05/22 mcg chewable tablet ferrous sulfate 325 mg (65 mg 325 mg PO DAILY 12/20/21 07/05/22 iron) tablet ascorbic acid (vitamin C) 1,000 mg 1 g PO DAILY 06/02/22 07/05/22 tablet lamotrigine 100 mg tablet 100 mg PO HS 06/02/22 07/05/22 sertraline 100 mg tablet 150 mg PO HS 06/02/22 07/05/22 benzocaine 20 %-menthol 0.1 %-zinc 1 ea mucous membrane TID 07/05/22 07/05/22 chloride 0.15 % mucosal gel (Orajel 3X Mouth Sores) hydrocortisone 1 % topical cream 1 applic topical BID 07/05/22 07/05/22 lamotrigine 25 mg tablet 50 mg PO QAM 07/05/22 07/05/22 riboflavin (vitamin B2) 50 mg 50 mg PO DAILY 07/05/22 07/05/22 tablet sertraline 50 mg tablet 50 mg PO QAM 07/05/22 07/05/22 sodium bicarbonate 650 mg tablet 650 mg PO QAM 07/05/22 07/05/22 pyridoxine (vitamin B6) 50 mg 50 mg PO DAILY 07/06/22 07/06/22 capsule Allergies Allergy/AdvReac Type Severity Reaction Status Date / Time cefuroxime Allergy Unknown Unknown Verified 06/02/22 03:55 ezetimibe Allergy Unknown Unknown Verified 06/02/22 03:55 simvastatin Allergy Unknown Unknown Verified 06/02/22 03:55 Sulfa (Sulfonamide Allergy Unknown Unknown Verified 06/02/22 03:55 Antibiotics) sulfanilamide Allergy Unknown Unknown Verified 06/02/22 03:55 [facility] Past Medical History Medical History Acute on chronic renal insufficiency Age-related osteoporosis with current pathological fracture Allergic rhinitis Anemia Asthma, mild intermittent Breast cancer With chemotherapy and radiation Cardiomyopathy Chronic congestive heart failure Chronic HFrEF (heart failure with reduced ejection fraction) Chronic renal insufficiency, stage III (moderate) Closed wedge compression fracture of thoracic vertebra with routine healing Coronary artery disease Depression Elevated glucose H/O malignant neoplasm of breast H/O: gout History of poliomyelitis History of pulmonary embolism Hypomagnesemia Hypothyroidism Mild intermittent asthma with exacerbation Mixed hyperlipidemia Osteopenia Other hyperlipidemia Paroxysmal atrial fibrillation Peripheral vascular disease Post-polio syndrome Prediabetes Severe episode of recurrent major depressive disorder, without psychotic features Stage 3b chronic kidney disease Thyroid disease Vitamin D deficiency Surgical History Surgical History History of Achilles tendon repair History of cardiac cath History of D&C History of knee replacement History of lumpectomy Both breast History of partial hysterectomy Hx of cholecystectomy Hx of colonoscopy Hx of total knee replacement Left Family History Family History Father Hypertension Family history of kidney disease Sibling Hypertension Family history of elevated blood lipids Other Cerebrovascular accident Diabetes mellitus Social History Social History Social History: [employer]
[2022-12-22] VITALS (38 sets, daily range): BP systolic 85–96; BP diastolic 52–61; PULSE 95–114; RESP 7–9; O2SAT 92–98
--- NOTE | 2022-12-22 05:32 | PC.NURSE ---
Dr. Haider talked to patient's brother and the decision was made to make patient comfortable and not perform any aggressive treatment. He discussed the decision to get hospice involved and make patient a DNR. Patient's brother was in agreement.
--- NOTE | 2022-12-22 07:02 | PC.NURSE ---
Events Intern spoke with Jodi from [facility] and she reported she will be down shortly.
--- NOTE | 2022-12-22 07:35 | PC.NURSE ---
assumed care of pt, pt resting w/ grand daughter at bedside, discussed POC, hospice tray given to family, Bernarda w/ [facility] at bedside at this time.
--- NOTE | 2022-12-22 08:53 | PCCCNOTE ---
Addendum entered by Jodi Del Rio RN 12/22/22 10:18: Admitting to Inpatient Hospice with Dr. De Los Santos. Called [facility] Admission Hotline to notify. Original Note: Late entry 709: Phone call received from filling hauler weaving [employer] about hospice consult. Spoke with Dr. Haider and he states that she is possible for GIP Meet with patient and granddaughter Luna Gaitan in ED Room 1. Patient is unresponsive, spoke with granddaanh Carrasco with sibling Marty Newell on speaker phone who is the healthcare POA. Agreeable for hospice, explained to the family and provided choices. They do not have any specific choice, agreeable to Vit. Called to [facility] call center- provided details, scheduled family appt at 0930. Fax'd referral. [phone] Called to local [facility] office, they should be able to have Debra out around 0900 and the nurse later. Update provided to granddaanh Luna.
--- NOTE | 2022-12-22 09:37 | PC.NURSE ---
Corine BUNN w/ [facility] here for hospice evaluation. Family at bedside. Pt remains on tele monitor, appears comfortable.
== END 2022-12-22 10:31 | disposition hospice, inpatient (51) ==
PROVIDERS: Emergency Provider Emergency Medicine; PCP Family Medicine
DX: Z51.5 Encounter for palliative care (principal); N18.32 Chronic kidney disease, stage 3b; I48.0 Paroxysmal atrial fibrillation; I25.10 Atherosclerotic heart disease of native coronary artery without angina pectoris; I42.9 Cardiomyopathy, unspecified; I50.22 Chronic systolic (congestive) heart failure; I73.9 Peripheral vascular disease, unspecified; J45.20 Mild intermittent asthma, uncomplicated; E03.9 Hypothyroidism, unspecified; E78.2 Mixed hyperlipidemia; E55.9 Vitamin D deficiency, unspecified; R73.03 Prediabetes; M10.9 Gout, unspecified; M85.80 Other specified disorders of bone density and structure, unspecified site; M81.0 Age-related osteoporosis without current pathological fracture; F33.9 Major depressive disorder, recurrent, unspecified; Z96.652 Presence of left artificial knee joint; Z85.3 Personal history of malignant neoplasm of breast; Z86.12 Personal history of poliomyelitis; Z86.711 Personal history of pulmonary embolism; Z92.3 Personal history of irradiation; Z92.21 Personal history of antineoplastic chemotherapy; Z87.891 Personal history of nicotine dependence; Z90.711 Acquired absence of uterus with remaining cervical stump; Z90.49 Acquired absence of other specified parts of digestive tract; Z66 Do not resuscitate; Z79.01 Long term (current) use of anticoagulants
CPT/HCPCS: 82948; 96374; 96375; 99284; J2060; J2270

== ENCOUNTER 2022-12-22 11:03 | HOS | payer OTHER, MEDICARE, SELFPAY ==
--- NOTE | 2022-12-22 11:18 | PM.IMHP ---
H&P: HPI History of Present Illness Date/Time: 12/22/22 11:18 Chief Complaint: Uncontrolled dyspnea and discomfort Narrative: 72 y/o female with esrd on dialysis and multiple comorbidities as outlined in pmhx presented to ED today with altered MS and shock. Urine in her chronic banda was dark and cloudy. She was presumed to have a catheter-related UTI with septic shock. However, based upon her previously expressed wishes, her brother (who is also POA) opted for comfort care only. The remainder of present family members who were present were in agreement with this. Upon presentation she was sob and restless. However, in ED she received 2mg and ativan 1mg IV and has remained comfortable since. [facility] Past Medical History Medical History Acute on chronic renal insufficiency Age-related osteoporosis with current pathological fracture Allergic rhinitis Anemia Asthma, mild intermittent Breast cancer With chemotherapy and radiation Cardiomyopathy Chronic congestive heart failure Chronic HFrEF (heart failure with reduced ejection fraction) Chronic renal insufficiency, stage III (moderate) Closed wedge compression fracture of thoracic vertebra with routine healing Coronary artery disease Depression Elevated glucose H/O malignant neoplasm of breast H/O: gout History of poliomyelitis History of pulmonary embolism Hypomagnesemia Hypothyroidism Mild intermittent asthma with exacerbation Mixed hyperlipidemia Osteopenia Other hyperlipidemia Paroxysmal atrial fibrillation Peripheral vascular disease Post-polio syndrome Prediabetes Severe episode of recurrent major depressive disorder, without psychotic features Stage 3b chronic kidney disease Thyroid disease Vitamin D deficiency Surgical History Surgical History History of Achilles tendon repair History of cardiac cath History of D&C History of knee replacement History of lumpectomy Both breast History of partial hysterectomy Hx of cholecystectomy Hx of colonoscopy Hx of total knee replacement Left Family History Family History Father Hypertension Family history of kidney disease Sibling Hypertension Family history of elevated blood lipids Other Cerebrovascular accident Diabetes mellitus Social History Social History Social History: The patient is . She is retired from [employer]. Marty Newell is listed as a contact center engineer who has is her sibling. She had 1 child who has . Code status: DNR Smoking packs per day: 1 Smoking cigarettes per day: 20.0 Years smoked: 40 Smoking pack-years: 40.00 Smoking status: Unknown if ever smoked Second hand tobacco smoke exposure: No Smoking end date: 12/20/96 Alcohol intake: former Drinks per week: 3 Substance use: unknown Substance use type: does not use Lack of Transportation: No Lack of Food: Never True Current Housing: I Have Housing Concerned About Future Housing: No Difficulty Paying Gas/Electric Bills: No Difficulty Paying for Meds: No Currently Unemployed: No Education: High School Diploma/GED Difficulty w/ Childcare or Family Care: No Living arrangements: with family Occupation/Education: retired Gender identity (if verbalized by the patient): Female Sexual Orientation (if Verbalized by the Patient): Straight or Heterosexual Spiritual care concerns: No Agree to blood products: Yes Meds Home Medications and Allergies Home Medications Medication Instructions Recorded Confirmed Type cholecalciferol (vitamin D3) 10 400 unit PO DAILY 05/10/19 07/05/22 History mcg (400 unit) capsule cyanocobalamin (vitamin B-12) 500 500 mcg PO DAILY 12/09/21 07/05/22 History mcg chewable tablet ferrous sulfate 325 mg (65 mg 325 mg P
[2022-12-22] MEDS: HYDROmorphone HCL/PF (*CRX) 50 MG in SODIUM CHLORIDE 0.9% IV 95 ML IV CONT (13:05)
--- NOTE | 2022-12-23 09:12 | PM.DDS ---
Discharge Summary Date and Time Date of : 12/22/22 Time of : 16:13 Provider Pronounced By: Anitra Meza RN Probable Cause of Probable Cause of : Sepsis due to urinary tract infection Summary Hospital Course: Admitted to inpatient hospice service due to uncontrolled dyspnea discomfort and restlessness Medications titrated to comfort Mrs. Allred peacefully. Additional Data Confirmation of as documented by pronouncing clinician: Pupillary Reflex, Palpable Pulses, Response to Stimuli, Heart Tones and Breath Sounds Name of Provider Notified: Dr. Ector De Los Santos Time Provider Notified: 16:21 Provider Requests Autopsy: No Paste Up Copy Camera Operator Notified: Yes Date [facility] Notified of : 12/22/22 Time [facility] Notified of : 17:07
== END 2022-12-22 16:13 | disposition expired | DRG 951 ==
PROVIDERS: Admitting Provider Internal Medicine; PCP Family Medicine; Visit Provider Internal Medicine
DX: Z51.5 Encounter for palliative care (principal); A41.9 Sepsis, unspecified organism; N18.6 End stage renal disease; N39.0 Urinary tract infection, site not specified; I50.22 Chronic systolic (congestive) heart failure; Z99.2 Dependence on renal dialysis; Z66 Do not resuscitate
CPT/HCPCS: A9270; J1170